=== PATIENT | male | born 1970 | race Caucasian/White ===

== ENCOUNTER 2022-03-21 22:33 | Inpatient (IN) | payer OTHER, SELFPAY ==
--- NOTE | ~2022-03-21 | NM_ITS ---
EXAMINATION: NUCLEAR MEDICINE HEPATOBILIARY SCAN CLINICAL INFORMATION: Acute right upper quadrant pain. Evaluate for cholecystitis. COMPARISON: Ultrasound abdomen limited 03/22/2022. TECHNIQUE: Following intravenous administration of 5 mCi of 99m Tc mebrofenin, images over the right upper quadrant were obtained up to 3 1/2 hours. No delayed images were obtained. FINDINGS: There is normal hepatic uptake without focal defect. There is no isotope activity seen in the CBD, gallbladder and small bowel up to 2 hours.. At 3 1/2 hours there is activity seen in the gallbladder consistent with cystic duct patency. Small bowel and CBD is not visualized. NM/NM hepatobiliary wo pharm IMPRESSION: Normal hepatic uptake. Delayed activity seen in the gallbladder at 3 and half hours consistent with patent cystic duct. CBD and small bowel is not visualized up to 3 1/2 priors. CBD obstruction cannot be excluded. CBD appears normal caliber on MRI and ultrasound.
--- NOTE | ~2022-03-21 | MR_ITS ---
EXAMINATION: MR ABDOMEN WITHOUT AND WITH CONTRAST CLINICAL INFORMATION: Dilated biliary ducts, transaminitis. COMPARISON: Abdominal ultrasound from earlier today. TECHNIQUE: MR abdomen was performed without and with use of 9 mL intravenous Gadavist gadolinium contrast. Postcontrast images are performed in multiphase dynamic sequences. Imaging was performed in 3 planes. MRCP was also performed with 3-D reformatted images obtained on a separate workstation. FINDINGS: LUNG BASES: The visualized lung bases are unremarkable. LIVER, GALLBLADDER, AND BILIARY TREE: Hepatic steatosis with small areas of focal fatty sparing most pronounced surrounding the gallbladder. Minimal pericholecystic fluid without significant mural thickening. No intraluminal abnormality. PANCREAS: No parenchymal or peripancreatic abnormality. SPLEEN: Unremarkable. ADRENAL GLANDS: Unremarkable. KIDNEYS AND URETERS: Tiny T2 hyperintense nonenhancing focus in the upper pole of the left kidney measuring 0.4 cm (image 52, series 101 GASTROINTESTINAL TRACT: The stomach, visualized small bowel and visualized large bowel are unremarkable. ABDOMINAL WALL: Unremarkable. LYMPH NODES: No lymphadenopathy. VASCULAR: Unremarkable. OSSEOUS STRUCTURES: Severe degenerative disc disease at L5-S1. No suspicious abnormality. MRCP: No significant intrahepatic biliary ductal dilatation. Common hepatic duct measures 0.8 cm and common bile duct measures up to 1.0 cm (image 27, series 13). With normal tapering at the pancreatic head. No intraluminal abnormality. The cystic duct is patent. No pancreatic ductal dilatation. MR/MR abdomen wo/w con IMPRESSION: 1. Minimal pericholecystic fluid without significant mural thickening or intraluminal abnormality. These findings somewhat correlate with ultrasound findings. Mild acute cholecystitis cannot be excluded. If symptoms persist or worsen, short-term repeat right upper quadrant ultrasound is recommended to assess for change. 2. Mild dilatation of the common bile duct without intraluminal abnormality. No evidence for choledocholithiasis. 3. Hepatic steatosis with small areas of focal fatty sparing. 4. Tiny focus in the upper pole the left kidney demonstrates benign features likely representing a cyst. 5. L5-S1 severe degenerative disc disease.
--- NOTE | ~2022-03-21 | US_ITS ---
EXAMINATION: US ABDOMEN LIMITED CLINICAL INFORMATION: Right upper quadrant pain. Jaundice.. COMPARISON: None TECHNIQUE: Real-time imaging of the right upper quadrant abdominal viscera. FINDINGS: PANCREAS: Normal. LIVER: The liver is normal in size. The liver contour is normal. There is diffuse increased liver parenchymal echogenicity, consistent with hepatic steatosis. No focal hepatic lesion. There are dilated intrahepatic ducts. GALLBLADDER: Echogenic bile throughout the gallbladder lumen. Pericholecystic fluid noted. Borderline gallbladder wall thickening. No stones are seen. COMMON BILE DUCT: Dilated in caliber measuring 0.9 cm in diameter. RIGHT KIDNEY: Normal. No hydronephrosis. No renal calculi or focal parenchymal lesions. The kidney measures 11.2 cm in maximum dimension. FREE FLUID: None. US/US abdomen limited IMPRESSION: Dilated intrahepatic and extrahepatic bile ducts. Prominent sludge throughout the gallbladder. Associated borderline gallbladder wall thickening and pericholecystic fluid raises concern for cholecystitis. Hepatic steatosis.
[2022-03-21 22:37] VITALS: BP 129/64; PULSE 62; RESP 18; TEMP 37.1; O2SAT 96; BMI 28.0
[2022-03-21 22:46] LABS: MANUAL DIFF FLAG NO
[2022-03-21 22:51] LABS: Basophils Percent Auto 0.5 % (0-2); Eosinophils Absolute Auto 0.1 X10*3/uL (0.0-0.4); Eosinophils Percent Auto 0.9 % (0-4); Hematocrit 40.5 % (42.0-52.0); Hemoglobin 13.3 g/dl (14.0-18.0); Imm Gran Abs Auto 0.02 X10*3/uL (0.00-0.03); Imm Gran Pct Auto 0.3 % (0.0-0.4); Lymphocytes Absolute Auto 1.5 X10*3/uL (1.2-4.9); Lymphocytes Percent Auto 23.3 % (20-40); Mean Corpuscular HGB Conc 32.8 g/dl (31.0-36.0); Mean Corpuscular Hemoglobin 29.6 pg (27.0-33.0); Mean Platelet Volume 12.6 fL (9.4-12.4); Monocytes Absolute Auto 0.6 X10*3/uL (0.1-1.2); Neutrophils Absolute Auto 4.2 x10*3/uL (2.0-8.3); Platelet Count 161 X10*3/uL (160-400); Red Cell Distribution Width 13.6 % (11.0-16.0); White Blood Count 6.4 X10*3/uL (4.8-10.8)
[2022-03-21 23:04] LABS: Alanine Aminotransferase 510 U/L (0-40); Albumin Level 3.7 g/dL (3.5-5.0); Alkaline Phosphatase 212 U/L (39-117); Anion Gap 11 (12-20); Aspartate Amino Transferase 207 U/L (5-37); Bilirubin Total 5.2 mg/dL (0.0-1.0); Blood Urea Nitrogen 11 mg/dL (9-16); Carbon Dioxide 27 mmol/L (22-29); Chloride 109 mmol/L (96-108); Creatinine Clr Calc Pharmacy 88.8; Estimated Glomerular Filt Rate > 60; Glucose Random 232 mg/dL (60-115); Lipase 76 U/L (8-78); Potassium 4.2 mmol/L (3.3-5.1); Sodium 143 mmol/L (135-145); Total Protein 6.3 g/dL (6.5-8.0)
--- NOTE | 2022-03-22 00:28 | ED.ABDPAIN ---
HPI - Abdominal Pain General Chief Complaint: Abdominal Pain Stated Complaint: eyes yellow, abd pain Time Seen by Provider: 03/22/22 00:15 Source: patient Mode of arrival: ambulatory Limitations: no limitations History of Present Illness HPI narrative: 51 y/o Pashto speaking male with history of DM2, neuropathy, HLD, depression who presents to the ER with 1 week of worsening right upper quadrant abdominal pain & abdominal fullness. His reports that after he eats he would have to go to the bathroom and have diarrhea, denies any blood. His urine has been orange this week and she noticed the whites of his eyes were starting to turn yellow today. She called the PCP who told him to come to the ER for further evaluation. He denies any nausea or vomiting. No alcohol use. No fever or chills. He states the RUQ pain is constant and dull. MD elicited complaint: abdominal pain Pertinent past history: none Onset (ago): week(s) (1) Location: RUQ Severity: moderate Quality: aching and dull Radiation: none Migration to: no migration Exacerbating factors: nothing Relieving factors: nothing Associated symptoms: diarrhea Related Data Home Medications Medication Instructions Recorded Confirmed atorvastatin 20 mg tablet 1 tab PO DAILY 03/22/22 03/22/22 fluoxetine 40 mg capsule 60 mg PO DAILY 03/22/22 03/22/22 gabapentin 800 mg tablet 2 tab PO BID 03/22/22 03/22/22 metformin 1,000 mg tablet 1 tab PO BID 03/22/22 03/22/22 omega-3 fatty acids-fish oil 340 1 cap PO TID 03/22/22 03/22/22 mg-1,000 mg capsule (Fish Oil) Allergies Allergy/AdvReac Type Severity Reaction Status Date / Time Penicillins [PCN] Allergy Intermediate Unknown Verified 03/21/22 22:36 Review of Systems Review of Systems Constitutional: No Fever, No Chills ENT/Mouth: No sore throat, No Rhinorrhea, No Swallowing Difficulty Eyes: No Eye Pain, No Swelling, No Redness Cardiovascular: No Chest Pain, No SOB, No Orthopnea, No Edema Respiratory: No Cough, No Sputum, No Wheezing, No dyspnea Gastrointestinal: No Nausea, No Vomiting, +Diarrhea, + abdominal Pain, No Hematochezia, No Melena Genitourinary: No Dysuria, No Urinary Frequency, No Hematuria Musculoskeletal: No joint pain, No Myalgias Skin: No Skin Lesions, No rash Neuro: No Weakness, No Numbness, No Dizziness, No Headache Psych: No Anxiety/Panic, No Depression Heme/Lymph: No Bruising, No Lymphadenopathy Endocrine: No Polyuria, No Polydipsia [facility] Past Medical History Medical History (Updated 03/22/22 @ 01:49 by HARRIS Gastelum) Depression DM2 (diabetes mellitus, type 2) Dyslipidemia Erectile dysfunction HTN (hypertension) Injury of right brachial plexus Subarachnoid hemorrhage Subdural hematoma Vitamin D deficiency Social History Social History Advance Directives: No Advance Directives Information Provided: Yes Physical Exam ED Vital Signs: Vital Signs - 24 hr 03/21/22 22:37 03/22/22 00:35 Temperature 98.7 F 98.0 F Pulse Rate 62 59 Respiratory Rate 18 18 Blood Pressure 129/64 135/75 Pulse Oximetry 96 99 BMI result Body Mass Index 28.0 Appearance: Alert. Oriented X3. No acute distress. Eyes: Pupils equal, round and reactive to light. Mild scleral icterus noted. ENT: Pharynx normal. Neck: Normal inspection. Neck supple. CVS: Normal heart rate and rhythm. Pulses normal. Respiratory: No respiratory distress. Breath sounds normal. Abdomen: Rotund, Softly distended with RUQ tenderness and guarding, hyperactive +BS x4 Skin: Skin warm and dry. Skin with slight yelllow hue.. Normal skin turgor. No rashes. Extremities: No lower extremity edema. Neuro: Oriented X 3. No motor deficit. No sensory deficit. Course Course Course Narrative: 51 y/o male with history of DM2, HLD, neuropathy, depression presents to the ER with RUQ pain and abdominal distention x1 week and new onset jaundice. No ETOH use. VS are stable. On exam his abd is distended with RUQ tenderness with guarding. His labs done in triage show elevated bilirubins and transaminitis, elevated alk phos. Normal lipase. Concern for biliary obstruction, possible CBD stone. Less likely ascending cholangitis with no fever or leukocytosis. Will add hepatitis panel, coags, lactic and cultures. Will get RUQ ultrasound for further evaluation. Will require admission. Reevaluation(s) Reevaluation #1: Normal coags. Normal lactic acid. ETOH <10. Going for ultrasound now then will plan for admission. Reevaluation #2: US showing dilated intrahepatic and extrahepatic bile ducts. Prominent slidge throughout the gallbladder with borderline wall thickening and pericholecystic fluid, possible cholecystitis. hepatic steatosis. Dr. Guan from GI has been TT - will likely need MRCP for further evaluation. Will plan for admission to medicine, likely GI and surgical consults. MDM - Abdominal Pain Medical Records Attestation: I reviewed the patient's medical records. Lab Data Attestation: I reviewed the patient's lab results. Result diagrams: 03/21/22 22:43 03/21/22 22:43 Labs: Lab Results 03/21/22 03/21/22 03/22/22 Range/Units 22:43 22:43 00:47 WBC 6.4 (4.8-10.8) X10*3/uL RBC 4.50 L (4.60-5.80) X10*6/uL Hgb 13.3 L (14.0-18.0) g/dl Hct 40.5 L (42.0-52.0) % MCV 90.0 (80.0-98.0) fL MCH 29.6 (27.0-33.0) pg MCHC 32.8 (31.0-36.0) g/dl RDW 13.6 (11.0-16.0) % Plt Count 161 (160-400) X10*3/uL MPV 12.6 H (9.4-12.4) fL Immature Gran % (Auto) 0.3 (0.0-0.4) % Neut % (Auto) 65.0 (45-73) % Lymph % (Auto) 23.3 (20-40) % [place] % (Auto) 10.0 (2-11) % Eos % (Auto) 0.9 (0-4) % Baso % (Auto) 0.5 (0-2) % Lymph # (Auto) 1.5 (1.2-4.9) X10*3/uL [place] # (Auto) 0.6 (0.1-1.2) X10*3/uL Eos # (Auto) 0.1 (0.0-0.4) X10*3/uL Baso # (Auto) 0.0 (0.0-0.2) X10*3/uL Abs Immat Gran (auto) 0.02 (0.00-0.03) X10*3/uL Absolute Neuts (auto) 4.2 (2.0-8.3) x10*3/uL Absolute Nucleated RBC 0.000 (0.0-0.012) X10*3/uL Nucleated RBC % (auto) 0.0 (0.0-0.2) /100WBC PT (9.9-13.0) SEC INR (0.9-1.1) APTT (24.1-38.0) SEC Sodium 143 (135-145) mmol/L Potassium 4.2 (3.3-5.1) mmol/L Chloride 109 H (96-108) mmol/L Carbon Dioxide 27 (22-29) mmol/L Anion Gap 11 L (12-20) BUN 11 (9-16) mg/dL Creatinine 1.07 (0.5-1.4) mg/dL Estim Creat Clear Calc 88.8 Estimated GFR > 60 Random Glucose 232 H (60-115) mg/dL Lactic Acid 2.0 (0.5-2.0) mmol/L Calcium 9.0 (8.4-10.2) mg/dL Total Bilirubin 5.2 H (0.0-1.0) mg/dL Direct Bilirubin 4.0 H (0.0-0.5) mg/dL AST 207 H (5-37) U/L ALT 510 H (0-40) U/L Alkaline Phosphatase 212 H (39-117) U/L Total Protein 6.3 L (6.5-8.0) g/dL Albumin 3.7 (3.5-5.0) g/dL Lipase 76 (8-78) U/L Urine Color Urine Appearance Urine pH (5.0-8.0) Ur Specific [place] (1.005-1.025) Urine Protein (NEG-TRACE) MG/DL Urine Glucose (UA) (NEG) MG/DL Urine Ketones (NEG) MG/DL Urine Blood (NEG) Urine Nitrite (NEG) Ur Leukocyte Esterase (NEG) Ethyl Alcohol mg/dL COVID-19 (TASHA) (Negative) COVID-19 Clin Com 03/22/22 03/22/22 03/22/22 Range/Units 00:48 00:48 00:48 WBC (4.8-10.8) X10*3/uL RBC (4.60-5.80) X10*6/uL Hgb (14.0-18.0) g/dl Hct (42.0-52.0) % MCV (80.0-98.0) fL MCH (27.0-33.0) pg MCHC (31.0-36.0) g/dl RDW (11.0-16.0) % Plt Count (160-400) X10*3/uL MPV (9.4-12.4) fL Immature Gran % (Auto) (0.0-0.4) % Neut % (Auto) (45-73) % Lymph % (Auto) (20-40) % [place] % (Auto) (2-11) % Eos % (Auto) (0-4) % Baso % (Auto) (0-2) % Lymph # (Auto) (1.2-4.9) X10*3/uL [place] # (Auto) (0.1-1.2) X10*3/uL Eos # (Auto) (0.0-0.4) X10*3/uL Baso # (Auto) (0.0-0.2) X10*3/uL Abs Immat Gran (auto) (0.00-0.03) X10*3/uL Absolute Neuts (auto) (2.0-8.3) x10*3/uL Absolute Nucleated RBC (0.0-0.012) X10*3/uL Nucleated RBC % (auto) (0.0-0.2) /100WBC PT 11.1 (9.9-13.0) SEC INR 1.0 (0.9-1.1) APTT 35.3 (24.1-38.0) SEC Sodium (135-145) mmol/L Potassium (3.3-5.1) mmol/L Chloride (96-108) mmol/L Carbon Dioxide (22-29) mmol/L Anion Gap (12-20) BUN (9-16) mg/dL Creatinine (0.5-1.4) mg/dL Estim Creat Clear Calc Estimated GFR Random Glucose (60-115) mg/dL Lactic Acid (0.5-2.0) mmol/L Calcium (8.4-10.2) mg/dL Total Bilirubin (0.0-1.0) mg/dL Direct Bilirubin (0.0-0.5) mg/dL AST (5-37) U/L ALT (0-40) U/L Alkaline Phosphatase (39-117) U/L Total Protein (6.5-8.0) g/dL Albumin (3.5-5.0) g/dL Lipase (8-78) U/L Urine Color Urine Appearance Urine pH (5.0-8.0) Ur Specific [place] (1.005-1.025) Urine Protein (NEG-TRACE) MG/DL Urine Glucose (UA) (NEG) MG/DL Urine Ketones (NEG) MG/DL Urine Blood (NEG) Urine Nitrite (NEG) Ur Leukocyte Esterase (NEG) Ethyl Alcohol < 10 mg/dL COVID-19 (TASHA) Negative (Negative) COVID-19 Clin Com See Note 03/22/22 Range/Units 01:32 WBC (4.8-10.8) X10*3/uL RBC (4.60-5.80) X10*6/uL Hgb (14.0-18.0) g/dl Hct (42.0-52.0) % MCV (80.0-98.0) fL MCH (27.0-33.0) pg MCHC (31.0-36.0) g/dl RDW (11.0-16.0) % Plt Count (160-400) X10*3/uL MPV (9.4-12.4) fL Immature Gran % (Auto) (0.0-0.4) % Neut % (Auto) (45-73) % Lymph % (Auto) (20-40) % [place] % (Auto) (2-11) % Eos % (Auto) (0-4) % Baso % (Auto) (0-2) % Lymph # (Auto) (1.2-4.9) X10*3/uL [place] # (Auto) (0.1-1.2) X10*3/uL Eos # (Auto) (0.0-0.4) X10*3/uL Baso # (Auto) (0.0-0.2) X10*3/uL Abs Immat Gran (auto) (0.00-0.03) X10*3/uL Absolute Neuts (auto) (2.0-8.3) x10*3/uL Absolute Nucleated RBC (0.0-0.012) X10*3/uL Nucleated RBC % (auto) (0.0-0.2) /100WBC PT (9.9-13.0) SEC INR (0.9-1.1) APTT (24.1-38.0) SEC Sodium (135-145) mmol/L Potassium (3.3-5.1) mmol/L Chloride (96-108) mmol/L Carbon Dioxide (22-29) mmol/L Anion Gap (12-20) BUN (9-16) mg/dL Creatinine (0.5-1.4) mg/dL Estim Creat Clear Calc Estimated GFR Random Glucose (60-115) mg/dL Lactic Acid (0.5-2.0) mmol/L Calcium (8.4-10.2) mg/dL Total Bilirubin (0.0-1.0) mg/dL Direct Bilirubin (0.0-0.5) mg/dL AST (5-37) U/L ALT (0-40) U/L Alkaline Phosphatase (39-117) U/L Total Protein (6.5-8.0) g/dL Albumin (3.5-5.0) g/dL Lipase (8-78) U/L Urine Color DK YELLOW Urine Appearance CLEAR Urine pH 5.5 (5.0-8.0) Ur Specific [place] >= 1.030 H (1.005-1.025) Urine Protein TRACE (NEG-TRACE) MG/DL Urine Glucose (UA) 500 H (NEG) MG/DL Urine Ketones 5 (NEG) MG/DL Urine Blood NEG (NEG) Urine Nitrite NEG (NEG) Ur Leukocyte Esterase NEG (NEG) Ethyl Alcohol mg/dL COVID-19 (TASHA) (Negative) COVID-19 Clin Com Discharge Plan Discharge Clinical Impression: Abdominal pain, acute, right upper quadrant, Acute cholecystitis Patient Disposition: Admitted As Inpatient
[2022-03-22 00:35] VITALS: BP 135/75; PULSE 59; RESP 18; TEMP 36.7; O2SAT 99
[2022-03-22 01:00] LABS: Prothrombin Time 11.1 SEC (9.9-13.0)
[2022-03-22 01:03] LABS: Partial Thromboplastin Time 35.3 SEC (24.1-38.0)
[2022-03-22 01:08] LABS: Ethanol < 10 mg/dL
[2022-03-22 01:11] LABS: COVID-19 Test Negative (Negative)
[2022-03-22 01:41] LABS: Appearance Urine CLEAR; Color Urine DK YELLOW; Glucose Urine UA 500 MG/DL (NEG); Leukocyte Esterase Urine NEG (NEG); Nitrite Urine NEG (NEG); PH 5.5 (5.0-8.0); Specific Gravity - Urine >= 1.030 (1.005-1.025); Urine Blood NEG (NEG); Urine Ketones 5 MG/DL (NEG); Urine Protein TRACE MG/DL (NEG-TRACE)
--- NOTE | 2022-03-22 02:03 | PM.IMHP ---
History of Present Illness Date of Service: 03/22/22 Chief Complaint: Abdominal pain 51-year-old male with a past medical history of hypertension, hyperlipidemia, diabetes presented to the hospital with a chief complaint of abdominal pain. Patient reports that he has been having abdominal pain located in the upper abdomen, associated nausea vomiting; also mentions having diarrhea. Denies any blood in the stool or blood in the vomitus. Reports symptoms have been going on for the past 3 weeks. Gradually worsening. Hence decided to come to the ER for further evaluation. Patient reported that today his noticed having Yris; also complained of yellowish urine. Reports his abdominal pain worsens with eating. But present constantly on the right upper quadrant and epigastric areas. Denies any fevers at home. Denies any concerns for poor poisoning. Denies any chest pain or palpitations. Denies any urinary symptoms. Review of all other systems is negative except mentioned above ER course: Per ER team patient noted to have right upper quadrant tenderness; ultrasound showed dilated intrahepatic extrahepatic delete ABX; biliary sludge; mildly thickened gallbladder wall; empirically start antibiotics. Patient is afebrile; vital stable; no leukocytosis; also noted to have elevated liver enzymes. Admitted for further management [facility] Medical History (Updated 03/22/22 @ 01:49 by HARRIS Gastelum) Depression DM2 (diabetes mellitus, type 2) Dyslipidemia Erectile dysfunction HTN (hypertension) Injury of right brachial plexus Subarachnoid hemorrhage Subdural hematoma Vitamin D deficiency Pertinent family history: Father has diabetes Social History Advance Directives: No Advance Directives Information Provided: Yes Meds Allergies Allergy/AdvReac Type Severity Reaction Status Date / Time Penicillins [PCN] Allergy Intermediate Unknown Verified 03/21/22 22:36 Active Medications: Current Medications Acetaminophen (Acetaminophen 325 Mg Tablet) 650 mg PO Q6H PRN PRN Reason: Pain, Mild (Pain Scale 1-3) Atorvastatin Calcium (Atorvastatin Calcium 20 Mg Tablet) 20 mg PO DAILY [facility] Dextrose (Dextrose 50 % 25 Gm/50 Ml Syringe) 25 gm IVPUSH Q15M PRN; Protocol PRN Reason: per Hypoglycemia Standing Ord. Fluoxetine HCl (Fluoxetine Hcl 20 Mg Capsule) 60 mg PO DAILY [facility] Gabapentin (Gabapentin 400 Mg Capsule) 1,600 mg PO BID [facility] Glucose (Glucose Gel 15 Gm Gel..Gram.) 15 gm PO Q15M PRN; Protocol PRN Reason: per Hypoglycemia Standing Ord. Heparin Sodium (Porcine) (Heparin Sodium,Porcine 5,000 Unit/Ml Vial) 5,000 unit SUBCUT Q8H [facility] Ceftriaxone Sodium 1 gm/ (Sodium Chloride) 50 mls @ 100 mls/hr IV ONCE ONE Stop: 03/22/22 02:06 Metronidazole (Flagyl) 500 mg in 100 mls @ 100 mls/hr IV ONCE ONE Stop: 03/22/22 02:37 Sodium Chloride (Ns) 1,000 mls @ 999 mls/hr IVCONT .Q1H1M [facility] Stop: 03/22/22 02:45 Ceftriaxone Sodium 1 gm/ (Sodium Chloride) 50 mls @ 100 mls/hr IV Q24H [facility] Insulin Human Lispro (Insulin Lispro 100 Unit/Ml 3 Ml Vial) 0 unit SUBCUT QIDACHS [facility]; Protocol Melatonin (Melatonin 3 Mg Tablet) 6 mg PO BEDTIME PRN PRN Reason: Insomnia Non-Formulary Medication ([place]-3 Fatty Acids-Fish Oil [Fish Oil]) 1 cap PO TID [facility] Pharmacy Consult (Consult Rx Perform Med Rec) 1 each MISCELLANE ONCE PRN PRN Reason: Consult order Senna (Sennosides 8.6 Mg Tablet) 17.2 mg PO BEDTIME PRN PRN Reason: Constipation Sodium Chloride (0.9 % Sodium Chloride Flush 3 Ml Syringe) 3 ml IVFLUSH QSHIFT [facility] Home Medications Medication Instructions Recorded Confirmed Last Taken Type atorvastatin 20 mg tablet 1 tab PO DAILY 03/22/22 03/22/22 Unknown History fluoxetine 40 mg capsule 60 mg PO DAILY 03/22/22 03/22/22 Unknown History gabapentin 800 mg tablet 2 tab PO BID 03/22/22 03/22/22 Unknown History metformin 1,000 mg tablet 1 tab PO BID 03/22/22 03/22/22 Unknown History omega-3 fatty acids-fish oil 340 1 cap PO TID 03/22/22 03/22/22 Unknown History mg-1,000 mg capsule (Fish Oil) Physical Exam Vital Signs and Narrative: Vital Signs: Last Vital Signs Temp 98.0 F 03/22/22 00:35 Pulse 59 03/22/22 00:35 Resp 18 03/22/22 00:35 BP 135/75 03/22/22 00:35 Pulse Ox 99 03/22/22 00:35 BMI result Body Mass Index 28.0 Gen: Appears be in no acute distress HEENT: NCAT, Moist mucosa. Pulmonary: Vesicular breath sounds, fair air entry CVS: Normal S1-S2 Abdomen: BS+, Soft, tender in the right upper quadrant; no guarding no rigidity Extremities: Warm well perfused Neuro: Alert and awake. Results Labs CBC and Chem 7: 03/21/22 22:43 03/21/22 22:43 Labs: Laboratory Results - last 24 hr 03/21/22 03/21/22 03/22/22 22:43 22:43 00:47 MCV 90.0 MCH 29.6 MCHC 32.8 RDW 13.6 Plt Count 161 MPV 12.6 H Immature Gran % (Auto) 0.3 Neut % (Auto) 65.0 Lymph % (Auto) 23.3 [place] % (Auto) 10.0 Eos % (Auto) 0.9 Baso % (Auto) 0.5 Lymph # (Auto) 1.5 [place] # (Auto) 0.6 Eos # (Auto) 0.1 Baso # (Auto) 0.0 Abs Immat Gran (auto) 0.02 Absolute Neuts (auto) 4.2 Absolute Nucleated RBC 0.000 Nucleated RBC % (auto) 0.0 PT INR APTT Anion Gap 11 L Estim Creat Clear Calc 88.8 Estimated GFR > 60 Random Glucose 232 H Lactic Acid 2.0 Calcium 9.0 Total Bilirubin 5.2 H Direct Bilirubin 4.0 H AST 207 H ALT 510 H Alkaline Phosphatase 212 H Total Protein 6.3 L Albumin 3.7 Lipase 76 Urine Color Urine Appearance Urine pH Ur Specific [place] Urine Protein Urine Glucose (UA) Urine Ketones Urine Blood Urine Nitrite Ur Leukocyte Esterase Ethyl Alcohol COVID-19 (TASHA) COVID-19 Clin Com 03/22/22 03/22/22 03/22/22 00:48 00:48 00:48 MCV MCH MCHC RDW Plt Count MPV Immature Gran % (Auto) Neut % (Auto) Lymph % (Auto) [place] % (Auto) Eos % (Auto) Baso % (Auto) Lymph # (Auto) [place] # (Auto) Eos # (Auto) Baso # (Auto) Abs Immat Gran (auto) Absolute Neuts (auto) Absolute Nucleated RBC Nucleated RBC % (auto) PT 11.1 INR 1.0 APTT 35.3 Anion Gap Estim Creat Clear Calc Estimated GFR Random Glucose Lactic Acid Calcium Total Bilirubin Direct Bilirubin AST ALT Alkaline Phosphatase Total Protein Albumin Lipase Urine Color Urine Appearance Urine pH Ur Specific [place] Urine Protein Urine Glucose (UA) Urine Ketones Urine Blood Urine Nitrite Ur Leukocyte Esterase Ethyl Alcohol < 10 COVID-19 (TASHA) Negative COVID-19 Clin Com See Note 03/22/22 01:32 MCV MCH MCHC RDW Plt Count MPV Immature Gran % (Auto) Neut % (Auto) Lymph % (Auto) [place] % (Auto) Eos % (Auto) Baso % (Auto) Lymph # (Auto) [place] # (Auto) Eos # (Auto) Baso # (Auto) Abs Immat Gran (auto) Absolute Neuts (auto) Absolute Nucleated RBC Nucleated RBC % (auto) PT INR APTT Anion Gap Estim Creat Clear Calc Estimated GFR Random Glucose Lactic Acid Calcium Total Bilirubin Direct Bilirubin AST ALT Alkaline Phosphatase Total Protein Albumin Lipase Urine Color DK YELLOW Urine Appearance CLEAR Urine pH 5.5 Ur Specific [place] >= 1.030 H Urine Protein TRACE Urine Glucose (UA) 500 H Urine Ketones 5 Urine Blood NEG Urine Nitrite NEG Ur Leukocyte Esterase NEG Ethyl Alcohol COVID-19 (TASHA) COVID-19 Clin Com Imaging Radiologist's Impressions: Impressions Abdomen Ultrasound 03/22/22 01:28 IMPRESSION: Dilated intrahepatic and extrahepatic bile ducts. Prominent sludge throughout the gallbladder. Associated borderline gallbladder wall thickening and pericholecystic fluid raises concern for cholecystitis. Hepatic steatosis. Assessment and Plan (1) Abdominal pain, acute, right upper quadrant: Status: Acute Plan 51-year-old male with a past medical history of hypertension, hyperlipidemia, diabetes presented to the hospital with a chief complaint of abdominal pain. Noted to have transaminitis/gallbladder wall thickening/biliary sludge/dilated intrahepatic and extrahepatic biliary ducts. Admitted to the hospital for further management. Transaminitis: Ultrasound showed dilated ducts, biliary sludge, gallbladder wall thickening; Patient is afebrile, no leukocytosis but empirically covered for cholecystitis with ceftriaxone. Will obtain HIDA scan to rule out acute cholecystitis. MRCP ordered Gastroenterology notified Trend liver enzymes Acute hepatitis panel History of diabetes: Insulin sliding scale History of hyperlipidemia: Hold home statin History of depression: Continue fluoxetine DVT prophylaxis: Subcu heparin Code status: Full code Quality Stroke Does the patient have a stroke diagnosis?: No VTE Prior VTE?: No VTE Risk Level:: Medical - moderate - high VTE Device Contraindication: Treatment Not Indicated VTE Drug Contraindication: N/A - Med Ordered
[2022-03-22] MEDS: cefTRIAXone sodium 1 GM in 0.9 % Sodium Chloride 50 ML IV (02:39)
[2022-03-22] MEDS: 0.9 % Sodium Chloride 1,000 ML 999 ML IVCONT (02:39)
[2022-03-22] MEDS: Heparin Sodium,Porcine 5,000 UNIT/ML VIAL 5000 UNIT SUBCUT ×2 (02:40→08:55)
[2022-03-22 02:50] VITALS: BP 135/75; PULSE 54; RESP 18; O2SAT 98
[2022-03-22] MEDS: metroNIDAZOLE/NS 500 MG/100 ML PIGGYBACK 100 MG IV (03:31)
--- NOTE | 2022-03-22 03:58 | PC.NURSE ---
MRI screen form completed with pt and and faxed to mri
[2022-03-22 05:57] LABS: HBS Num1 6.92 mIU/mL (0-7.99); HBc Num1 0.06 S/CO (0.00-0.79); HBsAGNum1 0.17 S/CO (0.00-0.99); Hepatitis B Core Antibody Nonreactive (Nonreactive); Hepatitis B Surface Antigen Negative (Negative); ~HepC Num1 0.08 S/CO (0.00-0.79); ~Hepatitis B Surface Antibody NONREACTIVE (Nonreactive); ~Hepatitis C Antibody Nonreactive (Nonreactive)
[2022-03-22 06:01] VITALS: BP 120/58; PULSE 54; RESP 14; O2SAT 97
--- NOTE | 2022-03-22 06:37 | PC.NURSE ---
pt ambulated to BR to void, steady gait. no c/o dizziness
[2022-03-22 06:48] LABS: MANUAL DIFF FLAG NO
[2022-03-22 06:52] LABS: Basophils Percent Auto 0.5 % (0-2); Eosinophils Absolute Auto 0.1 X10*3/uL (0.0-0.4); Eosinophils Percent Auto 1.5 % (0-4); Hematocrit 38.4 % (42.0-52.0); Hemoglobin 12.5 g/dl (14.0-18.0); Imm Gran Abs Auto 0.01 X10*3/uL (0.00-0.03); Imm Gran Pct Auto 0.2 % (0.0-0.4); Lymphocytes Absolute Auto 1.9 X10*3/uL (1.2-4.9); Mean Corpuscular HGB Conc 32.6 g/dl (31.0-36.0); Mean Corpuscular Hemoglobin 29.5 pg (27.0-33.0); Mean Corpuscular Volume 90.6 fL (80.0-98.0); Mean Platelet Volume 12.8 fL (9.4-12.4); Monocytes Absolute Auto 0.6 X10*3/uL (0.1-1.2); Monocytes Percent Auto 9.5 % (2-11); Neutrophils Absolute Auto 3.6 x10*3/uL (2.0-8.3); Neutrophils Percent Auto 57.3 % (45-73); Platelet Count 144 X10*3/uL (160-400); Red Blood Count 4.24 X10*6/uL (4.60-5.80); Red Cell Distribution Width 13.8 % (11.0-16.0); White Blood Count 6.2 X10*3/uL (4.8-10.8)
[2022-03-22 07:08] LABS: Anion Gap 11 (12-20); Blood Urea Nitrogen 14 mg/dL (9-16); Calcium 8.8 mg/dL (8.4-10.2); Carbon Dioxide 26 mmol/L (22-29); Chloride 111 mmol/L (96-108); Creatinine Clr Calc Pharmacy 117.3; Estimated Glomerular Filt Rate > 60; Glucose Random 166 mg/dL (60-115); Potassium 3.9 mmol/L (3.3-5.1); Sodium 144 mmol/L (135-145)
[2022-03-22 07:24] LABS: Glucose, Whole Blood 145 mg/dL (60-115)
--- NOTE | 2022-03-22 07:40 | PHA.MEDREC ---
Pharmacy Consult ? Medication Reconciliation Pharmacy has reviewed the medication reconciliation completed by Derrick. Patient has a prescription for trazodone, added medication to home list as PRN. Nica Ervin, [facility]
[2022-03-22] MEDS: Gabapentin 400 MG CAPSULE 1600 MG PO ×2 (08:55→20:03)
[2022-03-22] MEDS: FLUoxetine HCl 20 MG CAPSULE 60 MG PO (08:55)
[2022-03-22] MEDS: Atorvastatin Calcium 20 MG TABLET PO (08:55)
--- NOTE | 2022-03-22 08:56 | PM.EVENT ---
Event Note Date of Service: 03/22/22 Event Note: GI Consult-Full note dictated-Hx via patient with medical doctor md/medical director and from EMR Imp: 51 yo male with 3 weeks of intermittent abdominal pain and jaundice with labs and CT c/w biliary obstruction. Diff dx: CBD stones/sludge, Cholecystitis with Mirizzi's syndrome, neoplasm. Rec: MRCP today, F/U labs, IV antibiotics, NPO. He may need ERCP-full consent has been obtained for this, including risks of bleeding, perforation, cholangitis, and pancreatitis. He may need surgery consult re: possible CCY. D/W patient in detail. Thanks
[2022-03-22] MEDS: 0.9 % Sodium Chloride Flush 3 ML SYRINGE IVFLUSH ×2 (08:57→16:32)
--- NOTE | 2022-03-22 09:13 | PC.NURSE ---
Off unit to MRI Denies pain at this time
[2022-03-22 10:56] LABS: Alanine Aminotransferase 484 U/L (0-40); Albumin Level 3.6 g/dL (3.5-5.0); Alkaline Phosphatase 207 U/L (39-117); Aspartate Amino Transferase 194 U/L (5-37); Bilirubin Direct 3.8 mg/dL (0.0-0.5); Bilirubin Total 5.2 mg/dL (0.0-1.0); Total Protein 5.8 g/dL (6.5-8.0)
--- NOTE | 2022-03-22 11:30 | PM.EVENT ---
Event Note Date of Service: 03/22/22 Event Note: I personally saw and examined this patient who was admitted this morning, no new changes a/p per H and P from this morning. GI planning on ERCP today
--- NOTE | 2022-03-22 12:01 | PC.NURSE ---
report obtained from lakshmi, patient currently sleeping, woke to verbal stimulus, vials stable, poc obtained 138- no coverage needed, pt currently denying pain or discomfort, call celis within reach, will continue to monitor
[2022-03-22 12:04] LABS: Glucose, Whole Blood 138 mg/dL (60-115)
--- NOTE | 2022-03-22 13:49 | PC.NURSE ---
patient transported to go to [facility] for scan
--- NOTE | 2022-03-22 14:40 | MHC.CM.PN ---
Attempted to meet with pt to complete CM assessment: pt not in ED: presumably having his ERCP. CM to follow upon return
[2022-03-22 16:55] LABS: Glucose, Whole Blood 158 mg/dL (60-115)
[2022-03-22 18:04] VITALS: BP 128/74; PULSE 54; RESP 16; TEMP 36.5; O2SAT 98
[2022-03-22 20:28] LABS: Glucose, Whole Blood 184 mg/dL (60-115)
[2022-03-23 00:02] VITALS: BP 121/61; PULSE 52; RESP 16; TEMP 36.4; O2SAT 98
[2022-03-23] MEDS: 0.9 % Sodium Chloride Flush 3 ML SYRINGE IVFLUSH ×3 (00:32→20:25)
[2022-03-23 04:08] LABS: Hepatitis A Antibody IgM 0.85 Index (0-0.79)
[2022-03-23 04:14] LABS: ~Hepatitis A Antibody IgM GRAYZONE (Nonreactive)
--- NOTE | 2022-03-23 04:29 | CONS_ITS ---
DATE OF SERVICE: 03/22/2022 REASON FOR CONSULTATION: Abdominal pain, elevated LFTs, and abnormal CT scan of biliary tract. HISTORY OF PRESENT ILLNESS: This has been obtained from the patient with a anesthesiology medical doctor and from the medical record. The patient is a 51-year-old male, who describes approximately 3 weeks of a somewhat intermittent upper abdominal pain. This would tend to come and go. He has noticed some darkening of his urine. He denies any definitive fevers nor any chills. He denies any vomiting nor diarrhea. He denies any previous history of liver disease nor pancreatic disease. The patient does describe a history of some heavy drinking in the past, but describes having stopped that at least 5 or 10 years ago. He presently does not use any drugs. He denies any known family history of liver disease nor pancreatic disease. He does not know of any history of gallbladder disease in himself. He denies any history of chronic heartburn nor dysphagia. His appetite had been good. He denies any particular change in bowel habits and denies any history of melena nor hematochezia. He denies using any new medication. MEDICATIONS: At home included atorvastatin, fluoxetine, gabapentin, metformin, fish oil, and trazodone. His medications here in the hospital include atorvastatin, ceftriaxone, fluoxetine, gabapentin, insulin, melatonin, Senokot. PAST MEDICAL HISTORY: He describes some type of orthopedic surgery on his left forearm. He describes a history of some type of accident and with subsequent limited range of motion in the right upper extremity. He has a history of hyperlipidemia. Non-insulin dependent diabetes mellitus. Hypertension. Depression. Reported history of subdural hematoma. Reported history of subarachnoid hemorrhage. He denies history of PR, nor lung disease. SOCIAL HISTORY: He is . He denies any alcohol presently. FAMILY HISTORY: Noncontributory. REVIEW OF SYSTEMS: CONSTITUTIONAL: Prior to the past 3 weeks, he reports that he had been feeling well without any particular GI problems. CARDIAC: No chest pain. PULMONARY: No cough. No hemoptysis. GI: As above. URINARY: No dysuria. No hematuria. His urine has been dark since the onset of his abdominal complaints. PHYSICAL EXAMINATION: GENERAL: The patient is a pleasant, alert, comfortable male. He has been afebrile. SKIN: Warm and dry. HEENT: He has slightly icteric sclerae. NECK: Supple. CHEST: Clear. CARDIAC: Normal S1, S2. ABDOMEN: Soft. Normal bowel sounds. With some mild upper abdominal tenderness to palpations, but without mass, rebound, or guarding. LABORATORY DATA: White blood cell count 6.4, hemoglobin 13.3, platelets 161,000. PT 11.1 with INR 1.0. Electrolytes and renal function are normal. Total bilirubin yesterday was 5.2 with a direct bilirubin of 1.0. Total bilirubin today is also 5.2. AST was 207 yesterday and 194 today. ALT was 510 yesterday and 484 today. Alkaline phosphatase was 212 yesterday and 207 today. Albumin 3.7. Lipase 76. COVID test was negative. Hepatitis B antigen is negative. Hepatitis B antibody is negative. Hepatitis C antibody is negative. Hepatitis A IgM is pending. Ethanol level is less than 10. COVID test was negative. He did have an abdominal ultrasound, which describes a normal-appearing liver. However, there does appear to be some fatty liver. No focal liver lesions. There were dilated intrahepatic bile ducts, echogenic bile in the gallbladder and some pericholecystic fluid. There is borderline gallbladder wall thickening. No stones were seen. The common bile duct measured 9 mm. There was no ascites. The radiologist felt this represented some possible cholecystitis. IMPRESSION: Patient is a 51-year-old male presenting with abdominal pain, elevated LFTs with associated jaundice, and abnormal ultrasound imaging of the gallbladder and bile ducts. At the present time, he does not appear to be toxic and his abdominal exam is fairly benign. Given the clinical history, I suspect this represents at least some gallbladder related disease and the possibility of some associated biliary disease such as common bile duct stones or sludge. However, the fact that no definitive stones were seen in the gallbladder would make common duct stones less likely. He may have a component of some acalculous cholecystitis with either a component of Mirizzi syndrome causing the elevated LFTs and jaundice. Given some previous history of alcohol use, he may have some underlying liver disease that has worsened due to the associated intraabdominal infection from the gallbladder disease. Another possibility would be that of some type of neoplasm involving the distal bile duct, head of the pancreas, or major ampulla. At this point, I would recommend MRCP for later today along with MRI of the pancreas. I will continue to follow his laboratories. I would recommend IV antibiotics. I will continue to keep him n.p.o. I would recommend surgical consultation to help evaluate for possible cholecystitis and potential need for surgery. He will have followup laboratories tomorrow. He has already been ordered for a HIDA scan, which may be helpful as well. Depending upon all of these findings, he may require an ERCP. I did review this with the anesthesiology medical doctor and the patient today. Full consent was obtained for the ERCP including risks of bleeding, perforation, cholangitis, and pancreatitis. I would hold his statin medication given the elevated LFTs, and hold any anticoagulants or other blood thinners in the event he does need ERCP and/or surgery. This has been discussed with the patient in detail and he is comfortable with this plan. Thank you for the consultation. MD TABATHA Gilbert/ANGIE / [phone] [email or web address]
[2022-03-23] MEDS: cefTRIAXone sodium 1 GM in 0.9 % Sodium Chloride 50 ML IV (04:52)
[2022-03-23 06:15] LABS: Basophils Percent Auto 0.5 % (0-2); Hematocrit 39.7 % (42.0-52.0); PLT ABN DIST 1; Red Cell Distribution Width 13.8 % (11.0-16.0); SCAN SMEAR FLAG 1
[2022-03-23 06:17] LABS: Eosinophils Absolute Auto 0.1 X10*3/uL (0.0-0.4); Eosinophils Percent Auto 1.2 % (0-4); Hemoglobin 12.8 g/dl (14.0-18.0); Imm Gran Abs Auto 0.01 X10*3/uL (0.00-0.03); Imm Gran Pct Auto 0.2 % (0.0-0.4); Lymphocytes Percent Auto 32.7 % (20-40); Mean Corpuscular HGB Conc 32.2 g/dl (31.0-36.0); Monocytes Absolute Auto 0.6 X10*3/uL (0.1-1.2); Monocytes Percent Auto 10.2 % (2-11); Neutrophils Absolute Auto 3.3 x10*3/uL (2.0-8.3); Neutrophils Percent Auto 55.2 % (45-73); Platelet Count 145 X10*3/uL (160-400); Red Blood Count 4.41 X10*6/uL (4.60-5.80)
[2022-03-23 06:19] LABS: MANUAL DIFF FLAG NO
[2022-03-23 06:21] LABS: Prothrombin Time 11.9 SEC (9.9-13.0)
--- NOTE | 2022-03-23 06:32 | PC.NURSE ---
Patient resting comfortably, received IV antibiotic Ceftriaxone. Will continue to monitor.
[2022-03-23 06:43] LABS: Alanine Aminotransferase 506 U/L (0-40); Albumin Level 3.4 g/dL (3.5-5.0); Alkaline Phosphatase 201 U/L (39-117); Anion Gap 13 (12-20); Aspartate Amino Transferase 231 U/L (5-37); Bilirubin Direct 4.2 mg/dL (0.0-0.5); Bilirubin Total 5.7 mg/dL (0.0-1.0); Blood Urea Nitrogen 12 mg/dL (9-16); Calcium 9.1 mg/dL (8.4-10.2); Carbon Dioxide 26 mmol/L (22-29); Chloride 106 mmol/L (96-108); Creatinine Clr Calc Pharmacy 121.8; Estimated Glomerular Filt Rate > 60; Glucose Fasting 110 mg/dL (60-99); Potassium 3.7 mmol/L (3.3-5.1); Sodium 141 mmol/L (135-145); Total Protein 5.7 g/dL (6.5-8.0)
[2022-03-23 07:47] VITALS: BP 125/62; PULSE 51; RESP 16; O2SAT 95
[2022-03-23 07:48] LABS: Glucose, Whole Blood 116 mg/dL (60-115)
[2022-03-23 08:50] VITALS: BP 153/79; PULSE 50; RESP 16; TEMP 36.6; O2SAT 95
[2022-03-23] MEDS: Gabapentin 400 MG CAPSULE 1600 MG PO ×2 (09:39→20:24)
[2022-03-23] MEDS: FLUoxetine HCl 20 MG CAPSULE 60 MG PO (09:39)
--- NOTE | 2022-03-23 10:23 | P.CONGS_ITS ---
History of Present Illness Consult details Consult date: 03/23/22 <Ariana Ambrosio PA-C - Last Filed: 03/23/22 10:49> Requesting physician: Wagner Guan <Ariana Ambrosio PA-C - Last Filed: 03/23/22 10:49> Narrative: 51 year old male with PMH significant for HTN, hyperlipidemia, diabetes mellitus who presented to the ED for scleral icterus, jaundice and intermittent RUQ abd pain. He reports he has had frequent episodes of RUQ pain over the past three weeks now. He reports shortly after eating, he develops diarrhea and then RUQ abd pain. He reports he normally lies down and the pain subsides. This has happened multiple times over the past three weeks. He reports the pain feels like gas pains and is non radiating. He denies nausea, vomiting, fever or chills at home. During this current episodes of pain on Saturday, his noticed his eyes were yellow and he therefore sought care in the ED. He also reports a change in his urine color to cola colored. He denies sick contacts. He was found to be tender in the RUQ in the ED and work up included LFTs which were significantly elevated with a total/direct bili of 5.2/3.8, AST/ALT 194/484, alk phos 207. An ABD US was also performed which revealed dilated intra/extrahepatic ducts with echogenic bile in the GB. He was admitted to the medicine for further workup and GI was consulted. MRCP was performed which showed mild dilatation of the biliary ducts without intraluminal abnormalitity. HIDA was then performed which showed normal hepatic uptake, a patent cystic duct however the small bowel and CBD is not visualized. Hepatitis panel is negative with the exception of Hepatitis A which is pending. This morning, he feels better. He denies any abd pain. He is hungry and wants to eat. <Ariana Ambrosio PA-C - Last Filed: 03/23/22 10:49> Review of Systems Constitutional: Constitutional: Denies chills, Denies fever(s), Denies malaise and Denies weight loss <Ariana Ambrosio PA-C - Last Filed: 03/23/22 10:49> Eyes: Eyes: Denies blurry vision <Ariana Ambrosio PA-C - Last Filed: 03/23/22 10:49> ENT: Denies dizziness <Ariana Ambrosio PA-C - Last Filed: 03/23/22 10:49> Cardiovascular: Cardiovascular: Denies chest pain, Denies palpitations and Denies dyspnea <Ariana Ambrosio PA-C - Last Filed: 03/23/22 10:49> Respiratory: Respiratory: Denies cough and Denies dyspnea <Ariana Ambrosio PA-C - Last Filed: 03/23/22 10:49> Gastrointestinal: Gastrointestinal: Reports as per HPI <Ariana Ambrosio PA-C - Last Filed: 03/23/22 10:49> Genitourinary: Genitourinary: Denies hematuria and Denies dysuria <Ariana Ambrosio PA-C - Last Filed: 03/23/22 10:49> Integumentary/Breasts: Skin/Breast: Denies rash and Reports jaundice <Ariana Ambrosio PA-C - Last Filed: 03/23/22 10:49> Neurologic: Denies dizziness and Denies focal weakness <Ariana Ambrosio PA-C - Last Filed: 03/23/22 10:49> Endocrine: Endocrine: Denies palpitations <Ariana Ambrosio PA-C - Last Filed: 03/23/22 10:49> [facility] Past Medical History Medical History: Medical History (Updated 03/23/22 @ 10:42 by Ariana Ambrosio PA-C) Depression DM2 (diabetes mellitus, type 2) Dyslipidemia Erectile dysfunction HTN (hypertension) Injury of right brachial plexus Subarachnoid hemorrhage Subdural hematoma Vitamin D deficiency <Ariana Ambrosio PA-C - Last Filed: 03/23/22 10:49> Surgical History Surgical History: Surgical History (Updated 03/23/22 @ 10:39 by Ariana Ambrosio PA-C) History of surgery on arm <Ariana Ambrosio PA-C - Last Filed: 03/23/22 10:49> Social History Social History: Social History Household Members: Family Housing: House Do you presently have visiting nurse or other home services: Yes ([employer]) Patient Tobacco Use Status: Current everyday Tobacco user Tobacco use type: Cigarette Cigarettes Per Day: 10 e-Cigarette/Vaping Use: Never Used Second Hand Smoke Exposure: No <Ariana Ambrosio PA-C - Last Filed: 03/23/22 10:49> Meds Allergies/Adverse reactions: Allergies Allergy/AdvReac Type Severity Reaction Status Date / Time Penicillins [PCN] Allergy Intermediate Unknown Verified 03/21/22 22:36 <Ariana Ambrosio PA-C - Last Filed: 03/23/22 10:49> Active Medications: Current Medications Acetaminophen (Acetaminophen 325 Mg Tablet) 650 mg PO Q6H PRN PRN Reason: Pain, Mild (Pain Scale 1-3) Dextrose (Dextrose 50 % 25 Gm/50 Ml Syringe) 25 gm IVPUSH Q15M PRN; Protocol PRN Reason: per Hypoglycemia Standing Ord. Fluoxetine HCl (Fluoxetine Hcl 20 Mg Capsule) 60 mg PO DAILY ON LICENSE OF [facility] Last Admin: 03/23/22 09:39 Dose: 60 mg Documented by: Gabapentin (Gabapentin 400 Mg Capsule) 1,600 mg PO BID ON LICENSE OF [facility] Last Admin: 03/23/22 09:39 Dose: 1,600 mg Documented by: Glucose (Glucose Gel 15 Gm Gel..Gram.) 15 gm PO Q15M PRN; Protocol PRN Reason: per Hypoglycemia Standing Ord. Ceftriaxone Sodium 1 gm/ (Sodium Chloride) 50 mls @ 100 mls/hr IV Q24H ON LICENSE OF [facility] Last Infusion: 03/23/22 06:17 Dose: Infused Documented by: Insulin Human Lispro (Insulin Lispro 100 Unit/Ml 3 Ml Vial) 0 unit SUBCUT QIDACHS ON LICENSE OF [facility]; Protocol Last Admin: 03/23/22 07:59 Dose: Not Given Documented by: Melatonin (Melatonin 3 Mg Tablet) 6 mg PO BEDTIME PRN PRN Reason: Insomnia Pharmacy Consult (Consult Rx Perform Med Rec) 1 each MISCELLANE ONCE PRN PRN Reason: Consult order Senna (Sennosides 8.6 Mg Tablet) 17.2 mg PO BEDTIME PRN PRN Reason: Constipation Sodium Chloride (0.9 % Sodium Chloride Flush 3 Ml Syringe) 3 ml IVFLUSH QSHIFT ON LICENSE OF [facility] Last Admin: 03/23/22 09:39 Dose: 3 ml Documented by: <Ariana Ambrosio PA-C - Last Filed: 03/23/22 10:49> Home medications: Home Medications Medication Instructions Recorded Confirmed Last Taken Type atorvastatin 20 mg tablet 1 tab PO DAILY 03/22/22 03/22/22 Unknown History fluoxetine 40 mg capsule 60 mg PO DAILY 03/22/22 03/22/22 Unknown History gabapentin 800 mg tablet 2 tab PO BID 03/22/22 03/22/22 Unknown History metformin 1,000 mg tablet 1 tab PO BID 03/22/22 03/22/22 Unknown History omega-3 fatty acids-fish oil 340 1 cap PO TID 03/22/22 03/22/22 Unknown History mg-1,000 mg capsule (Fish Oil) trazodone 100 mg tablet 1 tab PO BEDTIME PRN 03/22/22 03/22/22 Unknown History <Ariana Ambrosio PA-C Last Filed: 03/23/22 10:49> Physical Exam Vital Signs: Vital Signs: Last Vital Signs Temp 97.6 F 03/23/22 00:02 Pulse 51 03/23/22 07:47 Resp 16 03/23/22 07:47 BP 125/62 03/23/22 07:47 Pulse Ox 95 03/23/22 07:47 BMI result Body Mass Index 28.0 <KHUSHI Germain Last Filed: 03/23/22 10:49> Const: General: comfortable, no acute distress and alert <Ariana Ambrosio PA-C Last Filed: 03/23/22 10:49> Orientation/consciousness: patient oriented x3 <KHUSHI Germain Last Filed: 03/23/22 10:49> Eyes: Sclerae: scleral abnormal (icteric) <KHUSHI Germain Last Filed: 03/23/22 10:49> Resp: Effort & Inspection: normal respiratory effort <KHUSHI Germain Last Filed: 03/23/22 10:49> Cardio: Rate: regular rate <KHUSHI Germain Last Filed: 03/23/22 10:49> GI: Inspection: Yes normal to inspection and No distended <KHUSHI Germain Last Filed: 03/23/22 10:49> Palpation (GI): Soft to palpation, nontender, no guarding, not rigid and Other GI palpation findings present (negative murphys sign) <KHUSHI Germain Last Filed: 03/23/22 10:49> Percussion: Yes normal to percussion <KHUSHI Germain Last Filed: 03/23/22 10:49> Skin: General skin exam: no rashes or lesions noted and jaundice <KHUSHI Germain Last Filed: 03/23/22 10:49> Neuro: General: patient oriented x3 <KHUSHI Germain Last Filed: 03/23/22 10:49> Extrem: General: Yes no clubbing, cyanosis or edema <KHUSHI Germain Last Filed: 03/23/22 10:49> Results Labs Result diagrams: : 03/23/22 05:36 03/23/22 05:36 <KHUSHI Germain Last Filed: 03/23/22 10:49> Labs: Abnormal lab results 03/22/22 03/22/22 03/22/22 Range/Units 08:34 11:58 16:51 RBC (4.60-5.80) X10*6/uL Hgb (14.0-18.0) g/dl Hct (42.0-52.0) % Plt Count (160-400) X10*3/uL MPV (9.4-12.4) fL POC Glucose 138 H 158 H (60-115) mg/dL Fasting Glucose (60-99) mg/dL Total Bilirubin 5.2 H (0.0-1.0) mg/dL Direct Bilirubin 3.8 H (0.0-0.5) mg/dL AST 194 H (5-37) U/L ALT 484 H (0-40) U/L Alkaline Phosphatase 207 H (39-117) U/L Total Protein 5.8 L (6.5-8.0) g/dL Albumin (3.5-5.0) g/dL 03/22/22 03/23/22 03/23/22 Range/Units 20:18 05:36 05:36 RBC 4.41 L (4.60-5.80) X10*6/uL Hgb 12.8 L (14.0-18.0) g/dl Hct 39.7 L (42.0-52.0) % Plt Count 145 L (160-400) X10*3/uL MPV 13.0 H (9.4-12.4) fL POC Glucose 184 H (60-115) mg/dL Fasting Glucose 110 H (60-99) mg/dL Total Bilirubin 5.7 H (0.0-1.0) mg/dL Direct Bilirubin 4.2 H (0.0-0.5) mg/dL AST 231 H (5-37) U/L ALT 506 H (0-40) U/L Alkaline Phosphatase 201 H (39-117) U/L Total Protein 5.7 L (6.5-8.0) g/dL Albumin 3.4 L (3.5-5.0) g/dL 03/23/22 Range/Units 07:32 RBC (4.60-5.80) X10*6/uL Hgb (14.0-18.0) g/dl Hct (42.0-52.0) % Plt Count (160-400) X10*3/uL MPV (9.4-12.4) fL POC Glucose 116 H (60-115) mg/dL Fasting Glucose (60-99) mg/dL Total Bilirubin (0.0-1.0) mg/dL Direct Bilirubin (0.0-0.5) mg/dL AST (5-37) U/L ALT (0-40) U/L Alkaline Phosphatase (39-117) U/L Total Protein (6.5-8.0) g/dL Albumin (3.5-5.0) g/dL Short CBC 03/23/22 Range/Units 05:36 WBC 6.0 (4.8-10.8) X10*3/uL Hgb 12.8 L (14.0-18.0) g/dl Hct 39.7 L (42.0-52.0) % Plt Count 145 L (160-400) X10*3/uL BMP 03/23/22 05:36 Sodium 141 Potassium 3.7 Chloride 106 Carbon Dioxide 26 BUN 12 Creatinine 0.78 Calcium 9.1 Liver Function 03/22/22 03/23/22 Range/Units 08:34 05:36 Total Bilirubin 5.2 H 5.7 H (0.0-1.0) mg/dL Direct Bilirubin 3.8 H 4.2 H (0.0-0.5) mg/dL AST 194 H 231 H (5-37) U/L ALT 484 H 506 H (0-40) U/L Alkaline Phosphatase 207 H 201 H (39-117) U/L Albumin 3.6 3.4 L (3.5-5.0) g/dL Urine 03/22/22 Range/Units 01:32 Urine Color DK YELLOW Urine Appearance CLEAR Urine pH 5.5 (5.0-8.0) Ur Specific [place] >= 1.030 H (1.005-1.025) Urine Protein TRACE (NEG-TRACE) MG/DL Urine Glucose (UA) 500 H (NEG) MG/DL All other labs normal. <KHUSHI Germain Last Filed: 03/23/22 10:49> Assessment and Plan (1) Elevated LFTs: Status: Acute <KHUSHI Germain Last Filed: 03/23/22 10:49> (2) Abdominal pain, acute, right upper quadrant: Status: Acute <KHUSHI Germain Last Filed: 03/23/22 10:49> Plan 51 year old male who presented to the ED with jaundice and RUQ found to have significantly elevated LFTs. Work up this far has been unrevealing with the exception of dilated biliary ducts. Clinical history sounds consistent with biliary colic with possible CBD obstruction vs hepatic disease as the CBD and small bowel were not visualized on HIDA and his LFTs are worsening. Given that his RUQ pain has resolved and he has a normal WBC count with a patent cystic duct on HIDA scan, this is not suggestive of acute cholecystitis. Would recommend further GI follow up for possible ERCP or evaluation of liver disease. Recommend trending LFTs. If there is CBD obstruction due to stone/sludge, discussed with him option of laparoscopic cholecystectomy, possible open during this admission to prevent further recurrence/treatment of the biliary colic. Thank you for the consult. Will continue to follow him during his stay. <Ariana Ambrosio PA-C - Last Filed: 03/23/22 10:49> 51 year old male who presented to the ED with jaundice and RUQ found to have significantly elevated LFTs. Work up this far has been unrevealing with the exception of dilated biliary ducts. Clinical history sounds consistent with biliary colic with possible CBD obstruction vs hepatic disease as the CBD and small bowel were not visualized on HIDA and his LFTs are worsening. Given that his RUQ pain has resolved and he has a normal WBC count with a patent cystic duct on HIDA scan, this is not suggestive of acute cholecystitis. Would recommend further GI follow up for possible ERCP or evaluation of liver disease. Recommend trending LFTs. If there is CBD obstruction due to stone/sludge, discussed with him option of laparoscopic cholecystectomy, possible open during this admission to prevent further recurrence/treatment of the biliary colic. Thank you for the consult. Will continue to follow him during his stay. Patient seen and examined and I agree with the above assessment and plan. He now reports feeling much improved with no further abdominal pain throughout the abdomen. Ultrasound, HIDA scan and MRI reviewed. Dilated common bile duct noted. HIDA scan negative for filling of small-bowel. No definite stones on ultrasound or MRI. Unsure of this a distal obstruction from a pancreatic or common duct stenosis /mass verses obstructing stone. Agree with trending LFTs. continue to monitor during his hospitalization. <Freddy Mcgowan MD - Last Filed: 03/23/22 11:24> Procedures Date of Service Date of Service: 03/23/22 <Ariana Ambrosio PA-C - Last Filed: 03/23/22 10:49>
--- NOTE | 2022-03-23 10:52 | MHC.IC ---
Pt placed on contact precautions due to Hep A IgM grayzone result. Discussed with Dr Naidu who is repeating the test
[2022-03-23 11:01] LABS: Hepatitis A Antibody IgG REACTIVE (Nonreactive); Hepatitis A Antibody IgM 0.86 Index (0-0.79); ~Hepatitis A Antibody IgG 8.27 S/CO (0.00-0.99)
[2022-03-23 11:11] LABS: ~Hepatitis A Antibody IgM GRAYZONE (Nonreactive)
[2022-03-23 11:43] LABS: Glucose, Whole Blood 116 mg/dL (60-115)
--- NOTE | 2022-03-23 11:53 | MHC.IC ---
Repeat Hep A IgM grayzone and IgG is reactive. Ok to discontinue contact precautions.
--- NOTE | 2022-03-23 11:55 | P.PNIM_ITS ---
Subjective Subjective Date of Service: 03/23/22 Interval History: F/u on abdominal pain, elevated LFTs, no pain today yet LFTs are higher, hep Igm gale zone, hepA Igg is reactive indicating prior exposure. MRCP no stone Review of Systems no n/v, no abdominal pain Physical Exam Vital Signs: Vital Signs: Last Vital Signs Temp 97.8 F 03/23/22 08:50 Pulse 50 03/23/22 08:50 Resp 16 03/23/22 08:50 BP 153/79 H 03/23/22 08:50 Pulse Ox 95 03/23/22 08:50 BMI result Body Mass Index 28.0 Const: Other: General: AO X 3, no acute distress HEENT:sclera icteris Resp: CTA bilateral CVS: S1,S2,RRR GI: +BS, NT, no distention Skin: No rash Neuro: motor grossly intact Psych: appropriate affect Objective Data Active Medications Acetaminophen (Acetaminophen 325 Mg Tablet) 650 mg PO Q6H PRN PRN Reason: Pain, Mild (Pain Scale 1-3) Dextrose (Dextrose 50 % 25 Gm/50 Ml Syringe) 25 gm IVPUSH Q15M PRN; Protocol PRN Reason: per Hypoglycemia Standing Ord. Fluoxetine HCl (Fluoxetine Hcl 20 Mg Capsule) 60 mg PO DAILY [facility] Last Admin: 03/23/22 09:39 Dose: 60 mg Documented by: FRANKY Gabapentin (Gabapentin 400 Mg Capsule) 1,600 mg PO BID [facility] Last Admin: 03/23/22 09:39 Dose: 1,600 mg Documented by: FRANKY Glucose (Glucose Gel 15 Gm Gel..Gram.) 15 gm PO Q15M PRN; Protocol PRN Reason: per Hypoglycemia Standing Ord. Ceftriaxone Sodium 1 gm/ (Sodium Chloride) 50 mls @ 100 mls/hr IV Q24H [facility] Last Infusion: 03/23/22 06:17 Dose: 100 mls/hr Documented by: CATRACHITO Insulin Human Lispro (Insulin Lispro 100 Unit/Ml 3 Ml Vial) 0 unit SUBCUT QIDACHS [facility]; Protocol Last Admin: 03/23/22 07:59 Dose: Not Given Documented by: NAVNEET Non-Admin Reason: No Insulin Coverage Melatonin (Melatonin 3 Mg Tablet) 6 mg PO BEDTIME PRN PRN Reason: Insomnia Pharmacy Consult (Consult Rx Perform Med Rec) 1 each MISCELLANE ONCE PRN PRN Reason: Consult order Senna (Sennosides 8.6 Mg Tablet) 17.2 mg PO BEDTIME PRN PRN Reason: Constipation Sodium Chloride (0.9 % Sodium Chloride Flush 3 Ml Syringe) 3 ml IVFLUSH QSHIFT LIGIA Last Admin: 03/23/22 09:39 Dose: 3 ml Documented by: FRANKY Labs CBC & Chem 7: 03/23/22 05:36 03/23/22 05:36 Labs: Laboratory Results - last 24 hr 03/22/22 03/22/22 03/22/22 00:48 11:58 16:51 MCV MCH MCHC RDW Plt Count MPV Immature Gran % (Auto) Neut % (Auto) Lymph % (Auto) [place] % (Auto) Eos % (Auto) Baso % (Auto) Lymph # (Auto) [place] # (Auto) Eos # (Auto) Baso # (Auto) Abs Immat Gran (auto) Absolute Neuts (auto) Absolute Nucleated RBC Nucleated RBC % (auto) PT INR Anion Gap Estim Creat Clear Calc Estimated GFR POC Glucose 138 H 158 H Fasting Glucose Calcium Total Bilirubin Direct Bilirubin AST ALT Alkaline Phosphatase Total Protein Albumin Hepatitis A IgG Ab Hepatitis A IgM Ab GRAYZONE 03/22/22 03/23/22 03/23/22 20:18 05:36 05:36 MCV MCH MCHC RDW Plt Count MPV Immature Gran % (Auto) Neut % (Auto) Lymph % (Auto) [place] % (Auto) Eos % (Auto) Baso % (Auto) Lymph # (Auto) [place] # (Auto) Eos # (Auto) Baso # (Auto) Abs Immat Gran (auto) Absolute Neuts (auto) Absolute Nucleated RBC Nucleated RBC % (auto) PT 11.9 INR 1.0 Anion Gap 13 Estim Creat Clear Calc 121.8 Estimated GFR > 60 POC Glucose 184 H Fasting Glucose 110 H Calcium 9.1 Total Bilirubin 5.7 H Direct Bilirubin 4.2 H AST 231 H ALT 506 H Alkaline Phosphatase 201 H Total Protein 5.7 L Albumin 3.4 L Hepatitis A IgG Ab Hepatitis A IgM Ab 03/23/22 03/23/22 03/23/22 05:36 07:32 09:58 MCV 90.0 MCH 29.0 MCHC 32.2 RDW 13.8 Plt Count 145 L MPV 13.0 H Immature Gran % (Auto) 0.2 Neut % (Auto) 55.2 Lymph % (Auto) 32.7 [place] % (Auto) 10.2 Eos % (Auto) 1.2 Baso % (Auto) 0.5 Lymph # (Auto) 2.0 [place] # (Auto) 0.6 Eos # (Auto) 0.1 Baso # (Auto) 0.0 Abs Immat Gran (auto) 0.01 Absolute Neuts (auto) 3.3 Absolute Nucleated RBC 0.000 Nucleated RBC % (auto) 0.0 PT INR Anion Gap Estim Creat Clear Calc Estimated GFR POC Glucose 116 H Fasting Glucose Calcium Total Bilirubin Direct Bilirubin AST ALT Alkaline Phosphatase Total Protein Albumin Hepatitis A IgG Ab REACTIVE Hepatitis A IgM Ab GRAYZONE 03/23/22 11:39 MCV MCH MCHC RDW Plt Count MPV Immature Gran % (Auto) Neut % (Auto) Lymph % (Auto) [place] % (Auto) Eos % (Auto) Baso % (Auto) Lymph # (Auto) [place] # (Auto) Eos # (Auto) Baso # (Auto) Abs Immat Gran (auto) Absolute Neuts (auto) Absolute Nucleated RBC Nucleated RBC % (auto) PT INR Anion Gap Estim Creat Clear Calc Estimated GFR POC Glucose 116 H Fasting Glucose Calcium Total Bilirubin Direct Bilirubin AST ALT Alkaline Phosphatase Total Protein Albumin Hepatitis A IgG Ab Hepatitis A IgM Ab Assessment and Plan (1) Elevated LFTs: Status: Acute (2) Abdominal pain, acute, right upper quadrant: Status: Acute Plan 51-year-old male with a past medical history of hypertension, hyperlipidemia, diabetes presented to the hospital with a chief complaint of abdominal pain.? Noted to have transaminitis/gallbladder wall thickening/biliary sludge/dilated intrahepatic and extrahepatic biliary ducts.? Admitted to the hospital for further management.? Transaminitis. HIDA and US don't suggest cholecystitis MRCP no definitive choledocholithiasis LFTs are higher today: Question sequela of from hepatitis A given IgG is positive, IgM is merchant zone -continue trending LFTs, discuss with GI further History of diabetes:? Insulin sliding scale History of hyperlipidemia: Hold home statin History of depression:? Continue fluoxetine DVT prophylaxis:? Subcu heparin Quality Stroke Does the patient have a stroke diagnosis?: No VTE Prior VTE?: No VTE Risk Level:: Medical - moderate - high VTE Device Contraindication: Treatment Not Indicated VTE Drug Contraindication: N/A - Med Ordered
--- NOTE | 2022-03-23 12:27 | P.PNGI_ITS ---
Subjective Subjective Date of Service: 03/23/22 Interval History: Hx via medical coding technician. Feeling much better today. Denies pain, N/V, and diarrhea. He is hungry. Critical Care Time (minutes): 0 Physical Exam 2 Vital Signs: Vital Signs: Last Vital Signs Temp 97.8 F 03/23/22 08:50 Pulse 50 03/23/22 08:50 Resp 16 03/23/22 08:50 BP 153/79 H 03/23/22 08:50 Pulse Ox 95 03/23/22 08:50 BMI result Body Mass Index 28.0 Const: General: cooperative, healthy appearing, comfortable, no acute distress, well developed, alert and awake GI: Other: Soft, + BS , NT, no mass Objective Data Labs CBC & Chem 7: 03/23/22 05:36 03/23/22 05:36 Labs: Laboratory Results - last 24 hr 03/22/22 03/22/22 03/22/22 00:48 16:51 20:18 WBC RBC Hgb Hct MCV MCH MCHC RDW Plt Count MPV Immature Gran % (Auto) Neut % (Auto) Lymph % (Auto) [place] % (Auto) Eos % (Auto) Baso % (Auto) Lymph # (Auto) [place] # (Auto) Eos # (Auto) Baso # (Auto) Abs Immat Gran (auto) Absolute Neuts (auto) Absolute Nucleated RBC Nucleated RBC % (auto) PT INR Sodium Potassium Chloride Carbon Dioxide Anion Gap BUN Creatinine Estim Creat Clear Calc Estimated GFR POC Glucose 158 H 184 H Fasting Glucose Calcium Total Bilirubin Direct Bilirubin AST ALT Alkaline Phosphatase Total Protein Albumin Hepatitis A IgG Ab Hepatitis A IgM Ab [place]OTTY[place]UE 03/23/22 03/23/22 03/23/22 05:36 05:36 05:36 WBC 6.0 RBC 4.41 L Hgb 12.8 L Hct 39.7 L MCV 90.0 MCH 29.0 MCHC 32.2 RDW 13.8 Plt Count 145 L MPV 13.0 H Immature Gran % (Auto) 0.2 Neut % (Auto) 55.2 Lymph % (Auto) 32.7 [place] % (Auto) 10.2 Eos % (Auto) 1.2 Baso % (Auto) 0.5 Lymph # (Auto) 2.0 [place] # (Auto) 0.6 Eos # (Auto) 0.1 Baso # (Auto) 0.0 Abs Immat Gran (auto) 0.01 Absolute Neuts (auto) 3.3 Absolute Nucleated RBC 0.000 Nucleated RBC % (auto) 0.0 PT 11.9 INR 1.0 Sodium 141 Potassium 3.7 Chloride 106 Carbon Dioxide 26 Anion Gap 13 BUN 12 Creatinine 0.78 Estim Creat Clear Calc 121.8 Estimated GFR > 60 POC Glucose Fasting Glucose 110 H Calcium 9.1 Total Bilirubin 5.7 H Direct Bilirubin 4.2 H AST 231 H ALT 506 H Alkaline Phosphatase 201 H Total Protein 5.7 L Albumin 3.4 L Hepatitis A IgG Ab Hepatitis A IgM Ab 03/23/22 03/23/22 03/23/22 07:32 09:58 11:39 WBC RBC Hgb Hct MCV MCH MCHC RDW Plt Count MPV Immature Gran % (Auto) Neut % (Auto) Lymph % (Auto) [place] % (Auto) Eos % (Auto) Baso % (Auto) Lymph # (Auto) [place] # (Auto) Eos # (Auto) Baso # (Auto) Abs Immat Gran (auto) Absolute Neuts (auto) Absolute Nucleated RBC Nucleated RBC % (auto) PT INR Sodium Potassium Chloride Carbon Dioxide Anion Gap BUN Creatinine Estim Creat Clear Calc Estimated GFR POC Glucose 116 H 116 H Fasting Glucose Calcium Total Bilirubin Direct Bilirubin AST ALT Alkaline Phosphatase Total Protein Albumin Hepatitis A IgG Ab REACTIVE Hepatitis A IgM Ab GRAYZONE Procedures Date of Service Date of Service: 03/23/22 Progress Note: A&P Assessment and plan (1) Elevated LFTs: Status: Acute Assessment and Plan: Imp: Overall the patient appears improved and is presently asymptomatic. His abdominal exam is benign. I felt the clinical picture was originally c/w gallbladder disease and possible CBD stone/CBD obstruction. However, with the Hep A IgM being + in the merchant zone , the HIDA scan looking more like a hepatocellular process with no isotope getting out of the liver, and no sign of any biliary tract abnormality such as a stone or stricture on the MRCP, I now tend to favor a resolving acute Hepatitis A infection. Rec: I will hold off on an ERCP for now. Observe as diet is advanced and F/U LFT's. If things worsen with eating regarding pain or LFT's we can then reevaluate for ERCP. I will have a low threshold to have him undergo an ERCP, as well as a possible liver biopsy if need be. D/W patient via the medical coding technician in detail. Will follow. Thanks (2) Abdominal pain, acute, right upper quadrant: Status: Acute (3) Jaundice: Status: Acute Time Spent With Patient Time: Total time spent is greater than 50% in coordination of care (as documented) at patient's floor/unit and/or counseling patient: Quality Stroke Does the patient have a stroke diagnosis?: No VTE Prior VTE?: No VTE Risk Level:: Medical - moderate - high VTE Device Contraindication: Treatment Not Indicated VTE Drug Contraindication: N/A - Med Ordered
--- NOTE | 2022-03-23 13:27 | MHC.CM.PN ---
This technical report writer met w/ patient utilizing director of special education. See CM assessment for full details. is PUBLIC SERVICE ADMINISTRATOR in the home. Paperchart has listing of all care provider through [facility]. IMM delivered and explained. to transport @ d/c.
[2022-03-23 16:00] VITALS: BP 117/71; PULSE 50; RESP 16; O2SAT 95
[2022-03-23 16:30] LABS: Glucose, Whole Blood 192 mg/dL (60-115)
[2022-03-23] MEDS: Insulin Lispro 100 UNIT/ML 3 ML VIAL SUBCUT ×2 (16:50→20:25)
[2022-03-23 17:35] VITALS: BP 150/64; PULSE 58; RESP 20; TEMP 36.4; O2SAT 96
[2022-03-23 20:17] LABS: Glucose, Whole Blood 207 mg/dL (60-115)
[2022-03-23 23:19] VITALS: BP 132/72; PULSE 60; RESP 20; TEMP 36.1; O2SAT 99
[2022-03-24] MEDS: cefTRIAXone sodium 1 GM in 0.9 % Sodium Chloride 50 ML IV (02:22)
[2022-03-24 06:56] LABS: MANUAL DIFF FLAG NO
[2022-03-24 07:05] LABS: Basophils Percent Auto 0.6 % (0-2); Eosinophils Absolute Auto 0.1 X10*3/uL (0.0-0.4); Eosinophils Percent Auto 1.8 % (0-4); Hematocrit 40.4 % (42.0-52.0); Hemoglobin 13.2 g/dl (14.0-18.0); Imm Gran Abs Auto 0.02 X10*3/uL (0.00-0.03); Imm Gran Pct Auto 0.4 % (0.0-0.4); Lymphocytes Absolute Auto 1.6 X10*3/uL (1.2-4.9); Lymphocytes Percent Auto 32.1 % (20-40); Mean Corpuscular HGB Conc 32.7 g/dl (31.0-36.0); Mean Corpuscular Hemoglobin 29.7 pg (27.0-33.0); Mean Corpuscular Volume 90.8 fL (80.0-98.0); Mean Platelet Volume 13.5 fL (9.4-12.4); Monocytes Absolute Auto 0.5 X10*3/uL (0.1-1.2); Monocytes Percent Auto 9.3 % (2-11); Neutrophils Absolute Auto 2.8 x10*3/uL (2.0-8.3); Neutrophils Percent Auto 55.8 % (45-73); Platelet Count 147 X10*3/uL (160-400); Red Blood Count 4.45 X10*6/uL (4.60-5.80); Red Cell Distribution Width 13.5 % (11.0-16.0)
[2022-03-24 07:09] VITALS: BP 112/64; PULSE 49; RESP 18; TEMP 36.3; O2SAT 98
[2022-03-24 07:31] LABS: Alanine Aminotransferase 488 U/L (0-40); Albumin Level 3.5 g/dL (3.5-5.0); Alkaline Phosphatase 207 U/L (39-117); Aspartate Amino Transferase 196 U/L (5-37); Bilirubin Direct 4.2 mg/dL (0.0-0.5); Bilirubin Total 5.7 mg/dL (0.0-1.0); Total Protein 5.8 g/dL (6.5-8.0)
[2022-03-24 07:58] LABS: Glucose, Whole Blood 157 mg/dL (60-115)
[2022-03-24] MEDS: Insulin Lispro 100 UNIT/ML 3 ML VIAL SUBCUT ×2 (08:34→12:03)
[2022-03-24] MEDS: FLUoxetine HCl 20 MG CAPSULE 60 MG PO (08:34)
[2022-03-24] MEDS: Gabapentin 400 MG CAPSULE 1600 MG PO (08:35)
[2022-03-24] MEDS: 0.9 % Sodium Chloride Flush 3 ML SYRINGE IVFLUSH (08:37)
--- NOTE | 2022-03-24 10:37 | P.DS_ITS ---
DS: Providers Provider Date of Service: 03/24/22 Date of admission: 03/22/22 01:59 Primary care physician: Suzi Brown MD Consults: 03/22/22 01:56 Consult to Gastroenterology Routine Consulting Provider: Wagner Guan Reason for consultation: Transminitis; Dilated ducts 03/22/22 01:57 Consult to Gastroenterology Stat Consulting Provider: Wagner Guan Reason for consultation: RUQ pain, biliary duct dilatation, needs MRCP Has provider been notified: Yes 03/22/22 16:43 Consult to General Surgery Routine Consulting Provider: Freddy Mcgowan Reason for consultation: Abdominal pain, Abnormal Ultrasound and HIDA scan, ? cholecystitis Has provider been notified: No DS: Diagnosis Discharge Diagnosis (1) Elevated LFTs: Status: Acute (2) Abdominal pain, acute, right upper quadrant: Status: Acute (3) Jaundice: Status: Acute DS: Summary Hospital Course Hospital Course: Chief Complaint: Abdominal pain 51-year-old male with a past medical history of hypertension, hyperlipidemia, diabetes presented to the hospital with a chief complaint of abdominal pain. Patient reports that he has been having abdominal pain located in the upper abdomen, associated nausea vomiting; also mentions having diarrhea.? Denies any blood in the stool or blood in the vomitus.? Reports symptoms have been going on for the past 3 weeks.? Gradually worsening.? Hence decided to come to the ER for further evaluation.? Patient reported that today his noticed having Yris; also complained of yellowish urine.? Reports his abdominal pain worsens with eating.? But present constantly on the right upper quadrant and epigastric areas.? Denies any fevers at home.? Denies any concerns for poor poisoning.? Denies any chest pain or palpitations.? Denies any urinary symptoms.? Review of all other systems is negative except mentioned above ER course: Per ER team patient noted to have right upper quadrant tenderness; ultrasound showed dilated intrahepatic extrahepatic delete ABX; biliary sludge; mildly thickened gallbladder wall; empirically start antibiotics.? Patient is afebrile; vital stable; no leukocytosis; also noted to have elevated liver enzymes.? Admitted for further management Hospital course: Patient was admitted with initial concern of acute cholecystitis with initial ALT of 510 and now 488, AST was 207 no 196, Bili remains elevated at 5.7, AKPHos essentially unchanged at 207. ultrasound showed Dilated intrahepatic and extrahepatic bile ducts. Prominent sludge throughout the gallbladder. Associated borderline gallbladder wall thickening and pericholecystic fluid raises concern for cholecystitis. MRCP showed no evidence of choledocholithiasis. Either scan did not suggest acute cholecystitis. He was evaluated by surgery and there was no indication for surgery. Of note hepatitis serology showed negative hepatitis-C and B however hepatitis a IgG was reactive and IgM was in merchant zone suggested that the patient has had exposure to hepatitis a sometime ago and is recovering at the moment. Given that the LFTs are trending down in the patient no longer have pain he will be discharged and to continue to have monitoring on outpatient basis with our serial LFTs. She he is advised to avoid Tylenol and to stop taking Lipitor Time Spent with Patient Time attestation: Total time spent providing and/or coordinating discharge services: Discharge coordination time: Greater than 30 minutes Quality: Safe Use of Opioids Does Pt have an Active Cancer Diagnosis on the Problem List?: No Quality: Stroke Does the patient have a stroke diagnosis?: No Physical Exam Vital Signs: Vital Signs: Last Vital Signs Temp 97.4 F 03/24/22 07:09 Pulse 49 L 03/24/22 07:09 Resp 18 03/24/22 07:09 BP 112/64 03/24/22 07:09 Pulse Ox 98 03/24/22 07:09 BMI result Body Mass Index 28.0 DS: Data Data Completed and Pending Labs on day of discharge: Laboratory Results - last 24 hr 03/23/22 03/23/22 03/23/22 09:58 11:39 16:27 WBC RBC Hgb Hct MCV MCH MCHC RDW Plt Count MPV Immature Gran % (Auto) Neut % (Auto) Lymph % (Auto) [place] % (Auto) Eos % (Auto) Baso % (Auto) Lymph # (Auto) [place] # (Auto) Eos # (Auto) Baso # (Auto) Abs Immat Gran (auto) Absolute Neuts (auto) Absolute Nucleated RBC Nucleated RBC % (auto) POC Glucose 116 H 192 H Total Bilirubin Direct Bilirubin AST ALT Alkaline Phosphatase Total Protein Albumin Hepatitis A IgG Ab REACTIVE Hepatitis A IgM Ab GRAYZONE 03/23/22 03/24/22 03/24/22 20:13 06:36 06:36 WBC 5.0 RBC 4.45 L Hgb 13.2 L Hct 40.4 L MCV 90.8 MCH 29.7 MCHC 32.7 RDW 13.5 Plt Count 147 L MPV 13.5 H Immature Gran % (Auto) 0.4 Neut % (Auto) 55.8 Lymph % (Auto) 32.1 [place] % (Auto) 9.3 Eos % (Auto) 1.8 Baso % (Auto) 0.6 Lymph # (Auto) 1.6 [place] # (Auto) 0.5 Eos # (Auto) 0.1 Baso # (Auto) 0.0 Abs Immat Gran (auto) 0.02 Absolute Neuts (auto) 2.8 Absolute Nucleated RBC 0.000 Nucleated RBC % (auto) 0.0 POC Glucose 207 H Total Bilirubin 5.7 H Direct Bilirubin 4.2 H AST 196 H ALT 488 H Alkaline Phosphatase 207 H Total Protein 5.8 L Albumin 3.5 Hepatitis A IgG Ab Hepatitis A IgM Ab 03/24/22 07:14 WBC RBC Hgb Hct MCV MCH MCHC RDW Plt Count MPV Immature Gran % (Auto) Neut % (Auto) Lymph % (Auto) [place] % (Auto) Eos % (Auto) Baso % (Auto) Lymph # (Auto) [place] # (Auto) Eos # (Auto) Baso # (Auto) Abs Immat Gran (auto) Absolute Neuts (auto) Absolute Nucleated RBC Nucleated RBC % (auto) POC Glucose 157 H Total Bilirubin Direct Bilirubin AST ALT Alkaline Phosphatase Total Protein Albumin Hepatitis A IgG Ab Hepatitis A IgM Ab Discharge Plan Discharge Anticipated Discharge Date/Time: 03/24/22 10:39 Patient Disposition: Home, Self-Care Discharge Diagnosis: Acute hepatitis A Referrals: Suzi Brown MD [Primary Care Provider] - 1 Week Discharge Medications: Continued fluoxetine 40 mg capsule 60 mg PO DAILY 0RF gabapentin 800 mg tablet 2 tab PO BID 0RF metformin 1,000 mg tablet 1 tab PO BID 0RF Fish Oil 340-1,000 mg capsule 1 cap PO TID 0RF trazodone 100 mg tablet 1 tab PO BEDTIME PRN (Reason: Insomnia) 0RF Discontinued atorvastatin 20 mg tablet 1 tab PO DAILY 0RF Discharge Orders: Discharge Order (Routine); Ordered 03/24/22 Ordered By: Alberto Naidu Diet: advance to usual diet Activity on Discharge: As tolerated Stand Alone Forms: Patient Portal Discharge page Care Plan Goals: Full recovery from hepatitis Health Concerns: Hepatitis A Plan of Treatment: Avoid tyenol and stop taking Lipitor until your liver test are back to normal, follow up with your Doctor inna week, get repeat lab work done within a week Assessment: as above
[2022-03-24 11:37] LABS: Glucose, Whole Blood 283 mg/dL (60-115)
--- NOTE | 2022-03-24 13:19 | MHC.CM.PN ---
pt dcd home with resumption of gold assayer,cca and foster care,cca notified of dc
== END 2022-03-24 13:43 | disposition home or self-care (01) | DRG 948 ==
LOC: HO.ED 03-22 01:54 → HO.EDOVER 03-22 02:42 → HO.ICU 03-23 07:59 → HO.IMC 03-23 16:29
PROVIDERS: Internal Medicine; Physician Assistant; Admitting Provider Hospitalist; Emergency Provider Student in an Organized Health Care Education/Training Program; PCP Internal Medicine; Visit Provider Internal Medicine
DX: R74.01 Elevation of levels of liver transaminase levels (principal); R17 Unspecified jaundice; B94.2 Sequelae of viral hepatitis; F17.210 Nicotine dependence, cigarettes, uncomplicated; Z71.6 Tobacco abuse counseling; E78.5 Hyperlipidemia, unspecified; E11.40 Type 2 diabetes mellitus with diabetic neuropathy, unspecified; F32.A Depression, unspecified; Z20.822 Contact with and (suspected) exposure to COVID-19; Z79.84 Long term (current) use of oral hypoglycemic drugs; Z79.899 Other long term (current) drug therapy
CPT/HCPCS: 36415; 74183; 76705; 78226; 80048; 80076; 81003; 82077; 82947; 83605; 83690; 85025; 85610; 85730; 86704; 86706; 86708; 86709; 86803; 87340; 87635; 96365; 96367; 99285; A9537; A9585; J0696

== ENCOUNTER 2022-03-30 15:37 | Outpatient (REF) | payer OTHER, SELFPAY ==
[2022-03-30 17:39] LABS: Alanine Aminotransferase 704 U/L (0-40); Alkaline Phosphatase 269 U/L (39-117); Aspartate Amino Transferase 250 U/L (5-37); Bilirubin Direct 7.3 mg/dL (0.0-0.5); Bilirubin Total 10.2 mg/dL (0.0-1.0); Total Protein 6.8 g/dL (6.5-8.0)
== END 2022-03-30 15:38 | disposition home or self-care (01) ==
LOC: HO.LAB 15:37
PROVIDERS: PCP Internal Medicine; Visit Provider Internal Medicine
DX: B15.9 Hepatitis A without hepatic coma (principal); R17 Unspecified jaundice; R79.89 Other specified abnormal findings of blood chemistry
CPT/HCPCS: 36415; 80076

== ENCOUNTER 2022-05-08 22:12 | Inpatient (IN) | payer OTHER, SELFPAY ==
--- NOTE | ~2022-05-08 | CT_ITS ---
EXAMINATION: CT ABDOMEN AND PELVIS WITHOUT CONTRAST CLINICAL INFORMATION: Pancreatitis after ERCP COMPARISON: 03/22/2022 TECHNIQUE: Multidetector volumetric imaging was performed from the superior aspect of the liver through the pubic symphysis. Sagittal and coronal reformatted images were obtained on the technologist's workstation. This CT examination was performed using dose optimization techniques as appropriate, variously including the following: *Automated exposure control *Adjustment of mA and/or kV according to patient size (this includes techniques or standardized protocols for targeted exams where dose is matched to indication/reason for exam; i.e. extremities or head) *Use of iterative reconstruction technique DLP: 689 mGy-cm FINDINGS: LUNG BASES: Minimal bibasilar atelectasis. LIVER, GALLBLADDER, AND BILIARY TREE: The liver is normal in size, shape, and attenuation. No focal hepatic lesion is seen. There is significant intrahepatic and extrahepatic biliary ductal dilatation. This is a change from the prior MRI. The common bile duct measures 1.9 cm.. Distended gallbladder with intermediate density fluid internally. PANCREAS: Unremarkable. SPLEEN: Unremarkable. ADRENAL GLANDS: Unremarkable. KIDNEYS AND URETERS: The kidneys are normal in size, shape, and attenuation. No hydronephrosis, hydroureter, or calculi seen. No perinephric stranding. BLADDER: Unremarkable. GASTROINTESTINAL TRACT: The stomach is unremarkable. Normal caliber small bowel. No obstruction. Normal appendix. No colonic wall thickening or inflammatory change. ABDOMINAL WALL: No significant hernia is appreciated. LYMPH NODES: Normal. VASCULAR: Normal caliber aorta with mild atherosclerotic calcification. PELVIC VISCERA: The prostate and seminal vesicles are unremarkable. OSSEOUS STRUCTURES: No acute or suspicious osseous abnormality. Mild degenerative change at the lower lumbar spine. CT/CT abdomen pelvis wo con IMPRESSION: Significant intrahepatic and extrahepatic biliary ductal dilatation, which is a change from prior imaging. No filling defects seen within the common bile duct. Intermediate density within the gallbladder lumen could represent sludge. Fleischner guidelines were followed.
--- NOTE | ~2022-05-08 | MR_ITS ---
EXAMINATION: MR ABDOMEN WITHOUT CONTRAST CLINICAL INFORMATION: Cholangitis. Failed ERCP on 05/07/2022 COMPARISON: MRI/MRCP dated 03/22/2022. Hepatobiliary scintigraphy dated 03/22/2022. CT abdomen/pelvis dated 05/09/2022. TECHNIQUE: MR abdomen is performed without gadolinium contrast. FINDINGS: LUNG BASES: The visualized lung bases are unremarkable. LIVER, GALLBLADDER, AND BILIARY TREE: The liver is normal in size, smooth in contour, and normal in signal. No focal hepatic lesion. There is severe intrahepatic biliary ductal dilatation. No peribiliary edema is evident with images suggest cholangitis, however assessment is limited in the absence of intravenous contrast. The common bile duct measures nearly 2.0 cm. Tiny stones layer dependently within the distal common bile duct (see an images). Gallbladder is mildly distended with minimal pericholecystic fluid which is nonspecific in the setting. PANCREAS: There is mild peripancreatic edema, with nondescript fluid extending into the bilateral anterior pararenal spaces. No acute necrotic collection or peripancreatic fluid collection. Pancreatic duct is nondilated. SPLEEN: Unremarkable. ADRENAL GLANDS: Unremarkable. KIDNEYS AND URETERS: The kidneys are normal in size and shape. No hydronephrosis. No perinephric stranding. GASTROINTESTINAL TRACT: No bowel obstruction. No ascites or fluid collection. ABDOMINAL WALL: No significant hernia is appreciated. LYMPH NODES: No lymphadenopathy. VASCULAR: Unremarkable. OSSEOUS STRUCTURES: Marrow signal normal. MR/MR MRCP IMPRESSION: * Choledocholithiasis within the distal common bile duct associated with marked dilatation of the common bile duct to 2.0 cm as seen on the recent CT from 05/09/2022, markedly increased from 03/22/2022, associated with acute interstitial edematous pancreatitis. * No discrete peripancreatic fluid collection or acute necrotic collection. * No MR imaging evidence of cholangitis. This critical result was discussed with Dr. Zavala at 05/10/2022 5:44 PM and it was ascertained that the content and urgency of the report was understood at the time of direct communication.
[2022-05-08 22:31] VITALS: BP 144/64; PULSE 68; RESP 16; TEMP 37.6; O2SAT 100; BMI 26.1
--- NOTE | 2022-05-08 22:55 | ED_ITS ---
HPI - Abdominal Pain General Chief Complaint: Abdominal Pain Stated Complaint: Abd Pain Time Seen by Provider: 05/08/22 22:55 Source: patient and family Mode of arrival: EMS Limitations: no limitations History of Present Illness HPI narrative: Patient had ERCP at [facility] but the procedure was unsuccessful. Now with increased abdominal pain. Patient has elevated LFTs, thought to have stones but MRCP was negative, hepatitis A was positive. MD elicited complaint: abdominal pain Onset (ago): month(s) Location: epigastric Radiation: none Associated symptoms: other (jaundice) Related Data Home Medications Medication Instructions Recorded Confirmed omega-3 fatty acids-fish oil 340 1 cap PO TID 03/22/22 03/22/22 mg-1,000 mg capsule (Fish Oil) trazodone 100 mg tablet 1 tab PO BEDTIME PRN Insomnia 03/22/22 03/22/22 fluoxetine 20 mg capsule 1 cap PO DAILY 05/09/22 05/09/22 fluoxetine 40 mg capsule 1 cap PO DAILY 05/09/22 05/09/22 gabapentin 800 mg tablet 1 tab PO QID 05/09/22 05/09/22 insulin aspart U-100 100 unit/mL ea subcut 05/09/22 (3 mL) subcutaneous pen (Novolog Flexpen U-100 Insulin aspart) metformin 1,000 mg tablet 1 tab PO BID 05/09/22 05/09/22 omega-3 fatty acids-fish oil 340 1 cap PO TID 05/09/22 05/09/22 mg-1,000 mg capsule (Fish Oil) trazodone 100 mg tablet 1 tab PO BEDTIME PRN Insomnia 05/09/22 05/09/22 Allergies Allergy/AdvReac Type Severity Reaction Status Date / Time Penicillins [PCN] Allergy Intermediate Unknown Verified 03/21/22 22:36 Review of Systems Constitutional: Reports no additional constitutional complaints Eyes: Reports no additional eye complaints Denies dizziness Cardiovascular: Reports no additional cardiovascular complaints Respiratory: Reports as per HPI Gastrointestinal: Reports no additional gastrointestinal complaints Musculoskeletal: Reports no additional musculoskeletal complaints Skin/Breast: Denies rash Reports system reviewed and no additional complaints, except as documented, Denies dizziness and Denies Sensory deficit (Neuro) Psychiatric: Denies anxiety PMFSH Past Medical History Medical History Depression DM2 (diabetes mellitus, type 2) Dyslipidemia Erectile dysfunction HTN (hypertension) Injury of right brachial plexus Subarachnoid hemorrhage Subdural hematoma Vitamin D deficiency Surgical History History of surgery on arm Family History Family History Other No family history of coronary artery disease Social History Social History Household Members: Family Housing: House Do you presently have visiting nurse or other home services: Yes ([employer]) Patient Tobacco Use Status: Current everyday Tobacco user Tobacco use type: Cigarette Cigarettes Per Day: 10 e-Cigarette/Vaping Use: Never Used Second Hand Smoke Exposure: No Advance Directives: No Advance Directives Information Provided: Yes service: No Current occupational status: unemployed Physical Exam ED Vital Signs: Vital Signs - 24 hr 05/08/22 22:31 Temperature 99.7 F Pulse Rate 68 Respiratory Rate 16 Blood Pressure 144/64 H Pulse Oximetry 100 Oxygen Delivery Method Room Air BMI result Body Mass Index 26.1 Const Other: jaundiced, ill appearing Nutritional Appearance: average body habitus Orientation/consciousness: oriented to person and patient oriented x3 Limitations: no limitations HENMT Head: Yes normal to inspection Ears: external ears normal General nose exam: Normal external nose present Mouth: Normal oral and palatal mucosa present and oropharynx normal Throat: Yes posterior oropharynx normal Eyes Other: icteric eyes Neck Neck: Yes normal visual inspection Chest Chest palpation & inspection: normal inspection of the chest Resp Auscultation: clear to auscultation bilaterally Cardio Jugular venous distension: no JVD Rate: regular rate Rhythm: regular rhythm Heart sounds: S1 normal heart sound present and S2 normal heart sound present GI Inspection: Yes normal to inspection Palpation (GI): Soft to palpation, nontender and No hepatosplenomegaly present Auscultation: normal bowel sounds General: Yes no CVA tenderness Back/Spine/Pelvis Back: no CVA tenderness Skin General skin exam: no rashes or lesions noted Neuro General: oriented to person and patient oriented x3 Cranial nerves: Yes CN's II-XII intact bilaterally Motor exam (neuro): 5/5 motor strength present throughout Sensory Exam: No Sensory deficit (Neuro) Extrem General: Yes normal to inspection Psych Appearance: grossly normal Course Reevaluation(s) Reevaluation #1: CT showed increased GB distention and CBD dilation. Patient with pancreatitis as well, will admit Time: 07:45 MDM - Abdominal Pain Lab Data Result diagrams: 05/08/22 22:48 05/08/22 22:48 Labs: Lab Results 05/08/22 05/08/22 05/08/22 Range/Units 22:48 22:48 22:48 WBC 11.9 H (4.8-10.8) X10*3/uL RBC 4.29 L (4.60-5.80) X10*6/uL Hgb 12.8 L (14.0-18.0) g/dl Hct 38.3 L (42.0-52.0) % MCV 89.3 (80.0-98.0) fL MCH 29.8 (27.0-33.0) pg MCHC 33.4 (31.0-36.0) g/dl RDW 18.6 H (11.0-16.0) % Plt Count 187 D (160-400) X10*3/uL MPV Not Reportable Immature Gran % (Auto) Cancelled Neut % (Auto) Cancelled Lymph % (Auto) Cancelled [place] % (Auto) Cancelled Eos % (Auto) Cancelled Baso % (Auto) Cancelled Lymph # (Auto) Cancelled [place] # (Auto) Cancelled Eos # (Auto) Cancelled Baso # (Auto) Cancelled Abs Immat Gran (auto) Cancelled Absolute Neuts (auto) Cancelled Absolute Nucleated RBC 0.000 (0.0-0.012) X10*3/uL Nucleated RBC % (auto) 0.0 (0.0-0.2) /100WBC Neutrophils % (Manual) 85 H (45-73) % Band Neutrophils % 0 L (3-5) % Lymphocytes % (Manual) 8 L (20-40) % Monocytes % (Manual) 7 (2-11) % Abs Neuts (Manual) 10.1 H (2.0-8.3) X10*3/uL Lymphocytes # (Manual) 1.0 L (1.2-4.9) X10*3/uL Monocytes # (Manual) 0.8 (0.1-1.2) X10*3/uL Toxic Vacuolation PRESENT Platelet Estimate NORMAL (NORMAL) Large Platelets PRESENT Plt Morphology Comment NOTED RBC Morphology NOTED Microcytosis 1+ (5-14) /OIF Target Cells 1+ (5-14) /OIF Stomatocytes 1+ (5-14) /OIF Sodium 132 L (135-145) mmol/L Potassium 4.9 D (3.3-5.1) mmol/L Chloride 101 (96-108) mmol/L Carbon Dioxide 19 L (22-29) mmol/L Anion Gap 17 (12-20) BUN 17 H (9-16) mg/dL Creatinine 0.76 (0.5-1.4) mg/dL Estim Creat Clear Calc 118.7 Estimated GFR > 60 Random Glucose 309 H D (60-115) mg/dL Calcium 8.9 (8.4-10.2) mg/dL Total Bilirubin 24.6 H (0.0-1.0) mg/dL Direct Bilirubin 17.1 H (0.0-0.5) mg/dL AST 78 H (5-37) U/L ALT 156 H (0-40) U/L Alkaline Phosphatase 325 H D (39-117) U/L Ammonia 46 (13-55) umol/L Total Protein 6.2 L (6.5-8.0) g/dL Albumin 3.2 L (3.5-5.0) g/dL Lipase 722 H (8-78) U/L COVID-19 (TASHA) (Negative) COVID-19 Clin Com 05/09/22 Range/Units 00:45 WBC (4.8-10.8) X10*3/uL RBC (4.60-5.80) X10*6/uL Hgb (14.0-18.0) g/dl Hct (42.0-52.0) % MCV (80.0-98.0) fL MCH (27.0-33.0) pg MCHC (31.0-36.0) g/dl RDW (11.0-16.0) % Plt Count (160-400) X10*3/uL MPV Immature Gran % (Auto) Neut % (Auto) Lymph % (Auto) [place] % (Auto) Eos % (Auto) Baso % (Auto) Lymph # (Auto) [place] # (Auto) Eos # (Auto) Baso # (Auto) Abs Immat Gran (auto) Absolute Neuts (auto) Absolute Nucleated RBC (0.0-0.012) X10*3/uL Nucleated RBC % (auto) (0.0-0.2) /100WBC Neutrophils % (Manual) (45-73) % Band Neutrophils % (3-5) % Lymphocytes % (Manual) (20-40) % Monocytes % (Manual) (2-11) % Abs Neuts (Manual) (2.0-8.3) X10*3/uL Lymphocytes # (Manual) (1.2-4.9) X10*3/uL Monocytes # (Manual) (0.1-1.2) X10*3/uL Toxic Vacuolation Platelet Estimate (NORMAL) Large Platelets Plt Morphology Comment RBC Morphology Microcytosis /OIF Target Cells /OIF Stomatocytes /OIF Sodium (135-145) mmol/L Potassium (3.3-5.1) mmol/L Chloride (96-108) mmol/L Carbon Dioxide (22-29) mmol/L Anion Gap (12-20) BUN (9-16) mg/dL Creatinine (0.5-1.4) mg/dL Estim Creat Clear Calc Estimated GFR Random Glucose (60-115) mg/dL Calcium (8.4-10.2) mg/dL Total Bilirubin (0.0-1.0) mg/dL Direct Bilirubin (0.0-0.5) mg/dL AST (5-37) U/L ALT (0-40) U/L Alkaline Phosphatase (39-117) U/L Ammonia (13-55) umol/L Total Protein (6.5-8.0) g/dL Albumin (3.5-5.0) g/dL Lipase (8-78) U/L COVID-19 (TASHA) Negative (Negative) COVID-19 Clin Com See Note Discharge Plan Discharge Clinical Impression: Pancreatitis, Elevated LFTs, Jaundice Patient Disposition: Admitted As Inpatient
[2022-05-08 22:59] LABS: Hemoglobin 12.8 g/dl (14.0-18.0)
[2022-05-08 23:01] LABS: Hematocrit 38.3 % (42.0-52.0); Mean Corpuscular HGB Conc 33.4 g/dl (31.0-36.0); Mean Corpuscular Hemoglobin 29.8 pg (27.0-33.0); Mean Corpuscular Volume 89.3 fL (80.0-98.0); Platelet Count 187 X10*3/uL (160-400); Red Blood Count 4.29 X10*6/uL (4.60-5.80); Red Cell Distribution Width 18.6 % (11.0-16.0)
[2022-05-08 23:15] LABS: PLT ABN DIST 1; WBC ABN SCTR FOR CBC 1; White Blood Count 11.9 X10*3/uL (4.8-10.8)
[2022-05-08 23:17] LABS: Alanine Aminotransferase 156 U/L (0-40); Albumin Level 3.2 g/dL (3.5-5.0); Alkaline Phosphatase 325 U/L (39-117); Anion Gap 17 (12-20); Aspartate Amino Transferase 78 U/L (5-37); Blood Urea Nitrogen 17 mg/dL (9-16); Calcium 8.9 mg/dL (8.4-10.2); Carbon Dioxide 19 mmol/L (22-29); Chloride 101 mmol/L (96-108); Creatinine Clr Calc Pharmacy 118.7; Estimated Glomerular Filt Rate > 60; Glucose Random 309 mg/dL (60-115); Lipase 722 U/L (8-78); Potassium 4.9 mmol/L (3.3-5.1); Sodium 132 mmol/L (135-145); Total Protein 6.2 g/dL (6.5-8.0)
[2022-05-08 23:18] LABS: Ammonia 46 umol/L (13-55)
[2022-05-08 23:20] LABS: Band Neutrophils Percent 0 % (3-5); Lymphocytes Percent Manual 8 % (20-40); Monocytes Absolute Manual 0.8 X10*3/uL (0.1-1.2); Monocytes Percent Manual 7 % (2-11); Neutrophils Absolute Manual 10.1 X10*3/uL (2.0-8.3); Neutrophils Percent Manual 85 % (45-73)
[2022-05-08 23:21] LABS: RBC Morphology NOTED; Target Cells 1+ (5-14) /OIF
[2022-05-08 23:23] LABS: Microcytosis 1+ (5-14) /OIF; Stomatocytes 1+ (5-14) /OIF
[2022-05-08 23:24] LABS: Toxic Vacuolation PRESENT
[2022-05-08 23:25] LABS: Large Platelet PRESENT; Platelet Estimate NORMAL (NORMAL); Platelet Morphology Comment NOTED
[2022-05-08 23:45] LABS: Bilirubin Direct 17.1 mg/dL (0.0-0.5); Bilirubin Total 24.6 mg/dL (0.0-1.0)
[2022-05-09] MEDS: 0.9 % Sodium Chloride 1,000 ML 999 ML IVCONT ×2 (00:02→00:58)
[2022-05-09] MEDS: Morphine Sulfate 4 MG/ML CARTRIDGE IVPUSH ×2 (00:03→08:38)
[2022-05-09] MEDS: Pantoprazole Sodium 40 MG/10 ML VIAL IVPUSH (00:03)
[2022-05-09 04:47] LABS: COVID-19 Test Negative (Negative); IDNOW Serial# 16C4AD1C
--- NOTE | 2022-05-09 06:13 | PM.IMHP ---
History of Present Illness Date of Service: 05/09/22 Chief Complaint: Abdominal pain French-speaking only, history is obtained with the help of an valve and regulator repairer 51-year-old male with past medical history of hypertension, hyperlipidemia, diabetes who presents to the hospital today with complaints of severe abdominal pain. Of note patient was seen in the hospital from 03/22 to 03/24 for abdominal pain, was found to have elevated LFTs, patient underwent workup by GI including MRCP which showed no evidence of choledocholithiasis, he was also evaluated by surgery and there was no indication for surgery. Patient felt to possible hepatitis a and was discharged home after removing LFTs. Patient's at bedside reports that after being discharged from the hospital, they followed up with PCP, and PCP referred him to a sales trainee who works at [facility] due to not improving labs. Patient underwent ERCP a [facility] to rule out stone, this was yesterday on 05/07. According to the the ERCP could not be completed because the doctor could not past the probe into the CBD and the procedure was aborted. The told the that there was nothing they could do and that they will refer them to [facility] for the ERCP. Few hours following the ERCP patient developed epigastric pain radiating to the back, he reports that he developed low appetite, nausea with no vomiting, chills, no fever, low appetite, developed constipation and therefore decided to come back to the hospital today as the pain progressively worse. Pain is epigastric radiating to the back, worse with movement, better if he lays on his side, 7/10, constant. On arrival to the ED patient hemodynamically stable with no significant abnormal vitals Labs are significant for WBC count of 11.9, hemoglobin of 12.8, hematocrit 38.3, sodium of 132, total bili of 24.6 which increased from 10.2 on 03/30,, direct bili of 17.1, increased from 7.3, AST of 78, ALT of 156, alk-phos of 325, both are improved from 03/30, lipase of 722. Abdomen pelvic CT shows significant Dr. Headache and extrahepatic biliary ductal dilatation, this is a change from prior imaging. No filling defects seen in the common bile duct. 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) Patient Tobacco Use Status: Current everyday Tobacco user Tobacco use type: Cigarette Cigarettes Per Day: 10 e-Cigarette/Vaping Use: Never Used Second Hand Smoke Exposure: No Advance Directives: No Advance Directives Information Provided: Yes service: No Current occupational status: unemployed Meds Allergies Allergy/AdvReac Type Severity Reaction Status Date / Time Penicillins [PCN] Allergy Intermediate Unknown Verified 03/21/22 22:36 Active Medications: Current Medications Acetaminophen (Acetaminophen 325 Mg Tablet) 650 mg PO Q6H PRN PRN Reason: Pain, Mild (Pain Scale 1-3) Lactated Ringer's (Lr) 1,000 mls @ 200 mls/hr IVCONT .Q5H LIGIA Ceftriaxone Sodium 1 gm/ (Sodium Chloride) 50 mls @ 100 mls/hr IV Q24H LIGIA Metronidazole (Flagyl) 500 mg in 100 mls @ 100 mls/hr IV Q8H LIGIA Morphine Sulfate (Morphine Sulfate 4 Mg/Ml Cartridge) 4 mg IVPUSH Q4H PRN; Protocol PRN Reason: Pain, Severe (Pain Scale 7-10) Ondansetron HCl (Ondansetron Hcl 4 Mg/2 Ml Vial) 4 mg IVPUSH Q8H PRN PRN Reason: Nausea and Vomiting Pharmacy Consult (Consult Rx Perform Med Rec) 1 each MISCELLANE ONCE PRN PRN Reason: Consult order Sodium Chloride (0.9 % Sodium Chloride Flush 3 Ml Syringe) 3 ml IVFLUSH QSHIFT LIGIA Home Medications Medication Instructions Recorded Confirmed Last Taken Type omega-3 fatty acids-fish oil 340 1 cap PO TID 03/22/22 03/22/22 05/08/22 07:00 History mg-1,000 mg capsule (Fish Oil) trazodone 100 mg tablet 1 tab PO BEDTIME PRN Insomnia 03/22/22 03/22/22 Unknown History fluoxetine 20 mg capsule 1 cap PO DAILY 05/09/22 05/09/22 05/08/22 07:00 History fluoxetine 40 mg capsule 1 cap PO DAILY 05/09/22 05/09/22 05/08/22 07:00 History gabapentin 800 mg tablet 1 tab PO QID 05/09/22 05/09/22 05/08/22 19:00 History insulin aspart U-100 100 unit/mL ea subcut 05/09/22 Unknown History (3 mL) subcutaneous pen (Novolog Flexpen U-100 Insulin aspart) metformin 1,000 mg tablet 1 tab PO BID 05/09/22 05/09/22 05/08/22 19:00 History omega-3 fatty acids-fish oil 340 1 cap PO TID 05/09/22 05/09/22 05/08/22 07:00 History mg-1,000 mg capsule (Fish Oil) trazodone 100 mg tablet 1 tab PO BEDTIME PRN Insomnia 05/09/22 05/09/22 Unknown History Physical Exam Vital Signs and Narrative: Vital Signs: Last Vital Signs Temp 99.7 F 05/08/22 22:31 Pulse 68 05/08/22 22:31 Resp 16 05/08/22 22:31 BP 144/64 H 05/08/22 22:31 Pulse Ox 100 05/08/22 22:31 O2 Del Method 05/08/22 22:31 BMI result Body Mass Index 26.1 Const: General: cooperative and no acute distress Orientation/consciousness: patient oriented x3 Eyes: General: appearance normal, both eyes and all related structures Resp: Effort & Inspection: normal respiratory effort Auscultation: clear to auscultation bilaterally Cardio: Rate: regular rate Rhythm: regular rhythm GI: Other: Abdomen is tender in the epigastric region, there is rebounding as well as guarding Palpation (GI): Soft to palpation Auscultation: normal bowel sounds Skin: Other: Significant jaundice Neuro: General: patient oriented x3 Cognition (Neuro): normal cognition Extrem: General: Yes normal to inspection and Yes no pedal edema Results Labs CBC and Chem 7: 05/08/22 22:48 05/08/22 22:48 Labs: Laboratory Results - last 24 hr 05/08/22 05/08/22 05/08/22 22:48 22:48 22:48 MCV 89.3 MCH 29.8 MCHC 33.4 RDW 18.6 H Plt Count 187 D MPV Not Reportable Immature Gran % (Auto) Cancelled Neut % (Auto) Cancelled Lymph % (Auto) Cancelled [place] % (Auto) Cancelled Eos % (Auto) Cancelled Baso % (Auto) Cancelled Lymph # (Auto) Cancelled [place] # (Auto) Cancelled Eos # (Auto) Cancelled Baso # (Auto) Cancelled Abs Immat Gran (auto) Cancelled Absolute Neuts (auto) Cancelled Absolute Nucleated RBC 0.000 Nucleated RBC % (auto) 0.0 Neutrophils % (Manual) 85 H Band Neutrophils % 0 L Lymphocytes % (Manual) 8 L Monocytes % (Manual) 7 Abs Neuts (Manual) 10.1 H Lymphocytes # (Manual) 1.0 L Monocytes # (Manual) 0.8 Toxic Vacuolation PRESENT Platelet Estimate NORMAL Large Platelets PRESENT Plt Morphology Comment NOTED RBC Morphology NOTED Microcytosis 1+ (5-14) Target Cells 1+ (5-14) Stomatocytes 1+ (5-14) Anion Gap 17 Estim Creat Clear Calc 118.7 Estimated GFR > 60 Random Glucose 309 H D Calcium 8.9 Total Bilirubin 24.6 H Direct Bilirubin 17.1 H AST 78 H ALT 156 H Alkaline Phosphatase 325 H D Ammonia 46 Total Protein 6.2 L Albumin 3.2 L Lipase 722 H COVID-19 (TASHA) COVID-19 Clin Com 05/09/22 00:45 MCV MCH MCHC RDW Plt Count MPV Immature Gran % (Auto) Neut % (Auto) Lymph % (Auto) [place] % (Auto) Eos % (Auto) Baso % (Auto) Lymph # (Auto) [place] # (Auto) Eos # (Auto) Baso # (Auto) Abs Immat Gran (auto) Absolute Neuts (auto) Absolute Nucleated RBC Nucleated RBC % (auto) Neutrophils % (Manual) Band Neutrophils % Lymphocytes % (Manual) Monocytes % (Manual) Abs Neuts (Manual) Lymphocytes # (Manual) Monocytes # (Manual) Toxic Vacuolation Platelet Estimate Large Platelets Plt Morphology Comment RBC Morphology Microcytosis Target Cells Stomatocytes Anion Gap Estim Creat Clear Calc Estimated GFR Random Glucose Calcium Total Bilirubin Direct Bilirubin AST ALT Alkaline Phosphatase Ammonia Total Protein Albumin Lipase COVID-19 (TASHA) Negative COVID-19 Clin Com See Note Imaging Radiologist's Impressions: Impressions Abdomen/Pelvis CT 05/09/22 00:45 IMPRESSION: Significant intrahepatic and extrahepatic biliary ductal dilatation, which is a change from prior imaging. No filling defects seen within the common bile duct. Intermediate density within the gallbladder lumen could represent sludge. Fleischner guidelines were followed. Assessment and Plan (1) Pancreatitis: Status: Acute (2) Transaminitis: Status: Acute (3) Dilated cbd, acquired: Status: Acute (4) Jaundice: Status: Acute (5) Hyperbilirubinemia: Status: Acute Plan This is a 51-year-old male with recent diagnosis of possible hepatitis a transaminitis presents the hospital with worsening abdominal pain after undergoing ERCP the day prior # acute pancreatitis - likely post ERCP - has 2/3 criteria with abdominal pain, is a well as elevated lipase - will treat with IV fluids, pain control - GI consulted # dilated CBD - no evidence of filling defect - likely secondary to ERCP - patient underwent MRCP in March which showed no significant findings - GI consulted # jaundice/hyperbilirubinemia - unclear etiology at this time, possibly worsened in the setting of ERCP - IV fluids - GI consult # transaminitis - improving except for hyperbilirubinemia - felt to be possibly secondary to recovering from hepatitis-A infection - GI on consult - follow LFTs # diabetes - hold metformin - will add low-dose sliding scale insulin - diabetic diet DVT prophylaxis: Lovenox Patient whole required minimum 2 night hospital stay to evaluate and further manage acute pancreatitis with IV fluids, as well as further workup for the dilated CBD and h hyperbilirubinemia Quality Stroke Does the patient have a stroke diagnosis?: No VTE Prior VTE?: No VTE Risk Level:: Medical - moderate - high VTE Device Contraindication: N/A - Device Ordered VTE Drug Contraindication: Treatment Not Indicated
[2022-05-09 07:24] VITALS: BP 117/58; PULSE 61; RESP 13; TEMP 36.7; O2SAT 99
[2022-05-09 07:29] LABS: Glucose, Whole Blood 171 mg/dL (60-115)
--- NOTE | 2022-05-09 08:38 | PHA.MEDREC ---
Pharmacy Consult ? Medication Reconciliation Pharmacy has completed the medication reconciliation. takes care of patients medications.
[2022-05-09] MEDS: Enoxaparin Sodium 40 MG/0.4 ML SYRINGE SUBCUT (08:39)
[2022-05-09] MEDS: Insulin Lispro 100 UNIT/ML 3 ML VIAL SUBCUT ×2 (08:39→20:08)
[2022-05-09 10:04] LABS: Alanine Aminotransferase 124 U/L (0-40); Albumin Level 2.7 g/dL (3.5-5.0); Alkaline Phosphatase 276 U/L (39-117); Anion Gap 11 (12-20); Aspartate Amino Transferase 60 U/L (5-37); Blood Urea Nitrogen 13 mg/dL (9-16); Calcium 8.2 mg/dL (8.4-10.2); Carbon Dioxide 23 mmol/L (22-29); Chloride 104 mmol/L (96-108); Creatinine Clr Calc Pharmacy 115.6; Estimated Glomerular Filt Rate > 60; Glucose Random 190 mg/dL (60-115); Potassium 3.8 mmol/L (3.3-5.1); Sodium 134 mmol/L (135-145); Total Protein 4.8 g/dL (6.5-8.0)
[2022-05-09 10:13] LABS: Bilirubin Total 21.6 mg/dL (0.0-1.0)
[2022-05-09] MEDS: FLUoxetine HCl 20 MG CAPSULE 40 MG PO (10:17)
[2022-05-09] MEDS: Gabapentin 400 MG CAPSULE 800 MG PO ×3 (10:18→20:07)
[2022-05-09] MEDS: 0.9 % Sodium Chloride Flush 3 ML SYRINGE IVFLUSH (10:19)
[2022-05-09] MEDS: FLUoxetine HCl 20 MG CAPSULE PO (10:19)
[2022-05-09 10:28] LABS: Bilirubin Direct 15.6 mg/dL (0.0-0.5)
[2022-05-09] MEDS: Lactated Ringers 1,000 ML 200 ML IVCONT ×2 (11:15→20:07)
--- NOTE | 2022-05-09 12:17 | PM.EVENT ---
Event Note Date of Service: 05/09/22 Event Note: This is a 51-year-old male with recent diagnosis of possible hepatitis a transaminitis presents the hospital with worsening abdominal pain after undergoing ERCP the day prior Acute pancreatitis likely post ERCP has 2/3 criteria with abdominal pain, is a well as elevated lipase will treat with IV fluids, pain control GI consulted Dilated CBD no evidence of filling defect likely secondary to ERCP patient underwent MRCP in March which showed no significant findings sludge in the gallbladder Gen surg consult Jaundice/hyperbilirubinemia unclear etiology at this time, possibly worsened in the setting of ERCP IV fluids GI consult Transaminitis improving except for hyperbilirubinemia felt to be possibly secondary to recovering from hepatitis-A infection GI on consult follow LFTs Diabetes hold metformin will add low-dose sliding scale insulin diabetic diet DVT prophylaxis:? Lovenox Attending Dr. Antoine Full code Patient will require minimum 2 night hospital stay to evaluate and further manage acute pancreatitis with IV fluids, as well as further workup for the dilated CBD and h hyperbilirubinemia
[2022-05-09 12:33] VITALS: BP 103/48; PULSE 56; RESP 16; O2SAT 99
[2022-05-09 12:34] LABS: Glucose, Whole Blood 132 mg/dL (60-115)
--- NOTE | 2022-05-09 14:01 | PM.CNGS ---
History of Present Illness Consult details Consult date: 05/09/22 Narrative: 51-year-old male referred for jaundice with dilated common bile duct. He actually had been admitted to this hospital last 03/23/2022 for jaundice as well. At that time, he had an MRI showing at dilated ducts without any obvious filling defects. His bilirubin had been elevated as well. He has ultrasound did not reveal gallstones . He apparently had been admitted to [facility] recently. His says that an ERCP had been at [facility] but this was unsuccessful. He was just discharged from the hospital 2 days ago. Even at the time of his discharge, he had been jaundiced. They were told that they were going to be referred to [facility]. However, he continued to have periodic upper abdominal pain so he decided to come back to the ER here yesterday. He currently says that he does not have pain or tenderness but he says that this is episodic. Review of Systems Constitutional: Constitutional: Denies chills and Denies fever(s) Cardiovascular: Cardiovascular: Denies chest pain, Denies dyspnea and Denies dyspnea on exertion Respiratory: Respiratory: Denies cough, Denies dyspnea and Denies dyspnea on exertion Gastrointestinal: Gastrointestinal: Denies hematochezia and Denies change in bowel habits Genitourinary: Genitourinary: Denies hematuria and Denies difficulty urinating Musculoskeletal: Musculoskeletal: Denies back pain and Denies limited range of motion Neurologic: Denies focal weakness and Denies convulsions Psychiatric: Psychiatric: Denies depression and Denies mood swings PMFSH Past Medical History Medical History Depression DM2 (diabetes mellitus, type 2) Dyslipidemia Erectile dysfunction HTN (hypertension) Injury of right brachial plexus Subarachnoid hemorrhage Subdural hematoma Vitamin D deficiency Family History Family History Other No family history of coronary artery disease Surgical History Surgical History History of surgery on arm Social History Social History Household Members: Spouse Housing: Apartment Do you presently have visiting nurse or other home services: Yes ( is [employer]) Patient Tobacco Use Status: Current everyday Tobacco user Tobacco use type: Cigarette Cigarette Packs Per Day: 0.5 Cigarettes Per Day: 10.0 Years Smoked: 11 e-Cigarette/Vaping Use: Never Used Second Hand Smoke Exposure: No Substance Use Type: Crack/Cocaine service: No Current occupational status: unemployed Meds Allergies Allergy/AdvReac Type Severity Reaction Status Date / Time Penicillins [PCN] Allergy Intermediate Unknown Verified 03/21/22 22:36 Active Medications: Current Medications Acetaminophen (Acetaminophen 325 Mg Tablet) 650 mg PO Q6H PRN PRN Reason: Pain, Mild (Pain Scale 1-3) Dextrose (Dextrose 50 % 25 Gm/50 Ml Syringe) 25 gm IVPUSH Q15M PRN; Protocol PRN Reason: per Hypoglycemia Standing Ord. Docusate Sodium (Docusate Sodium 100 Mg Capsule) 100 mg PO DAILY PRN PRN Reason: CONSTIPATION Enoxaparin Sodium (Enoxaparin Sodium 40 Mg/0.4 Ml Syringe) 40 mg SUBCUT Q24H [facility] Last Admin: 05/09/22 08:39 Dose: 40 mg Fluoxetine HCl (Fluoxetine Hcl 20 Mg Capsule) 20 mg PO DAILY [facility] Last Admin: 05/09/22 10:19 Dose: 20 mg Fluoxetine HCl (Fluoxetine Hcl 20 Mg Capsule) 40 mg PO DAILY [facility] Last Admin: 05/09/22 10:17 Dose: 40 mg Gabapentin (Gabapentin 400 Mg Capsule) 800 mg PO QID [facility] Last Admin: 05/09/22 10:18 Dose: 800 mg Glucose (Glucose Gel 15 Gm Gel..Gram.) 15 gm PO Q15M PRN; Protocol PRN Reason: per Hypoglycemia Standing Ord. Lactated Ringer's (Lr) 1,000 mls @ 200 mls/hr IVCONT .Q5H [facility] Last Admin: 05/09/22 11:15 Dose: 200 mls/hr Ceftriaxone Sodium 1 gm/ (Sodium Chloride) 50 mls @ 100 mls/hr IV Q24H [facility] Last Admin: 05/09/22 06:14 Dose: Not Given Metronidazole (Flagyl) 500 mg in 100 mls @ 100 mls/hr IV Q8H [facility] Last Admin: 05/09/22 06:15 Dose: Not Given Insulin Human Lispro (Insulin Lispro 100 Unit/Ml 3 Ml Vial) 0 unit SUBCUT QIDACHS [facility]; Protocol Last Admin: 05/09/22 12:38 Dose: Not Given Morphine Sulfate (Morphine Sulfate 4 Mg/Ml Cartridge) 4 mg IVPUSH Q4H PRN; Protocol PRN Reason: Pain, Severe (Pain Scale 7-10) Last Admin: 05/09/22 08:38 Dose: 4 mg Ondansetron HCl (Ondansetron Hcl 4 Mg/2 Ml Vial) 4 mg IVPUSH Q8H PRN PRN Reason: Nausea and Vomiting Pharmacy Consult (Consult Rx Perform Med Rec) 1 each MISCELLANE ONCE PRN PRN Reason: Consult order Sodium Chloride (0.9 % Sodium Chloride Flush 3 Ml Syringe) 3 ml IVFLUSH QSHIFT [facility] Last Admin: 05/09/22 10:19 Dose: 3 ml Trazodone HCl (Trazodone Hcl 100 Mg Tablet) 100 mg PO BEDTIME PRN PRN Reason: Insomnia Home Medications Medication Instructions Recorded Confirmed Last Taken Type fluoxetine 20 mg capsule 1 cap PO DAILY 05/09/22 05/09/22 Unknown History fluoxetine 40 mg capsule 1 cap PO DAILY 05/09/22 05/09/22 Unknown History gabapentin 800 mg tablet 1 tab PO QID 05/09/22 05/09/22 Unknown History insulin aspart U-100 100 unit/mL 20 unit subcut TIDWMEAL 05/09/22 05/09/22 05/08/22 History (3 mL) subcutaneous pen (Novolog Flexpen U-100 Insulin aspart) metformin 1,000 mg tablet 1 tab PO BID 05/09/22 05/09/22 Unknown History omega-3 fatty acids-fish oil 340 1 cap PO TID 05/09/22 05/09/22 Unknown History mg-1,000 mg capsule (Fish Oil) trazodone 100 mg tablet 1 tab PO BEDTIME PRN Insomnia 05/09/22 05/09/22 Unknown History Physical Exam Vital Signs: Vital Signs: Last Vital Signs Temp 98.0 F 05/09/22 07:24 Pulse 56 05/09/22 12:33 Resp 16 05/09/22 12:33 BP 103/48 L 05/09/22 12:33 Pulse Ox 99 05/09/22 12:33 O2 Del Method 05/09/22 12:33 BMI result Body Mass Index 26.1 Const: Other: Jaundiced General: comfortable and no acute distress Orientation/consciousness: patient oriented x3 Neck: Neck: Yes no lymphadenopathy Resp: Auscultation: clear to auscultation bilaterally Cardio: Rhythm: regular rhythm GI: Other: No Ruiz's sign Palpation (GI): Soft to palpation, nontender and no guarding Neuro: General: patient oriented x3 Results Labs Result diagrams: 05/10/22 06:19 05/11/22 05:16 Labs: Abnormal lab results 05/08/22 05/08/22 05/09/22 Range/Units 22:48 22:48 07:24 WBC 11.9 H (4.8-10.8) X10*3/uL RBC 4.29 L (4.60-5.80) X10*6/uL Hgb 12.8 L (14.0-18.0) g/dl Hct 38.3 L (42.0-52.0) % RDW 18.6 H (11.0-16.0) % Neutrophils % (Manual) 85 H (45-73) % Band Neutrophils % 0 L (3-5) % Lymphocytes % (Manual) 8 L (20-40) % Abs Neuts (Manual) 10.1 H (2.0-8.3) X10*3/uL Lymphocytes # (Manual) 1.0 L (1.2-4.9) X10*3/uL Sodium 132 L (135-145) mmol/L Carbon Dioxide 19 L (22-29) mmol/L Anion Gap (12-20) BUN 17 H (9-16) mg/dL POC Glucose 171 H (60-115) mg/dL Random Glucose 309 H D (60-115) mg/dL Calcium (8.4-10.2) mg/dL Total Bilirubin 24.6 H (0.0-1.0) mg/dL Direct Bilirubin 17.1 H (0.0-0.5) mg/dL AST 78 H (5-37) U/L ALT 156 H (0-40) U/L Alkaline Phosphatase 325 H D (39-117) U/L Total Protein 6.2 L (6.5-8.0) g/dL Albumin 3.2 L (3.5-5.0) g/dL Lipase 722 H (8-78) U/L 05/09/22 05/09/22 Range/Units 09:30 12:26 WBC (4.8-10.8) X10*3/uL RBC (4.60-5.80) X10*6/uL Hgb (14.0-18.0) g/dl Hct (42.0-52.0) % RDW (11.0-16.0) % Neutrophils % (Manual) (45-73) % Band Neutrophils % (3-5) % Lymphocytes % (Manual) (20-40) % Abs Neuts (Manual) (2.0-8.3) X10*3/uL Lymphocytes # (Manual) (1.2-4.9) X10*3/uL Sodium 134 L (135-145) mmol/L Carbon Dioxide (22-29) mmol/L Anion Gap 11 L (12-20) BUN (9-16) mg/dL POC Glucose 132 H (60-115) mg/dL Random Glucose 190 H D (60-115) mg/dL Calcium 8.2 L D (8.4-10.2) mg/dL Total Bilirubin 21.6 H (0.0-1.0) mg/dL Direct Bilirubin 15.6 H (0.0-0.5) mg/dL AST 60 H (5-37) U/L ALT 124 H (0-40) U/L Alkaline Phosphatase 276 H (39-117) U/L Total Protein 4.8 L D (6.5-8.0) g/dL Albumin 2.7 L (3.5-5.0) g/dL Lipase (8-78) U/L Short CBC 05/08/22 Range/Units 22:48 WBC 11.9 H (4.8-10.8) X10*3/uL Hgb 12.8 L (14.0-18.0) g/dl Hct 38.3 L (42.0-52.0) % Plt Count 187 D (160-400) X10*3/uL BMP 05/08/22 05/09/22 22:48 09:30 Sodium 132 L 134 L Potassium 4.9 D 3.8 D Chloride 101 104 Carbon Dioxide 19 L 23 BUN 17 H 13 Creatinine 0.76 0.78 Calcium 8.9 8.2 L D Liver Function 05/08/22 05/09/22 Range/Units 22:48 09:30 Total Bilirubin 24.6 H 21.6 H (0.0-1.0) mg/dL Direct Bilirubin 17.1 H 15.6 H (0.0-0.5) mg/dL AST 78 H 60 H (5-37) U/L ALT 156 H 124 H (0-40) U/L Alkaline Phosphatase 325 H D 276 H (39-117) U/L Albumin 3.2 L 2.7 L (3.5-5.0) g/dL All other labs normal. Imaging Additional studies: Laboratory Results WBC 11.9 X10*3/uL (4.8-10.8) H 05/08/22 22:48 RBC 4.29 X10*6/uL (4.60-5.80) L 05/08/22 22:48 Hgb 12.8 g/dl (14.0-18.0) L 05/08/22 22:48 Hct 38.3 % (42.0-52.0) L 05/08/22 22:48 MCV 89.3 fL (80.0-98.0) 05/08/22 22:48 MCH 29.8 pg (27.0-33.0) 05/08/22 22:48 MCHC 33.4 g/dl (31.0-36.0) 05/08/22 22:48 RDW 18.6 % (11.0-16.0) H 05/08/22 22:48 Plt Count 187 X10*3/uL (160-400) D 05/08/22 22:48 MPV Not Reportable 05/08/22 22:48 Immature Gran % (Auto) Cancelled 05/08/22 22:48 Neut % (Auto) Cancelled 05/08/22 22:48 Lymph % (Auto) Cancelled 05/08/22 22:48 [place] % (Auto) Cancelled 05/08/22 22:48 Eos % (Auto) Cancelled 05/08/22 22:48 Baso % (Auto) Cancelled 05/08/22 22:48 Lymph # (Auto) Cancelled 05/08/22 22:48 [place] # (Auto) Cancelled 05/08/22 22:48 Eos # (Auto) Cancelled 05/08/22 22:48 Baso # (Auto) Cancelled 05/08/22 22:48 Abs Immat Gran (auto) Cancelled 05/08/22 22:48 Absolute Neuts (auto) Cancelled 05/08/22 22:48 Absolute Nucleated RBC 0.000 X10*3/uL (0.0-0.012) 05/08/22 22:48 Nucleated RBC % (auto) 0.0 /100WBC (0.0-0.2) 05/08/22 22:48 Neutrophils % (Manual) 85 % (45-73) H 05/08/22 22:48 Band Neutrophils % 0 % (3-5) L 05/08/22 22:48 Lymphocytes % (Manual) 8 % (20-40) L 05/08/22 22:48 Monocytes % (Manual) 7 % (2-11) 05/08/22 22:48 Abs Neuts (Manual) 10.1 X10*3/uL (2.0-8.3) H 05/08/22 22:48 Lymphocytes # (Manual) 1.0 X10*3/uL (1.2-4.9) L 05/08/22 22:48 Monocytes # (Manual) 0.8 X10*3/uL (0.1-1.2) 05/08/22 22:48 Toxic Vacuolation PRESENT 05/08/22 22:48 Platelet Estimate NORMAL (NORMAL) 05/08/22 22:48 Large Platelets PRESENT 05/08/22 22:48 Plt Morphology Comment NOTED 05/08/22 22:48 RBC Morphology NOTED 05/08/22 22:48 Microcytosis 1+ (5-14) /OIF 05/08/22 22:48 Target Cells 1+ (5-14) /OIF 05/08/22 22:48 Stomatocytes 1+ (5-14) /OIF 05/08/22 22:48 Sodium 134 mmol/L (135-145) L 05/09/22 09:30 Potassium 3.8 mmol/L (3.3-5.1) D 05/09/22 09:30 Chloride 104 mmol/L (96-108) 05/09/22 09:30 Carbon Dioxide 23 mmol/L (22-29) 05/09/22 09:30 Anion Gap 11 (12-20) L 05/09/22 09:30 BUN 13 mg/dL (9-16) 05/09/22 09:30 Creatinine 0.78 mg/dL (0.5-1.4) 05/09/22 09:30 Estim Creat Clear Calc 115.6 05/09/22 09:30 Estimated GFR > 60 05/09/22 09:30 POC Glucose 132 mg/dL (60-115) H 05/09/22 12:26 Random Glucose 190 mg/dL (60-115) H D 05/09/22 09:30 Calcium 8.2 mg/dL (8.4-10.2) L D 05/09/22 09:30 Total Bilirubin 21.6 mg/dL (0.0-1.0) H 05/09/22 09:30 Direct Bilirubin 15.6 mg/dL (0.0-0.5) H 05/09/22 09:30 AST 60 U/L (5-37) H 05/09/22 09:30 ALT 124 U/L (0-40) H 05/09/22 09:30 Alkaline Phosphatase 276 U/L (39-117) H 05/09/22 09:30 Ammonia 46 umol/L (13-55) 05/08/22 22:48 Total Protein 4.8 g/dL (6.5-8.0) L D 05/09/22 09:30 Albumin 2.7 g/dL (3.5-5.0) L 05/09/22 09:30 Lipase 722 U/L (8-78) H 05/08/22 22:48 COVID-19 (TASHA) Negative (Negative) 05/09/22 00:45 COVID-19 Clin Com See Note 05/09/22 00:45 Impressions Abdomen/Pelvis CT 05/09/22 00:45 IMPRESSION: Significant intrahepatic and extrahepatic biliary ductal dilatation, which is a change from prior imaging. No filling defects seen within the common bile duct. Intermediate density within the gallbladder lumen could represent sludge. Fleischner guidelines were followed. Assessment and Plan (1) Hyperbilirubinemia: Status: Acute He has significant jaundice with periodic upper abdominal pain. His CAT scan shows dilated intra and extrahepatic ducts. This is suggestive of biliary obstruction. However, there is no obvious feeling defect in the common bile duct. I recommend repeating his MRCP. We need to rule out an ampullary lesion that may be causing obstruction. He already had an ERCP done in [facility] which apparently was unsuccessful. We should consult GI again here. If no cause of biliary obstruction is identified, we may need to consider doing a liver biopsy to rule out a parenchymal liver disease as well causing his markedly elevated bilirubin levels. He does not have any significant pain or tenderness at this time. Procedures Date of Service Date of Service: 05/09/22
[2022-05-09 14:44] VITALS: BP 118/66; PULSE 53; RESP 14; O2SAT 100
--- NOTE | 2022-05-09 15:39 | MHC.CM.PN ---
Met with patient and his girlfriend using park interpreter. Delivered IMM. Patient lives with his GF in 2 story home, able to climb sitars without difficulty. GF asssits with bathing and dressing. He has 3 daughter in the areas that assist with driving. PCP Is at [facility], he was seen there less than a month ago. called and confirmed PCP is Dr. Akhil Sauceda. Assisted patient in completing HCP. He chose his daughter, Page as HCP and girlfriend, Paige as secondary HCP. Provided patient with original and copies and placed a copy in the chart Anticipate dc home no services, daughter to drive.
[2022-05-09 16:32] VITALS: BP 121/62; PULSE 56; RESP 16; TEMP 36.8; O2SAT 98
--- NOTE | 2022-05-09 16:38 | PC.NURSE ---
patient was given some fluids and jello to eat and drink .
--- NOTE | 2022-05-09 16:39 | PM.EVENT ---
Event Note Date of Service: 05/09/22 Event Note: GI consult dictated presentation is c/w mild post ercp pancreatitis following unsuccessful ERCP at [facility]. He has been referred to [facility] for probable repeat ERCP to evaluate CBD dilation by their advanced endoscopy providers. Clear liquids started.
[2022-05-09 16:43] LABS: Glucose, Whole Blood 161 mg/dL (60-115)
[2022-05-09] MEDS: metroNIDAZOLE/NS 500 MG/100 ML PIGGYBACK 100 MG IV (16:57)
[2022-05-09 19:52] LABS: Glucose, Whole Blood 237 mg/dL (60-115)
[2022-05-09 20:03] VITALS: BP 116/71; PULSE 60; RESP 20; TEMP 37.3; O2SAT 98
[2022-05-09] MEDS: traZODone HCL 100 MG TABLET PO (20:07)
--- NOTE | 2022-05-09 21:11 | PC.NURSE ---
pt 1700 gabapentin was administed on time, admin approx 20:00, pt has no c/o pain. 2100 dose help. MD manrique
[2022-05-10] VITALS (10 sets, daily range): BP systolic 104–116; BP diastolic 55–70; PULSE 47–66; RESP 14–18; TEMP 36.4–37.1; O2SAT 96–100
[2022-05-10] MEDS: Lactated Ringers 1,000 ML 200 ML IVCONT ×4 (01:03→20:38)
[2022-05-10] MEDS: metroNIDAZOLE/NS 500 MG/100 ML PIGGYBACK 100 MG IV ×3 (01:39→16:19)
--- NOTE | 2022-05-10 03:59 | PC.NURSE ---
pt sleeping in bed comfortably, no complaints at this time
--- NOTE | 2022-05-10 04:06 | CONS_ITS ---
DATE OF SERVICE: 05/09/2022 REFERRING PHYSICIAN: Aide Bowles REASON FOR CONSULTATION: Pancreatitis and dilated common bile duct. HISTORY OF PRESENT ILLNESS: The patient is a 51-year-old man, who was admitted to the hospital after presenting to the emergency room with upper abdominal pain. He was at [facility] on Saturday and underwent ERCP, which was reportedly unsuccessful. Findings are not available, otherwise. He developed pain Saturday night and came to the emergency room yesterday. He had associated nausea, but no vomiting and denies fevers and chills. He describes the pain as epigastric with radiation to the back. He states today the pain has gone. The patient has a history of elevated liver function tests and had a hepatitis A IgM, which was a merchant zone results and was imaged previously with MRI and ultrasound. The MRI did not show stones, but the CT scan from this admission did show significant intrahepatic and extrahepatic ductal dilation, which was felt to be a change from the prior MRI. His bilirubin on admission was 24.6, which dropped to 21.6 today. PAST MEDICAL HISTORY: 1. Hypertension. 2. Hyperlipidemia. 3. Diabetes. 4. Elevated liver function tests as above. 5. Right brachial plexus injury. 6. Subarachnoid hemorrhage. 7. Subdural hematoma. 8. Vitamin D deficiency. 9. Depression. CURRENT MEDICATIONS: His current medication list is reviewed in the chart. ALLERGIES: PENICILLIN. FAMILY HISTORY: His brother had unspecified liver disease. SOCIAL HISTORY: He does smoke 1/2 pack per day. He states he rarely uses alcohol. REVIEW OF SYSTEMS: SKIN: No pruritus. HEENT: Negative. CARDIOPULMONARY: No shortness of breath or chest pain. GASTROINTESTINAL: As above. GENITOURINARY: Negative. NEUROPSYCHIATRIC: Negative. PHYSICAL EXAMINATION: GENERAL: Shows a pleasant male, lying comfortably in bed. The history is obtained with the use of an patient care representative. VITAL SIGNS: Reviewed in the electronic medical record and are stable. SKIN: Mildly icteric. HEENT: Shows scleral icterus. NECK: Without lymphadenopathy or thyromegaly. LUNGS: Clear. HEART: Shows regular rate and rhythm. S1, S2. No murmur. ABDOMEN: Soft without focal masses or tenderness. Bowel sounds are present. No organomegaly is noted. EXTREMITIES: Without edema. LABORATORY DATA: Shows a white blood cell count of 11.9, hematocrit 38.3. CT scanning is reviewed, which does show intra and extrahepatic ductal dilation with the common bile duct, measured at 1.9 cm. IMPRESSION: Abdominal pain post endoscopic retrograde cholangiopancreatography. The patient had elevation of his lipase, which is consistent with post endoscopic retrograde cholangiopancreatography pancreatitis. His pancreas did not look inflamed on CT scanning, so it is likely a mild episode. At this time, he is feeling better and I think he can have clear liquids. He should eventually undergo endoscopic retrograde cholangiopancreatography for further diagnosis of his biliary ductal dilation. I would recommend that this be done in [place] at [facility] to take advantage of the advanced endoscopy team there as he has already had a failed ERCP at [facility]. Records will be reviewed. Thanks for asking me to see him. I will follow him in the hospital with you. MD JAYNE Snyder/ANGIE / [phone]
[2022-05-10 06:30] LABS: MANUAL DIFF FLAG NO
[2022-05-10] MEDS: cefTRIAXone sodium 1 GM in 0.9 % Sodium Chloride 50 ML IV (06:50)
[2022-05-10 06:53] LABS: Basophils Percent Auto 0.2 % (0-2); Eosinophils Percent Auto 0.4 % (0-4); Hematocrit 33.4 % (42.0-52.0); Imm Gran Abs Auto 0.04 X10*3/uL (0.00-0.03); Imm Gran Pct Auto 0.5 % (0.0-0.4); Lymphocytes Absolute Auto 1.2 X10*3/uL (1.2-4.9); Lymphocytes Percent Auto 14.1 % (20-40); Mean Corpuscular HGB Conc 32.9 g/dl (31.0-36.0); Mean Corpuscular Hemoglobin 29.4 pg (27.0-33.0); Mean Corpuscular Volume 89.3 fL (80.0-98.0); Monocytes Absolute Auto 0.8 X10*3/uL (0.1-1.2); Monocytes Percent Auto 10.1 % (2-11); Neutrophils Absolute Auto 6.2 x10*3/uL (2.0-8.3); Neutrophils Percent Auto 74.7 % (45-73); Platelet Count 184 X10*3/uL (160-400); Red Blood Count 3.74 X10*6/uL (4.60-5.80); Red Cell Distribution Width 18.1 % (11.0-16.0); White Blood Count 8.2 X10*3/uL (4.8-10.8)
[2022-05-10 07:29] LABS: Glucose, Whole Blood 145 mg/dL (60-115)
[2022-05-10 08:00] LABS: Alanine Aminotransferase 106 U/L (0-40); Albumin Level 2.5 g/dL (3.5-5.0); Alkaline Phosphatase 280 U/L (39-117); Anion Gap 10 (12-20); Aspartate Amino Transferase 55 U/L (5-37); Bilirubin Direct 14.9 mg/dL (0.0-0.5); Blood Urea Nitrogen 10 mg/dL (9-16); Calcium 8.4 mg/dL (8.4-10.2); Carbon Dioxide 25 mmol/L (22-29); Chloride 102 mmol/L (96-108); Creatinine Clr Calc Pharmacy 118.7; Estimated Glomerular Filt Rate > 60; Glucose Random 154 mg/dL (60-115); Lipase 85 U/L (8-78); Potassium 3.6 mmol/L (3.3-5.1); Sodium 133 mmol/L (135-145); Total Protein 4.5 g/dL (6.5-8.0)
[2022-05-10 08:07] LABS: Bilirubin Total 21.1 mg/dL (0.0-1.0)
[2022-05-10] MEDS: FLUoxetine HCl 20 MG CAPSULE 40 MG PO (08:29)
[2022-05-10] MEDS: Enoxaparin Sodium 40 MG/0.4 ML SYRINGE SUBCUT (08:29)
[2022-05-10] MEDS: FLUoxetine HCl 20 MG CAPSULE PO (08:29)
[2022-05-10] MEDS: Gabapentin 400 MG CAPSULE 800 MG PO ×3 (08:30→20:39)
--- NOTE | 2022-05-10 08:37 | PC.NURSE ---
report given to icu
[2022-05-10] MEDS: Morphine Sulfate 4 MG/ML CARTRIDGE IVPUSH (08:40)
[2022-05-10 09:17] LABS: HBc Num1 0.07 S/CO (0.00-0.79); HBsAGNum1 0.16 S/CO (0.00-0.99); Hepatitis B Core Antibody Nonreactive (Nonreactive); Hepatitis B Surface Antigen Negative (Negative); ~HepC Num1 0.05 S/CO (0.00-0.79); ~Hepatitis C Antibody Nonreactive (Nonreactive)
--- NOTE | 2022-05-10 09:59 | P.PNIM_ITS ---
Subjective Subjective Date of Service: 05/10/22 Interval History: Follow up cholangitis feeling weak today diffuse abdominal pain Physical Exam Vital Signs: Vital Signs: Last Vital Signs Temp 98.2 F 05/10/22 08:00 Pulse 59 05/10/22 08:00 Resp 18 05/10/22 08:40 BP 109/65 05/10/22 08:00 Pulse Ox 99 05/10/22 08:00 O2 Del Method 05/10/22 08:00 BMI result Body Mass Index 26.1 Jaundice lung sounds are clear to auscultation heart regular rate rhythm, clear S1, S2 positive bowel sounds, abdomen is soft, diffuse tenderness neuro patient is alert x3, no focal deficits Objective Data Active Medications Acetaminophen (Acetaminophen 325 Mg Tablet) 650 mg PO Q6H PRN PRN Reason: Pain, Mild (Pain Scale 1-3) Dextrose (Dextrose 50 % 25 Gm/50 Ml Syringe) 25 gm IVPUSH Q15M PRN; Protocol PRN Reason: per Hypoglycemia Standing Ord. Docusate Sodium (Docusate Sodium 100 Mg Capsule) 100 mg PO DAILY PRN PRN Reason: CONSTIPATION Enoxaparin Sodium (Enoxaparin Sodium 40 Mg/0.4 Ml Syringe) 40 mg SUBCUT Q24H [facility] Last Admin: 05/10/22 08:29 Dose: 40 mg Documented By: DELL Fluoxetine HCl (Fluoxetine Hcl 20 Mg Capsule) 20 mg PO DAILY [facility] Last Admin: 05/10/22 08:29 Dose: 20 mg Documented By: DELL Fluoxetine HCl (Fluoxetine Hcl 20 Mg Capsule) 40 mg PO DAILY [facility] Last Admin: 05/10/22 08:29 Dose: 40 mg Documented By: DELL Gabapentin (Gabapentin 400 Mg Capsule) 800 mg PO QID [facility] Last Admin: 05/10/22 08:30 Dose: 800 mg Documented By: DELL Glucose (Glucose Gel 15 Gm Gel..Gram.) 15 gm PO Q15M PRN; Protocol PRN Reason: per Hypoglycemia Standing Ord. Lactated Ringer's (Lr) 1,000 mls @ 200 mls/hr IVCONT .Q5H [facility] Last Admin: 05/10/22 08:29 Dose: Not Given Documented By: DELL Non-Admin Reason: IV Running Ceftriaxone Sodium 1 gm/ (Sodium Chloride) 50 mls @ 100 mls/hr IV Q24H [facility] Last Admin: 05/10/22 06:50 Dose: 100 mls/hr Documented By: LEROY Metronidazole (Flagyl) 500 mg in 100 mls @ 100 mls/hr IV Q8H [facility] Last Admin: 05/10/22 08:30 Dose: 100 mls/hr Documented By: DELL Insulin Human Lispro (Insulin Lispro 100 Unit/Ml 3 Ml Vial) 0 unit SUBCUT QIDACHS [facility]; Protocol Last Admin: 05/10/22 08:29 Dose: Not Given Documented By: DELL Non-Admin Reason: No Insulin Coverage Morphine Sulfate (Morphine Sulfate 4 Mg/Ml Cartridge) 4 mg IVPUSH Q4H PRN; Protocol PRN Reason: Pain, Severe (Pain Scale 7-10) Last Admin: 05/10/22 08:40 Dose: 4 mg Documented By: JUSTYN Ondansetron HCl (Ondansetron Hcl 4 Mg/2 Ml Vial) 4 mg IVPUSH Q8H PRN PRN Reason: Nausea and Vomiting Pharmacy Consult (Consult Rx Perform Med Rec) 1 each MISCELLANE ONCE PRN PRN Reason: Consult order Sodium Chloride (0.9 % Sodium Chloride Flush 3 Ml Syringe) 3 ml IVFLUSH QSHIFT [facility] Last Admin: 05/10/22 08:29 Dose: Not Given Documented By: DELL Non-Admin Reason: IV Running Trazodone HCl (Trazodone Hcl 100 Mg Tablet) 100 mg PO BEDTIME PRN PRN Reason: Insomnia Last Admin: 05/09/22 20:07 Dose: 100 mg Documented By: LEROY Labs CBC & Chem 7: 05/10/22 06:19 05/10/22 06:19 Labs: Laboratory Results - last 24 hr 05/09/22 05/09/22 05/09/22 09:30 12:26 16:37 MCV MCH MCHC RDW Plt Count MPV Immature Gran % (Auto) Neut % (Auto) Lymph % (Auto) [place] % (Auto) Eos % (Auto) Baso % (Auto) Lymph # (Auto) [place] # (Auto) Eos # (Auto) Baso # (Auto) Abs Immat Gran (auto) Absolute Neuts (auto) Absolute Nucleated RBC Nucleated RBC % (auto) Anion Gap 11 L Estim Creat Clear Calc 115.6 Estimated GFR > 60 POC Glucose 132 H 161 H Random Glucose 190 H D Calcium 8.2 L D Total Bilirubin 21.6 H Direct Bilirubin 15.6 H AST 60 H ALT 124 H Alkaline Phosphatase 276 H Total Protein 4.8 L D Albumin 2.7 L Lipase 05/09/22 05/10/22 05/10/22 19:48 06:19 06:19 MCV 89.3 MCH 29.4 MCHC 32.9 RDW 18.1 H Plt Count 184 MPV Not Reportable Immature Gran % (Auto) 0.5 H Neut % (Auto) 74.7 H Lymph % (Auto) 14.1 L [place] % (Auto) 10.1 Eos % (Auto) 0.4 Baso % (Auto) 0.2 Lymph # (Auto) 1.2 [place] # (Auto) 0.8 Eos # (Auto) 0.0 Baso # (Auto) 0.0 Abs Immat Gran (auto) 0.04 H Absolute Neuts (auto) 6.2 Absolute Nucleated RBC 0.000 Nucleated RBC % (auto) 0.0 Anion Gap 10 L Estim Creat Clear Calc 118.7 Estimated GFR > 60 POC Glucose 237 H Random Glucose 154 H Calcium 8.4 Total Bilirubin 21.1 H Direct Bilirubin 14.9 H AST 55 H ALT 106 H Alkaline Phosphatase 280 H Total Protein 4.5 L Albumin 2.5 L Lipase 85 H 05/10/22 07:25 MCV MCH MCHC RDW Plt Count MPV Immature Gran % (Auto) Neut % (Auto) Lymph % (Auto) [place] % (Auto) Eos % (Auto) Baso % (Auto) Lymph # (Auto) [place] # (Auto) Eos # (Auto) Baso # (Auto) Abs Immat Gran (auto) Absolute Neuts (auto) Absolute Nucleated RBC Nucleated RBC % (auto) Anion Gap Estim Creat Clear Calc Estimated GFR POC Glucose 145 H Random Glucose Calcium Total Bilirubin Direct Bilirubin AST ALT Alkaline Phosphatase Total Protein Albumin Lipase Assessment and Plan (1) Dilated cbd, acquired: Status: Acute Plan This is a 51-year-old male with recent diagnosis of possible hepatitis a transaminitis presents the hospital with worsening abdominal pain after undergoing ERCP the day prior Dilated CBD no evidence of filling defect likely secondary to ERCP at [facility] sludge in the gallbladder Gen surg rec repeat MRCP for ? of malignancy GI rec ERCP at some point and should be done at [facility] as ERCP at [facility] failed Acute mild pancreatitis likely post ERCP with elevated lipase IV fluids, pain control GI following Jaundice/hyperbilirubinemia unclear etiology at this time, possibly worsened in the setting of ERCP IV fluids GI consult Transaminitis improving except for hyperbilirubinemia felt to be possibly secondary to recovering from hepatitis-A infection GI on consult follow LFTs Diabetes hold metformin will add low-dose sliding scale insulin diabetic diet DVT prophylaxis:? Lovenox Attending Dr. Antoine Full code Continued hospitalization for continued work up for cholangitis Quality Stroke Does the patient have a stroke diagnosis?: No VTE Prior VTE?: No VTE Risk Level:: Medical - moderate - high VTE Device Contraindication: N/A - Device Ordered VTE Drug Contraindication: Treatment Not Indicated
[2022-05-10 11:13] LABS: Glucose, Whole Blood 204 mg/dL (60-115)
[2022-05-10 12:47] LABS: HBS Num2 7.89 mIU/mL (0-7.99); HBS Num3 8.07 mIU/mL (0-7.99); ~Hepatitis B Surface Antibody GRAYZONE (Nonreactive)
[2022-05-10] MEDS: Insulin Lispro 100 UNIT/ML 3 ML VIAL SUBCUT ×2 (13:36→20:38)
[2022-05-10] MEDS: 0.9 % Sodium Chloride Flush 3 ML SYRINGE IVFLUSH (16:20)
[2022-05-10 16:24] LABS: Glucose, Whole Blood 74 mg/dL (60-115)
--- NOTE | 2022-05-10 17:44 | PM.EVENT ---
Event Note Date of Service: 05/10/22 Event Note: of radiology called for MRI report. The patient has CBD stones with evidence of gallstone pancreatitis
[2022-05-10 20:23] LABS: Glucose, Whole Blood 164 mg/dL (60-115)
[2022-05-11] MEDS: metroNIDAZOLE/NS 500 MG/100 ML PIGGYBACK 100 MG IV ×3 (00:25→17:05)
[2022-05-11] MEDS: Lactated Ringers 1,000 ML 200 ML IVCONT ×2 (01:42→06:14)
[2022-05-11 04:00] VITALS: BP 119/58; PULSE 48; RESP 18; TEMP 36.9; O2SAT 99
[2022-05-11] MEDS: cefTRIAXone sodium 1 GM in 0.9 % Sodium Chloride 50 ML IV (06:09)
[2022-05-11 06:27] LABS: INTERNATIONAL NORM RATIO 1.3 (0.9-1.1); Prothrombin Time 15.2 SEC (10.0-13.1)
[2022-05-11 06:42] LABS: Anion Gap 10 (12-20); Blood Urea Nitrogen 9 mg/dL (9-16); Calcium 8.6 mg/dL (8.4-10.2); Carbon Dioxide 28 mmol/L (22-29); Chloride 104 mmol/L (96-108); Estimated Glomerular Filt Rate > 60; Glucose Random 108 mg/dL (60-115); Potassium 3.9 mmol/L (3.3-5.1); Sodium 138 mmol/L (135-145)
[2022-05-11 06:58] LABS: Alanine Aminotransferase 93 U/L (0-40); Albumin Level 2.4 g/dL (3.5-5.0); Alkaline Phosphatase 285 U/L (39-117); Aspartate Amino Transferase 51 U/L (5-37); Total Protein 4.4 g/dL (6.5-8.0)
[2022-05-11 07:16] LABS: Lipase 64 U/L (8-78)
[2022-05-11 07:23] LABS: Bilirubin Total 20.3 mg/dL (0.0-1.0)
--- NOTE | 2022-05-11 07:25 | MHC.CM.PN ---
EMR REVIEWED, CASE DISCUSSED W/RN AFTER MTG W/GI, RN REPORTS GI WILL ATTEMPT TO HAVE PT TRANSFERRED TO [facility] FOR ERCP DORON WAS UNABLE TO COMPLETE. CM WILL CONT TO FOLLOW D/C NEEDS.
[2022-05-11 07:37] VITALS: BP 148/71; PULSE 50; RESP 18; TEMP 36.7; O2SAT 99
[2022-05-11 07:39] LABS: Bilirubin Direct 14.3 mg/dL (0.0-0.5)
[2022-05-11 07:47] LABS: Hepatitis A Antibody IgM 0.56 Index (0-0.79); ~Hepatitis A Antibody IgM Nonreactive (Nonreactive)
[2022-05-11 08:05] LABS: Glucose, Whole Blood 129 mg/dL (60-115)
[2022-05-11] MEDS: Gabapentin 400 MG CAPSULE 800 MG PO ×4 (08:31→20:13)
[2022-05-11] MEDS: FLUoxetine HCl 20 MG CAPSULE 40 MG PO (08:31)
[2022-05-11] MEDS: FLUoxetine HCl 20 MG CAPSULE PO (08:31)
[2022-05-11] MEDS: Morphine Sulfate 4 MG/ML CARTRIDGE IVPUSH (08:32)
--- NOTE | 2022-05-11 08:45 | P.PNIM_ITS ---
Subjective Subjective Date of Service: 05/11/22 Interval History: f/u on Jaundice, elevated LFTs and choledocholithiasis Interval history: MRCP + for distal CBD stone, LFTs stable, bili20, LFTs stable, no pain andn no nausea or vomitting and no fever Review of Systems Jaundice, no abdomina pain and no fever Physical Exam Vital Signs: Vital Signs: Last Vital Signs Temp 98.1 F 05/11/22 07:37 Pulse 50 05/11/22 07:37 Resp 18 05/11/22 07:37 BP 148/71 H 05/11/22 07:37 Pulse Ox 99 05/11/22 07:37 O2 Del Method 05/11/22 07:37 BMI result Body Mass Index 26.1 Const: Other: General: AO X 3, no acute distress HEENT: sclera icteris Resp: CTA bilateral CVS: S1,S2,RRR GI: epigastric tenderness, no distention Skin: No rash Neuro: motor grossly intact Psych: appropriate affect Objective Data Active Medications Acetaminophen (Acetaminophen 325 Mg Tablet) 650 mg PO Q6H PRN PRN Reason: Pain, Mild (Pain Scale 1-3) Dextrose (Dextrose 50 % 25 Gm/50 Ml Syringe) 25 gm IVPUSH Q15M PRN; Protocol PRN Reason: per Hypoglycemia Standing Ord. Docusate Sodium (Docusate Sodium 100 Mg Capsule) 100 mg PO DAILY PRN PRN Reason: CONSTIPATION Enoxaparin Sodium (Enoxaparin Sodium 40 Mg/0.4 Ml Syringe) 40 mg SUBCUT Q24H [facility] Last Admin: 05/10/22 08:29 Dose: 40 mg Documented By: DELL Fluoxetine HCl (Fluoxetine Hcl 20 Mg Capsule) 20 mg PO DAILY [facility] Last Admin: 05/11/22 08:31 Dose: 20 mg Documented By: KEVIN Fluoxetine HCl (Fluoxetine Hcl 20 Mg Capsule) 40 mg PO DAILY [facility] Last Admin: 05/11/22 08:31 Dose: 40 mg Documented By: KEVIN Gabapentin (Gabapentin 400 Mg Capsule) 800 mg PO QID [facility] Last Admin: 05/11/22 08:31 Dose: 800 mg Documented By: KEVIN Glucose (Glucose Gel 15 Gm Gel..Gram.) 15 gm PO Q15M PRN; Protocol PRN Reason: per Hypoglycemia Standing Ord. Ceftriaxone Sodium 1 gm/ (Sodium Chloride) 50 mls @ 100 mls/hr IV Q24H [facility] Last Infusion: 05/11/22 07:10 Dose: 100 mls/hr Documented By: TIM Metronidazole (Flagyl) 500 mg in 100 mls @ 100 mls/hr IV Q8H [facility] Last Admin: 05/11/22 08:41 Dose: 100 mls/hr Documented By: KEVIN Insulin Human Lispro (Insulin Lispro 100 Unit/Ml 3 Ml Vial) 0 unit SUBCUT QIDACHS [facility]; Protocol Last Admin: 05/11/22 08:15 Dose: Not Given Documented By: KEVIN Non-Admin Reason: No Insulin Coverage Morphine Sulfate (Morphine Sulfate 4 Mg/Ml Cartridge) 4 mg IVPUSH Q4H PRN; Protocol PRN Reason: Pain, Severe (Pain Scale 7-10) Last Admin: 05/11/22 08:32 Dose: 4 mg Documented By: KEVIN Ondansetron HCl (Ondansetron Hcl 4 Mg/2 Ml Vial) 4 mg IVPUSH Q8H PRN PRN Reason: Nausea and Vomiting Pharmacy Consult (Consult Rx Perform Med Rec) 1 each MISCELLANE ONCE PRN PRN Reason: Consult order Sodium Chloride (0.9 % Sodium Chloride Flush 3 Ml Syringe) 3 ml IVFLUSH [facility] Last Admin: 05/11/22 07:32 Dose: Not Given Documented By: KEVIN Non-Admin Reason: IV Running Trazodone HCl (Trazodone Hcl 100 Mg Tablet) 100 mg PO BEDTIME PRN PRN Reason: Insomnia Last Admin: 05/09/22 20:07 Dose: 100 mg Documented By: LEROY Labs CBC & Chem 7: 05/10/22 06:19 05/11/22 05:16 Labs: Laboratory Results - last 24 hr 05/10/22 05/10/22 05/10/22 06:19 11:10 16:21 PT INR Anion Gap Estim Creat Clear Calc Estimated GFR POC Glucose 204 H 74 Random Glucose Calcium Total Bilirubin Direct Bilirubin AST ALT Alkaline Phosphatase Total Protein Albumin Lipase Hepatitis A IgM Ab Nonreactive Hep Bs Antigen Negative Hep Bs Antibody GRAYZONE Hep B Core Total Ab Nonreactive Hepatitis C Ab (EIA) Nonreactive 05/10/22 05/11/22 05/11/22 20:19 05:16 05:16 PT 15.2 H INR 1.3 H Anion Gap Estim Creat Clear Calc Estimated GFR POC Glucose 164 H Random Glucose Calcium Total Bilirubin 20.3 H Direct Bilirubin 14.3 H AST 51 H ALT 93 H Alkaline Phosphatase 285 H Total Protein 4.4 L Albumin 2.4 L Lipase Hepatitis A IgM Ab Hep Bs Antigen Hep Bs Antibody Hep B Core Total Ab Hepatitis C Ab (EIA) 05/11/22 05/11/22 05/11/22 05:16 05:16 07:35 PT INR Anion Gap 10 L Estim Creat Clear Calc 110.0 Estimated GFR > 60 POC Glucose 129 H Random Glucose 108 Calcium 8.6 Total Bilirubin Direct Bilirubin AST ALT Alkaline Phosphatase Total Protein Albumin Lipase 64 Hepatitis A IgM Ab Hep Bs Antigen Hep Bs Antibody Hep B Core Total Ab Hepatitis C Ab (EIA) Assessment and Plan (1) Dilated cbd, acquired: Status: Acute Plan 51-year-old male with recent diagnosis of possible hepatitis A, with transamin itis presents to the hospital with abdominal pain--epigastric and found to have post ERCP pancreatis, ERCP done at [facility] on 05/07, further work up now show choledocholithias and might need ERCP again Choledocholithiasis--as evident on MRCP, post ERCP pancreatitis. He will need another ERCP but Dr. Carter adivises that It be done at tertiary center. [facility] has no bed, will be discussing with [facility] next. He has no fever, and clinically no cholangitis. Acute mild pancreatitis likely post ERCP with elevated lipase IV fluids, pain control GI following Jaundice/hyperbilirubinemia/Transaminitis--cholestatc jaundice , likely multifactorial (underlying liver disease, possible post Hep A, and obstructive process) LFTs stable, bili slightly better but still very high at 20. Continue monitoring Diabetes---Sliding scale, hold metformin. DVT prophylaxis:? Lovenox Attending Dr. Antoine Full code need for hospitalization: Choledocholithiasis, jaundice and will need ERCP Quality Stroke Does the patient have a stroke diagnosis?: No VTE Prior VTE?: No VTE Risk Level:: Medical - moderate - high VTE Device Contraindication: N/A - Device Ordered VTE Drug Contraindication: Treatment Not Indicated
[2022-05-11 11:17] VITALS: BP 127/71; PULSE 50; RESP 18; TEMP 36.3; O2SAT 99
[2022-05-11 11:35] LABS: Glucose, Whole Blood 138 mg/dL (60-115)
[2022-05-11] MEDS: Phytonadione (Vit K1) 10 MG in 0.9 % Sodium Chloride 50 ML 51 MG IV (11:48)
[2022-05-11] MEDS: Lactated Ringers 1,000 ML 125 ML IVCONT (13:14)
--- NOTE | 2022-05-11 13:51 | P.PNGI_ITS ---
Subjective Subjective Date of Service: 05/11/22 Interval History: no nausea or vomiting abd discomfort improved Critical Care Time (minutes): 0 Physical Exam Vital Signs: Vital Signs: Last Vital Signs Temp 97.3 F 05/11/22 11:17 Pulse 50 05/11/22 11:17 Resp 18 05/11/22 11:17 BP 127/71 05/11/22 11:17 Pulse Ox 99 05/11/22 11:17 O2 Del Method 05/11/22 11:17 BMI result Body Mass Index 26.1 GI: Other: abdomen is soft and nontender Objective Data Labs CBC & Chem 7: 05/10/22 06:19 05/11/22 05:16 Procedures Date of Service Date of Service: 05/11/22 Progress Note: A&P Assessment and plan (1) Dilated cbd, acquired: Status: Acute Assessment and Plan: MRI reviewed ERCP to be tone today at [facility], Dr James Gray and Mr Rosado will return [facility] area field person is Duyen BONNER, Time Spent With Patient Time: Total time spent is greater than 50% in coordination of care (as documented) at patient's floor/unit and/or counseling patient: Quality Stroke Does the patient have a stroke diagnosis?: No VTE Prior VTE?: No VTE Risk Level:: Medical - moderate - high VTE Device Contraindication: N/A - Device Ordered VTE Drug Contraindication: Treatment Not Indicated
[2022-05-11 16:00] VITALS: BP 130/70; PULSE 51; RESP 20; TEMP 37.1; O2SAT 98
[2022-05-11 16:06] LABS: Glucose, Whole Blood 136 mg/dL (60-115)
--- NOTE | 2022-05-11 16:18 | PC.NURSE ---
ice chips for pt okayed by Dr. Naidu. will continue to monitor.
--- NOTE | 2022-05-11 16:35 | P.EN_ITS ---
Event Note Date of Service: 05/11/22 Event Note: GI ERCP cancelled due to staffing and transfer issues. I advised [facility] (Duyen BONNER) who suggested checking with [facility] over the weekend regarding bed availability for a transfer, and she would let Dr. Cali Catalan (GI weekend coverage) know about Mr Rosado. I spoke with Dr Sutton at [facility] regarding a possible transfer and he will let me know if anything becomes available.
--- NOTE | 2022-05-11 16:35 | PM.EVENT ---
Event Note Date of Service: 05/11/22 Event Note: GI ERCP cancelled due to staffing and transfer issues. I advised [facility] (Duyen BONNER) who suggested checking with [facility] over the weekend regarding bed availability for a transfer, and she would let Dr. Cali Catalan (GI weekend coverage) know about Mr Rosado. I spoke with Dr Sutton at [facility] regarding a possible transfer and he will let me know if anything becomes available.
[2022-05-11 20:00] VITALS: BP 115/68; PULSE 46; RESP 20; TEMP 36.6
[2022-05-11 20:29] LABS: Glucose, Whole Blood 142 mg/dL (60-115)
[2022-05-11 23:41] VITALS: BP 115/69; PULSE 52; RESP 18; TEMP 36.4; O2SAT 99
[2022-05-12] MEDS: metroNIDAZOLE/NS 500 MG/100 ML PIGGYBACK 100 MG IV ×4 (00:35→23:59)
[2022-05-12] MEDS: Lactated Ringers 1,000 ML 125 ML IVCONT ×3 (03:15→19:45)
[2022-05-12 03:18] VITALS: BP 111/61; PULSE 46; RESP 18; TEMP 36.6; O2SAT 99
[2022-05-12] MEDS: cefTRIAXone sodium 1 GM in 0.9 % Sodium Chloride 50 ML IV (05:32)
[2022-05-12 07:14] VITALS: BP 118/65; PULSE 52; RESP 18; TEMP 36.3; O2SAT 99
[2022-05-12 07:33] LABS: Glucose, Whole Blood 123 mg/dL (60-115)
[2022-05-12 07:57] LABS: Alanine Aminotransferase 86 U/L (0-40); Albumin Level 2.4 g/dL (3.5-5.0); Alkaline Phosphatase 270 U/L (39-117); Aspartate Amino Transferase 48 U/L (5-37); Bilirubin Total 22.4 mg/dL (0.0-1.0); Total Protein 4.4 g/dL (6.5-8.0)
[2022-05-12] MEDS: FLUoxetine HCl 20 MG CAPSULE PO (08:14)
[2022-05-12] MEDS: FLUoxetine HCl 20 MG CAPSULE 40 MG PO (08:14)
[2022-05-12] MEDS: Gabapentin 400 MG CAPSULE 800 MG PO ×4 (08:14→19:43)
[2022-05-12 08:20] LABS: Bilirubin Direct 14.6 mg/dL (0.0-0.5)
--- NOTE | 2022-05-12 08:33 | P.PNIM_ITS ---
Subjective Subjective Date of Service: 05/12/22 Interval History: F/u on Jaundice, cholechodolithiasis Interval history: has no pain, no fever, no nausea or vomitting, Bili is slightly up, LFTs trending down Review of Systems No abdominal pain Physical Exam Vital Signs: Vital Signs: Last Vital Signs Temp 97.3 F 05/12/22 07:14 Pulse 52 05/12/22 07:14 Resp 18 05/12/22 07:14 BP 118/65 05/12/22 07:14 Pulse Ox 99 05/12/22 07:14 O2 Del Method 05/12/22 07:14 BMI result Body Mass Index 26.1 Const: Other: General: AO X 3, no acute distress HEENT: sclera icteris Resp: CTA bilateral CVS: S1,S2,RRR GI: epigastric tenderness, no distention Skin: No rash Neuro: motor grossly intact Psych: appropriate affect Objective Data Active Medications Acetaminophen (Acetaminophen 325 Mg Tablet) 650 mg PO Q6H PRN PRN Reason: Pain, Mild (Pain Scale 1-3) Dextrose (Dextrose 50 % 25 Gm/50 Ml Syringe) 25 gm IVPUSH Q15M PRN; Protocol PRN Reason: per Hypoglycemia Standing Ord. Docusate Sodium (Docusate Sodium 100 Mg Capsule) 100 mg PO DAILY PRN PRN Reason: CONSTIPATION Enoxaparin Sodium (Enoxaparin Sodium 40 Mg/0.4 Ml Syringe) 40 mg SUBCUT Q24H [facility] Last Admin: 05/10/22 08:29 Dose: 40 mg Documented By: DELL Fluoxetine HCl (Fluoxetine Hcl 20 Mg Capsule) 20 mg PO DAILY [facility] Last Admin: 05/12/22 08:14 Dose: 20 mg Documented By: LINO Fluoxetine HCl (Fluoxetine Hcl 20 Mg Capsule) 40 mg PO DAILY [facility] Last Admin: 05/12/22 08:14 Dose: 40 mg Documented By: LINO Gabapentin (Gabapentin 400 Mg Capsule) 800 mg PO QID [facility] Last Admin: 05/12/22 08:14 Dose: 800 mg Documented By: LINO Glucose (Glucose Gel 15 Gm Gel..Gram.) 15 gm PO Q15M PRN; Protocol PRN Reason: per Hypoglycemia Standing Ord. Ceftriaxone Sodium 1 gm/ (Sodium Chloride) 50 mls @ 100 mls/hr IV Q24H [facility] Last Infusion: 05/12/22 06:22 Dose: 0 mls/hr Documented By: FAIZAN Metronidazole (Flagyl) 500 mg in 100 mls @ 100 mls/hr IV Q8H [facility] Last Admin: 05/12/22 08:13 Dose: 100 mls/hr Documented By: LINO Lactated Ringer's (Lr) 1,000 mls @ 125 mls/hr IVCONT .Q8H [facility] Last Admin: 05/12/22 03:15 Dose: 125 mls/hr Documented By: FAIZAN Insulin Human Lispro (Insulin Lispro 100 Unit/Ml 3 Ml Vial) 0 unit SUBCUT QIDACHS [facility]; Protocol Last Admin: 05/12/22 07:38 Dose: Not Given Documented By: LINO Non-Admin Reason: No Insulin Coverage Morphine Sulfate (Morphine Sulfate 4 Mg/Ml Cartridge) 4 mg IVPUSH Q4H PRN; Protocol PRN Reason: Pain, Severe (Pain Scale 7-10) Last Admin: 05/11/22 08:32 Dose: 4 mg Documented By: KEVIN Ondansetron HCl (Ondansetron Hcl 4 Mg/2 Ml Vial) 4 mg IVPUSH Q8H PRN PRN Reason: Nausea and Vomiting Pharmacy Consult (Consult Rx Perform Med Rec) 1 each MISCELLANE ONCE PRN PRN Reason: Consult order Sodium Chloride (0.9 % Sodium Chloride Flush 3 Ml Syringe) [address] [facility] Last Admin: 05/12/22 08:14 Dose: Not Given Documented By: LINO Non-Admin Reason: IV Running Trazodone HCl (Trazodone Hcl 100 Mg Tablet) 100 mg PO BEDTIME PRN PRN Reason: Insomnia Last Admin: 05/09/22 20:07 Dose: 100 mg Documented By: LEROY Labs CBC & Chem 7: 05/10/22 06:19 05/11/22 05:16 Labs: Laboratory Results - last 24 hr 05/11/22 05/11/22 05/11/22 11:16 15:24 19:30 POC Glucose 138 H 136 H 142 H Total Bilirubin Direct Bilirubin AST ALT Alkaline Phosphatase Total Protein Albumin 05/12/22 05/12/22 05:51 07:17 POC Glucose 123 H Total Bilirubin 22.4 H Direct Bilirubin 14.6 H AST 48 H ALT 86 H Alkaline Phosphatase 270 H Total Protein 4.4 L Albumin 2.4 L Assessment and Plan (1) Dilated cbd, acquired: Status: Acute Plan 51-year-old male with recent diagnosis of possible hepatitis A, with transaminitis presents to the hospital with abdominal pain--epigastric and found to have post ERCP pancreatis, ERCP done at [facility] on 05/07, further work up now show choledocholithias and might need ERCP again Choledocholithiasis--as evident on MRCP, post ERCP pancreatitis. He will need another ERCP but Dr. Carter adivises that It be done at tertiary center given prior unsuccesful attempt at [facility], [facility] and [facility] have no bed for transfer, clinically no evidence of cholangitis but continue empiric Abx Acute post ERCP pancreaitis--seems to have resolved, and is tolerating clear diet Jaundice/hyperbilirubinemia/Transaminitis--cholestatc jaundice , likely multifactorial (underlying liver disease, possible post Hep A in recent past, an d obstructive process) LFTs are trending down but bili slightly up at 22 from 20 Diabetes---Sliding scale, hold metformin. DVT prophylaxis:? Lovenox Attending Dr. Antoine Full code need for hospitalization: Choledocholithiasis, jaundice and will need ERCP Quality Stroke Does the patient have a stroke diagnosis?: No VTE Prior VTE?: No VTE Risk Level:: Medical - moderate - high VTE Device Contraindication: N/A - Device Ordered VTE Drug Contraindication: Treatment Not Indicated
--- NOTE | 2022-05-12 10:17 | P.EN_ITS ---
Event Note Date of Service: 05/12/22 Event Note: [facility] has accepted the patient pending bed availability..ERCP attempt at [facility]: Multiple attemps, billiary tree could not be entered..Recommendation to for [facility] to reattempt or alternatively Transhepatic Cholangiogram
--- NOTE | 2022-05-12 10:17 | PM.EVENT ---
Event Note Date of Service: 05/12/22 Event Note: [facility] has accepted the patient pending bed availability..ERCP attempt at [facility]: Multiple attemps, billiary tree could not be entered..Recommendation to for [facility] to reattempt or alternatively Transhepatic Cholangiogram
[2022-05-12 11:17] VITALS: BP 116/64; PULSE 50; RESP 16; TEMP 36.7; O2SAT 100
[2022-05-12 11:44] LABS: Glucose, Whole Blood 129 mg/dL (60-115)
[2022-05-12 15:09] VITALS: BP 127/65; PULSE 62; RESP 16; TEMP 36.4; O2SAT 98
[2022-05-12 16:44] LABS: Glucose, Whole Blood 121 mg/dL (60-115)
[2022-05-12 19:55] VITALS: BP 138/77; PULSE 64; RESP 16; TEMP 36.5; O2SAT 99
[2022-05-12] MEDS: Insulin Lispro 100 UNIT/ML 3 ML VIAL SUBCUT (20:15)
[2022-05-12 20:33] LABS: Glucose, Whole Blood 155 mg/dL (60-115)
--- NOTE | 2022-05-12 23:50 | PC.NURSE ---
pt stated that he was planning on leaving [facility] tomorrow (05/13) if no beds were available for him at [facility], or [facility] for ERCP.
[2022-05-13] VITALS: BP 125/67; PULSE 51; RESP 16; TEMP 36.6; O2SAT 100
[2022-05-13] MEDS: Lactated Ringers 1,000 ML 125 ML IVCONT (02:45)
[2022-05-13 04:00] VITALS: BP 146/76; PULSE 54; RESP 16; TEMP 36.9; O2SAT 100
[2022-05-13] MEDS: cefTRIAXone sodium 1 GM in 0.9 % Sodium Chloride 50 ML IV (05:52)
[2022-05-13 07:29] LABS: Glucose, Whole Blood 101 mg/dL (60-115)
[2022-05-13 07:48] VITALS: BP 135/65; PULSE 43; RESP 16; TEMP 36.4; O2SAT 100
[2022-05-13] MEDS: Gabapentin 400 MG CAPSULE 800 MG PO ×2 (09:06→12:52)
[2022-05-13] MEDS: 0.9 % Sodium Chloride Flush 3 ML SYRINGE IVFLUSH (09:06)
[2022-05-13] MEDS: Enoxaparin Sodium 40 MG/0.4 ML SYRINGE SUBCUT (09:06)
[2022-05-13] MEDS: FLUoxetine HCl 20 MG CAPSULE PO (09:06)
[2022-05-13] MEDS: FLUoxetine HCl 20 MG CAPSULE 40 MG PO (09:06)
[2022-05-13] MEDS: metroNIDAZOLE/NS 500 MG/100 ML PIGGYBACK 100 MG IV (09:07)
--- NOTE | 2022-05-13 09:44 | P.DS_ITS ---
DS: Providers Provider Date of Service: 05/13/22 Date of admission: 05/09/22 01:25 Primary care physician: Akhil Sauceda MD Consults: 05/09/22 06:09 Consult to Gastroenterology Routine Consulting Provider: Wagner Guan Reason for consultation: Pacnreatitis, dilated CBD Has provider been notified: No 05/09/22 12:20 Consult to General Surgery Routine Consulting Provider: Russell Nunez Reason for consultation: Dilated CBD, sludge in gallbladder Has provider been notified: No DS: Diagnosis Discharge Diagnosis (1) Dilated cbd, acquired: Status: Acute DS: Summary Hospital Course Hospital Course: form initial hpi: Chief Complaint: Abdominal pain Yi-speaking only, history is obtained with the help of an grape grower ?51-year-old male with past medical history of hypertension, hyperlipidemia, diabetes who presents to the hospital today with complaints of severe abdominal pain.? Of note patient was seen in the hospital from 03/22 to 03/24 for abdominal pain, was found to have elevated LFTs, patient underwent workup by GI including MRCP which showed no evidence of choledocholithiasis, he was also evaluated by surgery and there was no indication for surgery.? Patient felt to possible hepatitis a and was discharged home after removing LFTs.? Patient's at bedside reports that after being discharged from the hospital, they followed up with PCP, and PCP referred him to a farm boss who works at [facility] due to not improving labs. Patient underwent ERCP a [facility] to rule out stone, this was yesterday on 05/07.? According to the the ERCP could not be completed because the doctor could not past the probe into the CBD and the procedure was aborted.? The told the that there was nothing they could do and that they will refer them? to [facility] for the ERCP. Few hours following the ERCP patient developed epigastric pain radiating to the back, he reports that he developed low appetite, nausea with no vomiting, chills, no fever, low appetite, developed constipation and therefore decided to come back to the hospital today as the pain progressively worse.? Pain is epigastric radiating to the back, worse with movement, better if he lays on his side, 7/10, constant. On arrival to the ED patient hemodynamically stable with no significant abnormal vitals Labs are significant for WBC count of 11.9, hemoglobin of 12.8, hematocrit 38.3, sodium of 132, total bili of 24.6 which increased from 10.2 on 03/30,, direct bili of 17.1, increased from 7.3, AST of 78, ALT of 156, alk-phos of 325, both are improved from 03/30, lipase of 722. Abdomen pelvic CT shows significant Dr. Headache and extrahepatic biliary ductal dilatation, this is a change from prior imaging.? No filling defects seen in the common bile duct. Patient will be admitted for further management hospital course: Patient was admitted for acute pancreatitis and jaundice due to obstructing choledocholithiasis. His symptoms improved and he is tolerating clear diet. MRCP showed CBD stone, bilirubin remained stable around 20. He was seen by GI who recommended ERCP at tertiary center due to previous failure. Patient was accepted at [facility] and will be transferred for further management. Time Spent with Patient Time attestation: Total time spent providing and/or coordinating discharge services: Discharge coordination time: Greater than 30 minutes Quality: Safe Use of Opioids Does Pt have an Active Cancer Diagnosis on the Problem List?: No Quality: Stroke Does the patient have a stroke diagnosis?: No Physical Exam Vital Signs: Vital Signs: Last Vital Signs Temp 97.6 F 05/13/22 07:48 Pulse 43 L 05/13/22 07:48 Resp 16 05/13/22 07:48 BP 135/65 05/13/22 07:48 Pulse Ox 100 05/13/22 07:48 O2 Del Method 05/13/22 07:48 BMI result Body Mass Index 26.1 Const: Other: General: AO X 3, no acute distress, jaundiced HEENT: sclera icteris Resp: CTA bilateral CVS: S1,S2,RRR GI: epigastric tenderness, no distention Skin: No rash Neuro: motor grossly intact Psych: appropriate affect DS: Data Data Completed and Pending Labs on day of discharge: Laboratory Results - last 24 hr 05/12/22 05/12/22 05/12/22 11:19 15:13 19:59 POC Glucose 129 H 121 H 155 H 05/13/22 07:07 POC Glucose 101 Discharge Plan Discharge Patient Disposition: [facility] Discharge Diagnosis: choldecolithiasis Referrals: Akhil Sauceda MD [Primary Care Provider] - 1 Week Discharge Medications: Continued fluoxetine 40 mg capsule 1 cap PO DAILY gabapentin 800 mg tablet 1 tab PO QID trazodone 100 mg tablet 1 tab PO BEDTIME PRN (Reason: Insomnia) metformin 1,000 mg tablet 1 tab PO BID fluoxetine 20 mg capsule 1 cap PO DAILY insulin aspart U-100 [Novolog Flexpen U-100 Insulin] 100 unit/mL (3 mL) insulin pen 20 unit subcut TIDWMEAL Fish Oil 340-1,000 mg capsule 1 cap PO TID Discharge Orders: Discharge Order (Routine); Ordered 05/13/22 Ordered By: Devon Carvajal Diet: Advance to usual diet Activity on Discharge: As tolerated Stand Alone Forms: Patient Portal Discharge page Care Plan Goals: recovery Health Concerns: cbd obstructing stone Plan of Treatment: mahendra erickson Assessment: see above
--- NOTE | 2022-05-13 09:53 | MHC.CM.PN ---
PT TRANSFERRING TO [facility] UNIT [facility]IA [facility] FOR BLS TRANSPORT.
[2022-05-13 11:18] LABS: Influenza A PCR NEGATIVE (Negative); Influenza B PCR NEGATIVE (Negative); Resp Syncy Virus RNA Qual PCR NEGATIVE (Negative); SARS COV2 PCR INHOUSE NEGATIVE (Negative)
[2022-05-13 11:29] LABS: Glucose, Whole Blood 129 mg/dL (60-115)
[2022-05-13 11:46] VITALS: BP 123/64; PULSE 65; RESP 18; TEMP 36.4; O2SAT 95
== END 2022-05-13 14:15 | disposition short-term general hospital (02) | DRG 439 ==
LOC: HO.ED 05-09 00:44 → HO.EDOVER 05-09 05:09 → HO.ICU 05-10 06:59 → HO.S3 05-10 20:44
PROVIDERS: Internal Medicine; Internal Medicine Gastroenterology; Nurse Practitioner Acute Care; Admitting Provider Internal Medicine; Emergency Provider Emergency Medicine; PCP Internal Medicine; Visit Provider Internal Medicine
DX: K85.90 Acute pancreatitis without necrosis or infection, unspecified (principal); K80.21 Calculus of gallbladder without cholecystitis with obstruction; I10 Essential (primary) hypertension; E11.9 Type 2 diabetes mellitus without complications; E78.5 Hyperlipidemia, unspecified; F17.210 Nicotine dependence, cigarettes, uncomplicated; Z20.822 Contact with and (suspected) exposure to COVID-19; Z71.6 Tobacco abuse counseling; Z88.0 Allergy status to penicillin; Z79.4 Long term (current) use of insulin; Z79.899 Other long term (current) drug therapy
CPT/HCPCS: 0241U; 36415; 74176; 74181; 80048; 80053; 80076; 82140; 82248; 82947; 83690; 85007; 85025; 85027; 85610; 86704; 86706; 86709; 86803; 87340; 87635; 96361; 96374; 96375; 99285; J0696; J1650; J2270; J3430

== ENCOUNTER 2022-05-27 21:39 | Inpatient (IN) | payer OTHER, SELFPAY ==
--- NOTE | ~2022-05-27 | CT_ITS ---
EXAMINATION: CT ABDOMEN AND PELVIS WITH CONTRAST CLINICAL INFORMATION: Abdominal pain, recent biliary stent, fever COMPARISON: 05/09/2022 TECHNIQUE: Multidetector volumetric images were obtained from the superior aspect of the liver through the pubic symphysis following administration 85 mL of Omnipaque 350 intravenous contrast. Sagittal and coronal reformatted images were obtained on the technologist's workstation. Oral contrast: No This CT examination was performed using dose optimization techniques as appropriate, variously including the following: *Automated exposure control *Adjustment of mA and/or kV according to patient size (this includes techniques or standardized protocols for targeted exams where dose is matched to indication/reason for exam; i.e. extremities or head) *Use of iterative reconstruction technique DLP: 571 mGy-cm FINDINGS: LUNG BASES: The visualized lung bases are unremarkable. LIVER, GALLBLADDER, AND BILIARY TREE: The liver is normal in size, shape, and attenuation. A common bile duct stent is present. No significant biliary ductal dilatation. Trace pneumobilia noted. A thick-walled appearance of common hepatic duct is noted. Periportal edema is present. The gallbladder is physiologically distended with a thick-walled appearance. PANCREAS: Unremarkable. SPLEEN: Mildly enlarged, measuring 13.6 cm in the axial plane. ADRENAL GLANDS: Unremarkable. KIDNEYS AND URETERS: There is a 4 mm calculus at the right ureterovesicular junction without hydronephrosis. No left hydronephrosis or calculus. Bilateral nephrograms are symmetric. BLADDER: Unremarkable. GASTROINTESTINAL TRACT: No evidence of bowel obstruction. No significant bowel wall thickening is seen. The appendix is unremarkable. No free fluid or free air is seen. ABDOMINAL WALL: Bilateral fat-containing inguinal hernias. LYMPH NODES: Normal. VASCULAR: Mild scattered atherosclerotic calcifications. PELVIC VISCERA: The prostate gland is enlarged, measuring 5.4 cm in transverse dimension. OSSEOUS STRUCTURES: There is degenerative change at the lumbosacral junction. CT/CT abdomen pelvis w con IMPRESSION: 1. Common bile duct stent. Though there is no significant biliary ductal dilatation, there is a thick-walled appearance of the common hepatic ducts, raising concern for cholangitis in the proper clinical setting. Periportal edema is also noted. 2. Thick-walled appearance of the gallbladder, which could indicate cholecystitis. 3. Right ureterovesicular junction calculus measuring 4 mm without hydronephrosis. 4. Mild splenomegaly.
--- NOTE | ~2022-05-27 | XR_ITS ---
EXAMINATION: XR CHEST CLINICAL INFORMATION: Fever COMPARISON: None TECHNIQUE: Frontal view of the chest was obtained. FINDINGS: The lungs are clear with no focal consolidation. No evidence of pneumothorax, pulmonary edema, or pleural effusions. The cardiomediastinal silhouette is unremarkable. No acute osseous findings. XR/XR chest 1V IMPRESSION: No acute cardiopulmonary findings.
[2022-05-27 21:45] VITALS: BP 136/62; PULSE 87; O2SAT 99
[2022-05-27 22:15] VITALS: BP 116/55; PULSE 88; RESP 18; TEMP 37; O2SAT 99; BMI 16.6
[2022-05-27 23:39] VITALS: BP 111/53; PULSE 86; RESP 18; TEMP 39.3; O2SAT 98
[2022-05-28] VITALS (15 sets, daily range): BP systolic 90–110; BP diastolic 41–59; PULSE 66–90; RESP 15–30; TEMP 36.7–39.6; O2SAT 94–100
--- NOTE | 2022-05-28 00:03 | ED.ABDPAIN ---
HPI - Abdominal Pain General Chief Complaint: Abdominal Pain Stated Complaint: Abdominal pain Time Seen by Provider: 05/27/22 23:31 Source: patient, family and old records reviewed Mode of arrival: ambulatory Limitations: no limitations History of Present Illness HPI narrative: 51 yo male with hx of hepatitis, pancreatitis, DM, CBD stricture s/p ERCP at [facility] on 05/15 - spouse tells me she was called and told the biopsy came back positive for malignancy they are following up this Saturday. During ERCP he had stent placed to keep duct open. Developed R sided abdominal pain and chills while working on cars at home around 4pm. MD elicited complaint: abdominal pain Pertinent past history: other (recent admissions for elevated bili, LFTs, found to have CBD dilation tx to [facility] with ERCP 05/15) Onset (ago): day(s) (was working on cars at that house around 4pm started to notice pain and chills) Pain Consistency: constant Location: periumbilical and RUQ Severity: moderate Quality: stabbing Radiation: back Migration to: no migration Exacerbating factors: movement Relieving factors: nothing Context: recent surgery/procedure Associated symptoms: nausea and chills Related Data Home Medications Medication Instructions Recorded Confirmed fluoxetine 20 mg capsule 1 cap PO DAILY 05/09/22 05/09/22 fluoxetine 40 mg capsule 1 cap PO DAILY 05/09/22 05/09/22 gabapentin 800 mg tablet 1 tab PO QID 05/09/22 05/09/22 insulin aspart U-100 100 unit/mL 20 unit subcut TIDWMEAL 05/09/22 05/09/22 (3 mL) subcutaneous pen (Novolog Flexpen U-100 Insulin aspart) metformin 1,000 mg tablet 1 tab PO BID 05/09/22 05/09/22 omega-3 fatty acids-fish oil 340 1 cap PO TID 05/09/22 05/09/22 mg-1,000 mg capsule (Fish Oil) trazodone 100 mg tablet 1 tab PO BEDTIME PRN Insomnia 05/09/22 05/09/22 Allergies Allergy/AdvReac Type Severity Reaction Status Date / Time Penicillins [PCN] Allergy Intermediate Unknown Verified 03/21/22 22:36 Review of Systems Review of Systems Constitutional : No Weight loss, No Fever, pos Chills ENT/Mouth : No sore throat, No Rhinorrhea Eyes: No Swelling, No Redness Cardiovascular : No Chest Pain, No SOB, NoEdema Respiratory : No Cough, No Sputum, No Wheezing Gastrointestinal : Positive Nausea, no Vomiting, no Diarrhea, positive abdominal Pain, No Hematochezia, No Melena Genitourinary : No Dysuria, No Urinary Frequency, No Hematuria, No Urgency Musculoskeletal : No joint pain, No Myalgias, No Joint Swelling Skin : No Skin Lesions, No rash Neuro : No Weakness, No Numbness, No Dizziness, No Headache Psych : No Anxiety/Panic, No Depression Heme/Lymph: No Bruising, No Lymphadenopathy Endocrine : No Polyuria, No Polydipsia All other systems reviewed and are negative. [facility] Past Medical History Attestation statement: The following information was validated with the patient. Medical History Depression DM2 (diabetes mellitus, type 2) Dyslipidemia Erectile dysfunction HTN (hypertension) Injury of right brachial plexus Subarachnoid hemorrhage Subdural hematoma Vitamin D deficiency Surgical History History of surgery on arm Family History Family History Other No family history of coronary artery disease Social History Social History Household Members: Spouse Housing: Apartment Do you presently have visiting nurse or other home services: Yes ( is [employer]) Alcohol intake: never Patient Tobacco Use Status: Former Tobacco user Tobacco use type: Cigarette Cigarette Packs Per Day: 0.5 Cigarettes Per Day: 10.0 Years Smoked: 11 Smoked in Last 30 Days: No e-Cigarette/Vaping Use: Never Used Second Hand Smoke Exposure: No Use of substances other than those prescribed or required for medical reasons: No Substance Use Type: Crack/Cocaine Advance Directives: No Advance Directives Information Provided: Yes service: No Current occupational status: unemployed Physical Exam ED Vital Signs: Vital Signs - 24 hr 05/27/22 22:15 05/27/22 23:39 05/28/22 00:00 Temperature 98.6 F 102.7 F H Pulse Rate 88 86 88 Respiratory Rate 18 18 24 H Blood Pressure 116/55 L 111/53 L 103/55 L Pulse Oximetry 99 98 96 Oxygen Delivery Method Room Air Room Air Room Air 05/28/22 00:38 05/28/22 00:44 05/28/22 01:28 Temperature 99.9 F Pulse Rate 90 85 Respiratory Rate 22 H 25 H 22 H Blood Pressure 97/55 L 108/58 L Pulse Oximetry 98 96 Oxygen Delivery Method Room Air Room Air BMI result Body Mass Index 16.6 Appearance: Alert. Oriented X3. No acute distress. Eyes: Pupils equal, round and reactive to light. Scleral icterus ENT: Pharynx normal. Neck: Normal inspection. Neck supple. CVS: Normal heart rate and rhythm. Pulses normal. Respiratory: No respiratory distress. Breath sounds normal. Abdomen: Soft and mild ttp in RUQ / periumbilical ttp no rebound Skin: Skin warm and dry. jaundiced skin color. Normal skin turgor. Extremities: No lower extremity edema. No calf ttp Neuro: Oriented X 3. No motor deficit. No sensory deficit. Course Course Course Narrative: given CT scan appearance will consult [facility] given recent procedure at facility he has appointment planned with them on Saturday for post biopsy findings, he was complicated and required tertiary care in past as he was failed ERCP at local [facility] including here. Patient and spouse aware agree with plan to call [facility] 130am CT/CT abdomen pelvis w con IMPRESSION: 1.? Common bile duct stent. Though there is no significant biliary ductal dilatation, there is a thick-walled appearance of the common hepatic ducts, raising concern for cholangitis in the proper clinical setting. Periportal edema is also noted. 2.? Thick-walled appearance of the gallbladder, which could indicate cholecystitis. 3.? Right ureterovesicular junction calculus measuring 4 mm without hydronephrosis. 4.? Mild splenomegaly. I spoke to the transfer line at [facility] - they state they are at critical disaster status and they cannot accept transfers right now. I asked if he could be put on a waiting list but was told that they have no waiting list at this time. They would recommend admitting patient and getting him transferred inpatient to inpatient as this facilitates transfer faster. Family informed. Hospitalist informed. MDM - Abdominal Pain MDM Narrative Medical decision making narrative: 51 yo male with hx of hepatitis, pancreatitis, DM, CBD stricture s/p ERCP at [facility] on 05/15 s/p biliary stent comes with abdominal pain and fever of 102. Labs, IVF, IV dilaudid for pain, cultures, CT scan for evidence of infection post procedure - given fevers, abdominal pain, recent ERCP with stent and fever of 102 will start on empiric regimen of cefepime, flagyl and vancomycin given possible bacteremia or cholangitis post procedure. Dispo per results and findings - may require transfer back to [facility]. Lab Data Result diagrams: 05/28/22 00:02 05/28/22 00:02 Labs: Lab Results 05/28/22 05/28/22 05/28/22 Range/Units 00:02 00:02 00:02 WBC 4.8 (4.8-10.8) X10*3/uL RBC 3.32 L (4.60-5.80) X10*6/uL Hgb 10.3 L (14.0-18.0) g/dl Hct 30.8 L (42.0-52.0) % MCV 92.8 (80.0-98.0) fL MCH 31.0 (27.0-33.0) pg MCHC 33.4 (31.0-36.0) g/dl RDW 13.7 (11.0-16.0) % Plt Count 126 L D (160-400) X10*3/uL MPV 12.4 (9.4-12.4) fL Immature Gran % (Auto) 0.4 (0.0-0.4) % Neut % (Auto) 91.1 H (45-73) % Lymph % (Auto) 2.7 L (20-40) % [place] % (Auto) 5.4 (2-11) % Eos % (Auto) 0.2 (0-4) % Baso % (Auto) 0.2 (0-2) % Lymph # (Auto) 0.1 L (1.2-4.9) X10*3/uL [place] # (Auto) 0.3 (0.1-1.2) X10*3/uL Eos # (Auto) 0.0 (0.0-0.4) X10*3/uL Baso # (Auto) 0.0 (0.0-0.2) X10*3/uL Abs Immat Gran (auto) 0.02 (0.00-0.03) X10*3/uL Absolute Neuts (auto) 4.4 (2.0-8.3) x10*3/uL Absolute Nucleated RBC 0.000 (0.0-0.012) X10*3/uL Nucleated RBC % (auto) 0.0 (0.0-0.2) /100WBC Smear Tech's Comments VERIFIED PT 12.9 (10.0-13.1) SEC INR 1.1 (0.9-1.1) APTT 31.4 (24.1-38.0) SEC Sodium 137 (135-145) mmol/L Potassium 3.5 (3.3-5.1) mmol/L Chloride 103 (96-108) mmol/L Carbon Dioxide 22 (22-29) mmol/L Anion Gap 16 (12-20) BUN 26 H D (9-16) mg/dL Creatinine 1.26 (0.5-1.4) mg/dL Estim Creat Clear Calc 51.6 Estimated GFR > 60 Random Glucose 134 H (60-115) mg/dL Lactic Acid (0.5-2.0) mmol/L Calcium 8.7 (8.4-10.2) mg/dL Total Bilirubin 11.4 H (0.0-1.0) mg/dL Direct Bilirubin 8.3 H (0.0-0.5) mg/dL AST 153 H (5-37) U/L ALT 156 H (0-40) U/L Alkaline Phosphatase 457 H D (39-117) U/L Ammonia (13-55) umol/L Total Protein 6.1 L D (6.5-8.0) g/dL Albumin 3.3 L D (3.5-5.0) g/dL Lipase (8-78) U/L Urine Color Urine Appearance Urine pH (5.0-8.0) Ur Specific [place] (1.005-1.025) Urine Protein (NEG-TRACE) MG/DL Urine Glucose (UA) (NEG) MG/DL Urine Ketones (NEG) MG/DL Urine Blood (NEG) Urine Nitrite (NEG) Ur Leukocyte Esterase (NEG) COVID-19 (TASHA) (Negative) COVID-19 Clin Com 05/28/22 05/28/22 05/28/22 Range/Units 00:02 00:02 00:02 WBC (4.8-10.8) X10*3/uL RBC (4.60-5.80) X10*6/uL Hgb (14.0-18.0) g/dl Hct (42.0-52.0) % MCV (80.0-98.0) fL MCH (27.0-33.0) pg MCHC (31.0-36.0) g/dl RDW (11.0-16.0) % Plt Count (160-400) X10*3/uL MPV (9.4-12.4) fL Immature Gran % (Auto) (0.0-0.4) % Neut % (Auto) (45-73) % Lymph % (Auto) (20-40) % [place] % (Auto) (2-11) % Eos % (Auto) (0-4) % Baso % (Auto) (0-2) % Lymph # (Auto) (1.2-4.9) X10*3/uL [place] # (Auto) (0.1-1.2) X10*3/uL Eos # (Auto) (0.0-0.4) X10*3/uL Baso # (Auto) (0.0-0.2) X10*3/uL Abs Immat Gran (auto) (0.00-0.03) X10*3/uL Absolute Neuts (auto) (2.0-8.3) x10*3/uL Absolute Nucleated RBC (0.0-0.012) X10*3/uL Nucleated RBC % (auto) (0.0-0.2) /100WBC Smear Tech's Comments PT (10.0-13.1) SEC INR (0.9-1.1) APTT (24.1-38.0) SEC Sodium (135-145) mmol/L Potassium (3.3-5.1) mmol/L Chloride (96-108) mmol/L Carbon Dioxide (22-29) mmol/L Anion Gap (12-20) BUN (9-16) mg/dL Creatinine (0.5-1.4) mg/dL Estim Creat Clear Calc Estimated GFR Random Glucose (60-115) mg/dL Lactic Acid 1.4 (0.5-2.0) mmol/L Calcium (8.4-10.2) mg/dL Total Bilirubin (0.0-1.0) mg/dL Direct Bilirubin (0.0-0.5) mg/dL AST (5-37) U/L ALT (0-40) U/L Alkaline Phosphatase (39-117) U/L Ammonia 36 (13-55) umol/L Total Protein (6.5-8.0) g/dL Albumin (3.5-5.0) g/dL Lipase 54 (8-78) U/L Urine Color Urine Appearance Urine pH (5.0-8.0) Ur Specific [place] (1.005-1.025) Urine Protein (NEG-TRACE) MG/DL Urine Glucose (UA) (NEG) MG/DL Urine Ketones (NEG) MG/DL Urine Blood (NEG) Urine Nitrite (NEG) Ur Leukocyte Esterase (NEG) COVID-19 (TASHA) (Negative) COVID-19 Clin Com 05/28/22 05/28/22 Range/Units 00:02 01:07 WBC (4.8-10.8) X10*3/uL RBC (4.60-5.80) X10*6/uL Hgb (14.0-18.0) g/dl Hct (42.0-52.0) % MCV (80.0-98.0) fL MCH (27.0-33.0) pg MCHC (31.0-36.0) g/dl RDW (11.0-16.0) % Plt Count (160-400) X10*3/uL MPV (9.4-12.4) fL Immature Gran % (Auto) (0.0-0.4) % Neut % (Auto) (45-73) % Lymph % (Auto) (20-40) % [place] % (Auto) (2-11) % Eos % (Auto) (0-4) % Baso % (Auto) (0-2) % Lymph # (Auto) (1.2-4.9) X10*3/uL [place] # (Auto) (0.1-1.2) X10*3/uL Eos # (Auto) (0.0-0.4) X10*3/uL Baso # (Auto) (0.0-0.2) X10*3/uL Abs Immat Gran (auto) (0.00-0.03) X10*3/uL Absolute Neuts (auto) (2.0-8.3) x10*3/uL Absolute Nucleated RBC (0.0-0.012) X10*3/uL Nucleated RBC % (auto) (0.0-0.2) /100WBC Smear Tech's Comments PT (10.0-13.1) SEC INR (0.9-1.1) APTT (24.1-38.0) SEC Sodium (135-145) mmol/L Potassium (3.3-5.1) mmol/L Chloride (96-108) mmol/L Carbon Dioxide (22-29) mmol/L Anion Gap (12-20) BUN (9-16) mg/dL Creatinine (0.5-1.4) mg/dL Estim Creat Clear Calc Estimated GFR Random Glucose (60-115) mg/dL Lactic Acid (0.5-2.0) mmol/L Calcium (8.4-10.2) mg/dL Total Bilirubin (0.0-1.0) mg/dL Direct Bilirubin (0.0-0.5) mg/dL AST (5-37) U/L ALT (0-40) U/L Alkaline Phosphatase (39-117) U/L Ammonia (13-55) umol/L Total Protein (6.5-8.0) g/dL Albumin (3.5-5.0) g/dL Lipase (8-78) U/L Urine Color DK YELLOW Urine Appearance HAZY Urine pH 7.0 (5.0-8.0) Ur Specific [place] 1.020 (1.005-1.025) Urine Protein TRACE (NEG-TRACE) MG/DL Urine Glucose (UA) NEG (NEG) MG/DL Urine Ketones 5 (NEG) MG/DL Urine Blood NEG (NEG) Urine Nitrite NEG (NEG) Ur Leukocyte Esterase NEG (NEG) COVID-19 (TASHA) Negative (Negative) COVID-19 Clin Com See Note Discharge Plan Discharge Clinical Impression: Acute cholangitis Fever Qualifiers: Fever type: unspecified Qualified Code(s): R50.9 - Fever, unspecified Patient Disposition: Admitted As Inpatient
[2022-05-28] MEDS: cefEPime HCl 2 GM in 0.9 % Sodium Chloride 50 ML IV (00:05)
[2022-05-28] MEDS: 0.9 % Sodium Chloride 1,000 ML 999 ML IV ×5 (00:07→14:47)
--- NOTE | 2022-05-28 00:09 | PC.NURSE ---
pt a&ox3, febrile, other vss, 20GIV placed left hand, labs drawn, ivf started, medicated per provider order. pt declined tylenol - reports that he cannot take due to his liver disease. provider notified.
[2022-05-28 00:14] LABS: Basophils Percent Auto 0.2 % (0-2); Eosinophils Percent Auto 0.2 % (0-4); Hematocrit 30.8 % (42.0-52.0); Hemoglobin 10.3 g/dl (14.0-18.0); Imm Gran Abs Auto 0.02 X10*3/uL (0.00-0.03); Imm Gran Pct Auto 0.4 % (0.0-0.4); Lymphocytes Absolute Auto 0.1 X10*3/uL (1.2-4.9); Lymphocytes Percent Auto 2.7 % (20-40); MANUAL DIFF FLAG SCAN; Mean Corpuscular HGB Conc 33.4 g/dl (31.0-36.0); Mean Corpuscular Volume 92.8 fL (80.0-98.0); Mean Platelet Volume 12.4 fL (9.4-12.4); Monocytes Absolute Auto 0.3 X10*3/uL (0.1-1.2); Monocytes Percent Auto 5.4 % (2-11); Neutrophils Absolute Auto 4.4 x10*3/uL (2.0-8.3); Neutrophils Percent Auto 91.1 % (45-73); Platelet Count 126 X10*3/uL (160-400); Red Blood Count 3.32 X10*6/uL (4.60-5.80); Red Cell Distribution Width 13.7 % (11.0-16.0); SCAN SMEAR FLAG 1; White Blood Count 4.8 X10*3/uL (4.8-10.8)
--- NOTE | 2022-05-28 00:16 | PC.NURSE ---
pt to CT scan.
[2022-05-28 00:22] LABS: INTERNATIONAL NORM RATIO 1.1 (0.9-1.1); Prothrombin Time 12.9 SEC (10.0-13.1)
[2022-05-28 00:23] LABS: Appearance Urine HAZY; Color Urine DK YELLOW; Glucose Urine UA NEG (NEG); Leukocyte Esterase Urine NEG (NEG); Nitrite Urine NEG (NEG); Urine Blood NEG (NEG); Urine Ketones 5 MG/DL (NEG); Urine Protein TRACE MG/DL (NEG-TRACE)
[2022-05-28 00:25] LABS: Partial Thromboplastin Time 31.4 SEC (24.1-38.0)
[2022-05-28 00:36] LABS: Alanine Aminotransferase 156 U/L (0-40); Albumin Level 3.3 g/dL (3.5-5.0); Alkaline Phosphatase 457 U/L (39-117); Anion Gap 16 (12-20); Aspartate Amino Transferase 153 U/L (5-37); Bilirubin Direct 8.3 mg/dL (0.0-0.5); Bilirubin Total 11.4 mg/dL (0.0-1.0); Blood Urea Nitrogen 26 mg/dL (9-16); Calcium 8.7 mg/dL (8.4-10.2); Carbon Dioxide 22 mmol/L (22-29); Chloride 103 mmol/L (96-108); Creatinine Clr Calc Pharmacy 51.6; Estimated Glomerular Filt Rate > 60; Glucose Random 134 mg/dL (60-115); Lactic Acid 1.4 mmol/L (0.5-2.0); Lipase 54 U/L (8-78); Potassium 3.5 mmol/L (3.3-5.1); Sodium 137 mmol/L (135-145); Total Protein 6.1 g/dL (6.5-8.0)
[2022-05-28] MEDS: metroNIDAZOLE/NS 500 MG/100 ML PIGGYBACK 100 MG IV ×2 (00:38→08:00)
[2022-05-28] MEDS: HYDROmorphone HCl 0.5 MG/0.5 ML SYRINGE IVPUSH (00:38)
[2022-05-28 00:39] LABS: SLIDE REVIEW VERIFIED
[2022-05-28 00:53] LABS: Ammonia 36 umol/L (13-55)
[2022-05-28] MEDS: iohexoL 350 MG/ML 100 ML INFUS..BTL IV (01:02)
[2022-05-28 01:34] LABS: COVID-19 Test Negative (Negative)
--- NOTE | 2022-05-28 01:51 | PC.NURSE ---
This [employer] called [facility]'s transfer line at [id number] per France Sanchez. [facility] and stated that they are at a critical Disaster status,and can't accept patient.Was asked to go on a waiting list and she stated there is no waiting list and to try back in the morning due to pending discharges.Rn and Charge nurse aware
[2022-05-28] MEDS: vancomycin HCL 1,250 MG in 0.9 % Sodium Chloride 250 ML 166.67 MG IV (01:58)
--- NOTE | 2022-05-28 02:03 | PC.NURSE ---
pt a&ox3, pt remains febrile and hypotensive, other vss, pt medicated per provider order, 2nd litre of NS running. provider in room with carpentry foreman.
[2022-05-28] MEDS: Albumin Human 25 % 100 ML IV (04:34)
[2022-05-28] MEDS: Heparin Sodium,Porcine 5,000 UNIT/ML VIAL 5000 UNIT SUBCUT (04:42)
--- NOTE | 2022-05-28 04:45 | PC.NURSE ---
medicated per provider order, pt no longer febrile, vss.
[2022-05-28 04:46] LABS: MANUAL DIFF FLAG NO
[2022-05-28 04:47] LABS: Basophils Percent Auto 0.3 % (0-2); Hematocrit 29.1 % (42.0-52.0); Hemoglobin 9.6 g/dl (14.0-18.0); Imm Gran Abs Auto 0.02 X10*3/uL (0.00-0.03); Imm Gran Pct Auto 0.3 % (0.0-0.4); Lymphocytes Absolute Auto 0.3 X10*3/uL (1.2-4.9); Lymphocytes Percent Auto 3.9 % (20-40); Mean Corpuscular Hemoglobin 31.3 pg (27.0-33.0); Mean Corpuscular Volume 94.8 fL (80.0-98.0); Mean Platelet Volume 12.3 fL (9.4-12.4); Monocytes Absolute Auto 0.5 X10*3/uL (0.1-1.2); Monocytes Percent Auto 6.6 % (2-11); Neutrophils Absolute Auto 6.8 x10*3/uL (2.0-8.3); Neutrophils Percent Auto 88.9 % (45-73); Platelet Count 134 X10*3/uL (160-400); Red Blood Count 3.07 X10*6/uL (4.60-5.80); White Blood Count 7.6 X10*3/uL (4.8-10.8)
[2022-05-28 05:13] LABS: Anion Gap 13 (12-20); Blood Urea Nitrogen 22 mg/dL (9-16); Calcium 7.9 mg/dL (8.4-10.2); Carbon Dioxide 21 mmol/L (22-29); Chloride 107 mmol/L (96-108); Creatinine Clr Calc Pharmacy 63.1; Estimated Glomerular Filt Rate > 60; Glucose Random 161 mg/dL (60-115); Potassium 3.8 mmol/L (3.3-5.1); Sodium 137 mmol/L (135-145)
--- NOTE | 2022-05-28 06:43 | PM.IMHP ---
History of Present Illness Date of Service: 05/28/22 Chief Complaint: Abdominal pain, chills This is a 51-year-old male with past medical history of hepatitis, pancreatitis, diabetes, CBD stricture status post [place]CP [place] [facility] [place], according to the , biopsy was done and came back positive for malignancy, they were supposed to follow up on Saturday for the results but patient returns to the hospital today with complaints of abdominal pain radiating to the back, as well as significant chills and shivering. Patient is [place]-speaking and history is obtained with the help of interpreter for the deaf. Patient does not remember when he went to [facility] but per record he was around 7 5, he underwent ERCP which found a CBD stricture, biopsy was done, that is now concerning for malignancy. Patient reports the pain is periumbilical, he also has midback pain, he reports significant chills and shaking, he has no nausea or vomiting, no diarrhea constipation, no urinary symptoms and no lower extremity edema. No headache or change in vision, no chest pain no shortness of breath. On arrival to the ED patient hemodynamically stable with a fever of 102.7, blood pressure of 111/53 Labs are significant for WBC count of 4.8, hemoglobin of 10.3, hematocrit 30.8, BUN of 26, creatinine of 1.26 with a baseline around 0.8, total bili of 11.4 which was 22.4 on 05/12, direct bili of 8.3, AST of 153, ALT of 156, alk-phos of 457, UA negative CT abdomen pelvis shows evidence of acute cholangitis with thick walled appearance of the common bile duct and periportal edema. Thick-walled appearance of the gallbladder which can indicate cholecystitis, An attempt was made to transfer patient to [facility] but they are currently in a disaster status and were unable to accept the patient in from ED to ED. They recommended transferring inpatient inpatient in 24 hours. Patient started on IV antibiotics and will be admitted for further management Review of Systems Review of Systems: Yes all other systems are reviewed and are negative [facility] Medical History Depression DM2 (diabetes mellitus, type 2) Dyslipidemia Erectile dysfunction HTN (hypertension) Injury of right brachial plexus Subarachnoid hemorrhage Subdural hematoma Vitamin D deficiency Family History Other No family history of coronary artery disease Surgical History History of surgery on arm Social History Household Members: Spouse Housing: Apartment Do you presently have visiting nurse or other home services: 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) Alcohol intake: never Patient Tobacco Use Status: Former Tobacco user Tobacco use type: Cigarette Cigarette Packs Per Day: 0.5 Cigarettes Per Day: 10.0 Years Smoked: 11 Smoked in Last 30 Days: No e-Cigarette/Vaping Use: Never Used Second Hand Smoke Exposure: No Use of substances other than those prescribed or required for medical reasons: No Substance Use Type: Crack/Cocaine Advance Directives: No Advance Directives Information Provided: Yes service: No Current occupational status: unemployed Meds Allergies Allergy/AdvReac Type Severity Reaction Status Date / Time Penicillins [PCN] Allergy Intermediate Unknown Verified 03/21/22 22:36 Active Medications: Current Medications Acetaminophen (Acetaminophen 325 Mg Tablet) 650 mg PO Q6H PRN PRN Reason: Pain, Mild (Pain Scale 1-3) Docusate Sodium (Docusate Sodium 100 Mg Capsule) 100 mg PO DAILY PRN PRN Reason: Constipation Heparin Sodium (Porcine) (Heparin Sodium,Porcine 5,000 Unit/Ml Vial) 5,000 unit SUBCUT Q12H [facility] Last Admin: 05/28/22 04:42 Dose: 5,000 unit Cefepime HCl 1 gm/ Sodium (Chloride) 50 mls @ 100 mls/hr IV Q8H [facility] Metronidazole (Flagyl) 500 mg in 100 mls @ 100 mls/hr IV Q8H [facility] Morphine Sulfate (Morphine Sulfate 4 Mg/Ml Cartridge) 4 mg IVPUSH Q4H PRN; Protocol PRN Reason: Pain, Severe (Pain Scale 7-10) Ondansetron HCl (Ondansetron Hcl 4 Mg/2 Ml Vial) 4 mg IVPUSH Q8H PRN PRN Reason: Nausea and Vomiting Pharmacy Consult (Consult Rx Vancomycin Dosing) 1 each MISCELLANE DAILY PRN PRN Reason: Consult order Sodium Chloride (0.9 % Sodium Chloride Flush 3 Ml Syringe) [facility] Medications Medication Instructions Recorded Confirmed Last Taken Type fluoxetine 20 mg capsule 1 cap PO DAILY 05/09/22 05/09/22 Unknown History fluoxetine 40 mg capsule 1 cap PO DAILY 05/09/22 05/09/22 Unknown History gabapentin 800 mg tablet 1 tab PO QID 05/09/22 05/09/22 Unknown History insulin aspart U-100 100 unit/mL 20 unit subcut TIDWMEAL 05/09/22 05/09/22 05/08/22 History (3 mL) subcutaneous pen (Novolog Flexpen U-100 Insulin aspart) metformin 1,000 mg tablet 1 tab PO BID 05/09/22 05/09/22 Unknown History omega-3 fatty acids-fish oil 340 1 cap PO TID 05/09/22 05/09/22 Unknown History mg-1,000 mg capsule (Fish Oil) trazodone 100 mg tablet 1 tab PO BEDTIME PRN Insomnia 05/09/22 05/09/22 Unknown History Physical Exam Vital Signs and Narrative: Vital Signs: Last Vital Signs Temp 99.6 F 05/28/22 04:43 Pulse 90 05/28/22 04:43 Resp 21 H 05/28/22 04:43 BP 110/59 L 05/28/22 04:43 Pulse Ox 98 05/28/22 04:43 O2 Del Method 05/28/22 04:43 BMI result Body Mass Index 16.6 Const: General: cooperative and no acute distress Orientation/consciousness: patient oriented x3 Eyes: General: appearance normal, both eyes and all related structures Pupils: Equal, round and reactive pupils present Resp: Effort & Inspection: normal respiratory effort Auscultation: clear to auscultation bilaterally Cardio: Rate: regular rate Rhythm: regular rhythm GI: Other: Abdomen is soft, nontender, no rebound or guarding Palpation (GI): Soft to palpation Auscultation: normal bowel sounds Skin: General skin exam: no rashes or lesions noted Neuro: General: patient oriented x3 Cranial nerves: Yes Equal, round and reactive pupils present Cognition (Neuro): normal cognition Extrem: General: Yes normal to inspection and Yes no pedal edema Results Labs CBC and Chem 7: 05/28/22 04:40 05/28/22 04:40 Labs: Laboratory Results - last 24 hr 05/28/22 05/28/22 05/28/22 00:02 00:02 00:02 MCV 92.8 MCH 31.0 MCHC 33.4 RDW 13.7 Plt Count 126 L D MPV 12.4 Immature Gran % (Auto) 0.4 Neut % (Auto) 91.1 H Lymph % (Auto) 2.7 L [place] % (Auto) 5.4 Eos % (Auto) 0.2 Baso % (Auto) 0.2 Lymph # (Auto) 0.1 L [place] # (Auto) 0.3 Eos # (Auto) 0.0 Baso # (Auto) 0.0 Abs Immat Gran (auto) 0.02 Absolute Neuts (auto) 4.4 Absolute Nucleated RBC 0.000 Nucleated RBC % (auto) 0.0 Smear Tech's Comments VERIFIED PT 12.9 INR 1.1 APTT 31.4 Anion Gap 16 Estim Creat Clear Calc 51.6 Estimated GFR > 60 Random Glucose 134 H Lactic Acid Calcium 8.7 Total Bilirubin 11.4 H Direct Bilirubin 8.3 H AST 153 H ALT 156 H Alkaline Phosphatase 457 H D Ammonia Total Protein 6.1 L D Albumin 3.3 L D Lipase Urine Color Urine Appearance Urine pH Ur Specific [place] Urine Protein Urine Glucose (UA) Urine Ketones Urine Blood Urine Nitrite Ur Leukocyte Esterase COVID-19 (TASHA) COVID-Automatic Agency 05/28/22 05/28/22 05/28/22 00:02 00:02 00:02 MCV MCH MCHC RDW Plt Count MPV Immature Gran % (Auto) Neut % (Auto) Lymph % (Auto) [place] % (Auto) Eos % (Auto) Baso % (Auto) Lymph # (Auto) [place] # (Auto) Eos # (Auto) Baso # (Auto) Abs Immat Gran (auto) Absolute Neuts (auto) Absolute Nucleated RBC Nucleated RBC % (auto) Smear Tech's Comments PT INR APTT Anion Gap Estim Creat Clear Calc Estimated GFR Random Glucose Lactic Acid 1.4 Calcium Total Bilirubin Direct Bilirubin AST ALT Alkaline Phosphatase Ammonia 36 Total Protein Albumin Lipase 54 Urine Color Urine Appearance Urine pH Ur Specific [place] Urine Protein Urine Glucose (UA) Urine Ketones Urine Blood Urine Nitrite Ur Leukocyte Esterase COVID-19 (TASHA) COVID-19 [employer] 05/28/22 05/28/22 05/28/22 00:02 01:07 04:40 MCV 94.8 MCH 31.3 MCHC 33.0 RDW 14.0 Plt Count 134 L MPV 12.3 Immature Gran % (Auto) 0.3 Neut % (Auto) 88.9 H Lymph % (Auto) 3.9 L [place] % (Auto) 6.6 Eos % (Auto) 0.0 Baso % (Auto) 0.3 Lymph # (Auto) 0.3 L [place] # (Auto) 0.5 Eos # (Auto) 0.0 Baso # (Auto) 0.0 Abs Immat Gran (auto) 0.02 Absolute Neuts (auto) 6.8 Absolute Nucleated RBC 0.000 Nucleated RBC % (auto) 0.0 Smear Tech's Comments PT INR APTT Anion Gap Estim Creat Clear Calc Estimated GFR Random Glucose Lactic Acid Calcium Total Bilirubin Direct Bilirubin AST ALT Alkaline Phosphatase Ammonia Total Protein Albumin Lipase Urine Color DK YELLOW Urine Appearance HAZY Urine pH 7.0 Ur Specific [place] 1.020 Urine Protein TRACE Urine Glucose (UA) NEG Urine Ketones 5 Urine Blood NEG Urine Nitrite NEG Ur Leukocyte Esterase NEG COVID-19 (TASHA) Negative COVID-19 Clin Com See Note 05/28/22 04:40 MCV MCH MCHC RDW Plt Count MPV Immature Gran % (Auto) Neut % (Auto) Lymph % (Auto) [place] % (Auto) Eos % (Auto) Baso % (Auto) Lymph # (Auto) [place] # (Auto) Eos # (Auto) Baso # (Auto) Abs Immat Gran (auto) Absolute Neuts (auto) Absolute Nucleated RBC Nucleated RBC % (auto) Smear Tech's Comments PT INR APTT Anion Gap 13 Estim Creat Clear Calc 63.1 Estimated GFR > 60 Random Glucose 161 H Lactic Acid Calcium 7.9 L D Total Bilirubin Direct Bilirubin AST ALT Alkaline Phosphatase Ammonia Total Protein Albumin Lipase Urine Color Urine Appearance Urine pH Ur Specific [place] Urine Protein Urine Glucose (UA) Urine Ketones Urine Blood Urine Nitrite Ur Leukocyte Esterase COVID-19 (TASHA) COVID-19 Clin Com Imaging Radiologist's Impressions: Impressions Chest X-Ray 05/28/22 00:18 IMPRESSION: No acute cardiopulmonary findings. Abdomen/Pelvis CT 05/28/22 01:05 IMPRESSION: 1. Common bile duct stent. Though there is no significant biliary ductal dilatation, there is a thick-walled appearance of the common hepatic ducts, raising concern for cholangitis in the proper clinical setting. Periportal edema is also noted. 2. Thick-walled appearance of the gallbladder, which could indicate cholecystitis. 3. Right ureterovesicular junction calculus measuring 4 mm without hydronephrosis. 4. Mild splenomegaly. Assessment and Plan (1) Acute cholangitis: Status: Acute (2) Fever: Qualifiers: Fever type: unspecified Qualified Code(s): R50.9 - Fever, unspecified Status: Acute (3) Hyperbilirubinemia: Status: Acute Plan 51-year-old male recent treatment at [facility] for acute pancreatitis, found to have dilated CBD, patient was transferred [place] [facility] [place] with no success, therefore patient was transferred to [facility] and underwent ERCP with stent placement after being found to have strictures. Biopsy was taking, it appears that patient possibly could have malignancy according to his . He returns today with abdominal pain, and chills found to have acute cholangitis # acute cholangitis - status post ERCP on 05/15 - abdominal CT as above - will treat with broad-spectrum antibiotic - GI consult - follow culture # possible cholecystitis - per imaging - no right upper quadrant abdominal tenderness on my exam - IV antibiotics - follow cultures - general surgery consult # febrile - secondary to above - Tylenol p.r.n. - follow cultures # diabetes - hold metformin - start low-dose sliding scale insert - diabetic diet DVT prophylaxis: Heparin subQ An attempt was made to transfer patient out to [facility], but they are currently not accepting patients as they are and disaster mode Quality Stroke Does the patient have a stroke diagnosis?: No VTE Prior VTE?: No VTE Risk Level:: Medical - moderate - high VTE Device Contraindication: Treatment Not Indicated VTE Drug Contraindication: N/A - Med Ordered
[2022-05-28 08:01] LABS: Glucose, Whole Blood 168 mg/dL (60-115)
[2022-05-28] MEDS: 0.9 % Sodium Chloride Flush 3 ML SYRINGE IVFLUSH (08:05)
--- NOTE | 2022-05-28 08:06 | PC.NURSE ---
patient assess with use of bilingual interpreter services patient a/o x4 . sclera yellow , pearrla . heart rate equal and regular at 90 beats .lungs clear . skin warm dry , yellow /robin hue . abdomen soft non distended . positive abdominal sounds in all four quadrants . patient febril 103.3 . cooling packs applied to axilla and groin and awaiting order for toradal . will reassess . patient reports no pain . aware of plan of care .
--- NOTE | 2022-05-28 08:25 | PC.NURSE ---
LUANA (RN, [facility]) CALLED [facility] AND WAS UPDATED ON PT STATUS.
--- NOTE | 2022-05-28 08:58 | PM.GICN ---
History of Present Illness Data of Consult Service Date: 05/28/22 Requesting physician: Aide Bowles Primary Care Provider: Akhil Sauceda MD [facility] Reason for consult: concern for cholangitis 51-year-old male with past medical history of hepatitis, pancreatitis, diabetes, CBD stricture status post [place] at [facility] [place], according to the , biopsy was done and came back positive for malignancy,who I am seeing for concern for cholangitis. Patient is Georgian-speaking and history is obtained with the help of hand grinder. Patient had an [place] at [facility] which found a CBD stricture, biopsy was done, that is now concerning for malignancy.? Patient reports the pain is periumbilical, he also has midback pain, he reports significant chills and shaking, he has no nausea or vomiting, no diarrhea constipation, no urinary symptoms and no lower extremity edema.? No headache or change in vision, no chest pain no shortness of breath.? On arrival to the ED patient hemodynamically stable with a fever of 102.7, blood pressure of 111/53 Labs are significant for WBC count of 4.8, hemoglobin of 10.3, hematocrit 30.8, BUN of 26, creatinine of 1.26 with a baseline around 0.8, total bili of 11.4 which was 22.4 on 05/12, direct bili of 8.3, AST of 153, ALT of 156, alk-phos of 457, UA negative CT abdomen pelvis shows evidence of acute cholangitis with thick walled appearance of the common bile duct and periportal edema.? Thick-walled appearance of the gallbladder which can indicate cholecystitis, An attempt was made to transfer patient to [facility] but they are currently in a disaster status and were unable to accept the patient in from ED to ED. They recommended transferring inpatient inpatient in 24 hours. Patient started on IV antibiotics and will be admitted for further management Review of Systems Review of Systems: Constitutional : No Weight loss, No Fever, pos Chills ENT/Mouth : No sore throat, No Rhinorrhea Eyes: No Swelling, No Redness Cardiovascular : No Chest Pain, No SOB, NoEdema Respiratory : No Cough, No Sputum, No Wheezing Gastrointestinal : Positive Nausea, no Vomiting, no Diarrhea, positive abdominal Pain, No Hematochezia, No Melena Genitourinary : No Dysuria, No Urinary Frequency, No Hematuria, No Urgency Musculoskeletal : No joint pain, No Myalgias, No Joint Swelling Skin : No Skin Lesions, No rash Neuro : No Weakness, No Numbness, No Dizziness, No Headache Psych : No Anxiety/Panic, No Depression Heme/Lymph: No Bruising, No Lymphadenopathy Endocrine : No Polyuria, No Polydipsia All other systems reviewed and are negative. 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) Alcohol intake: never Patient Tobacco Use Status: Former Tobacco user Tobacco use type: Cigarette Cigarette Packs Per Day: 0.5 Cigarettes Per Day: 10.0 Years Smoked: 11 Smoked in Last 30 Days: No e-Cigarette/Vaping Use: Never Used Second Hand Smoke Exposure: No Use of substances other than those prescribed or required for medical reasons: No Substance Use Type: Crack/Cocaine Advance Directives: No Advance Directives Information Provided: Yes service: No Current occupational status: unemployed Meds Allergies Allergy/AdvReac Type Severity Reaction Status Date / Time Penicillins [PCN] Allergy Intermediate Unknown Verified 03/21/22 22:36 Active Medications: Current Medications Acetaminophen (Acetaminophen 325 Mg Tablet) 650 mg PO Q6H PRN PRN Reason: Pain, Mild (Pain Scale 1-3) Dextrose (Dextrose 50 % 25 Gm/50 Ml Syringe) 25 gm IVPUSH Q15M PRN; Protocol PRN Reason: per Hypoglycemia Standing Ord. Docusate Sodium (Docusate Sodium 100 Mg Capsule) 100 mg PO DAILY PRN PRN Reason: Constipation Glucose (Glucose Gel 15 Gm Gel..Gram.) 15 gm PO Q15M PRN; Protocol PRN Reason: per Hypoglycemia Standing Ord. Heparin Sodium (Porcine) (Heparin Sodium,Porcine 5,000 Unit/Ml Vial) 5,000 unit SUBCUT Q12H [facility] Last Admin: 05/28/22 04:42 Dose: 5,000 unit Cefepime HCl 1 gm/ Sodium (Chloride) 50 mls @ 100 mls/hr IV Q8H [facility] Metronidazole (Flagyl) 500 mg in 100 mls @ 100 mls/hr IV Q8H [facility] Last Admin: 05/28/22 08:00 Dose: 100 mls/hr Insulin Human Lispro (Insulin Lispro 100 Unit/Ml 3 Ml Vial) 0 unit SUBCUT QIDACHS [facility]; Protocol Last Admin: 05/28/22 08:30 Dose: Not Given Ketorolac Tromethamine (Ketorolac Tromethamine 30 Mg/Ml Vial) 30 mg IVPUSH Q6H PRN PRN Reason: Fever >100.4 Morphine Sulfate (Morphine Sulfate 4 Mg/Ml Cartridge) 4 mg IVPUSH Q4H PRN; Protocol PRN Reason: Pain, Severe (Pain Scale 7-10) Ondansetron HCl (Ondansetron Hcl 4 Mg/2 Ml Vial) 4 mg IVPUSH Q8H PRN PRN Reason: Nausea and Vomiting Sodium Chloride (0.9 % Sodium Chloride Flush 3 Ml Syringe) 3 ml IVFLUSH QSHIFT [facility] Last Admin: 05/28/22 08:05 Dose: 3 ml Home Medications Medication Instructions Recorded Confirmed Last Taken Type fluoxetine 20 mg capsule 1 cap PO DAILY 05/09/22 05/09/22 Unknown History fluoxetine 40 mg capsule 1 cap PO DAILY 05/09/22 05/09/22 Unknown History gabapentin 800 mg tablet 2 tab PO BID 05/09/22 05/28/22 Unknown History insulin aspart U-100 100 unit/mL 20 unit subcut TIDWMEAL 05/09/22 05/09/22 05/08/22 History (3 mL) subcutaneous pen (Novolog Flexpen U-100 Insulin aspart) metformin 1,000 mg tablet 1 tab PO BID 05/09/22 05/28/22 Unknown History omega-3 fatty acids-fish oil 340 1 cap PO TID 05/09/22 05/28/22 Unknown History mg-1,000 mg capsule (Fish Oil) trazodone 100 mg tablet 1 tab PO BEDTIME PRN Insomnia 05/09/22 05/28/22 Unknown History atorvastatin 20 mg tablet 1 tab PO DAILY 05/28/22 Unknown History insulin glargine 100 unit/mL (3 ea subcut 05/28/22 Unknown History mL) subcutaneous pen (Lantus Solostar U-100 Insulin) nicotine (polacrilex) 4 mg buccal 1 ea PO Q2H PRN Nicotine Cravings 05/28/22 05/28/22 Unknown History mini lozenge nicotine 21 mg/24 hr daily 1 patch topical DAILY 05/28/22 05/28/22 Unknown History transdermal patch Physical Exam Vital Signs: Vital Signs: Last Vital Signs Temp 103.3 F H 05/28/22 08:17 Pulse 89 05/28/22 08:17 Resp 18 05/28/22 08:17 BP 102/58 L 05/28/22 08:17 Pulse Ox 97 05/28/22 08:17 O2 Del Method 05/28/22 08:17 BMI result Body Mass Index 16.6 Const: General: cooperative and no acute distress Orientation/consciousness: patient oriented x3 Eyes: General: appearance normal, both eyes and all related structures Pupils: Equal, round and reactive pupils present Resp: Effort & Inspection: normal respiratory effort Auscultation: clear to auscultation bilaterally Cardio: Rate: regular rate Rhythm: regular rhythm GI: Other: Abdomen is soft, nontender, no rebound or guarding Palpation (GI): Soft to palpation Auscultation: normal bowel sounds Skin: General skin exam: no rashes or lesions noted Neuro: General: patient oriented x3 Cranial nerves: Yes Equal, round and reactive pupils present Cognition (Neuro): normal cognition Extrem: General: Yes normal to inspection and Yes no pedal edema Results Labs CBC & Chem 7: 05/28/22 04:40 05/28/22 04:40 Labs: Short CBC 05/28/22 05/28/22 Range/Units 00:02 04:40 WBC 4.8 7.6 (4.8-10.8) X10*3/uL Hgb 10.3 L 9.6 L (14.0-18.0) g/dl Hct 30.8 L 29.1 L (42.0-52.0) % Plt Count 126 L D 134 L (160-400) X10*3/uL BMP 07/18/22 07/18/22 00:02 04:40 Sodium 137 137 Potassium 3.5 3.8 Chloride 103 107 Carbon Dioxide 22 21 L BUN 26 H D 22 H Creatinine 1.26 1.03 Calcium 8.7 7.9 L D Liver Function 05/28/22 Range/Units 00:02 Total Bilirubin 11.4 H (0.0-1.0) mg/dL Direct Bilirubin 8.3 H (0.0-0.5) mg/dL AST 153 H (5-37) U/L ALT 156 H (0-40) U/L Alkaline Phosphatase 457 H D (39-117) U/L Albumin 3.3 L D (3.5-5.0) g/dL Urine 05/28/22 Range/Units 00:02 Urine Color DK YELLOW Urine Appearance HAZY Urine pH 7.0 (5.0-8.0) Ur Specific [place] 1.020 (1.005-1.025) Urine Protein TRACE (NEG-TRACE) MG/DL Urine Glucose (UA) NEG (NEG) MG/DL Assessment and Plan (1) Acute cholangitis: Status: Acute
--- NOTE | 2022-05-28 09:00 | PC.NURSE ---
Dr Rani Berger from GI at bedside with use of sales account director services . plan of care for patient to have ERCP this afternoon provider beleives that stent could be possible cause of patients recent illness . patient aware of plan of care .
--- NOTE | 2022-05-28 09:10 | PHA.MEDREC ---
Pharmacy Consult ? Medication Reconciliation Pharmacy has completed the medication reconciliation. Spoke with patient's Nelson. Patient no longer taking atorvastatin. Patient is to hold metformin for 2 days. Nica Ervin, PharmD
--- NOTE | 2022-05-28 09:15 | PC.NURSE ---
report given to favian gutiérrez (sss), pt to have surgery this am.
[2022-05-28] MEDS: Ketorolac Tromethamine 30 MG/ML VIAL IVPUSH (09:19)
--- NOTE | 2022-05-28 09:25 | PC.NURSE ---
patient medicated with tordal for fever as ordered . hypotensive at 90/51. provider aware . 1 liter normal saline hung . patient aware of plan of care .
--- NOTE | 2022-05-28 10:48 | PC.NURSE ---
PT WENT TO [facility] VIA [facility]. AT BEDSIDE.
--- NOTE | 2022-05-28 11:05 | P.EN_ITS ---
Event Note Date of Service: 05/28/22 Event Note: The patient was seen and evaluated this morning. Feels tired, having fevers Blood pressure running soft Denies any pain Discussed with Dr. Guan from Gastroenterology who will take him to do an ERCP. Discussed with [place]ology [place] [facility] [place] Peña [phone] who reported he will be able to take the patient as around drip for ERCP if any issues or concerns about his ERCP here. Continue IV antibiotics pending final cultures
--- NOTE | 2022-05-28 12:13 | PC.NURSE ---
@ 12:13PM CALL RECEIVED FROM JORDAN OF THE [facility] [place] [facility] SAYING THEY DO HAVE THIS PT ON THEIR LIST FOR INPT TO INPT TRANSFER LIST, NO ROOM ASSIGNMENT @ THIS TIME.
--- NOTE | 2022-05-28 12:48 | PC.NURSE ---
Addendum entered by Bela Bella RN 05/28/22 13:16: correction, Dr. Nicolás Adan surgeon at [facility]. Original Note: pt and at bedside speaking with Dr. Guan. Dr. Guan spoke with Dr. Casey AGUERO at [facility] regarding doing ERCP today. per Dr. Peña ok to do procedure here if able. pt speaking to Dr. Sewell surgeon at [facility] and was advised to be transferred to [facility] and have them assess the situation as to not delay any additional treatment plan. Dr. Guan back at bedside to speak with pt and . per pt and they are wishing to be transferred to [facility] at this time. tiger text placed to RAYMOND Paniagua RN that patient did not have planned procedure and will be transported back at this time to await bed placement at [facility].
--- NOTE | 2022-05-28 13:01 | PM.EVENT ---
Event Note Date of Service: 05/28/22 Event Note: GI-History via patient, his , the EMR, and discussion with Dr. Edge(rn surgical pcu) and Dr. Caputo(GI MD) at [facility]. Imp/Recs: Jaundice with cholangitis in relation to an occluded biliary stent placed on 05/15/2022 at [facility] for a distal biliary stricture by Dr. Peña. Brushings revealed adenocarcinoma and he has an appointment to meet with Dr. Nicolás Palacios at [facility] on 05/29 at 2PM to discuss possible Whipple surgery. He presently appears stable and denies any further significant abdominal pain. The patient and his have spoken with Dr. Nicolás Palacios within the past hour and he wants the patient transferred to [facility] today. He will be arranging the bed and the transfer.The patient and his are very happy with that plan. However, I did advise them that if a bed is not available today we should then proceed with an ERCP for stent change here today given his presentation with cholangitis and the obstructed stent so as to prevent any further worsening of his condition with sepsis. The patient and his are agreeable with that as well. Full consent has been obtained for an ERCP here, including risks of bleeding, perforation, cholangitis, and pancreatitis. Continue NPO and IV antibiotics in the meantime. Thanks
--- NOTE | 2022-05-28 13:15 | P.DS_ITS ---
DS: Providers Provider Date of Service: 05/28/22 Date of admission: 05/28/22 01:46 Primary care physician: Akhil Sauceda MD Consults: 05/28/22 01:46 Consult to Gastroenterology Routine Consulting Provider: Wagner Guan Reason for consultation: cholangitis Has provider been notified: No 05/28/22 06:51 Consult to General Surgery Routine Consulting Provider: Russell Nunez Reason for consultation: Cholecystitis? Has provider been notified: No DS: Diagnosis Discharge Diagnosis (1) Acute cholangitis: Status: Acute DS: Summary Hospital Course Hospital Course: Admission note HPI This is a 51-year-old male with past medical history of hepatitis, pancreatitis, diabetes, CBD stricture status post ERCP at [facility] on 05/15, according to the , biopsy was done and came back positive for malignancy, they were supposed to follow up on Saturday for the results but patient returns to the hospital today with complaints of abdominal pain radiating to the back, as well as significant chills and shivering. Patient is Ivorian-speaking and history is obtained with the help of psychological operations. Patient does not remember when he went to [facility] but per record he was around 7 5, he underwent ERCP which found a CBD stricture, biopsy was done, that is now concerning for malignancy.? Patient reports the pain is periumbilical, he also has midback pain, he reports significant chills and shaking, he has no nausea or vomiting, no diarrhea constipation, no urinary symptoms and no lower extremity edema.? No headache or change in vision, no chest pain no shortness of breath.? On arrival to the ED patient hemodynamically stable with a fever of 102.7, blood pressure of 111/53 Labs are significant for WBC count of 4.8, hemoglobin of 10.3, hematocrit 30.8, BUN of 26, creatinine of 1.26 with a baseline around 0.8, total bili of 11.4 which was 22.4 on 05/12, direct bili of 8.3, AST of 153, ALT of 156, alk-phos of 457, UA negative CT abdomen pelvis shows evidence of acute cholangitis with thick walled analilia earance of the common bile duct and periportal edema.? Thick-walled appearance of the gallbladder which can indicate cholecystitis, An attempt was made to transfer patient to [facility] but they are currently in a disaster status and were unable to accept the patient in from ED to ED. They recommended transferring inpatient inpatient in 24 hours. Patient started on IV antibiotics and will be admitted for further management Hospital course You were admitted to the hospital for treatment of acute cholangitis based on blood work and imaging. Evaluated by stretching press operator Dr. Guan who took the patient to ERCP. Upon discussion with his primary stretching press operator , and his surgeon Dr. Neri recommendations were to transfer him to [facility] for intervention as he has a plan to do whipple surgery eventually. The patient on ceftriaxone 2 g daily and Flagyl 500 mg q.8 hours for reported history of penicillin allergy. Patient on IV fluid for solved blood pressure readings of 90s over 50s. The patient is bacteremic as blood cultures growing gram-negative rods. Time Spent with Patient Time attestation: Total time spent providing and/or coordinating discharge services: Discharge coordination time: Greater than 30 minutes Quality: Safe Use of Opioids Does Pt have an Active Cancer Diagnosis on the Problem List?: No Quality: Stroke Does the patient have a stroke diagnosis?: No Physical Exam Vital Signs: Vital Signs: Last Vital Signs Temp 98.7 F 05/28/22 10:58 Pulse 66 05/28/22 10:58 Resp 16 05/28/22 10:58 BP 92/41 L 05/28/22 10:58 Pulse Ox 98 05/28/22 10:58 O2 Del Method 05/28/22 10:58 BMI result Body Mass Index 16.6 Const: Other: Constitutional : Alert, jaundiced, not in distress Neck : Normal inspection, Supple Cardiovascular : RRR, no JVP, no lower extremity edema Respiratory : fair bilateral air entry, no crackles, wheezes or rhonchi Gastrointestinal: soft, lax, Normal bowel sounds, right upper quadrant tenderness Skin : Warm, Dry Neurological : Alert & oriented x3, No focal deficit , CN 2-12 within normal DS: Data Data Completed and Pending Labs on day of discharge: Laboratory Results - last 24 hr 05/28/22 05/28/22 05/28/22 00:02 00:02 00:02 WBC 4.8 RBC 3.32 L Hgb 10.3 L Hct 30.8 L MCV 92.8 MCH 31.0 MCHC 33.4 RDW 13.7 Plt Count 126 L D MPV 12.4 Immature Gran % (Auto) 0.4 Neut % (Auto) 91.1 H Lymph % (Auto) 2.7 L [place] % (Auto) 5.4 Eos % (Auto) 0.2 Baso % (Auto) 0.2 Lymph # (Auto) 0.1 L [place] # (Auto) 0.3 Eos # (Auto) 0.0 Baso # (Auto) 0.0 Abs Immat Gran (auto) 0.02 Absolute Neuts (auto) 4.4 Absolute Nucleated RBC 0.000 Nucleated RBC % (auto) 0.0 Smear Tech's Comments VERIFIED PT 12.9 INR 1.1 APTT 31.4 Sodium 137 Potassium 3.5 Chloride 103 Carbon Dioxide 22 Anion Gap 16 BUN 26 H D Creatinine 1.26 Estim Creat Clear Calc 51.6 Estimated GFR > 60 POC Glucose Random Glucose 134 H Lactic Acid Calcium 8.7 Total Bilirubin 11.4 H Direct Bilirubin 8.3 H AST 153 H ALT 156 H Alkaline Phosphatase 457 H D Ammonia Total Protein 6.1 L D Albumin 3.3 L D Lipase Urine Color Urine Appearance Urine pH Ur Specific [place] Urine Protein Urine Glucose (UA) Urine Ketones Urine Blood Urine Nitrite Ur Leukocyte Esterase COVID-19 ([facility]ASHA) COVID-19 Clin [employer] 05/28/22 05/28/22 05/28/22 00:02 00:02 00:02 WBC RBC Hgb Hct MCV MCH MCHC RDW Plt Count MPV Immature Gran % (Auto) Neut % (Auto) Lymph % (Auto) [place] % (Auto) Eos % (Auto) Baso % (Auto) Lymph # (Auto) [place] # (Auto) Eos # (Auto) Baso # (Auto) Abs Immat Gran (auto) Absolute Neuts (auto) Absolute Nucleated RBC Nucleated RBC % (auto) Smear Tech's Comments PT INR APTT Sodium Potassium Chloride Carbon Dioxide Anion Gap BUN Creatinine Estim Creat Clear Calc Estimated GFR POC Glucose Random Glucose Lactic Acid 1.4 Calcium Total Bilirubin Direct Bilirubin AST ALT Alkaline Phosphatase Ammonia 36 Total Protein Albumin Lipase 54 Urine Color Urine Appearance Urine pH Ur Specific [place] Urine Protein Urine Glucose (UA) Urine Ketones Urine Blood Urine Nitrite Ur Leukocyte Esterase COVID-19 (TASHA) COVID-19 Clin Com 05/28/22 05/28/22 05/28/22 00:02 01:07 04:40 WBC 7.6 RBC 3.07 L Hgb 9.6 L Hct 29.1 L MCV 94.8 MCH 31.3 MCHC 33.0 RDW 14.0 Plt Count 134 L MPV 12.3 Immature Gran % (Auto) 0.3 Neut % (Auto) 88.9 H Lymph % (Auto) 3.9 L [place] % (Auto) 6.6 Eos % (Auto) 0.0 Baso % (Auto) 0.3 Lymph # (Auto) 0.3 L [place] # (Auto) 0.5 Eos # (Auto) 0.0 Baso # (Auto) 0.0 Abs Immat Gran (auto) 0.02 Absolute Neuts (auto) 6.8 Absolute Nucleated RBC 0.000 Nucleated RBC % (auto) 0.0 Smear Tech's Comments PT INR APTT Sodium Potassium Chloride Carbon Dioxide Anion Gap BUN Creatinine Estim Creat Clear Calc Estimated GFR POC Glucose Random Glucose Lactic Acid Calcium Total Bilirubin Direct Bilirubin AST ALT Alkaline Phosphatase Ammonia Total Protein Albumin Lipase Urine Color DK YELLOW Urine Appearance HAZY Urine pH 7.0 Ur Specific [place] 1.020 Urine Protein TRACE Urine Glucose (UA) NEG Urine Ketones 5 Urine Blood NEG Urine Nitrite NEG Ur Leukocyte Esterase NEG COVID-19 ([facility]ASHA) Negative COVID-19 Clin Com See Note 05/28/22 05/28/22 04:40 07:58 WBC RBC Hgb Hct MCV MCH MCHC RDW Plt Count MPV Immature Gran % (Auto) Neut % (Auto) Lymph % (Auto) [place] % (Auto) Eos % (Auto) Baso % (Auto) Lymph # (Auto) [place] # (Auto) Eos # (Auto) Baso # (Auto) Abs Immat Gran (auto) Absolute Neuts (auto) Absolute Nucleated RBC Nucleated RBC % (auto) Smear Tech's Comments PT INR APTT Sodium 137 Potassium 3.8 Chloride 107 Carbon Dioxide 21 L Anion Gap 13 BUN 22 H Creatinine 1.03 Estim Creat Clear Calc 63.1 Estimated GFR > 60 POC Glucose 168 H Random Glucose 161 H Lactic Acid Calcium 7.9 L D Total Bilirubin Direct Bilirubin AST ALT Alkaline Phosphatase Ammonia Total Protein Albumin Lipase Urine Color Urine Appearance Urine pH Ur Specific [place] Urine Protein Urine Glucose (UA) Urine Ketones Urine Blood Urine Nitrite Ur Leukocyte Esterase COVID-19 (TASHA) COVID-19 Clin Com Discharge Plan Discharge Patient Disposition: Xfer Acute Care Hospital Discharge Diagnosis: Acute cholangitis Referrals: Akhil Sauceda MD [Primary Care Provider] - 1 Week Discharge Medications: Continued fluoxetine 40 mg capsule 1 cap PO DAILY gabapentin 800 mg tablet 2 tab PO BID trazodone 100 mg tablet 1 tab PO BEDTIME PRN (Reason: Insomnia) metformin 1,000 mg tablet 1 tab PO BID fluoxetine 20 mg capsule 1 cap PO DAILY insulin aspart U-100 [Novolog Flexpen U-100 Insulin] 100 unit/mL (3 mL) insulin pen See Protocol subcut TIDAC Protocol: Insulin Correction Scale Less than or equal to 110 ---- Give (units): 0 111 to 150 Give (units): 0 151 to 200 Give (units): 2 201 to 250 Give (units): 4 251 to 300 Give (units): 6 301 to 350 Give (units): 8 Greater than 350 Give (units): 10 Call MD if Blood Glucose > : 350 Fish Oil 340-1,000 mg capsule 1 cap PO TID nicotine 21 mg/24 hr patch 24 hour 1 patch topical DAILY insulin glargine [Lantus Solostar U-100 Insulin] 100 unit/mL (3 mL) insulin pen 14 unit subcut BEDTIME nicotine (polacrilex) 4 mg mini lozenge 1 ea PO Q2H PRN (Reason: Nicotine Cravings) Discharge Orders: Discharge Order (Routine); Ordered 05/28/22 Ordered By: Jesus Phillips Diet: NPO Activity on Discharge: As tolerated Stand Alone Forms: Patient Portal Discharge page Care Plan Goals: Read below Health Concerns: Read below Plan of Treatment: Read below Assessment: Admitted to the hospital for evaluation of fever. Found to have evidence of acute cholangitis. Treated with IV antibiotics. [employer] was planning to do an ERCP but your primary surgeon and stretching press operator decided to transfer you to [facility] for further intervention to be done.
--- NOTE | 2022-05-28 13:51 | MHC.CM.PN ---
Imm verbally addressed with patient as patient reported pain in hands, original to patient and copy to chart. Patient is Khmer speaking. Patient lives with his significant other, [facility] Uses a cane, has bath bench at home. [facility] provides provides a nurse and social work case manager who have been in constant contact. HCP on file and verified. PCP: Akhil Sauceda. Brandi andre'sary x2. Pt will be transferred to an Acute Care Facility.
[2022-05-28] MEDS: cefTRIAXone sodium 2 GM in 0.9 % Sodium Chloride 50 ML IV (13:57)
[2022-05-28 14:04] LABS: Glucose, Whole Blood 168 mg/dL (60-115)
--- NOTE | 2022-05-28 14:53 | PC.NURSE ---
RN to RN given to Elizabeth at [facility] .
--- NOTE | 2022-05-28 19:16 | PC.NURSE ---
assumed care of pt at 191
--- NOTE | 2022-05-28 20:34 | CONS_ITS ---
DATE OF SERVICE: REQUESTING PHYSICIAN: Dr. Phillips. REASON FOR CONSULTATION: Obstructive jaundice and cholangitis. HISTORY OF PRESENT ILLNESS: This has been obtained from the patient, his , the medical record, Dr. Edge, who is a residential roofer helper at [facility] and Dr. Peña, who is a oil well driller at [facility]. The patient is a 51-year-old male who has undergone a recent workup for obstructive jaundice including an ERCP about [address] Peña at [facility]. This revealed the finding of distal obstructing biliary stricture, brushings of which have shown adenocarcinoma. Two weeks ago, he had a biliary stent placed during that ERCP, after a sphincterotomy and dilatation of the stricture. He is scheduled to see Dr. Roxana Cabral tomorrow at [facility] in the pancreas biliary center to discuss potential Whipple procedure. The patient was well up until last evening when he developed the onset of abdominal pain, fevers, and chills. He came to the ER where he was noted to be jaundice and febrile to 103.3. He was started on antibiotics and had blood cultures drawn. His total bilirubin came back at 11.4, although this was much improved as compared to a total bilirubin of 22 in early May. Since admission to the ER, he did receive the antibiotics and has been feeling better. He has been hemodynamically stable, although has had a relatively low blood pressure between 90 and 100 systolic. Since being in the ER, phone calls were made to his care team at [facility]. The initial plan had been to potentially transfer him there for evaluation of the obstructive jaundice and fever that were presumably due to an occluded biliary stent. However, there became an issue with bed availability. As such, I was asked to see him regarding potential ERCP and biliary stent change today. PAST MEDICAL HISTORY: Notable for the recently diagnosed adenocarcinoma with associated distal biliary stricture. Irb-dngqpku-[id number] diabetes mellitus. Hypertension. Depression. Subdural hematoma. Reported history of subarachnoid hemorrhage. He has had some type of accident with limited range of motion in the right upper extremity. There is no reported history of MO, nor lung disease. He has had arm surgery as well. SOCIAL HISTORY: He is . 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 FAMILY HISTORY: Noncontributory. REVIEW OF SYSTEMS: CONSTITUTIONAL: His appetite has been only fair. CARDIAC: No chest pain. PULMONARY: No cough. No hemoptysis. GI: As above. PHYSICAL EXAMINATION: GENERAL: The patient is a pleasant, alert, comfortable appearing male. HEENT: Icteric sclerae. Moist mucous membranes. NECK: Supple. CARDIAC: Normal S1, S2. ABDOMEN: Soft with some mild upper abdominal tenderness without mass or rebound. LABORATORY DATA: As above. He did have a CT scan describing the common bile duct stent without any sign of biliary dilatation. There was a small amount of pneumobilia noted. The common hepatic duct did appear to be somewhat thickened consistent with inflammation. The gallbladder appeared to be thick walled as well. There was a kidney stone at the right ureterovesical junction. There was some mild splenomegaly. There is no reported ascites. White blood cell count 7.6, hemoglobin 9.6, platelets 134,000. PT 12.9 with INR 1.1. Normal electrolytes. BUN 22, creatinine 1.0. Total bilirubin is 11.4, AST 153, ALT 156, alkaline phosphatase 457, albumin 3.3. IMPRESSION: Given the patient's presentation with abdominal pain, fever, and persistent jaundice 2 weeks after placement of a biliary stent, I would be concerned about recurrent cholangitis in relation to a possibly occluded biliary stent. As such, I would recommend a repeat ERCP with biliary stent change today. However, after discussion with the patient, his , and his physicians at [facility], the decision has been made to transfer him. Initially, we were going to do the ERCP here after I discussed things with his oil well driller at [facility], Dr. Peña, but then Dr. Martir Palacios called the and requested that he be transferred to [facility]. I did call Dr. Peña back to advise if of this such that he could be available to do a potential ERCP and biliary stent change either later today or by tomorrow. Given the patient's presentation with cholangitis, I do feel this is related to a presumed occlusion of the recently placed biliary stent. I also reviewed in detail with the patient and his that I would still be available to do an ERCP here if the need arises in the event a bed does not become available at [facility] for transfer. Full consent has been obtained for an ERCP here, if it is needed, including risks of bleeding, perforation, cholangitis, and pancreatitis. In the meantime, I would continue his antibiotics and keep him n.p.o. He has already had blood cultures drawn and the results will be checked to help guide how long he will need to remain on IV antibiotics before being switched over to oral antibiotics. The patient and his were very comfortable with this plan and are hopeful that he be transferred to [facility] today. MD TABATHA Gilbert/ANGIE / [id number] MTDD
== END 2022-05-28 19:30 | disposition short-term general hospital (02) | DRG 446 ==
LOC: HO.ED 05-28 01:47 → HO.EDOVER 05-28 02:46
PROVIDERS: Admitting Provider Internal Medicine; Emergency Provider Emergency Medicine; PCP Internal Medicine; Visit Provider Student in an Organized Health Care Education/Training Program
DX: K83.09 Other cholangitis (principal); E78.5 Hyperlipidemia, unspecified; I10 Essential (primary) hypertension; E11.9 Type 2 diabetes mellitus without complications; Z20.822 Contact with and (suspected) exposure to COVID-19; Z88.0 Allergy status to penicillin; Z79.4 Long term (current) use of insulin; Z79.84 Long term (current) use of oral hypoglycemic drugs; Z79.899 Other long term (current) drug therapy
CPT/HCPCS: 36415; 71045; 74177; 80048; 80053; 81003; 82140; 82248; 82947; 83605; 83690; 85025; 85610; 85730; 87040; 87077; 87186; 87205; 87635; 96361; 96365; 96367; 96375; 99285; J0692; J0696; J1170; J1610; J1885; J3370; P9047; Q9967

== ENCOUNTER 2023-09-01 02:25 | Emergency (ER) | payer OTHER, SELFPAY ==
[2023-09-01 02:26] VITALS: BP 152/57; PULSE 50; RESP 18; TEMP 36.6; O2SAT 98; BMI 26.0
[2023-09-01 02:50] LABS: MANUAL DIFF FLAG NO
[2023-09-01 03:00] LABS: Basophils Percent Auto 0.3 % (0-2); Eosinophils Absolute Auto 0.1 X10*3/uL (0.0-0.4); Eosinophils Percent Auto 1.2 % (0-4); Hematocrit 38.8 % (42.0-52.0); Hemoglobin 12.7 g/dl (14.0-18.0); Imm Gran Abs Auto 0.01 X10*3/uL (0.00-0.03); Imm Gran Pct Auto 0.2 % (0.0-0.4); Mean Corpuscular HGB Conc 32.7 g/dl (31.0-36.0); Mean Corpuscular Hemoglobin 29.7 pg (27.0-33.0); Mean Corpuscular Volume 90.9 fL (80.0-98.0); Mean Platelet Volume 12.1 fL (9.4-12.4); Monocytes Absolute Auto 0.4 X10*3/uL (0.1-1.2); Monocytes Percent Auto 6.6 % (2-11); Neutrophils Absolute Auto 3.4 x10*3/uL (2.0-8.3); Neutrophils Percent Auto 57.7 % (45-73); Platelet Count 154 X10*3/uL (160-400); Red Blood Count 4.27 X10*6/uL (4.60-5.80); White Blood Count 5.9 X10*3/uL (4.8-10.8)
[2023-09-01 03:06] LABS: Alanine Aminotransferase 71 U/L (0-40); Albumin Level 3.7 g/dL (3.5-5.0); Alkaline Phosphatase 70 U/L (39-117); Anion Gap 14 (12-20); Aspartate Amino Transferase 32 U/L (5-37); Bilirubin Total 0.2 mg/dL (0.0-1.0); Blood Urea Nitrogen 13 mg/dL (9-16); Calcium 8.7 mg/dL (8.4-10.2); Carbon Dioxide 23 mmol/L (22-29); Chloride 112 mmol/L (96-108); Creatinine Clr Calc Pharmacy 84.9; Estimated Glomerular Filt Rate > 60; Glucose Random 291 mg/dL (60-115); Potassium 4.3 mmol/L (3.3-5.1); Sodium 145 mmol/L (135-145); Total Protein 6.4 g/dL (6.5-8.0)
== END 2023-09-01 08:18 | disposition left against medical advice (07) ==
PROVIDERS: Emergency Provider Emergency Medicine
DX: R11.2 Nausea with vomiting, unspecified (principal); M54.50 Low back pain, unspecified; Z79.899 Other long term (current) drug therapy
CPT/HCPCS: 36415; 80053; 85025; 99281; 99283

== ENCOUNTER 2023-10-06 09:18 | Inpatient (IN) | payer OTHER, SELFPAY ==
--- NOTE | ~2023-10-06 | MR_ITS ---
EXAMINATION: MR ABDOMEN WITHOUT AND WITH CONTRAST CLINICAL INFORMATION: Follow-up choledocholithiasis, acute interstitial edematous pancreatitis, concern for recurrent pancreatic carcinoma. COMPARISON: MRI abdomen on 05/10/2022, CT angiogram of abdomen and pelvis on 10/06/2023. TECHNIQUE: Examination was performed in a high field strength MRI scanner. Multiplanar multisequence MR imaging of the abdomen was performed without IV contrast enhancement. Multiphasic Axial T1-weighted fat-suppressed images of the upper abdomen were obtained after IV injection of 8.5 mL Gadavist. Coronal T1-weighted fat-suppressed images of the abdomen were obtained following the dynamic axial series. MR cholangiopancreatography was performed with heavily T2 weighted sequences. 3-dimensional reconstruction of image data was performed. This was performed under concurrent direct supervision and monitoring by radiologist. Maximum intensity projection images were constructed. FINDINGS: MR CHOLANGIOPANCREATOGRAPHY: Gallbladder is not visualized. Bilateral intra hepatic bile ducts, common hepatic duct and common bile duct are normal in size without filling defects. Pancreatic duct is at upper limit of normal, measuring 3.4 mm in diameter. LIVER: The liver shows no focal lesion. The calculated hepatic fat percentage is 0.5%, compatible with normal. PANCREAS: No focal pancreatic lesion with abnormal signal can be seen. SPLEEN: Spleen is normal in size without focal lesion. ADRENAL: Bilateral adrenal glands are normal in shape and size. KIDNEYS: Bilateral kidneys are normal in size without focal lesion. Advanced L5-S1 degenerative lumbar disc disease is seen. MR/MR abdomen wo/w con IMPRESSION: 1. Interval resolution of the common bile duct stone, removal of common bile duct stent visualized on CT scan of abdomen on 05/28/2022. 2. Interval performance of cholecystectomy. No evidence of hepatobiliary duct dilatation or ductal stones. 3. No focal liver mass lesion could be found. 4. Interval resolution of pancreatic edema. Interval increase prominence of pancreatic duct which is at upper limit of normal. No focal pancreatic lesion is found.
--- NOTE | ~2023-10-06 | CT_ITS ---
EXAMINATION: CT ANGIOGRAM ABDOMEN AND PELVIS CLINICAL INFORMATION: Abdominal pain. History of malignancy. COMPARISON: None available. TECHNIQUE: Multiple axial images were obtained through the abdomen and pelvis following the administration of 100 mL of Omnipaque 350 intravenous contrast. Images were reviewed on a dedicated 3-D workstation. This CT examination was performed using dose optimization techniques as appropriate, variously including the following: *Automated exposure control *Adjustment of mA and/or kV according to patient size (this includes techniques or standardized protocols for targeted exams where dose is matched to indication/reason for exam; i.e. extremities or head) *Use of iterative reconstruction technique DLP: 1160 mGy-cm FINDINGS: Vascular: Abdominal aorta is of normal caliber with normal origin of celiac, superior mesenteric and inferior mesenteric artery. There is a 2 left renal arteries and a solitary renal arteries are patent. Mild arthroscopic changes are seen along bilateral proximal common iliac arteries. Lung bases: The lung bases are clear. The heart size is normal. Liver, ducts and gallbladder: The liver is homogeneous in density, normal contour and size. There is pneumobilia from previous intervention. The gallbladder is not visualized. The CBD is normal caliber. Previously noted CBD stent has been removed Spleen: Unremarkable. Pancreas: There is a large pancreatic uncinate processes were obtained on the SMA and SMV with mild fat stranding. Findings are suggestive of pancreatic mass. There is new since the last exam 05/28/2022. Adrenal glands: Unremarkable. Kidneys: Both kidney nephrograms are symmetrical in size, shape and position. There is normal cortical thickening. No radiopaque renal calculi or hydronephrosis. Lymphovascular structures: Abdominal aorta is of normal caliber. No abnormal size lymph nodes seen. GI tract: Mild mural thickening involving distal descending and sigmoid colon. There is scattered gas and stool in the colon without distention. The small bowel loops are nondilated. No free air or free fluid seen. Abdominal wall: No evidence of hernia. Pelvis: There is mild mural thickening of sigmoid and distal descending colon No pericolic fat stranding is seen. No diverticula noted. Osseous structures: No aggressive lytic or sclerotic process seen. Is mild degenerative disc changes L5/S1 disc level with ventral spondylosis. CT/CT angio abdomen pelvis IMPRESSION: 1. Mild mural thickening involving distal descending and sigmoid colon without any pericolic fat stranding. Question low-grade inflammatory or infectious etiology. 2. There is pancreatic uncinate process mass with soft tissue thickening along the SMV and SMA. This is new since 05/28/2022. Correlate with MRI abdomen with and without contrast 3. There is pneumobilia from previous intervention. The gallbladder is not visualized. 4. Unremarkable CTA abdominal aorta Fleischner guidelines were followed.
[2023-10-06 09:21] VITALS: BP 123/100; PULSE 77; RESP 22; TEMP 36.6; O2SAT 100; BMI 19.4
[2023-10-06 09:39] LABS: MANUAL DIFF FLAG NO
--- NOTE | 2023-10-06 09:40 | ED.ABDPAIN ---
HPI - Abdominal Pain General Chief Complaint: Abdominal Pain Stated Complaint: Abd pain Time Seen by Provider: 10/06/23 09:27 Source: patient and family Mode of arrival: ambulatory Limitations: no limitations History of Present Illness HPI narrative: This is a 52-year-old male history of antral carcinoma s/p whipple at [facility] last year, hepatitis A, HTN, DM , pancreatitis, hyperbilirubinemia, presenting to the emergency department for evaluation of epigastric/right upper quadrant pain that is been ongoing for the past few weeks acutely worsening over the past few days, patient reports 2 seen at [facility] yesterday not sure exactly what they thought was wrong with him. He reports 10/10 pain severe, patient is crying upon my history taking. Appears uncomfortable. Associated nausea however no vomiting. Denies chest pain, shortness of breath, radiation of pain , fevers, chills, headache, vision changes, dizziness and weakness. Patient followed by [facility] oncology. Related Data Home Medications Medication Instructions Recorded Confirmed fluoxetine 20 mg capsule 1 cap PO DAILY 05/09/22 05/28/22 fluoxetine 40 mg capsule 1 cap PO DAILY 05/09/22 05/28/22 gabapentin 800 mg tablet 2 tab PO BID 05/09/22 05/28/22 insulin aspart U-100 100 unit/mL See Protocol subcut TIDAC 05/09/22 05/28/22 (3 mL) subcutaneous pen (Novolog FlexPen U-100 Insulin aspart) metformin 1,000 mg tablet 1 tab PO BID 05/09/22 05/28/22 omega-3 fatty acids-fish oil 340 1 cap PO TID 05/09/22 05/28/22 mg-1,000 mg capsule (Fish Oil) trazodone 100 mg tablet 1 tab PO BEDTIME PRN Insomnia 05/09/22 05/28/22 insulin glargine 100 unit/mL (3 14 unit subcut BEDTIME 05/28/22 05/28/22 mL) subcutaneous pen (Lantus Solostar U-100 Insulin) nicotine (polacrilex) 4 mg buccal 1 ea PO Q2H PRN Nicotine Cravings 05/28/22 05/28/22 mini lozenge nicotine 21 mg/24 hr daily 1 patch topical DAILY 05/28/22 05/28/22 transdermal patch Allergies Allergy/AdvReac Type Severity Reaction Status Date / Time Penicillins [PCN] Allergy Intermediate Unknown Verified 09/01/23 02:39 Review of Systems Review of Systems Constitutional : No Weight loss, No Fever, No Chills, No Fatigue, No Malaise ENT/Mouth : No sore throat, No Rhinorrhea Eyes: No Eye Pain, No Swelling, No Redness Cardiovascular : No Chest Pain, No SOB, No Dyspnea on Exertion, No Orthopnea, No Edema, No Palpitations Respiratory : No Cough, No Sputum, No Wheezing Gastrointestinal : + Nausea, No Vomiting, No Diarrhea, No Constipation, + abdominal Pain, No Hematochezia, No Melena Genitourinary : No Dysuria, No Urinary Frequency, No Hematuria, Musculoskeletal : No joint pain, No Myalgias, No Joint Swelling Skin : No Skin Lesions, No rash Neuro : No Weakness, No Numbness, No Dizziness, No Headache Psych : No Anxiety/Panic, No Depression All other systems reviewed and are negative Yes all other systems are reviewed and are negative [facility] Past Medical History Attestation statement: The following information was validated with the patient. 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) Alcohol intake: never Patient Tobacco Use Status: Former Tobacco user Tobacco use type: Cigarette Cigarette Packs Per Day: 0.5 Cigarettes Per Day: 10.0 Years Smoked: 11 e-Cigarette/Vaping Use: Never Used Second Hand Smoke Exposure: No Substance Use Type: Crack/Cocaine Advance Directives: Yes Advance Directives on File: Yes Advance Directives Date on File: 05/11/22 service: No Current occupational status: unemployed Physical Exam ED Vital Signs: Vital Signs - 24 hr 10/06/23 09:21 10/06/23 13:51 Temperature 97.9 F 97.4 F Pulse Rate 77 62 Respiratory Rate 22 H 16 Blood Pressure 123/100 H 123/79 Pulse Oximetry 100 100 Oxygen Delivery Method Room Air Room Air BMI result Body Mass Index 19.4 vss Appearance: Alert.? Oriented X3.? No acute distress.? Head: Normocephalic, atraumatic, no step-offs or deformities Eyes: Pupils equal, round and reactive to light.? ENT: Pharynx normal.? Neck: Normal inspection.? Neck supple.? CVS: Normal heart rate and rhythm.? Pulses normal.? Respiratory: No respiratory distress.? Breath sounds normal.? Abdomen: Soft and diffuse abdominal discomfort worse in the epigastric region and right upper quadrant w/ rebound .? Skin: Skin warm and dry.? Normal skin color.? Normal skin turgor.? Extremities: No lower extremity edema.? No calf ttp. 5/5 strength to bilateral upper and lower extremities Back: No midline tenderness, no C-spine tenderness, full range of motion, no CVA tenderness bilaterally Neuro: Oriented X 3.? No motor deficit.? No sensory deficit. CN 2-12 intact Course Reevaluation(s) Reevaluation #1: Obtain records from [facility] CT of the pelvis showing tissue mass in the upper midline retroperitoneum which in circles of superior mesenteric cardia abrupt a superior mesenteric vein an adjacent and attenuate the left renal vein posteriorly and junction of the portal and splenic veins anteriorly concerning for malignancy which could be pancreatic in origin. Patient reports pain change since yesterday and is acutely worse therefore CT scan was repeated. Will likely speak to [facility] GI sewing machines salesperson. Time: 10:10 Reevaluation #2: [facility] hospital General surgery patient should be seen by GI oncology if there are encasing blood vessels nothing to do from a surgical standpoint. Should follow with GI oncology. Dr. Monzon patient surgeon at [facility] will reach out to him this week per Dr. Ramos Time: 11:10 Reevaluation #3: Patient still uncomfortable despite morphine, dilauded X2. CT scan showing mild mural thickening involving the distal descending and sigmoid colon without pericolonic fat stranding. There is a pancreatic uncinate process mas w/ soft tissue thickening along with the SMV and SMA. Also noted to habe pnumobilia Time: 15:12 Medical Decision Making Medical Decision Making [facility] Narrative: 0940 52-year-old male presents with epigastric discomfort and right upper quadrant for the past few weeks worsening acutely. Physical examination with diffuse abdominal discomfort worse in the epigastric region and right upper quadrant w/ rebound History and physical exam are concerning for pancreatitis versus recurrence of cancer versus viral illness versus hepatitis. Unlikely obstruction, dissection, ACS, acute abdomen. Plan at this time labs, imaging. Differential Diagnosis Differential Diagnoses: The differential diagnosis associated with the presentation includes History and physical exam are concerning for pancreatitis versus recurrence of cancer versus viral illness versus hepatitis. Unlikely obstruction, dissection, ACS, acute abdomen. Admission/Observation Consideration of admission/observation: Escalation of care including admission/observation considered [facility] Consult Healthcare Provider Management of the patient was discussed with: Channel Cementer Outsole Machine ([facility] patient should be seen by GI oncology ) Lab Data [facility] Lab Attestation statement: I reviewed the patient's lab results. 10/06/23 09:34 10/06/23 09:34 Labs: Lab Results 10/06/23 Range/Units 09:34 WBC 7.4 (4.8-10.8) X10*3/uL RBC 5.06 (4.60-5.80) X10*6/uL Hgb 14.7 (14.0-18.0) g/dl Hct 45.0 (42.0-52.0) % MCV 88.9 (80.0-98.0) fL MCH 29.1 (27.0-33.0) pg MCHC 32.7 (31.0-36.0) g/dl RDW 12.7 (11.0-16.0) % Plt Count 179 (160-400) X10*3/uL MPV 12.6 H (9.4-12.4) fL Immature Gran % (Auto) 0.4 (0.0-0.4) % Neut % (Auto) 74.1 H (45-73) % Lymph % (Auto) 18.9 L (20-40) % Tyrrell % (Auto) 6.0 (2-11) % Eos % (Auto) 0.5 (0-4) % Baso % (Auto) 0.1 (0-2) % Lymph # (Auto) 1.4 (1.2-4.9) X10*3/uL Tyrrell # (Auto) 0.4 (0.1-1.2) X10*3/uL Eos # (Auto) 0.0 (0.0-0.4) X10*3/uL Baso # (Auto) 0.0 (0.0-0.2) X10*3/uL Abs Immat Gran (auto) 0.03 (0.00-0.03) X10*3/uL Absolute Neuts (auto) 5.5 (2.0-8.3) x10*3/uL Absolute Nucleated RBC 0.000 (0.0-0.012) X10*3/uL Nucleated RBC % (auto) 0.0 (0.0-0.2) /100WBC Sodium 141 (135-145) mmol/L Potassium 3.6 (3.3-5.1) mmol/L Chloride 105 (96-108) mmol/L Carbon Dioxide 28 (22-29) mmol/L Anion Gap 12 (12-20) BUN 10 (9-16) mg/dL Creatinine 1.06 (0.5-1.4) mg/dL Estim Creat Clear Calc 70.6 Estimated GFR > 60 Random Glucose 284 H (60-115) mg/dL Calcium 9.5 D (8.4-10.2) mg/dL Magnesium 1.6 (1.6-2.6) mg/dL Total Bilirubin 0.7 (0.0-1.0) mg/dL AST 61 H (5-37) U/L ALT 84 H (0-40) U/L Alkaline Phosphatase 90 (39-117) U/L Troponin I High Sens 4.5 (<3.5-35.0) ng/L Total Protein 7.2 (6.5-8.0) g/dL Albumin 4.1 (3.5-5.0) g/dL Lipase 23 (8-78) U/L Independent Interpretation I performed an independent interpretation of an: CT Scan Radiology Impression Discussion of test interpretation with radiology: I have reviewed the radiologist's reading. External Record Review External record reviewed: Inpatient record, Office record, Outpatient record, Prior outpatient labs, Prior outpatient radiology, Primary care record and Outside ED record Chronic Conditions Patient?s care impacted by: Diabetes, Hypertension and Other (gallbladder CA ) Medications Administered Discontinued Medications Generic Name Dose Route Start Last Admin Trade Name Kyle PRN Reason Stop Dose Admin Hydromorphone HCl 1 mg 10/06/23 13:35 10/06/23 13:48 Hydromorphone Hcl 1 Mg/Ml Syringe IVPUSH 10/06/23 13:36 1 mg ONCE ONE Administration Protocol Iohexol 100 ml 10/06/23 12:52 10/06/23 12:52 Iohexol 350 Mg/Ml 100 Ml Infus..Btl IV 10/06/23 12:53 80 ml ONCE ONE Administration Morphine Sulfate 4 mg 10/06/23 09:27 10/06/23 09:41 Morphine Sulfate 4 Mg/Ml Cartridge IVPUSH 10/06/23 09:28 4 mg ONCE ONE Administration Protocol Critical Care Time Critical Care Time Critical Care Time: Yes Total Critical Care Time: 60 Attestation: I attest to this time spent taking care of the patient, obtaining history, physical, reviewing labs, imaging, speaking to my attending, speaking to specialist. Discharge Plan Discharge Clinical Impression: Pancreatic mass, Pneumobilia Patient Disposition: Still a Patient Prescriptions: No Action fluoxetine 40 mg capsule 1 cap PO DAILY gabapentin 800 mg tablet 2 tab PO BID trazodone 100 mg tablet 1 tab PO BEDTIME PRN (Reason: Insomnia) metformin 1,000 mg tablet 1 tab PO BID fluoxetine 20 mg capsule 1 cap PO DAILY insulin aspart U-100 [Novolog FlexPen U-100 Insulin] 100 unit/mL (3 mL) insulin pen See Protocol subcut TIDAC Protocol: Insulin Correction Scale Less than or equal to 110 ---- Give (units): 0 111 to 150 Give (units): 0 151 to 200 Give (units): 2 201 to 250 Give (units): 4 251 to 300 Give (units): 6 301 to 350 Give (units): 8 Greater than 350 Give (units): 10 Call MD if Blood Glucose > : 350 Fish Oil 340-1,000 mg capsule 1 cap PO TID nicotine 21 mg/24 hr patch 24 hour 1 patch topical DAILY insulin glargine [Lantus Solostar U-100 Insulin] 100 unit/mL (3 mL) insulin pen 14 unit subcut BEDTIME nicotine (polacrilex) 4 mg mini lozenge 1 ea PO Q2H PRN (Reason: Nicotine Cravings)
[2023-10-06] MEDS: Morphine Sulfate 4 MG/ML CARTRIDGE IVPUSH (09:41)
--- OUTSIDE RECORDS SUMMARY | 2023-10-06 09:49 | XMS_ITS | Continuity of Care Document ---
Author Name Unknown Organization [facility] Address [address] [place] [address]- Care Team Providers Care Middle School Sports Coach Name Role Phone Rosario Zamudio DO Primary Care Arianna yahir Encounter [facility] Date(s): 01/02/21 - 02/01/21 [facility] [address] [place] [id number] Attending Physician: Marcia Reynolds Admitting Physician: Marcia Reynolds Referring Physician: AdmtrMarcia Allergies, Adverse Reactions, Alerts Substance Reaction Severity Status penicillins Active Immunizations Given and Recorded Vaccine Date Status Refusal Reason pneumococcal 23-valent vaccine 06/06/14 Given Medications atorvastatin 10 mg oral tablet 1 tablet = 10 mg, By Mouth, Daily, 0 Refills, Maintenance Start Date: 01/28/17 Status: Ordered Fluoxetine By Mouth, 0 Refills, Maintenance, 06/15/19 13:58:00 EDT Start Date: 06/15/19 Status: Ordered gabapentin 800 mg oral tablet 1 tablet = 800 mg, By Mouth, 4 times a day, # 120 tablet, 0 Refills, Maintenance, 01/02/21 17:18:00EST, [id number], 178, cm, 06/15/19 13:53:00 EDT, Height Start Date: 01/02/21 Stop Date: 02/01/21 Status: Ordered lisinopril 10 mg oral tablet 1 tablet = 10 mg, By Mouth, Daily, # 30 tablet, 0 Refills, Maintenance, 11/16/14 9:38:48, Tablet, 1tablet By Mouth Daily,x30 days Start Date: 11/16/14 Stop Date: 12/16/14 Status: Ordered metFORMIN 1000 mg oral tablet 1 tablet = 1,000 mg, By Mouth, 2 times a day, 0 Refills, Maintenance, 03/26/16 13:51:44 Start Date: 03/26/16 Status: Ordered Senna 8.6 mg oral tablet 2 tablet = 17.2 mg, By Mouth, Daily at bedtime, # 60 tablet, 0 Refills, Maintenance, 07/22/14 14:04:51, Tablet, 2 tablet By Mouth Daily at bedtime,x30 days Start Date: 07/22/14 Stop Date: 08/21/14 Status: Ordered sertraline 50 mg oral tablet 3 tablet = 150 mg, By Mouth, Daily, 0 Refills, Maintenance, 03/26/16 13:52:29 Start Date: 03/26/16 Status: Ordered sertraline 50 mg oral tablet 1 tablet = 50 mg, By Mouth, Daily, # 30 tablet, 0 Refills, Maintenance, 11/16/14 9:38:55, Tablet, 1tablet By Mouth Daily Start Date: 11/16/14 Status: Ordered Topamax 50 mg oral tablet 1.5 tablet = 75 mg, By Mouth, 2 times a day, # 90 tablet, 11 Refills, Maintenance, 02/24/20 17:36:00 EDT, Tablet, [facility][id number], 178, cm, 06/15/19 13:53:00 EDT, Height Start Date: 02/24/20 Stop Date: 02/18/21 Status: Ordered Problem List Condition Effective Dates Status Health Status Inform ant Diabetes(Confirmed) Active Social History Social History Type Response Smoking Status Current some day smo ker entered on: 10/17/15 Sex
--- OUTSIDE RECORDS SUMMARY | 2023-10-06 09:49 | XMS_ITS | Continuity of Care Document ---
Author Name Unknown Organization [facility] Address [address] [place] [id number]- Care Team Providers Care Access Assoc Name Role Phone Rosario Zamudio DO Primary Care Arianna sinclair [id number] Date(s): [facility] - 12[facility]10/[facility] [address] [place] [id number] Attending Physician: Sridhar BE, Dony Lamas Referring Physician: Rosario Zamudio DO Allergies, Adverse Reactions, Alerts Substance Reaction Severity [...] 4 times a day, # 120 tablet, 3 Refills, Maintenance, 09/04/20 17:18:00EDT, Tablet, [facility] #[id number], 178, cm, 06/15/19 13:53:00 EDT, Height Start Date: 09/04/20 Stop Date: 01/02/21 Status: Ordered lisinopril 10 mg oral tablet [...] 11 Refills, Maintenance, 02/24/20 17:36:00 EDT, Tablet, [facility] #[id number], 178, cm, 06/15/19 13:53:00 EDT, Height Start Date: 02/24/20 Stop Date: 02/18/21 Status: Ordered Problem List Condition Effective Dates Status Health Status Inform ant Diabetes(Confirmed) Active Social History Social History Type Response Smoking Status Current some day smo ker entered on: 10/17/15 Sex
--- OUTSIDE RECORDS SUMMARY | 2023-10-06 09:49 | XMS_ITS | Continuity of Care Document ---
Author Name Unknown Organization [facility] Address [address] [place] [address]- Care Team Providers Care Occupational Health Nursing Director Name Role Phone Rosario Zamudio DO Primary Care Arianna sinclair Encounter [facility] Date(s): 12/29/20 - 01/28/21 [facility] [address] [place] [id number] Allergies, Adverse Reactions, Alerts Substance Reaction Severity [...] tablet, 0 Refills, Maintenance, 01/02/21 17:18:00EST, Tablet, [id number], 178, cm, 06/15/19 13:53:00 EDT, Height Start [...] 11 Refills, Maintenance, 02/24/20 17:36:00 EDT, Tablet, [facility] #[id number], 178, cm, 06/15/19 13:53:00 EDT, Height Start Date: 02/24/20 Stop Date: 02/18/21 Status: Ordered Problem List Condition Effective Dates Status Health Status Inform ant Diabetes(Confirmed) Active Social History Social History Type Response Smoking Status Current some day smo ker entered on: 10/17/15 Sex
--- OUTSIDE RECORDS SUMMARY | 2023-10-06 09:49 | XMS_ITS | Continuity of Care Document ---
Author Name Unknown Organization [facility] ter Address [address] [place] [id number]- Care Team Providers Care Jazz Singer Name Role Phone Colby Rosario Cordon DO Primary Care Arianna sinclair [id number] Date(s): [facility] - 05/08/[address] [address]- Discharge Disposition: A-D/C Walkout Attending Physician: Not on Staff, Attending MD Admitting Physician: Not on Staff, Admitting MD Referring Physician: Not on Staff, Referring MD Allergies, Adverse Reactions, Alerts Substance Reaction Severity [...] tablet, 0 Refills, Maintenance, 01/02/21 17:18:00EST, Tablet, [id number], 178, cm, 06/15/19 13:53:00 EDT, Height Start [...] 11 Refills, Maintenance, 02/24/20 17:36:00 EDT, Tablet, [facility] #[id number], 178, cm, 06/15/19 13:53:00 EDT, Height Start Date: 02/24/20 Stop Date: 02/18/21 Status: Ordered Problem List Condition Effective Dates Status Health Status Inform ant Diabetes(Confirmed) Active Vital Signs Most recent to oldest [Reference Range]: 1 2 Oxygen Saturation [94-100 %] 100 % (05/08/22 9:02 PM) 97 % (05/08/22 8:51 PM) Pulse Rate [55-90 bpm] 69 bpm (05/08/22 9:02 PM) 82 bpm (05/08/22 8:51 PM) Blood Pressure [90-138/55-84 mm Hg] 125/ 65mm Hg (05/08/22 9:02 PM) Respiratory Rate [16-30 br/min] 18 br/mi n (05/08/22 9:02 PM) 18 br/min (05/08/22 8:51 PM) Temperature [96.8-100.4 DegF] 98.4 DegF (05/08/22 9:02 PM) Mode of Delivery (Oxygen) Room air (05/08/22 9:02 PM) Room air (05/08/22 8:51 PM) Blood pressure sites Arm, left (05/08/22 9:02 PM) Temperature Route Oral (05/08/22 9:02 PM) Social History Social History Type Response Smoking Status Current some day smo ker entered on: 10/17/15 Sex
--- OUTSIDE RECORDS SUMMARY | 2023-10-06 09:49 | XMS_ITS | Continuity of Care Document ---
Author Name Unknown Organization [facility] Address [address] [place] [id number]- Care Team Providers Care Meat Cutter Name Role Phone Rosario Zamudio DO Primary Care Arianna yahir Encounter [facility] Date(s): 11/10/20 - 12/10/20 [facility] [address] [place] [id number] Attending Physician: Marcia Reynolds Admitting Physician: Marcia [...] tablet, 3 Refills, Maintenance, 09/04/20 17:18:00EDT, Tablet, [facility] #[id number], 178, cm, 06/15/19 13:53:00 EDT, Height Start [...] 11 Refills, Maintenance, 02/24/20 17:36:00 EDT, Tablet, [facility] #[id number], 178, cm, 06/15/19 13:53:00 EDT, Height Start Date: 02/24/20 Stop Date: 02/18/21 Status: Ordered Problem List Condition Effective Dates Status Health Status Inform ant Diabetes(Confirmed) Active Social History Social History Type Response Smoking Status Current some day smo ker entered on: 10/17/15 Sex
--- OUTSIDE RECORDS SUMMARY | 2023-10-06 09:49 | XMS_ITS | Continuity of Care Document ---
Author Name Unknown Organization [facility] ter Address [address] [place] [id number]- Care Team Providers Care Wardrobe Stylist Name Role Phone Akhil Sauceda MD Primary Care Physician [phone] [id number] Date[facility]): 09/29[facility]23 - 09/29/[address] [address]- Encounter Diagnosis Abdominal Pain(Final) - 09/29/23 Discharge Disposition: A-D/C Home Attending Physician: Marco Antonio Cruz MD Admitting Physician: Marco Antonio Cruz MD Referring Physician: Not on Staff, Referring [...] 0 Refills, Maintenance, 01/02/21 17:18:00EST, Tablet, [id number], 178, cm, 06/15/19 13:53:00 EDT, Height Start [...] 03/26/16 13:51:44 Start Date: 03/26/16 Status: Ordered oxyCODONE 5 mg oral tablet 5 mg, 1, tablet, By Mouth, Every 6 hours, PRN, for 5 days, # 7 tablet, Refills 0, Tot. Refills 0, Acute 10/04/23 15:08:00 EST, as needed for pain, 09/29/23 15:08:00 EST, [id number], Partial fill... Start Date: 09/29/23 Stop Date: 10/04/23 Status: Ordered oxyCODONE 5 mg oral tablet 5 mg, 1, tablet, By Mouth, Every 6 hours, PRN, # 7 tablet, Refills 0, Tot. Refills 0, Maintenance, as needed for pain, 09/29/23 15:43:00 EST, Route to Pharmacy Electronically, [facility]/pharmacy #[id number], Partial fill upon patient request if the prescription i... Start Date: 09/29/23 Status: Ordered Senna 8.6 mg oral tablet [...] 11 Refills, Maintenance, 02/24/20 17:36:00 EDT, Tablet, [facility] #[id number], 178, cm, 06/15/19 13:53:00 EDT, Height Start Date: 02/24/20 Stop Date: 02/18/21 Status: Ordered Problem List Condition Confirmation Course Effective Dates Status Ileana Pascual Informant Diabetes Confirmed Active Results Radiology Reports * Exam Date Time Procedure Performing Provider Status 09/29/23 11:[address] Abd/Pelvis W/ IV Contrast Only Amrita Smith (Verified) Notes: (CT Abd/Pelvis W/ IV Contrast Only) Reason For Exam: RUQ abdominal pain;Other: RESULT: CT Abd/Pelvis W/ IV Contrast Only CT Abd/Pelvis W/ IV Contrast Only Hx of Present Illness: Pt states he has had RUQ for several months. reports waiting for endoscopy appointment that he is having trouble booking. 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 100 cc of Omnipaque 300 was administered intravenously. This study was performed without oral contrast. Weight-based protocol using automatic tube modulation was used to optimize exposure parameters. CTDIvol Body: 12.11 mGy, DLP Body: 626 mGy*cm. COMPARISON: 05/21/2014. FINDINGS: Bulk Mail Technician View Findings, Lines and Tubes: None. Visualized Chest: Unremarkable. Diaphragm: Normal. Liver: Intrahepatic pneumobilia. Gallbladder: Surgically absent. Bile ducts: Intra and extrahepatic pneumobilia. Spleen: Unremarkable. Pancreas: Extensive postsurgical changes in the upper abdomen with the pancreatic head not well visualized which may be secondary to Whipple surgery. Adrenal glands: Unremarkable. Kidneys and ureters: Subcentimeter hypodense lesion in the upper pole of the right kidney which is too small to further characterize. Bladder: Unremarkable. Reproductive organs: Prominent prostate measuring 5.2 cm. Stomach, small bowel, and large bowel: Findings suggestive of Whipple surgery. The common bile ductextends to a small bowel loop in the right upper abdomen. There is a gastrojejunostomy. Appendix: Normal. Peritoneum and retroperitoneum: There is an irregular soft tissue retroperitoneal lesion in the right upper abdomen at midline which is predominantly posterior to the portal vein and anterior to the left renal vein. There is narrowing of the adjacent renal vein. The lesion encircles the origin/proximal superior mesenteric vein and also appears to cause some narrowing of the adjacent junction of the portal and splenic vein and abuts the superior mesenteric vein measuring approximately 4.9 x 4.3 x 3.1 cm. There is no evidence of free air or free fluid in the abdomen or pelvis. Lymph nodes: No enlarged lymph nodes. Abdominal and pelvic wall: Unremarkable. There are bilateral moderate sized fat filled inguinal hernias. Bones: No acute abnormality. Discogenic degenerative changes at L5-S1 with disc space narrowing andspurring. IMPRESSION: 1. Soft tissue mass in the upper midline retroperitoneum which encircles the superior mesenteric artery, abuts the superior mesenteric vein is adjacent and attenuates the left renal vein posteriorly and junction of the portal and splenic veins anteriorly concerning for a malignancy which may be of pancreatic origin or related to the patient's gallbladder cancer. 2. Findings consistent with cholecystectomy with Whipple surgery. An actionable message ([place]) has been communicated via the [employer] system on 09/29/2023 12:35 PM, Message ID [id number]. WSN: [id number] Ordering Physician: Marco Antonio Cruz Dictated By: Nia Arreguin MD Dictated Date/Time: 09/29/23 12:35 p Reviewed By: Nia Arreguin MD Signed By: Nia Arreguin MD Signed Date/Time: 09/29/23 12:35 pm Transcribed By: FERNY Transcribed Date/Time: 09/29/23 11:44 am Vital Signs Most recent to oldest [Reference Range]: 1 2 3 Height 178 cm (09/29/23 8:48 AM) Weight 80 kg (09/29/23 8:48 AM) Oxygen Saturation [94-100 %] 100 % (09/29/23 2:53 PM) 100 % (09/29/23 1:11 PM) 100 % (09/29/23 11:08 AM) Pulse Rate [55-90 bpm] 61 bpm (09/29/23 2:53 PM) 52 bpm *L* (09/29/23 1:11 PM) 49 bpm *L* (09/29/23 11:08 AM) Body Mass Index [18.5-24.99 kg/m2] 25.25 kg/m2 *H* (09/29/23 8:48 AM) Blood Pressure [90-138/55-84 mm Hg] 136/82mm Hg (09/29/23 2:53 PM) 145/77mm Hg *H* (09/29/23 1:11 PM) 155/66mm Hg *H* (09/29/23 11:08 AM) Respiratory Rate [16-30 br/min] 16 br/min (09/29/23 2:53 PM) 16 br/min (09/29/23 1:11 PM) 18 br/min (09/29/23 11:08 AM) Temperature [96.8-100.4 DegF] 98.1 DegF (09/29/23 2:53 PM) 97.5 DegF (09/29/23 1:11 PM) 97.7 DegF (09/29/23 11:08 AM) Mode of Delivery (Oxygen) Room air (09/29/23 2:53 PM) Room air (09/29/23 1:11 PM) Room air (09/29/23 11:08 AM) Blood pressure sites Arm, left (09/29/23 2:53 PM) Arm, right (09/29/23 1:11 PM) Arm, right (09/29/23 11:08 AM) Temperature Route Oral (09/29/23 2:53 PM) Oral (09/29/23 1:11 PM) Oral (09/29/23 11:08 AM) Dry Weight 80 kg (09/29/23 8:48 AM) Weight Obtained Via Patient/family state d (09/29/23 8:48 AM) Dry Weight Obtained Via Patient/family s tated (09/29/23 8:48 AM) Social History Social History Type Response Smoking Status Current some day smo ker entered on: 10/17/15 Sex Patient Care team information Care Team Personnel Name: Akhil Sauceda MD Position: Reference Physician Member Role: PCP Address: Address: [address] [place] [address] [facility] [place], [place] [address] Name: Marco Antonio Cruz MD Position: [facility] ED Medicine MD Member Role: Admitting Physician Address: Address: [address] [place] [address]- Name: Harriet Gusman Position: [facility] ED TA [facility] Member Role: Patient Care Provider Name: Linsey Mckeon RN Position: [facility] ED RN W/OE and Tasks Member Role: Patient Care Provider Name: Jean Diaz Position: [facility] Associate Professional Member Role: ED Physician Funeral Director And Embalmer Address: Address: [address] [place] [address]- Care Team Related Persons Name: SHANAE KASPER Address: home [address] [place] [address]
--- OUTSIDE RECORDS SUMMARY | 2023-10-06 09:49 | XMS_ITS | Continuity of Care Document ---
Author Name Unknown Organization [facility] Address [address] [place] [address]- Care Team Providers Care Underbaster Name Role Phone Rosario Zamudio DO Primary Care Arianna kingpoornima [id number]s): [facility] - 01/09/21 [facility] [address] [place] [id number] Attending Physician: Not on Staff, Attending MD Allergies, Adverse Reactions, Alerts Substance Reaction [...] Refills, Maintenance, 01/02/21 17:18:00EST, Tablet, [facility] #[id number], 178, cm, 06/15/19 13:53:00 EDT, Height Start [...] 11 Refills, Maintenance, 02/24/20 17:36:00 EDT, Tablet, [facility] #[id number], 178, cm, 06/15/19 13:53:00 EDT, Height Start Date: 02/24/20 Stop Date: 02/18/21 Status: Ordered Problem List Condition Effective Dates Status Health Status Inform ant Diabetes(Confirmed) Active Social History Social History Type Response Smoking Status Current some day smo ker entered on: 10/17/15 Sex
[2023-10-06 10:08] LABS: Basophils Percent Auto 0.1 % (0-2); Eosinophils Percent Auto 0.5 % (0-4); Hemoglobin 14.7 g/dl (14.0-18.0); Imm Gran Abs Auto 0.03 X10*3/uL (0.00-0.03); Imm Gran Pct Auto 0.4 % (0.0-0.4); Lymphocytes Absolute Auto 1.4 X10*3/uL (1.2-4.9); Lymphocytes Percent Auto 18.9 % (20-40); Mean Corpuscular HGB Conc 32.7 g/dl (31.0-36.0); Mean Corpuscular Hemoglobin 29.1 pg (27.0-33.0); Mean Corpuscular Volume 88.9 fL (80.0-98.0); Mean Platelet Volume 12.6 fL (9.4-12.4); Monocytes Absolute Auto 0.4 X10*3/uL (0.1-1.2); Neutrophils Absolute Auto 5.5 x10*3/uL (2.0-8.3); Neutrophils Percent Auto 74.1 % (45-73); Platelet Count 179 X10*3/uL (160-400); Red Blood Count 5.06 X10*6/uL (4.60-5.80); Red Cell Distribution Width 12.7 % (11.0-16.0); White Blood Count 7.4 X10*3/uL (4.8-10.8)
[2023-10-06 10:18] LABS: Alanine Aminotransferase 84 U/L (0-40); Albumin Level 4.1 g/dL (3.5-5.0); Alkaline Phosphatase 90 U/L (39-117); Anion Gap 12 (12-20); Aspartate Amino Transferase 61 U/L (5-37); Bilirubin Total 0.7 mg/dL (0.0-1.0); Blood Urea Nitrogen 10 mg/dL (9-16); Calcium 9.5 mg/dL (8.4-10.2); Carbon Dioxide 28 mmol/L (22-29); Chloride 105 mmol/L (96-108); Creatinine Clr Calc Pharmacy 70.6; Estimated Glomerular Filt Rate > 60; Glucose Random 284 mg/dL (60-115); Lipase 23 U/L (8-78); Magnesium 1.6 mg/dL (1.6-2.6); Potassium 3.6 mmol/L (3.3-5.1); Sodium 141 mmol/L (135-145); Total Protein 7.2 g/dL (6.5-8.0)
[2023-10-06 10:58] LABS: Troponin-I High Sensitivity 4.5 ng/L (<3.5-35.0)
[2023-10-06] MEDS: iohexoL 350 MG/ML 100 ML INFUS..BTL IV (12:52)
[2023-10-06] MEDS: HYDROmorphone HCl 1 MG/ML SYRINGE IVPUSH ×2 (13:48→17:41)
[2023-10-06 13:51] VITALS: BP 123/79; PULSE 62; RESP 16; TEMP 36.3; O2SAT 100
[2023-10-06] MEDS: HYDROmorphone HCl 0.5 MG/0.5 ML SYRINGE IVPUSH (15:47)
--- NOTE | 2023-10-06 16:08 | PC.NURSE ---
patient aware of plan for admission. at bedside, patient okayed by provider for food and coffee.
--- NOTE | 2023-10-06 16:29 | PM.IMHP ---
History of Present Illness Date of Service: 10/06/23 Chief Complaint: Intractable abdominal pain 52-year-old male history of antral carcinoma s/p whipple at [facility] last year, hepatitis A, HTN, DM , pancreatitis, hyperbilirubinemia, presenting to the emergency department for evaluation of epigastric/right upper quadrant pain that is been ongoing for the past few weeks acutely worsening over the past few days, patient reports 2 seen at [facility] [place] yesterday not sure exactly what they thought was wrong with him. He reports 10/10 pain severe, patient is crying upon my history taking. Appears uncomfortable. Associated nausea however no vomiting. Denies chest pain, shortness of breath, radiation of pain , fevers, chills, headache, vision changes, dizziness and weakness. Patient followed by [facility]. ER course Received multiple doses of dilaudid in the ER with only fair control of his pain. Imaging failed to demonstrate any vascular abnormalities. At this point in time he will be admitted for pain control and GI evaluation Review of Systems Review of Systems: Denies chest pain Denies shortness of breath Admits to abdominal pain no nausea or diarrhea Denies fever chills [facility] Medical History (Updated 10/06/23 @ 16:37 by Lon Umanzor DO) Erectile dysfunction Vitamin D deficiency Dyslipidemia HTN (hypertension) Depression DM2 (diabetes mellitus, type 2) Injury of right brachial plexus Subdural hematoma Subarachnoid hemorrhage Family History Other No family history of coronary artery disease Surgical History History of surgery on arm Household Members: Spouse Housing: Apartment Do you presently have visiting nurse or other home services: Yes ( is [employer]) Alcohol intake: never Patient Tobacco Use Status: Former Tobacco user Tobacco use type: Cigarette Cigarette Packs Per Day: 0.5 Cigarettes Per Day: 10.0 Years Smoked: 11 e-Cigarette/Vaping Use: Never Used Second Hand Smoke Exposure: No Substance Use Type: Crack/Cocaine Advance Directives: Yes Advance Directives on File: Yes Advance Directives Date on File: 05/11/22 service: No Current occupational status: unemployed Meds Allergies Allergy/AdvReac Type Severity Reaction Status Date / Time Penicillins [PCN] Allergy Intermediate Unknown Verified 09/01/23 02:39 Active Medications: Current Medications Acetaminophen (Acetaminophen 325 Mg Tablet) 650 mg PO Q6H PRN PRN Reason: Pain, Mild (Pain Scale 1-3) Enoxaparin Sodium (Enoxaparin Sodium 40 Mg/0.4 Ml Syringe) 40 mg SUBCUT Q24H LIGIA Gabapentin (Gabapentin 600 Mg Tablet) 800 mg PO BID LIGIA Hydromorphone HCl (Hydromorphone Hcl 1 Mg/Ml Syringe) 1 mg IVPUSH Q3H LIGIA; Protocol Sodium Chloride (Ns) 1,000 mls @ 100 mls/hr IVCONT .Q10H LIGIA Ondansetron HCl (Ondansetron Hcl 4 Mg/2 Ml Vial) 4 mg IVPUSH Q8H PRN PRN Reason: Nausea and Vomiting Oxycodone HCl (Oxycodone Hcl Immed Release 15 Mg Tablet) 15 mg PO Q3H PRN PRN Reason: Pain, Severe (Pain Scale 7-10) Sodium Chloride (0.9 % Sodium Chloride Flush 3 Ml Syringe) 3 ml IVFLUSH QSHIFT LIGIA Home Medications Medication Instructions Recorded Confirmed Last Taken Type fluoxetine 20 mg capsule 1 cap PO DAILY 05/09/22 05/28/22 05/27/22 History fluoxetine 40 mg capsule 1 cap PO DAILY 05/09/22 05/28/22 05/27/22 History gabapentin 800 mg tablet 2 tab PO BID 05/09/22 05/28/22 05/27/22 History insulin aspart U-100 100 unit/mL See Protocol subcut TIDAC 05/09/22 05/28/22 05/27/22 History (3 mL) subcutaneous pen (Novolog FlexPen U-100 Insulin aspart) metformin 1,000 mg tablet 1 tab PO BID 05/09/22 05/28/22 05/27/22 History omega-3 fatty acids-fish oil 340 1 cap PO TID 05/09/22 05/28/22 05/27/22 History mg-1,000 mg capsule (Fish Oil) trazodone 100 mg tablet 1 tab PO BEDTIME PRN Insomnia 05/09/22 05/28/22 Unknown History insulin glargine 100 unit/mL (3 14 unit subcut BEDTIME 05/28/22 05/28/22 05/27/22 History mL) subcutaneous pen (Lantus Solostar U-100 Insulin) nicotine (polacrilex) 4 mg buccal 1 ea PO Q2H PRN Nicotine Cravings 05/28/22 05/28/22 05/27/22 History mini lozenge nicotine 21 mg/24 hr daily 1 patch topical DAILY 05/28/22 05/28/22 05/27/22 History transdermal patch Physical Exam Vital Signs and Narrative: Vital Signs: Last Vital Signs Temp 97.4 F 10/06/23 13:51 Pulse 62 10/06/23 13:51 Resp 16 10/06/23 13:51 BP 123/79 10/06/23 13:51 Pulse Ox 100 10/06/23 13:51 O2 Del Method Room Air 10/06/23 13:51 BMI result Body Mass Index 19.4 Const: Other: Awake uncomfortable Resp: Other: Clear to auscultation bilaterally no rales rhonchi or wheezes Cardio: Other: No S4; positive S1 through; no S3 murmurs rubs or gallops GI: Other: Soft nontender nondistended normoactive bowel sounds Extrem: Other: No edema bilaterally Results Labs 10/06/23 09:34 10/06/23 09:34 Labs: Laboratory Results - last 24 hr 10/06/23 09:34 MCV 88.9 MCH 29.1 MCHC 32.7 RDW 12.7 Plt Count 179 MPV 12.6 H Immature Gran % (Auto) 0.4 Neut % (Auto) 74.1 H Lymph % (Auto) 18.9 L [place] % (Auto) 6.0 Eos % (Auto) 0.5 Baso % (Auto) 0.1 Lymph # (Auto) 1.4 [place] # (Auto) 0.4 Eos # (Auto) 0.0 Baso # (Auto) 0.0 Abs Immat Gran (auto) 0.03 Absolute Neuts (auto) 5.5 Absolute Nucleated RBC 0.000 Nucleated RBC % (auto) 0.0 Anion Gap 12 Estim Creat Clear Calc 70.6 Estimated GFR > 60 Random Glucose 284 H Calcium 9.5 D Magnesium 1.6 Total Bilirubin 0.7 AST 61 H ALT 84 H Alkaline Phosphatase 90 Total Protein 7.2 Albumin 4.1 Lipase 23 Imaging Radiologist's Impressions: Impressions Abdomen/Pelvis CTA 10/06/23 12:50 IMPRESSION: 1. Mild mural thickening involving distal descending and sigmoid colon without any pericolic fat stranding. Question low-grade inflammatory or infectious etiology. 2. There is pancreatic uncinate process mass with soft tissue thickening along the SMV and SMA. This is new since 05/28/2022. Correlate with MRI abdomen with and without contrast 3. There is pneumobilia from previous intervention. The gallbladder is not visualized. 4. Unremarkable CTA abdominal aorta Fleischner guidelines were followed. Assessment and Plan (1) Intractable abdominal pain: Status: Acute (2) Pancreatic adenocarcinoma: Status: Acute (3) DM2 (diabetes mellitus, type 2): Qualifiers: Diabetes mellitus prison insulin use: with salvage determiner use Diabetes mellitus complication status: without complication Qualified Code(s): E11.9 - Type 2 diabetes mellitus without complications; Z79.4 - jail (current) use of insulin Status: Acute (4) HTN (hypertension): Qualifiers: Hypertension type: primary hypertension Qualified Code(s): I10 - Essential (primary) hypertension Status: Acute Plan 52-year-old male with a history of adenocarcinoma of the pancreas status post Whipple presents today with intractable abdominal pain. Hypertension Emergency room discuss with [facility] General surgery who felt there was no indication for surgery but a GI workup was warranted. At this time his pain is responsive only today with any be admitted for same and GI consult 1. Intractable abdominal pain secondary to pancreatic cancer -admits general medical floor Dilaudid alternating with oral oxycodone -GI consult in a.m. -diet as tolerated 2. Diabetes type 2 -acceptable control on current therapies -will hold metformin times 24 hours given IV contrast -restart when appropriate -lispro corrctional scale 3. Hypertension -acceptable control on current therapies -adjust as indicated Full code Lovenox Patient will require at least 2 midnights going forward for IV pain control secondary to failed outpatient therapies with oral and specialist consultation. This cannot be achieved a lesser acute setting Quality Stroke Does the patient have a stroke diagnosis?: No VTE Prior VTE?: No VTE Risk Level:: Medical - moderate - high VTE Device Contraindication: Treatment Not Indicated VTE Drug Contraindication: N/A - Med Ordered
--- NOTE | 2023-10-06 16:44 | PHA.MEDREC ---
Pharmacy Consult ? Medication Reconciliation Pharmacy has completed the medication reconciliation. spoke with family member at bedside who confirmed patient medications. She reported that he took AM medications today (including tramadol) but not the insulins. She explained that the metformin was stopped 2 months ago to see if that was causing his pain. He finished the oxycodone prescription. He stopped cholestyramine 4gm powder packets about a week ago because he thinks that they are not helping. She confirmed his insulin doses. She reported that his vitamin B12 is not taken on specific days.
[2023-10-06 17:29] LABS: Glucose, Whole Blood 243 mg/dL (60-115)
[2023-10-06] MEDS: Insulin Lispro 100 UNIT/ML 3 ML VIAL SUBCUT (17:41)
[2023-10-06] MEDS: 0.9 % Sodium Chloride 1,000 ML 100 ML IVCONT (17:42)
[2023-10-06] MEDS: Gabapentin 600 MG TABLET 800 MG PO (17:42)
[2023-10-06] MEDS: Enoxaparin Sodium 40 MG/0.4 ML SYRINGE SUBCUT (17:42)
[2023-10-06 17:46] VITALS: BP 109/68; PULSE 55; RESP 14; O2SAT 96
--- NOTE | 2023-10-06 18:23 | PC.NURSE ---
paged for PRN Narcan:Large Opiate doses, and change diet to Diabetic.
[2023-10-06 19:26] VITALS: BP 128/80; PULSE 55; RESP 18; TEMP 36.4; O2SAT 98
[2023-10-06 20:00] VITALS: BP 128/71; PULSE 50; RESP 16; TEMP 36; O2SAT 100
[2023-10-06] MEDS: Gabapentin 400 MG CAPSULE 1600 MG PO (20:12)
[2023-10-06] MEDS: Atorvastatin Calcium 20 MG TABLET PO (20:12)
[2023-10-06 20:40] LABS: Glucose, Whole Blood 125 mg/dL (60-115)
[2023-10-07] MEDS: oxyCODONE HCl Immed Release 15 MG TABLET PO ×3 (02:07→12:04)
[2023-10-07] MEDS: 0.9 % Sodium Chloride 1,000 ML 100 ML IVCONT ×2 (02:09→12:04)
[2023-10-07 03:41] VITALS: BP 114/59; PULSE 52; RESP 14; TEMP 36.2; O2SAT 97
[2023-10-07] MEDS: Omeprazole 40 MG CAPSULE.DR PO (06:05)
[2023-10-07 06:18] LABS: MANUAL DIFF FLAG NO
[2023-10-07 06:33] LABS: Basophils Percent Auto 0.5 % (0-2); Eosinophils Absolute Auto 0.1 X10*3/uL (0.0-0.4); Eosinophils Percent Auto 1.9 % (0-4); Hematocrit 41.2 % (42.0-52.0); Hemoglobin 13.4 g/dl (14.0-18.0); Lymphocytes Absolute Auto 1.6 X10*3/uL (1.2-4.9); Lymphocytes Percent Auto 43.2 % (20-40); Mean Corpuscular HGB Conc 32.5 g/dl (31.0-36.0); Mean Corpuscular Hemoglobin 29.6 pg (27.0-33.0); Mean Corpuscular Volume 90.9 fL (80.0-98.0); Mean Platelet Volume 12.4 fL (9.4-12.4); Monocytes Absolute Auto 0.4 X10*3/uL (0.1-1.2); Monocytes Percent Auto 9.8 % (2-11); Neutrophils Absolute Auto 1.6 x10*3/uL (2.0-8.3); Neutrophils Percent Auto 44.6 % (45-73); Platelet Count 125 X10*3/uL (160-400); Red Blood Count 4.53 X10*6/uL (4.60-5.80); White Blood Count 3.7 X10*3/uL (4.8-10.8)
[2023-10-07 06:55] LABS: Alanine Aminotransferase 120 U/L (0-40); Albumin Level 3.3 g/dL (3.5-5.0); Alkaline Phosphatase 76 U/L (39-117); Anion Gap 10 (12-20); Aspartate Amino Transferase 119 U/L (5-37); Bilirubin Total 0.6 mg/dL (0.0-1.0); Blood Urea Nitrogen 12 mg/dL (9-16); Calcium 8.6 mg/dL (8.4-10.2); Carbon Dioxide 29 mmol/L (22-29); Chloride 109 mmol/L (96-108); Creatinine Clr Calc Pharmacy 81.3; Estimated Glomerular Filt Rate > 60; Glucose Fasting 129 mg/dL (60-99); Potassium 3.7 mmol/L (3.3-5.1); Sodium 144 mmol/L (135-145); Total Protein 5.9 g/dL (6.5-8.0)
[2023-10-07 07:01] VITALS: BP 121/71; PULSE 52; RESP 17; TEMP 36.6; O2SAT 96
[2023-10-07 07:13] LABS: Glucose, Whole Blood 131 mg/dL (60-115)
[2023-10-07] MEDS: Lipase/Prot/Amylase 24/76/120K 1 CAP CAPSULE.DR 2 CAP PO ×3 (08:33→16:45)
[2023-10-07] MEDS: FLUoxetine HCl 20 MG CAPSULE PO (08:33)
[2023-10-07] MEDS: FLUoxetine HCl 20 MG CAPSULE 40 MG PO (08:34)
[2023-10-07] MEDS: Gabapentin 400 MG CAPSULE 1600 MG PO ×2 (08:34→19:37)
[2023-10-07] MEDS: Atorvastatin Calcium 20 MG TABLET PO (08:35)
[2023-10-07 11:11] LABS: Glucose, Whole Blood 212 mg/dL (60-115)
[2023-10-07] MEDS: Insulin Lispro 100 UNIT/ML 3 ML VIAL SUBCUT ×2 (12:08→21:27)
[2023-10-07 12:45] VITALS: BMI 26.0
--- NOTE | 2023-10-07 12:48 | MHC.CM.PN ---
IMM DELIVERED. PATIENT IS FROM HOME WITH AND GRANDSON. ACTIVE WITH [facility]. SHANAE IS PHYSICAL ANTHROPOLOGIST. ACTIVE WITH [facility], CONFIRMED BY LIAISAURO ALEX [phone], AGENCY IS NOT SHOWING IN CAREPORT. +HCP: DAUGHTER IVAN [phone] PCP: DR. LAYTON DCP: HOME, RESUME PHYSICAL ANTHROPOLOGIST/[facility], TO TRANSPORT. CM WILL CONTINUE TO FOLLOW.
--- NOTE | 2023-10-07 12:54 | MHC.CLN ---
NUTRITION DIET=DIABETIC 1800 KCALS. LIMITED INTAKE DUE TO ABDOMINAL PAIN. USED WEIGHT=82.1 KG TO ESTIMATE NEEDS. WEIGHT PER PHONE CONVERSATION WITH FAMILY. DOES NOT APPEAR UNDERWEIGHT. FOLLOW FOR DIET TOLERANCE AND INTAKE. SEE CLINICAL NUTRITION ASSESSMENT 10/07/23.
--- NOTE | 2023-10-07 14:09 | HO.PM.IMPN ---
Subjective Subjective Date of Service: 10/07/23 Interval History: Somewhat improved. Oral pain meds not effective. Pain worse after eating Review of Systems Denies chest pain Denies shortness of breath Denies nausea vomiting diarrhea Admits to abdominal pain Physical Exam Vital Signs: Vital Signs: Last Vital Signs Temp 97.9 F 10/07/23 07:01 Pulse 52 10/07/23 07:01 Resp 17 10/07/23 07:01 BP 121/71 10/07/23 07:01 Pulse Ox 96 10/07/23 07:01 O2 Del Method Room Air 10/07/23 07:01 BMI result Body Mass Index 26.0 Const: Other: Awake uncomfortable Resp: Other: Clear to auscultation bilaterally no rales rhonchi or wheezes Cardio: Other: No S4; positive S1 through; no S3 murmurs rubs or gallops GI: Other: Soft nontender nondistended normoactive bowel sounds Extrem: Other: No edema bilaterally Objective Data Active Medications Acetaminophen (Acetaminophen 325 Mg Tablet) 650 mg PO Q6H PRN PRN Reason: Pain, Mild (Pain Scale 1-3) Lipase/Protease/Amylase (Lipase/Prot/Amylase 24/76/120k 1 Cap Capsule.) 1 cap PO BID PRN PRN Reason: with snacks Lipase/Protease/Amylase (Lipase/Prot/Amylase 24/76/120k 1 Cap Capsule.) 2 cap PO TIDWM [facility] Last Admin: 10/07/23 12:04 Dose: 2 cap Documented By: MARY Atorvastatin Calcium (Atorvastatin Calcium 20 Mg Tablet) 20 mg PO DAILY [facility] Last Admin: 10/07/23 08:35 Dose: 20 mg Documented By: MARY Cyanocobalamin (Cyanocobalamin (Vitamin B-12) 1,000 Mcg Tablet) 1,000 mcg PO SuTuTh@0900 [facility] Dextrose (Dextrose 50 % 25 Gm/50 Ml Syringe) 25 gm IVPUSH Q15M PRN; Protocol PRN Reason: per Hypoglycemia Standing Ord. Dicyclomine HCl (Dicyclomine Hcl 10 Mg Capsule) 10 mg PO TID PRN PRN Reason: abdominal pain Enoxaparin Sodium (Enoxaparin Sodium 40 Mg/0.4 Ml Syringe) 40 mg SUBCUT Q24H [facility] Last Admin: 10/06/23 17:42 Dose: 40 mg Documented By: CATY Fluoxetine HCl (Fluoxetine Hcl 20 Mg Capsule) 20 mg PO DAILY [facility] Last Admin: 10/07/23 08:33 Dose: 20 mg Documented By: MARY Fluoxetine HCl (Fluoxetine Hcl 20 Mg Capsule) 40 mg PO DAILY [facility] Last Admin: 10/07/23 08:34 Dose: 40 mg Documented By: MARY Gabapentin (Gabapentin 400 Mg Capsule) 1,600 mg PO BID [facility] Last Admin: 10/07/23 08:34 Dose: 1,600 mg Documented By: MARY Glucose (Glucose Gel 15 Gm Gel..Gram.) 15 gm PO Q15M PRN; Protocol PRN Reason: per Hypoglycemia Standing Ord. Hydromorphone HCl (Hydromorphone Hcl 1 Mg/Ml Syringe) 1 mg IVPUSH Q3H PRN; Protocol PRN Reason: Pain, Severe (Pain Scale 7-10) Sodium Chloride (Ns) 1,000 mls @ 100 mls/hr IVCONT .Q10H [facility] Last Admin: 10/07/23 12:04 Dose: 100 mls/hr Documented By: MRAY Insulin Human Lispro (Insulin Lispro 100 Unit/Ml 3 Ml Vial) 0 unit SUBCUT QIDACHS [facility]; Protocol Last Admin: 10/07/23 12:08 Dose: 4 unit Documented By: MARY Naloxone HCl (Naloxone Hcl 0.4 Mg/Ml Vial) 0.04 mg IVPUSH Q5M PRN PRN Reason: Respiratory Rate < 10 Omeprazole (Omeprazole 40 Mg Capsule.Dr) 40 mg PO DAILY@0630 [facility] Last Admin: 10/07/23 06:05 Dose: 40 mg Documented By: JERROD Ondansetron HCl (Ondansetron Hcl 4 Mg/2 Ml Vial) 4 mg IVPUSH Q8H PRN PRN Reason: Nausea and Vomiting Oxycodone HCl (Oxycodone Hcl Immed Release 15 Mg Tablet) 30 mg PO Q4H PRN PRN Reason: Pain, Moderate(Pain Scale 4-6) Sodium Chloride (0.9 % Sodium Chloride Flush 3 Ml Syringe) 3 ml IVFLUSH QSHIFT [facility] Last Admin: 10/07/23 08:17 Dose: Not Given Documented By: MARY Non-Admin Reason: IV Running Tramadol HCl (Tramadol Hcl 50 Mg Tablet) 50 mg PO Q8H PRN PRN Reason: Pain, Mild (Pain Scale 1-3) Trazodone HCl (Trazodone Hcl 100 Mg Tablet) 100 mg PO BEDTIME PRN PRN Reason: Insomnia Labs 10/07/23 06:10 10/07/23 06:10 Labs: Laboratory Results - last 24 hr 10/06/23 10/06/23 10/07/23 17:26 20:33 06:10 MCV 90.9 MCH 29.6 MCHC 32.5 RDW 13.0 Plt Count 125 L D MPV 12.4 Immature Gran % (Auto) 0.0 Neut % (Auto) 44.6 L Lymph % (Auto) 43.2 H [place] % (Auto) 9.8 Eos % (Auto) 1.9 Baso % (Auto) 0.5 Lymph # (Auto) 1.6 [place] # (Auto) 0.4 Eos # (Auto) 0.1 Baso # (Auto) 0.0 Abs Immat Gran (auto) 0.00 Absolute Neuts (auto) 1.6 L Absolute Nucleated RBC 0.000 Nucleated RBC % (auto) 0.0 Anion Gap 10 L Estim Creat Clear Calc 81.3 Estimated GFR > 60 POC Glucose 243 H 125 H Fasting Glucose 129 H Calcium 8.6 D Total Bilirubin 0.6 AST 119 H ALT 120 H Alkaline Phosphatase 76 Total Protein 5.9 L Albumin 3.3 L 10/07/23 10/07/23 07:09 11:00 MCV MCH MCHC RDW Plt Count MPV Immature Gran % (Auto) Neut % (Auto) Lymph % (Auto) [place] % (Auto) Eos % (Auto) Baso % (Auto) Lymph # (Auto) [place] # (Auto) Eos # (Auto) Baso # (Auto) Abs Immat Gran (auto) Absolute Neuts (auto) Absolute Nucleated RBC Nucleated RBC % (auto) Anion Gap Estim Creat Clear Calc Estimated GFR POC Glucose 131 H 212 H Fasting Glucose Calcium Total Bilirubin AST ALT Alkaline Phosphatase Total Protein Albumin Assessment and Plan (1) Pancreatic adenocarcinoma: Status: Acute (2) DM2 (diabetes mellitus, type 2): Status: Acute Plan 52-year-old male with a history of adenocarcinoma of the pancreas status post Whipple presents today with intractable abdominal pain. Hypertension Emergency room discuss with [facility] General surgery who felt there was no indication for surgery but a GI workup was warranted. At this time his pain is responsive only to IV medicines. States pills are ineffective 1. Intractable abdominal pain secondary to pancreatic cancer -Dilaudid alternating with oral oxycodone -Heme/Onc consult --clears 2. Diabetes type 2 -acceptable control on current therapies -will hold metformin times 24 hours given IV contrast -restart when appropriate -lispro corrctional scale 3. Hypertension -acceptable control on current therapies -adjust as indicated Full code Lovenox Patient will require ongoing hospitalization for adequate pain control required IV analgesia Quality Stroke Does the patient have a stroke diagnosis?: No VTE Prior VTE?: No VTE Risk Level:: Medical - moderate - high VTE Device Contraindication: Treatment Not Indicated VTE Drug Contraindication: N/A - Med Ordered
[2023-10-07] MEDS: oxyCODONE HCl Immed Release 15 MG TABLET 30 MG PO ×2 (15:12→19:37)
[2023-10-07 16:00] VITALS: BP 137/74; PULSE 52; RESP 18; TEMP 36.2; O2SAT 99
--- NOTE | 2023-10-07 16:28 | PM.HEMONCCN ---
Subjective - Subjective Chief complaint: Consult for: Pancreatic carcinoma. Patient: new to practice Consult date: 10/07/23 Requesting Physician: Erna. Primary Care Provider: Akhil Sauceda MD Medical Summary: DIAGNOSIS: PANCREATIC CARCINOMA. HPI - Consult Narrative Reason for consult: Consult for: Pancreatic carcinoma. Narrative: Seferino Rosado is a 52 year old gentleman, with a history of pancreatic carcinoma, who was admitted with abdominal pain. He presented to the hospital for evaluation of epigastric/right upper quadrant pain. This has been ongoing for the past few weeks acutely worsening over the past few days, He reported 10/10 pain severe, Appeared uncomfortable. Now pain is better with the analgesics. Associated nausea however no vomiting. Denies chest pain, shortness of breath, radiation of pain , fevers, chills, headache, vision changes, dizziness and weakness. Database: LFTs: 0.6/119/120/76. He was seen at [facility] not sure exactly what they thought was wrong with him. Patient followed by [facility]. HISTORY OF PRESENT ILLNESSS: This is an unfortunate 52-year-old gentleman who initially presented with right upper quadrant abdominal pain, anorexia and 40 lb weight loss in February 2022. In March of 2022 he was noted to be jaundiced. LFTs showed an obstructive picture. MRI of the abdomen on 03/22/2022 revealed: Mild dilatation of the common bile duct and minimal pericholecystic fluid . Hepatic steatosis LFTs on 04/17/2022: 17.1 with direct bili of 14/AST 99/ALT 309 and AP of 316. He underwent an attempted ERCP on 05/07/[address]ran [address] Dr. Cochran was not able to cannulate the common bile duct. He was referred to [facility]. MRCP on 05/14/2022 showed moderate intra and extrahepatic biliary dilatation, upstream from an abrupt cut off at the level of the pancreatic head. He underwent an ERCP with sphincterotomy and plastic stent placement on 05/15/[address] Sampson. Brushings from the CBD revealed adenocarcinoma. Molecular studies were noncontributory. KRS variant was detected at a very low allelic frequency to be considered significant. 05/28/2022 he developed cholangitis due to an obstructed biliary stent. Blood cultures grew E coli. He was treated with IV antibiotics. He underwent a Whipple procedure on 06/04/[address] Nicolás Adan. Pathology revealed 1 cm T2 grade 1 adenocarcinoma invading the bile duct wall wi the depth of 5-12 mm. perineural invasion was present. Margins were negative. One of 19 regional nodes were involved with tumor. He recovered reasonably well from surgery. CA 19-9 on 07/27/2022 was less than 2. He then received 6 months of adjuvant treatment with Xeloda. CT with IV and p.o. contrast from 03/22/2023 was unremarkable. Bone scan was unremarkable. CA 19-9 on 04/01/2023 was less than 2. PAST MEDICAL HISTORY: hepatitis A, HTN, DM , pancreatitis, hyperbilirubinemia, FAMILY HISTORY: No known history of cancer in the parents. A sister was diagnosed with breast cancer in her late 50s. 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 He is disabled. He lives with his long-term girlfriend. He has 1 son and 4 daughters. He has 6 grandkids. He started smoking tobacco at the age of 11 and is currently smoking. He denies alcohol now. He formerly abused cocaine. ROS: HE HAS BEEN FEELING RATHER FATIGUED. NO FEVER CHILLS OR NIGHT SWEATS. APPETITE IS NOT THAT GREAT. HE HAS LOST WEIGHT. NO HEADACHE NO DIZZINESS. NO CHEST PAIN OR TROUBLE BREATHING. HE HAS HAD ABDOMINAL PAIN FOR WHICH SHE HAS BEEN SEEN IN THE ER AT [facility] AND [facility]. HE DENIES NAUSEA VOMITING HEARTBURN INDIGESTION. HIS BOWELS HAVE BEEN CONSTIPATED. IT HAS SINCE HE WAS STARTED ON THE OXYCODONE. DENIES GROSS BLOOD IN THE STOOLS. No dysuria or hematuria. Denies any joint pain or muscle pain. No focal weakness. He has depression. No skin rashes no pruritus. Review of Systems - Constitutional Reports system reviewed and no additional complaints, except as documented, Reports fatigue, Reports lack of energy, Reports malaise, Reports poor appetite, Reports weight loss - Eyes Reports system reviewed and no additional complaints, except as documented - ENT Reports system reviewed and no additional complaints, except as documented - Cardiovascular Reports system reviewed and no additional complaints, except as documented - Respiratory Reports no additional respiratory complaints - Gastrointestinal Reports system reviewed and no additional complaints, except as documented - Genitourinary Genitourinary: Reports no additional male genitourinary complaints - Musculoskeletal Reports system reviewed and no additional complaints, except as documented - Integumentary/Breasts Skin/Breast: Reports no additional skin complaints - Neurologic Reports system reviewed and no additional complaints, except as documented - Psychiatric Reports system reviewed and no additional complaints, except as documented - Endocrine Reports no additional endocrine complaints - Hematologic/Lymphatic Reports system reviewed and no additional complaints, except as documented - Allergic/Immunologic Reports system reviewed and no additional complaints, except as documented Oncology Screenings - ECOG Performance Status ECOG Performance Status: 2 [facility] Medical History: Medical History (Last Updated 10/06/23 @ 16:34 by Lon Umanzor DO) Depression DM2 (diabetes mellitus, type 2) Dyslipidemia Erectile dysfunction HTN (hypertension) Injury of right brachial plexus Subarachnoid hemorrhage Subdural hematoma Vitamin D deficiency Family History: Family History (Last Reviewed 10/06/23 @ 16:31 by Lon Umanzor DO) Other No family history of coronary artery disease Surgical History: Surgical History (Last Reviewed 10/06/23 @ 16:31 by Lon Umanzor DO) History of surgery on arm Social History: Social History (Last Reviewed 10/06/23 @ 16:31 by Lon Umanzor DO) Living Situation History: Household Members: Spouse Household Members: Children Housing: Homeless Do you presently have visiting nurse or other home services: No Tobacco History: Patient Tobacco Use Status: Current everyday Tobacco Tobacco use type: Cigarette Cigarette Packs Per Day: 0.5 Years Smoked: 11 e-Cigarette/Vaping Use: Never Used Second Hand Smoke Exposure: No Substance Use History: Substance Use Type: Crack/Cocaine Advance Directives: Advance Directives Date on File: 05/11/22 Occupation Assessmet: service: No Current occupational status: unemployed Home Medications and Allergies Current Medications: Current Medications Acetaminophen (Acetaminophen 325 Mg Tablet) 650 mg PO Q6H PRN PRN Reason: Pain, Mild (Pain Scale 1-3) Lipase/Protease/Amylase (Lipase/Prot/Amylase 24/76/120k 1 Cap Capsule.) 1 cap PO BID PRN PRN Reason: with snacks Lipase/Protease/Amylase (Lipase/Prot/Amylase 24/76/120k 1 Cap Capsule.) 2 cap PO TIDWM [facility] Last Admin: 10/07/23 12:04 Dose: 2 cap Atorvastatin Calcium (Atorvastatin Calcium 20 Mg Tablet) 20 mg PO DAILY [facility] Last Admin: 10/07/23 08:35 Dose: 20 mg Cyanocobalamin (Cyanocobalamin (Vitamin B-12) 1,000 Mcg Tablet) 1,000 mcg PO SuTuTh@0900 [facility] Dextrose (Dextrose 50 % 25 Gm/50 Ml Syringe) 25 gm IVPUSH Q15M PRN; Protocol PRN Reason: per Hypoglycemia Standing Ord. Dicyclomine HCl (Dicyclomine Hcl 10 Mg Capsule) 10 mg PO TID PRN PRN Reason: abdominal pain Enoxaparin Sodium (Enoxaparin Sodium 40 Mg/0.4 Ml Syringe) 40 mg SUBCUT Q24H [facility] Last Admin: 10/06/23 17:42 Dose: 40 mg Fluoxetine HCl (Fluoxetine Hcl 20 Mg Capsule) 20 mg PO DAILY [facility] Last Admin: 10/07/23 08:33 Dose: 20 mg Fluoxetine HCl (Fluoxetine Hcl 20 Mg Capsule) 40 mg PO DAILY [facility] Last Admin: 10/07/23 08:34 Dose: 40 mg Gabapentin (Gabapentin 400 Mg Capsule) 1,600 mg PO BID [facility] Last Admin: 10/07/23 08:34 Dose: 1,600 mg Glucose (Glucose Gel 15 Gm Gel..Gram.) 15 gm PO Q15M PRN; Protocol PRN Reason: per Hypoglycemia Standing Ord. Hydromorphone HCl (Hydromorphone Hcl 1 Mg/Ml Syringe) 1 mg IVPUSH Q3H PRN; Protocol PRN Reason: Pain, Severe (Pain Scale 7-10) Sodium Chloride (Ns) 1,000 mls @ 100 mls/hr IVCONT .Q10H [facility] Last Admin: 10/07/23 12:04 Dose: 100 mls/hr Insulin Human Lispro (Insulin Lispro 100 Unit/Ml 3 Ml Vial) 0 unit SUBCUT QIDACHS [facility]; Protocol Last Admin: 10/07/23 12:08 Dose: 4 unit Naloxone HCl (Naloxone Hcl 0.4 Mg/Ml Vial) 0.04 mg IVPUSH Q5M PRN PRN Reason: Respiratory Rate < 10 Omeprazole (Omeprazole 40 Mg Capsule.Dr) 40 mg PO DAILY@0630 [facility] Last Admin: 10/07/23 06:05 Dose: 40 mg Ondansetron HCl (Ondansetron Hcl 4 Mg/2 Ml Vial) 4 mg IVPUSH Q8H PRN PRN Reason: Nausea and Vomiting Oxycodone HCl (Oxycodone Hcl Immed Release 15 Mg Tablet) 30 mg PO Q4H PRN PRN Reason: Pain, Moderate(Pain Scale 4-6) Last Admin: 10/07/23 15:12 Dose: 30 mg Sodium Chloride (0.9 % Sodium Chloride Flush 3 Ml Syringe) 3 ml IVFLUSH QSHIFT [facility] Last Admin: 10/07/23 15:10 Dose: Not Given Tramadol HCl (Tramadol Hcl 50 Mg Tablet) 50 mg PO Q8H PRN PRN Reason: Pain, Mild (Pain Scale 1-3) Trazodone HCl (Trazodone Hcl 100 Mg Tablet) 100 mg PO BEDTIME PRN PRN Reason: Insomnia Home Medications Medication Instructions Recorded Confirmed Type fluoxetine 20 mg capsule 1 cap PO DAILY 05/09/22 10/06/23 History fluoxetine 40 mg capsule 1 cap PO DAILY 05/09/22 10/06/23 History gabapentin 800 mg tablet 2 tab PO BID 05/09/22 10/06/23 History insulin aspart U-100 100 unit/mL See Protocol subcut TIDAC 05/09/22 10/06/23 History (3 mL) subcutaneous pen (Novolog FlexPen U-100 Insulin aspart) omega-3 fatty acids-fish oil 340 1 cap PO TID 05/09/22 10/06/23 History mg-1,000 mg capsule (Fish Oil) trazodone 100 mg tablet 1 tab PO BEDTIME PRN Insomnia 05/09/22 10/06/23 History insulin glargine 100 unit/mL (3 25 unit subcut BID 05/28/22 10/06/23 History mL) subcutaneous pen (Lantus Solostar U-100 Insulin) atorvastatin 20 mg tablet 20 mg PO DAILY 10/06/23 10/06/23 History cyanocobalamin (vitamin B-12) 1,000 mcg PO 3XW 10/06/23 10/06/23 History 1,000 mcg tablet dicyclomine 10 mg capsule 10 mg PO TID PRN abdominal pain 10/06/23 10/06/23 History [id number] 1 cap PO BID PRN with snacks 10/06/23 10/06/23 History 24,000-76,000-120,000 unit capsule,delayed rel (Creon) [id number] 2 cap PO TIDWM 10/06/23 10/06/23 History 24,000-76,000-120,000 unit capsule,delayed rel (Creon) omeprazole 40 mg capsule,delayed 40 mg PO DAILY@0630 10/06/23 10/06/23 History release Allergies Allergy/AdvReac Type Severity Reaction Status Date / Time Penicillins [PCN] Allergy Intermediate Unknown Verified 09/01/23 02:39 Physical Exam Vital signs: Vital Signs Temp 97.2 F 10/07/23 16:00 Pulse 52 10/07/23 16:00 Resp 18 10/07/23 16:00 BP 137/74 10/07/23 16:00 Pulse Ox 99 10/07/23 16:00 O2 Del Method Room Air 10/07/23 16:00 Intake & Output 10/06/23 10/07/23 10/07/23 18:59 06:59 18:59 Intake Total 1085 / 1085 1311.667 / 1311.667 Output Total 400 / 400 Balance 1085 / 1085 911.667 / 911.667 Urine Output (Average ml/kg/hr) 0.41 Intake: Intake, Oral Amount 240 / 240 320 / 320 Intake, IV Amount 845 / 845 991.667 / 991.667 0.9 % Sodium Chloride 1,000 ml 845 / 845 991.667 / 991.667 @ 100 mls/hr IVCONT .Q10H [facility] Rx#:[id number] Output: Output, Urine Amount 400 / 400 Other: Breakfast % Eaten 100% Lunch % Eaten 100% Number of Unmeasured Voids 1 Last Bowel Movement 10/06/23 Weight 61.235 kg 82.1 kg Weight 82.1 kg - Constitutional Present: moderate distress, chronically ill appearing - Routine HEENT Exam Head: Present: normal inspection, normocephalic Eye: Present: normal appearance ENT: Present: mucous membranes moist - Routine Neck Exam Present: supple - Routine Respiratory Exam Present: CTAB - Routine Cardiovascular Exam Cardiovascular: Present: RRR, S1, S2 Hem/Onc Consult Result - Labs CBC & Chem 7: 10/09/23 06:32 10/09/23 06:32 Labs: Short CBC 10/07/23 Range/Units 06:10 WBC 3.7 L (4.8-10.8) X10*3/uL Hgb 13.4 L (14.0-18.0) g/dl Hct 41.2 L (42.0-52.0) % Plt Count 125 L D (160-400) X10*3/uL BMP 10/07/23 06:10 Sodium 144 Potassium 3.7 Chloride 109 H Carbon Dioxide 29 BUN 12 Creatinine 0.92 Calcium 8.6 D Liver Function 10/07/23 Range/Units 06:10 Total Bilirubin 0.6 (0.0-1.0) mg/dL AST 119 H (5-37) U/L ALT 120 H (0-40) U/L Alkaline Phosphatase 76 (39-117) U/L Albumin 3.3 L (3.5-5.0) g/dL Assessment and Plan Patient Active problem list reviewed?: Yes (1) Pancreatic adenocarcinoma Status: Acute Assessment and plan: This is an unfortunate 52-year-old gentleman who initially presented with right upper quadrant abdominal pain, anorexia and 40 lb weight loss in February 2022. In March of 2022 he was noted to be jaundiced. LFTs showed an obstructive picture. MRI of the abdomen on 03/22/2022 revealed: Mild dilatation of the common bile duct and minimal pericholecystic fluid . Hepatic steatosis LFTs on 04/17/2022: 17.1 with direct bili of 14/AST 99/ALT 309 and AP of 316. He underwent an attempted ERCP on 05/07/[address]ran [address] Dr. Cochran was not able to cannulate the common bile duct. He was referred to [facility]. MRCP on 05/14/2022 showed moderate intra and extrahepatic biliary dilatation, upstream from an abrupt cut off at the level of the pancreatic head. He underwent an ERCP with sphincterotomy and plastic stent placement on 05/15/[address] Sampson. Brushings from the CBD revealed adenocarcinoma. Molecular studies were noncontributory. KRS variant was detected at a very low allelic frequency to be considered significant. 05/28/2022 he developed cholangitis due to an obstructed biliary stent. Blood cultures grew E coli. He was treated with IV antibiotics. He underwent a Whipple procedure on 06/04/[address] Nicolás Adan. Pathology revealed 1 cm T2 grade 1 adenocarcinoma invading the bile duct wall wi the depth of 5-12 mm. perineural invasion was present. Margins were negative. One of 19 regional nodes were involved with tumor. He recovered reasonably well from surgery. CA 19-9 on 07/27/2022 was less than 2. He then received 6 months of adjuvant treatment with Xeloda. CT with IV and p.o. contrast from 03/22/2023 was unremarkable. Bone scan was unremarkable. CA 19-9 on 04/01/2023 was less than 2. He now presents with intractable abdominal pain with nausea. LFTs: 0.6/119/120/76. CTA of the abdomen from 10/06 revealed: IMPRESSION: 1. Mild mural thickening involving distal descending and sigmoid colon without any pericolic fat stranding. Question low-grade inflammatory or infectious etiology. 2. There is pancreatic uncinate process mass with soft tissue thickening along the SMV and SMA. This is new since 05/28/2022. Correlate with MRI abdomen with and without contrast 3. There is pneumobilia from previous intervention. The gallbladder is not visualized. 4. Unremarkable CTA abdominal aorta. PLAN: Concern is for recurrence of pancreatic carcinoma. Will proceed with MRI for further evaluation. Follow tumor marker CA 19-9: <3. Continue in street shooting pain control as you are doing. Thank you, Cc: Dr. Camarena. Addendum: MRI of abd from 112: Review of the images shows an abrupt cut off of the enhancing normal pancreatic body in the region of head and uncinate process forming a poorly demarcated hypoenhancing lesion measuring 3.0 cm in AP diameter 2.8 cm in width, series 107 image #57. The hypoenhancing posterior upper peritoneal lesion is seen encasing the superior mesenteric artery, abutting the superior mesenteric vein, measuring 3.0 cm in AP diameter, 3.4 cm in width, 3.2 cm in vertical height, series 107 image #69, series 7 image #24. Both the pancreatic lesion and the superior mesenteric artery encasing lesion are not present on previous MRI of the abdomen on 05/10/2022. Visualization is limited by respiratory motion blurring. 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 1. Interval resolution of the common bile duct stone, removal of common bile duct stent visualized on CT scan of abdomen on 05/28/2022. 2. Interval performance of cholecystectomy. No evidence of hepatobiliary duct dilatation or ductal stones. 3. No focal liver mass lesion could be found. 4. Interval resolution of pancreatic edema. Interval increase prominence of pancreatic duct which is at upper limit of normal. No focal pancreatic lesion is found. Repeat review of the MRI is concerning for disease recurrence. Pt. is being followed at [facility] by Dr. Nicolás Adan. He was actually seen by him a couple of weeks ago. He will be discharged after optimizing pain management and will follow-up with them. - Time Spent With Patient Time Spent with Patient (in minutes): 30
[2023-10-07] MEDS: Enoxaparin Sodium 40 MG/0.4 ML SYRINGE SUBCUT (16:46)
[2023-10-07] MEDS: HYDROmorphone HCl 1 MG/ML SYRINGE IVPUSH ×2 (16:46→21:26)
[2023-10-07 16:47] LABS: Glucose, Whole Blood 92 mg/dL (60-115)
[2023-10-07 20:00] VITALS: BP 129/74; PULSE 57; RESP 16; TEMP 36.2; O2SAT 98
[2023-10-07 21:15] LABS: Glucose, Whole Blood 222 mg/dL (60-115)
[2023-10-08] MEDS: oxyCODONE HCl Immed Release 15 MG TABLET 30 MG PO ×3 (01:53→13:14)
[2023-10-08 03:43] VITALS: BP 157/71; PULSE 65; RESP 16; TEMP 36.2; O2SAT 97
[2023-10-08] MEDS: Omeprazole 40 MG CAPSULE.DR PO (06:01)
[2023-10-08 06:21] LABS: MANUAL DIFF FLAG NO
[2023-10-08 06:37] LABS: Basophils Percent Auto 0.3 % (0-2); Eosinophils Absolute Auto 0.1 X10*3/uL (0.0-0.4); Eosinophils Percent Auto 1.3 % (0-4); Hematocrit 38.3 % (42.0-52.0); Hemoglobin 12.5 g/dl (14.0-18.0); Imm Gran Abs Auto 0.01 X10*3/uL (0.00-0.03); Imm Gran Pct Auto 0.3 % (0.0-0.4); Lymphocytes Absolute Auto 1.6 X10*3/uL (1.2-4.9); Lymphocytes Percent Auto 41.3 % (20-40); Mean Corpuscular HGB Conc 32.6 g/dl (31.0-36.0); Mean Corpuscular Hemoglobin 29.3 pg (27.0-33.0); Mean Corpuscular Volume 89.9 fL (80.0-98.0); Mean Platelet Volume 12.7 fL (9.4-12.4); Monocytes Absolute Auto 0.4 X10*3/uL (0.1-1.2); Monocytes Percent Auto 10.6 % (2-11); Neutrophils Absolute Auto 1.8 x10*3/uL (2.0-8.3); Neutrophils Percent Auto 46.2 % (45-73); Platelet Count 119 X10*3/uL (160-400); Red Blood Count 4.26 X10*6/uL (4.60-5.80); Red Cell Distribution Width 12.5 % (11.0-16.0)
[2023-10-08 06:46] LABS: Alanine Aminotransferase 126 U/L (0-40); Albumin Level 3.2 g/dL (3.5-5.0); Alkaline Phosphatase 78 U/L (39-117); Anion Gap 7 (12-20); Aspartate Amino Transferase 95 U/L (5-37); Bilirubin Total 0.3 mg/dL (0.0-1.0); Blood Urea Nitrogen 14 mg/dL (9-16); Calcium 8.3 mg/dL (8.4-10.2); Carbon Dioxide 31 mmol/L (22-29); Chloride 106 mmol/L (96-108); Creatinine Clr Calc Pharmacy 94.9; Estimated Glomerular Filt Rate > 60; Glucose Fasting 125 mg/dL (60-99); Potassium 4.1 mmol/L (3.3-5.1); Sodium 140 mmol/L (135-145); Total Protein 5.6 g/dL (6.5-8.0)
[2023-10-08 07:36] LABS: Glucose, Whole Blood 134 mg/dL (60-115)
[2023-10-08 07:46] VITALS: BP 167/81; PULSE 53; RESP 16; TEMP 36.3; O2SAT 98
[2023-10-08] MEDS: 0.9 % Sodium Chloride 1,000 ML 100 ML IVCONT (07:55)
[2023-10-08] MEDS: FLUoxetine HCl 20 MG CAPSULE 40 MG PO (07:56)
[2023-10-08] MEDS: FLUoxetine HCl 20 MG CAPSULE PO (07:56)
[2023-10-08] MEDS: Lipase/Prot/Amylase 24/76/120K 1 CAP CAPSULE.DR 2 CAP PO ×3 (07:56→17:41)
[2023-10-08] MEDS: Gabapentin 400 MG CAPSULE 1600 MG PO ×2 (07:56→20:59)
[2023-10-08] MEDS: Atorvastatin Calcium 20 MG TABLET PO (07:57)
[2023-10-08] MEDS: Cyanocobalamin (Vitamin B-12) 1,000 MCG TABLET 1000 MCG PO (08:02)
--- NOTE | 2023-10-08 08:51 | P.CDIM_ITS ---
PROVIDER RESPONSE TEXT: To clarify, the appropriate diagnosis supported by the clinical indicators: Pancytopenia due to other etiology QUERY TEXT: PHYSICIAN'S DOCUMENTATION REQUEST Date of Query: 10/07/2023 08:41 AM EST Patient Name: Seferino Rosado Admit Date: 10/06/2023 Dear Lon Umanzor, A review of the medical record indicates additional documentation may be needed. Please review below and update the documentation accordingly. Clinical Indicators: WBC 3.7 RBC 4.53 PLT 125 L Abs. neuts 1.6 L Pancreatic adenocarcinoma History exam is concerning for pancreatitis vs recurrence of cancer vs. hepatitis. Based on the above, is there a diagnosis that correlates with these lab findings: Pancytopenia Pancytopenia due to other etiology Not treating pancytopenia Other (explain) Clinically unable to determine (explain) Thank you, Pina Marie, CCS, CDIS Use of terms such as suspected, likely, concern for, or probable (associated with a specific diagnosi s that is being evaluated, monitored, or treated as if it exists) are acceptable and can be coded in the inpatient se tting, when documented at the time of discharge. Please use your independent medical judgment in providing your response. THIS QUERY IS PART OF THE PERMANENT MEDICAL RECORD
[2023-10-08 11:14] LABS: Glucose, Whole Blood 156 mg/dL (60-115)
[2023-10-08] MEDS: gadobutroL 10 ML VIAL IVPUSH (12:55)
[2023-10-08] MEDS: Insulin Lispro 100 UNIT/ML 3 ML VIAL SUBCUT ×2 (13:15→20:59)
[2023-10-08 15:16] VITALS: BP 137/60; PULSE 54; RESP 17; TEMP 36.5; O2SAT 97
[2023-10-08 16:11] LABS: Glucose, Whole Blood 113 mg/dL (60-115)
--- NOTE | 2023-10-08 16:14 | P.PNIM_ITS ---
Subjective Subjective Date of Service: 10/08/23 Interval History: pain somewhat improving able to tolerate some clears Review of Systems has abd pain Denies shortness of breath Denies nausea vomiting diarrhea Physical Exam 2 Vital Signs: Vital Signs: Last Vital Signs Temp 97.7 F 10/08/23 15:16 Pulse 54 10/08/23 15:16 Resp 17 10/08/23 15:16 BP 137/60 10/08/23 15:16 Pulse Ox 97 10/08/23 15:16 O2 Del Method Room Air 10/08/23 15:16 BMI result Body Mass Index 26.0 Appearance: Alert.? Oriented X3.? cvs: rrr, [id number] , no murmur res: clear to auscultation ,no rhonchii or wheezing abd: no rebound or guarding ,has abd pain, bs present. ext pulses present , no cyanosis neuro: axo3 , nonfocal. Objective Data Active Medications Acetaminophen (Acetaminophen 325 Mg Tablet) 650 mg PO Q6H PRN PRN Reason: Pain, Mild (Pain Scale 1-3) Lipase/Protease/Amylase (Lipase/Prot/Amylase 24/76/120k 1 Cap Capsule.) 1 cap PO BID PRN PRN Reason: with snacks Lipase/Protease/Amylase (Lipase/Prot/Amylase 24/76/120k 1 Cap Capsule.) 2 cap PO TIDWM [facility] Last Admin: 10/08/23 13:15 Dose: 2 cap Documented By: MARY Atorvastatin Calcium (Atorvastatin Calcium 20 Mg Tablet) 20 mg PO DAILY [facility] Last Admin: 10/08/23 07:57 Dose: 20 mg Documented By: MARY Cyanocobalamin (Cyanocobalamin (Vitamin B-12) 1,000 Mcg Tablet) 1,000 mcg PO SuTuTh@0900 [facility] Last Admin: 10/08/23 08:02 Dose: 1,000 mcg Documented By: MARY Dextrose (Dextrose 50 % 25 Gm/50 Ml Syringe) 25 gm IVPUSH Q15M PRN; Protocol PRN Reason: per Hypoglycemia Standing Ord. Dicyclomine HCl (Dicyclomine Hcl 10 Mg Capsule) 10 mg PO TID PRN PRN Reason: abdominal pain Enoxaparin Sodium (Enoxaparin Sodium 40 Mg/0.4 Ml Syringe) 40 mg SUBCUT Q24H [facility] Last Admin: 10/07/23 16:46 Dose: 40 mg Documented By: ANGIE Fluoxetine HCl (Fluoxetine Hcl 20 Mg Capsule) 20 mg PO DAILY [facility] Last Admin: 10/08/23 07:56 Dose: 20 mg Documented By: MARY Fluoxetine HCl (Fluoxetine Hcl 20 Mg Capsule) 40 mg PO DAILY [facility] Last Admin: 10/08/23 07:56 Dose: 40 mg Documented By: MARY Gabapentin (Gabapentin 400 Mg Capsule) 1,600 mg PO BID [facility] Last Admin: 10/08/23 07:56 Dose: 1,600 mg Documented By: MARY Glucose (Glucose Gel 15 Gm Gel..Gram.) 15 gm PO Q15M PRN; Protocol PRN Reason: per Hypoglycemia Standing Ord. Hydromorphone HCl (Hydromorphone Hcl 1 Mg/Ml Syringe) 1 mg IVPUSH Q3H PRN; Protocol PRN Reason: Pain, Severe (Pain Scale 7-10) Last Admin: 10/07/23 21:26 Dose: 1 mg Documented By: ANGIE Sodium Chloride (Ns) 1,000 mls @ 100 mls/hr IVCONT .Q10H [facility] Last Admin: 10/08/23 07:55 Dose: 100 mls/hr Documented By: MARY Insulin Human Lispro (Insulin Lispro 100 Unit/Ml 3 Ml Vial) 0 unit SUBCUT QIDACHS [facility]; Protocol Last Admin: 10/08/23 13:15 Dose: 2 unit Documented By: MARY Naloxone HCl (Naloxone Hcl 0.4 Mg/Ml Vial) 0.04 mg IVPUSH Q5M PRN PRN Reason: Respiratory Rate < 10 Omeprazole (Omeprazole 40 Mg Capsule.Dr) 40 mg PO DAILY@0630 [facility] Last Admin: 10/08/23 06:01 Dose: 40 mg Documented By: JERROD Ondansetron HCl (Ondansetron Hcl 4 Mg/2 Ml Vial) 4 mg IVPUSH Q8H PRN PRN Reason: Nausea and Vomiting Oxycodone HCl (Oxycodone Hcl Immed Release 15 Mg Tablet) 30 mg PO Q4H PRN PRN Reason: Pain, Moderate(Pain Scale 4-6) Last Admin: 10/08/23 13:14 Dose: 30 mg Documented By: MARY Sodium Chloride (0.9 % Sodium Chloride Flush 3 Ml Syringe) 3 ml IVFLUSH QSHIFT [facility] Last Admin: 10/08/23 07:51 Dose: Not Given Documented By: MARY Non-Admin Reason: IV Running Tramadol HCl (Tramadol Hcl 50 Mg Tablet) 50 mg PO Q8H PRN PRN Reason: Pain, Mild (Pain Scale 1-3) Trazodone HCl (Trazodone Hcl 100 Mg Tablet) 100 mg PO BEDTIME PRN PRN Reason: Insomnia Labs 10/08/23 06:13 10/08/23 06:13 Labs: Laboratory Results - last 24 hr 10/07/23 10/07/23 10/08/23 16:44 20:58 06:13 MCV 89.9 MCH 29.3 MCHC 32.6 RDW 12.5 Plt Count 119 L MPV 12.7 H Immature Gran % (Auto) 0.3 Neut % (Auto) 46.2 Lymph % (Auto) 41.3 H Amelia % (Auto) 10.6 Eos % (Auto) 1.3 Baso % (Auto) 0.3 Lymph # (Auto) 1.6 Amelia # (Auto) 0.4 Eos # (Auto) 0.1 Baso # (Auto) 0.0 Abs Immat Gran (auto) 0.01 Absolute Neuts (auto) 1.8 L Absolute Nucleated RBC 0.000 Nucleated RBC % (auto) 0.0 Anion Gap 7 L Estim Creat Clear Calc 94.9 Estimated GFR > 60 POC Glucose 92 222 H Fasting Glucose 125 H Calcium 8.3 L Total Bilirubin 0.3 AST 95 H ALT 126 H Alkaline Phosphatase 78 Total Protein 5.6 L Albumin 3.2 L 10/08/23 10/08/23 10/08/23 07:34 11:07 16:07 MCV MCH MCHC RDW Plt Count MPV Immature Gran % (Auto) Neut % (Auto) Lymph % (Auto) Amelia % (Auto) Eos % (Auto) Baso % (Auto) Lymph # (Auto) Amelia # (Auto) Eos # (Auto) Baso # (Auto) Abs Immat Gran (auto) Absolute Neuts (auto) Absolute Nucleated RBC Nucleated RBC % (auto) Anion Gap Estim Creat Clear Calc Estimated GFR POC Glucose 134 H 156 H 113 Fasting Glucose Calcium Total Bilirubin AST ALT Alkaline Phosphatase Total Protein Albumin Assessment and Plan (1) DM2 (diabetes mellitus, type 2): Status: Acute (2) HTN (hypertension): Status: Acute (3) Pancreatic adenocarcinoma: Status: Acute Plan 52-year-old male with a history of adenocarcinoma of the pancreas status post Whipple presents today with intractable abdominal pain. Hypertension Emergency room discuss with [facility] surgery who felt there was no indication for surgery but a GI workup was warranted. At this time his pain is responsive only to IV medicines. States pills are ineffective 1. Intractable abdominal pain secondary to pancreatic cancer Heme/Onc consult-added CA 19.9 ,mri abd . clears,pain control-Dilaudid alternating with oral oxycodone 2. Diabetes type 2 -acceptable control on current therapies -will hold metformin times 24 hours given IV contrast -restart when appropriate -lispro corrctional scale 3. Hypertension -acceptable control on current therapies -adjust as indicated Full code Lovenox Patient will require ongoing hospitalization for adequate pain control required IV analgesia-patient abd pain has minimum response so far, abd pain workup. Quality Stroke Does the patient have a stroke diagnosis?: No VTE Prior VTE?: No VTE Risk Level:: Medical - moderate - high VTE Device Contraindication: Treatment Not Indicated VTE Drug Contraindication: N/A - Med Ordered
[2023-10-08] MEDS: 0.9 % Sodium Chloride Flush 3 ML SYRINGE IVFLUSH ×2 (17:33→23:56)
[2023-10-08] MEDS: Enoxaparin Sodium 40 MG/0.4 ML SYRINGE SUBCUT (17:33)
[2023-10-08 19:18] VITALS: BP 138/66; PULSE 65; RESP 17; TEMP 36.7; O2SAT 98
[2023-10-08 20:39] LABS: Glucose, Whole Blood 171 mg/dL (60-115)
--- NOTE | 2023-10-08 22:43 | PC.NURSE ---
Gabapentin dose verified with pharmacist
[2023-10-09 03:40] VITALS: BP 175/77; PULSE 59; RESP 14; TEMP 36; O2SAT 96
[2023-10-09] MEDS: Omeprazole 40 MG CAPSULE.DR PO (06:39)
[2023-10-09 06:45] LABS: MANUAL DIFF FLAG NO
[2023-10-09 06:51] LABS: Basophils Percent Auto 0.6 % (0-2); Eosinophils Absolute Auto 0.1 X10*3/uL (0.0-0.4); Eosinophils Percent Auto 1.5 % (0-4); Hematocrit 40.3 % (42.0-52.0); Hemoglobin 13.3 g/dl (14.0-18.0); Lymphocytes Absolute Auto 1.5 X10*3/uL (1.2-4.9); Lymphocytes Percent Auto 31.9 % (20-40); Mean Corpuscular Hemoglobin 29.1 pg (27.0-33.0); Mean Corpuscular Volume 88.2 fL (80.0-98.0); Mean Platelet Volume 12.2 fL (9.4-12.4); Monocytes Absolute Auto 0.4 X10*3/uL (0.1-1.2); Monocytes Percent Auto 8.6 % (2-11); Neutrophils Absolute Auto 2.7 x10*3/uL (2.0-8.3); Neutrophils Percent Auto 57.4 % (45-73); Platelet Count 135 X10*3/uL (160-400); Red Blood Count 4.57 X10*6/uL (4.60-5.80); Red Cell Distribution Width 12.4 % (11.0-16.0); White Blood Count 4.7 X10*3/uL (4.8-10.8)
[2023-10-09 07:10] LABS: Alanine Aminotransferase 97 U/L (0-40); Albumin Level 3.4 g/dL (3.5-5.0); Alkaline Phosphatase 85 U/L (39-117); Anion Gap 10 (12-20); Aspartate Amino Transferase 52 U/L (5-37); Bilirubin Total 0.3 mg/dL (0.0-1.0); Blood Urea Nitrogen 11 mg/dL (9-16); Calcium 8.5 mg/dL (8.4-10.2); Carbon Dioxide 29 mmol/L (22-29); Chloride 106 mmol/L (96-108); Creatinine Clr Calc Pharmacy 91.9; Estimated Glomerular Filt Rate > 60; Glucose Fasting 136 mg/dL (60-99); Sodium 141 mmol/L (135-145)
[2023-10-09 07:38] LABS: Glucose, Whole Blood 137 mg/dL (60-115)
[2023-10-09] MEDS: FLUoxetine HCl 20 MG CAPSULE PO (07:49)
[2023-10-09] MEDS: Lipase/Prot/Amylase 24/76/120K 1 CAP CAPSULE.DR 2 CAP PO ×3 (07:49→15:26)
[2023-10-09] MEDS: FLUoxetine HCl 20 MG CAPSULE 40 MG PO (07:49)
[2023-10-09] MEDS: Atorvastatin Calcium 20 MG TABLET PO (07:50)
[2023-10-09] MEDS: Gabapentin 400 MG CAPSULE 1600 MG PO ×2 (07:50→20:01)
[2023-10-09] MEDS: HYDROmorphone HCl 1 MG/ML SYRINGE IVPUSH ×3 (07:56→17:50)
[2023-10-09 08:14] VITALS: BP 117/72; PULSE 62; RESP 16; TEMP 36.5; O2SAT 99
[2023-10-09 09:22] LABS: Carbohydrate Antigen 19-9 <3 U/mL (<34)
[2023-10-09] MEDS: 0.9 % Sodium Chloride Flush 3 ML SYRINGE IVFLUSH ×3 (10:59→20:01)
[2023-10-09] MEDS: oxyCODONE HCl Immed Release 15 MG TABLET 30 MG PO ×3 (10:59→20:01)
[2023-10-09 11:14] LABS: Glucose, Whole Blood 143 mg/dL (60-115)
[2023-10-09] MEDS: Metoclopramide HCl 10 MG/2 ML VIAL IVPUSH (11:43)
--- NOTE | 2023-10-09 12:13 | MHC.CLN ---
NUTRITION DIET ADVANCED THIS MORNING FROM CLEAR LIQUIDS TO DIABETIC 1800 KCALS. WAS CLEAR LIQUIDS DUE TO ABDOMINAL PAIN. FOLLOW FOR DIET TOLERANCE AND INTAKE.
--- NOTE | 2023-10-09 12:29 | MHC.CM.PN ---
EMR REVIEWED. PER MD ROUNDS PATIENT IS NOT MEDICALLY CLEARED FOR DC AT THIS TIME, ONGOING PAIN AND DECREASED APPETITE, MRI ABD PENDING. CM WILL CONTINUE TO FOLLOW.
--- NOTE | 2023-10-09 12:56 | P.PNIM_ITS ---
Subjective Subjective Date of Service: 10/09/23 Interval History: abd pain Review of Systems His abdominal pain is on and off, still having difficulty managing with p.o. pain medications require intermittent IV pain medications. Also still not able to tolerate diet. No nausea or vomiting today. Physical Exam 2 Vital Signs: Vital Signs: Last Vital Signs Temp 97.7 F 10/09/23 08:14 Pulse 62 10/09/23 08:14 Resp 16 10/09/23 08:14 BP 117/72 10/09/23 08:14 Pulse Ox 99 10/09/23 08:14 O2 Del Method Room Air 10/09/23 08:14 BMI result Body Mass Index 26.0 Appearance: Alert.? Oriented X3.? cvs: rrr, [id number] , no murmur res: clear to auscultation ,no rhonchii or wheezing abd: no rebound or guarding ,nonspecific diffuse abd pain similar to yesterday, bs present. ext pulses present , no cyanosis . neuro: axo3 , nonfocal. Objective Data Active Medications Acetaminophen (Acetaminophen 325 Mg Tablet) 650 mg PO Q6H PRN PRN Reason: Pain, Mild (Pain Scale 1-3) Lipase/Protease/Amylase (Lipase/Prot/Amylase 24/76/120k 1 Cap Capsule.) 1 cap PO BID PRN PRN Reason: with snacks Lipase/Protease/Amylase (Lipase/Prot/Amylase 24/76/120k 1 Cap Capsule.) 2 cap PO TIDWM [facility] Last Admin: 10/09/23 10:59 Dose: 2 cap Documented By: ANGIE Atorvastatin Calcium (Atorvastatin Calcium 20 Mg Tablet) 20 mg PO DAILY [facility] Last Admin: 10/09/23 07:50 Dose: 20 mg Documented By: MARY Cyanocobalamin (Cyanocobalamin (Vitamin B-12) 1,000 Mcg Tablet) 1,000 mcg PO SuTuTh@0900 [facility] Last Admin: 10/08/23 08:02 Dose: 1,000 mcg Documented By: MARY Dextrose (Dextrose 50 % 25 Gm/50 Ml Syringe) 25 gm IVPUSH Q15M PRN; Protocol PRN Reason: per Hypoglycemia Standing Ord. Dicyclomine HCl (Dicyclomine Hcl 10 Mg Capsule) 10 mg PO TID PRN PRN Reason: abdominal pain Enoxaparin Sodium (Enoxaparin Sodium 40 Mg/0.4 Ml Syringe) 40 mg SUBCUT Q24H [facility] Last Admin: 10/08/23 17:33 Dose: 40 mg Documented By: YVES Fluoxetine HCl (Fluoxetine Hcl 20 Mg Capsule) 20 mg PO DAILY [facility] Last Admin: 10/09/23 07:49 Dose: 20 mg Documented By: MARY Fluoxetine HCl (Fluoxetine Hcl 20 Mg Capsule) 40 mg PO DAILY [facility] Last Admin: 10/09/23 07:49 Dose: 40 mg Documented By: MARY Gabapentin (Gabapentin 400 Mg Capsule) 1,600 mg PO BID [facility] Last Admin: 10/09/23 07:50 Dose: 1,600 mg Documented By: MARY Glucose (Glucose Gel 15 Gm Gel..Gram.) 15 gm PO Q15M PRN; Protocol PRN Reason: per Hypoglycemia Standing Ord. Hydromorphone HCl (Hydromorphone Hcl 1 Mg/Ml Syringe) 1 mg IVPUSH Q3H PRN; Protocol PRN Reason: Pain, Severe (Pain Scale 7-10) Last Admin: 10/09/23 07:56 Dose: 1 mg Documented By: MARY Insulin Human Lispro (Insulin Lispro 100 Unit/Ml 3 Ml Vial) 0 unit SUBCUT QIDACHS [facility]; Protocol Last Admin: 10/09/23 11:44 Dose: Not Given Documented By: ANGIE Non-Admin Reason: No Insulin Coverage Naloxone HCl (Naloxone Hcl 0.4 Mg/Ml Vial) 0.04 mg IVPUSH Q5M PRN PRN Reason: Respiratory Rate < 10 Omeprazole (Omeprazole 40 Mg Capsule.) 40 mg PO DAILY@0630 [facility] Last Admin: 10/09/23 06:39 Dose: 40 mg Documented By: JERROD Ondansetron HCl (Ondansetron Hcl 4 Mg/2 Ml Vial) 4 mg IVPUSH Q8H PRN PRN Reason: Nausea and Vomiting Oxycodone HCl (Oxycodone Hcl Immed Release 15 Mg Tablet) 30 mg PO Q4H PRN PRN Reason: Pain, Moderate(Pain Scale 4-6) Last Admin: 10/09/23 10:59 Dose: 30 mg Documented By: ANGIE Sodium Chloride (0.9 % Sodium Chloride Flush 3 Ml Syringe) 3 ml IVFLUSH QSHIFT [facility] Last Admin: 10/09/23 10:59 Dose: 3 ml Documented By: ANGIE Tramadol HCl (Tramadol Hcl 50 Mg Tablet) 50 mg PO Q8H PRN PRN Reason: Pain, Mild (Pain Scale 1-3) Trazodone HCl (Trazodone Hcl 100 Mg Tablet) 100 mg PO BEDTIME PRN PRN Reason: Insomnia Labs 10/09/23 06:32 10/09/23 06:32 Labs: Laboratory Results - last 24 hr 10/08/23 10/08/23 10/08/23 06:13 16:07 20:35 MCV MCH MCHC RDW Plt Count MPV Immature Gran % (Auto) Neut % (Auto) Lymph % (Auto) Bradley % (Auto) Eos % (Auto) Baso % (Auto) Lymph # (Auto) Bradley # (Auto) Eos # (Auto) Baso # (Auto) Abs Immat Gran (auto) Absolute Neuts (auto) Absolute Nucleated RBC Nucleated RBC % (auto) Anion Gap Estim Creat Clear Calc Estimated GFR POC Glucose 113 171 H Fasting Glucose Calcium Total Bilirubin AST ALT Alkaline Phosphatase Total Protein Albumin CA 19-9 Antigen <3 10/09/23 10/09/23 10/09/23 06:32 07:25 11:04 MCV 88.2 MCH 29.1 MCHC 33.0 RDW 12.4 Plt Count 135 L MPV 12.2 Immature Gran % (Auto) 0.0 Neut % (Auto) 57.4 Lymph % (Auto) 31.9 Bradley % (Auto) 8.6 Eos % (Auto) 1.5 Baso % (Auto) 0.6 Lymph # (Auto) 1.5 Bradley # (Auto) 0.4 Eos # (Auto) 0.1 Baso # (Auto) 0.0 Abs Immat Gran (auto) 0.00 Absolute Neuts (auto) 2.7 Absolute Nucleated RBC 0.000 Nucleated RBC % (auto) 0.0 Anion Gap 10 L Estim Creat Clear Calc 91.9 Estimated GFR > 60 POC Glucose 137 H 143 H Fasting Glucose 136 H Calcium 8.5 Total Bilirubin 0.3 AST 52 H ALT 97 H Alkaline Phosphatase 85 Total Protein 6.0 L Albumin 3.4 L CA 19-9 Antigen Assessment and Plan (1) DM2 (diabetes mellitus, type 2): Status: Acute (2) Intractable abdominal pain: Status: Acute Plan 52-year-old male with a history of adenocarcinoma of the pancreas status post Whipple presents today with intractable abdominal pain. Hypertension Emergency room discuss with [facility] surgery who felt there was no indication for surgery but a GI workup was warranted. At this time his pain is responsive only to IV medicines. States pills are ineffective 1. Intractable abdominal pain secondary to pancreatic cancer Heme/Onc consult-added CA 19.9 ,mri abd-pendin . clears,pain control-Dilaudid alternating with oral oxycodone, will try to advance diet slowly if patient tolerates. 2. Diabetes type 2 -acceptable control on current therapies -will hold metformin times 24 hours given IV contrast -restart when appropriate -lispro corrctional scale 3. Hypertension -acceptable control on current therapies -adjust as indicated Full code Lovenox Patient will require ongoing hospitalization for adequate pain control required IV analgesia-patient abd pain has minimum response so far, abd pain workup. Quality Stroke Does the patient have a stroke diagnosis?: No VTE Prior VTE?: No VTE Risk Level:: Medical - moderate - high VTE Device Contraindication: Treatment Not Indicated VTE Drug Contraindication: N/A - Med Ordered
[2023-10-09 15:11] VITALS: BP 120/66; PULSE 54; RESP 15; TEMP 36.6; O2SAT 98
[2023-10-09] MEDS: Enoxaparin Sodium 40 MG/0.4 ML SYRINGE SUBCUT (15:26)
[2023-10-09 16:15] LABS: Glucose, Whole Blood 271 mg/dL (60-115)
[2023-10-09] MEDS: Insulin Lispro 100 UNIT/ML 3 ML VIAL SUBCUT ×2 (16:56→21:27)
[2023-10-09 19:42] VITALS: BP 120/61; PULSE 51; RESP 18; TEMP 36.3; O2SAT 98
[2023-10-09] MEDS: Docusate Sodium 100 MG CAPSULE PO (20:01)
[2023-10-09] MEDS: polyethylene glycoL 3350 17 GM POWD.PACK PO (20:01)
[2023-10-09 21:04] LABS: Glucose, Whole Blood 211 mg/dL (60-115)
[2023-10-10 04:00] VITALS: BP 131/81; PULSE 53; RESP 18; TEMP 36.7; O2SAT 100
[2023-10-10] MEDS: Omeprazole 40 MG CAPSULE.DR PO (06:00)
[2023-10-10 07:36] LABS: Glucose, Whole Blood 133 mg/dL (60-115)
[2023-10-10 07:44] VITALS: BP 166/82; PULSE 53; RESP 17; TEMP 36.4; O2SAT 97
[2023-10-10] MEDS: Gabapentin 400 MG CAPSULE 1600 MG PO ×2 (08:37→20:29)
[2023-10-10] MEDS: Atorvastatin Calcium 20 MG TABLET PO (08:37)
[2023-10-10] MEDS: Lipase/Prot/Amylase 24/76/120K 1 CAP CAPSULE.DR 2 CAP PO ×3 (08:37→17:06)
[2023-10-10] MEDS: FLUoxetine HCl 20 MG CAPSULE 40 MG PO (08:37)
[2023-10-10] MEDS: Docusate Sodium 100 MG CAPSULE PO ×2 (08:37→20:29)
[2023-10-10] MEDS: FLUoxetine HCl 20 MG CAPSULE PO (08:37)
[2023-10-10] MEDS: polyethylene glycoL 3350 17 GM POWD.PACK PO (08:38)
[2023-10-10] MEDS: oxyCODONE HCl Immed Release 15 MG TABLET 30 MG PO ×2 (08:44→18:06)
[2023-10-10] MEDS: Cyanocobalamin (Vitamin B-12) 1,000 MCG TABLET 1000 MCG PO (08:44)
[2023-10-10] MEDS: 0.9 % Sodium Chloride Flush 3 ML SYRINGE IVFLUSH ×3 (08:45→20:29)
[2023-10-10] MEDS: Lactulose 20 GM/30 ML SOLUTION 10 GM PO (10:37)
[2023-10-10 11:22] LABS: Glucose, Whole Blood 239 mg/dL (60-115)
--- NOTE | 2023-10-10 12:12 | P.PNIM_ITS ---
Subjective Subjective Date of Service: 10/11/23 Interval History: abd pain Review of Systems abd pain persistent could tolerate some diet today Physical Exam 2 Vital Signs: Vital Signs: Last Vital Signs Temp 97.5 F 10/10/23 07:44 Pulse 53 10/10/23 07:44 Resp 17 10/10/23 07:44 BP 166/82 H 10/10/23 07:44 Pulse Ox 97 10/10/23 07:44 O2 Del Method Room Air 10/10/23 07:44 BMI result Body Mass Index 26.0 Appearance: Alert.? Oriented X3.? cvs: rrr, [id number] , no murmur res: clear to auscultation ,no rhonchii or wheezing abd: no rebound or guarding ,most pain in navel and near ruq , bs present. ext pulses present , no cyanosis . neuro: axo3 , nonfocal. Objective Data Active Medications Acetaminophen (Acetaminophen 325 Mg Tablet) 650 mg PO Q6H PRN PRN Reason: Pain, Mild (Pain Scale 1-3) Lipase/Protease/Amylase (Lipase/Prot/Amylase 24/76/120k 1 Cap Capsule.) 1 cap PO BID PRN PRN Reason: with snacks Lipase/Protease/Amylase (Lipase/Prot/Amylase 24/76/120k 1 Cap Capsule.) 2 cap PO TIDWM [facility] Last Admin: 10/10/23 08:37 Dose: 2 cap Documented By: KEVIN Atorvastatin Calcium (Atorvastatin Calcium 20 Mg Tablet) 20 mg PO DAILY [facility] Last Admin: 10/10/23 08:37 Dose: 20 mg Documented By: KEVIN Cyanocobalamin (Cyanocobalamin (Vitamin B-12) 1,000 Mcg Tablet) 1,000 mcg PO SuTuTh@0900 [facility] Last Admin: 10/10/23 08:44 Dose: 1,000 mcg Documented By: KEVIN Dextrose (Dextrose 50 % 25 Gm/50 Ml Syringe) 25 gm IVPUSH Q15M PRN; Protocol PRN Reason: per Hypoglycemia Standing Ord. Dicyclomine HCl (Dicyclomine Hcl 10 Mg Capsule) 10 mg PO TID PRN PRN Reason: abdominal pain Docusate Sodium (Docusate Sodium 100 Mg Capsule) 100 mg PO BID [facility] Last Admin: 10/10/23 08:37 Dose: 100 mg Documented By: KEVIN Enoxaparin Sodium (Enoxaparin Sodium 40 Mg/0.4 Ml Syringe) 40 mg SUBCUT Q24H [facility] Last Admin: 10/09/23 15:26 Dose: 40 mg Documented By: ANGIE Fluoxetine HCl (Fluoxetine Hcl 20 Mg Capsule) 20 mg PO DAILY [facility] Last Admin: 10/10/23 08:37 Dose: 20 mg Documented By: KEVIN Fluoxetine HCl (Fluoxetine Hcl 20 Mg Capsule) 40 mg PO DAILY [facility] Last Admin: 10/10/23 08:37 Dose: 40 mg Documented By: KEVIN Gabapentin (Gabapentin 400 Mg Capsule) 1,600 mg PO BID [facility] Last Admin: 10/10/23 08:37 Dose: 1,600 mg Documented By: KEVIN Glucose (Glucose Gel 15 Gm Gel..Gram.) 15 gm PO Q15M PRN; Protocol PRN Reason: per Hypoglycemia Standing Ord. Hydromorphone HCl (Hydromorphone Hcl 1 Mg/Ml Syringe) 1 mg IVPUSH Q3H PRN; Protocol PRN Reason: Pain, Severe (Pain Scale 7-10) Last Admin: 10/09/23 17:50 Dose: 1 mg Documented By: ANGIE Insulin Human Lispro (Insulin Lispro 100 Unit/Ml 3 Ml Vial) 0 unit SUBCUT QIDACHS [facility]; Protocol Last Admin: 10/10/23 07:38 Dose: Not Given Documented By: KEVIN Non-Admin Reason: No Insulin Coverage Naloxone HCl (Naloxone Hcl 0.4 Mg/Ml Vial) 0.04 mg IVPUSH Q5M PRN PRN Reason: Respiratory Rate < 10 Omeprazole (Omeprazole 40 Mg Capsule.Dr) 40 mg PO DAILY@0630 [facility] Last Admin: 10/10/23 06:00 Dose: 40 mg Documented By: VANIARISCydney Ondansetron HCl (Ondansetron Hcl 4 Mg/2 Ml Vial) 4 mg IVPUSH Q8H PRN PRN Reason: Nausea and Vomiting Oxycodone HCl (Oxycodone Hcl Immed Release 15 Mg Tablet) 30 mg PO Q4H PRN PRN Reason: Pain, Moderate(Pain Scale 4-6) Last Admin: 10/10/23 08:44 Dose: 30 mg Documented By: KEVIN Polyethylene Glycol (Polyethylene Glycol 3350 17 Gm Powd.Pack) 17 gm PO DAILY [facility] Last Admin: 10/10/23 08:38 Dose: 17 gm Documented By: KEVIN Sodium Chloride (0.9 % Sodium Chloride Flush 3 Ml Syringe) 3 ml IVFLUSH QSHIFT [facility] Last Admin: 10/10/23 08:45 Dose: 3 ml Documented By: KEVIN Tramadol HCl (Tramadol Hcl 50 Mg Tablet) 50 mg PO Q8H PRN PRN Reason: Pain, Mild (Pain Scale 1-3) Trazodone HCl (Trazodone Hcl 100 Mg Tablet) 100 mg PO BEDTIME PRN PRN Reason: Insomnia Labs 10/09/23 06:32 10/09/23 06:32 Labs: Laboratory Results - last 24 hr 10/09/23 10/09/23 10/10/23 16:06 20:44 07:25 POC Glucose 271 H 211 H 133 H 10/10/23 11:10 POC Glucose 239 H Assessment and Plan (1) Intractable abdominal pain: Status: Acute Plan 52-year-old male with a history of adenocarcinoma of the pancreas status post Whipple presents today with intractable abdominal pain. Hypertension Emergency room discuss with [facility] General surgery who felt there was no indication for surgery but a GI workup was warranted. At this time his pain is responsive only to IV medicines. States pills are ineffective 1. Intractable abdominal pain secondary to pancreatic cancer Heme/Onc consult-added CA 19.9 is less than 3 mri abd: 1. Interval resolution of the common bile duct stone, removal of common bile duct stent visualized on CT scan of abdomen on 05/28/2022. 2. Interval performance of cholecystectomy. No evidence of hepatobiliary duct dilatation or ductal stones. 3. No focal liver mass lesion could be found. 4. Interval resolution of pancreatic edema. Interval increase prominence of pancreatic duct which is at upper limit of normal. No focal pancreatic lesion is found. Patient still has persistent pain, LFTs improving, MRI addendum is pending clears,pain control-Dilaudid alternating with oral oxycodone, will try to advance diet slowly if patient tolerates. Added GI evaluation due to unclear etiology of abdominal pain. 2. Diabetes type 2 -acceptable control on current therapies -will hold metformin times 24 hours given IV contrast -restart when appropriate -lispro corrctional scale 3. Hypertension -acceptable control on current therapies -adjust as indicated Full code Lovenox Patient will require ongoing hospitalization for adequate pain control required IV analgesia-patient abd pain has minimum response so far, abd pain workup. Quality Stroke Does the patient have a stroke diagnosis?: No VTE Prior VTE?: No VTE Risk Level:: Medical - moderate - high VTE Device Contraindication: Treatment Not Indicated VTE Drug Contraindication: N/A - Med Ordered
[2023-10-10] MEDS: Insulin Lispro 100 UNIT/ML 3 ML VIAL SUBCUT ×3 (12:22→20:29)
[2023-10-10 16:00] VITALS: BP 157/76; PULSE 59; RESP 18; TEMP 36.8; O2SAT 98
--- NOTE | 2023-10-10 16:27 | PC.NURSE ---
pts family requests daughter Jocelin Rosado be contacted with any updates about pt by doctors at [phone].
[2023-10-10 16:51] LABS: Glucose, Whole Blood 262 mg/dL (60-115)
[2023-10-10] MEDS: Enoxaparin Sodium 40 MG/0.4 ML SYRINGE SUBCUT (17:07)
[2023-10-10] MEDS: HYDROmorphone HCl 1 MG/ML SYRINGE IVPUSH (19:27)
[2023-10-10 20:23] LABS: Glucose, Whole Blood 163 mg/dL (60-115)
[2023-10-11 04:00] VITALS: BP 166/77; PULSE 59; RESP 16; TEMP 36.9; O2SAT 99
[2023-10-11] MEDS: Omeprazole 40 MG CAPSULE.DR PO (05:55)
[2023-10-11] MEDS: HYDROmorphone HCl 1 MG/ML SYRINGE IVPUSH (05:58)
[2023-10-11 07:59] LABS: Glucose, Whole Blood 158 mg/dL (60-115)
[2023-10-11 08:00] VITALS: BP 142/85; PULSE 66; RESP 18; TEMP 36; O2SAT 97
[2023-10-11] MEDS: Insulin Lispro 100 UNIT/ML 3 ML VIAL SUBCUT ×2 (08:11→11:52)
[2023-10-11] MEDS: FLUoxetine HCl 20 MG CAPSULE 40 MG PO (08:11)
[2023-10-11] MEDS: polyethylene glycoL 3350 17 GM POWD.PACK PO ×2 (08:11→17:00)
[2023-10-11] MEDS: Atorvastatin Calcium 20 MG TABLET PO (08:11)
[2023-10-11] MEDS: Docusate Sodium 100 MG CAPSULE PO (08:11)
[2023-10-11] MEDS: Gabapentin 400 MG CAPSULE 1600 MG PO (08:11)
[2023-10-11] MEDS: Lipase/Prot/Amylase 24/76/120K 1 CAP CAPSULE.DR 2 CAP PO ×3 (08:11→17:00)
[2023-10-11] MEDS: FLUoxetine HCl 20 MG CAPSULE PO (08:11)
[2023-10-11] MEDS: 0.9 % Sodium Chloride Flush 3 ML SYRINGE IVFLUSH ×2 (08:16→17:04)
[2023-10-11] MEDS: oxyCODONE HCl Immed Release 15 MG TABLET 30 MG PO ×2 (09:10→17:00)
[2023-10-11 11:29] LABS: Glucose, Whole Blood 219 mg/dL (60-115)
--- NOTE | 2023-10-11 11:47 | MHC.CM.PN ---
EMR REVIEWED AND PER MD ROUNDS PATIENT NOT MEDICALLY CLEARED FOR DC AT THIS TIME. PENDING GI CONSULT. CM WILL CONTINUE TO FOLLOW.
--- NOTE | 2023-10-11 14:32 | MHC.CLN ---
F/U DIET=DIABETIC 1800 KCALS. PO INTAKE VARIABLE, WITH MOST MEALS 100%. NO SKIN ISSUES. FOLLOW FOR DIET TOLERANCE AND INTAKE.
[2023-10-11 15:41] VITALS: BP 116/75; PULSE 64; RESP 16; TEMP 36.6; O2SAT 99
[2023-10-11 15:50] LABS: Glucose, Whole Blood 147 mg/dL (60-115)
--- NOTE | 2023-10-11 15:50 | PM.DS ---
DS: Providers Provider Date of Service: 10/11/23 Date of admission: 10/06/23 16:17 Date of discharge: 10/11/23 Primary care physician: Akhil Sauceda MD Consults: 10/07/23 07:48 Consult to Hematology / Oncology Stat Consulting Provider: Fredi White Reason for consultation: Pancreatic ca Has provider been notified: Yes 10/10/23 12:13 Consult to Gastroenterology Routine Consulting Provider: Wagner Guan Reason for consultation: persistent abd pain unclear etiology Has provider been notified: No Attending physician on discharge: Valeria Patel Discharging clinician: Valeria Patel DS: Diagnosis Discharge Diagnosis (1) Intractable abdominal pain: Status: Acute DS: Summary Hospital Course Hospital Course: 52-year-old male history of antral carcinoma s/p whipple at [facility] last year, hepatitis A, HTN, DM , pancreatitis, hyperbilirubinemia, presenting to the emergency department for evaluation of epigastric/right upper quadrant pain that is been ongoing for the past few weeks acutely worsening over the past few days, patient reports 2 seen at [facility] yesterday not sure exactly what they thought was wrong with him. He reports 10/10 pain severe, patient is crying upon my history taking. Appears uncomfortable. Associated nausea however no vomiting. Denies chest pain, shortness of breath, radiation of pain , fevers, chills, headache, vision changes, dizziness and weakness. Patient followed by [facility]. ER course Received multiple doses of dilaudid in the ER with only fair control of his pain. Imaging failed to demonstrate any vascular abnormalities. At this point in time he will be admitted for pain control and GI evaluation Hospital course: Patient was admitted for abdominal pain: Patient has history of pancreatic cancer in the past status post surgery: Subsequently was admitted for abdominal pain and CT abdomen showed question of pancreatic lesion again which is demonstrated on MRI. Patient was treated symptom medically-pain is controlled with oxycodone, tolerating diet passing gases and also pass bowels yesterday , bowel regimen added-Colace and MiraLax.. Patient is seen by GI and Hematology: Limited supply of oxycodone for 1 week is given, further management outpatient with PCP, and and strongly advised to follow-up with his primary Oncology and surgery provider in [place]. His daughter is aware in detail. Pain management also discussed with the patient family in detail-may consider outpatient pain management identity access management architect if needed for future. Assessment and plan coordination time spent 50 minute. Above management discussed with patient and his daughter in detail length she understand in agreement with the above plan. Time Attestation Discharge coordination time: Greater than 30 minutes Quality: Safe Use of Opioids Does Pt have an Active Cancer Diagnosis on the Problem List?: No Quality: Stroke Does the patient have a stroke diagnosis?: No Physical Exam Vital Signs: Vital Signs: Last Vital Signs Temp 97.9 F 10/11/23 15:41 Pulse 64 10/11/23 15:41 Resp 16 10/11/23 15:41 BP 116/75 10/11/23 15:41 Pulse Ox 99 10/11/23 15:41 O2 Del Method Room Air 10/11/23 15:41 BMI result Body Mass Index 26.0 Appearance: Alert.? Oriented X3.? cvs: rrr, [id number] , no murmur res: clear to auscultation ,no rhonchii or wheezing abd: no rebound or guarding ,some discomfort but not significant pain, bs present. ext pulses present , no cyanosis . neuro: axo3 , nonfocal. DS: Data Data Completed and Pending Labs on day of discharge: Laboratory Results - last 24 hr 10/10/23 10/10/23 10/11/23 16:47 20:10 07:55 POC Glucose 262 H 163 H 158 H 10/11/23 11:25 POC Glucose 219 H Imaging Chest x-ray: Radiologist's impression: ITS Impressions Abdomen/Pelvis CTA 10/06/23 12:50 IMPRESSION: 1. Mild mural thickening involving distal descending and sigmoid colon without any pericolic fat stranding. Question low-grade inflammatory or infectious etiology. 2. There is pancreatic uncinate process mass with soft tissue thickening along the SMV and SMA. This is new since 05/28/2022. Correlate with MRI abdomen with and without contrast 3. There is pneumobilia from previous intervention. The gallbladder is not visualized. 4. Unremarkable CTA abdominal aorta Fleischner guidelines were followed. Abdomen MRI 10/08/23 12:48 IMPRESSION: 1. Interval resolution of the common bile duct stone, removal of common bile duct stent visualized on CT scan of abdomen on 05/28/2022. 2. Interval performance of cholecystectomy. No evidence of hepatobiliary duct dilatation or ductal stones. 3. No focal liver mass lesion could be found. 4. Interval resolution of pancreatic edema. Interval increase prominence of pancreatic duct which is at upper limit of normal. No focal pancreatic lesion is found. Mri Addendum: Review of the images shows an abrupt cut off of the enhancing normal pancreatic body in the region of head and uncinate process forming a poorly demarcated hypoenhancing lesion measuring 3.0 cm in AP diameter, 2.8 cm in width, series 107 image #57. The hypoenhancing posterior upper peritoneal lesion is seen encasing the superior mesenteric artery, abutting the superior mesenteric vein, measuring 3.0 cm in AP diameter, 3.4 cm in width, 3.2 cm in vertical height, series 107 image #69, series 7 image #24. Both the pancreatic lesion and the superior mesenteric artery encasing lesion are not present on previous MRI of the abdomen on 05/10/2022. Visualization is limited by respiratory motion blurring. 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 Findings are discussed with Dr. Patel on 10/11/2023 at 0831 hours. Discharge Plan Discharge Anticipated Discharge Date/Time: 10/11/23 15:44 Patient Disposition: Home, Self-Care Discharge Diagnosis: Possible pancreatic lesion, abdominal pain. Referrals: Akhil Sauceda MD [Primary Care Provider] - 1 Week Discharge Medications: New docusate sodium 100 mg Capsule 100 mg PO BID Qty: 30 0RF polyethylene glycol 3350 17 gram Powder In Packet 17 g PO BID@0800,1700 Qty: 30 0RF oxycodone 15 mg Tablet 30 mg PO Q4H PRN (Reason: Pain, Moderate(Pain Scale 4-6)) Qty: 56 0RF Rx Instructions: Partial Fill upon patient request. Continued fluoxetine 40 mg capsule 1 cap PO DAILY gabapentin 800 mg tablet 2 tab PO BID trazodone 100 mg tablet 1 tab PO BEDTIME PRN (Reason: Insomnia) fluoxetine 20 mg capsule 1 cap PO DAILY insulin aspart U-100 [Novolog FlexPen U-100 Insulin] 100 unit/mL (3 mL) insulin pen See Protocol subcut TIDAC Protocol: Insulin Correction Scale Less than or equal to 110 ---- Give (units): 0 111 to 150 Give (units): 0 151 to 200 Give (units): 2 201 to 250 Give (units): 4 251 to 300 Give (units): 6 301 to 350 Give (units): 8 Greater than 350 Give (units): 10 Call MD if Blood Glucose > : 350 Fish Oil 340-1,000 mg capsule 1 cap PO TID insulin glargine [Lantus Solostar U-100 Insulin] 100 unit/mL (3 mL) insulin pen 25 unit subcut BID atorvastatin 20 mg tablet 20 mg PO DAILY cyanocobalamin (vitamin B-12) 1,000 mcg tablet 1,000 mcg PO 3XW omeprazole 40 mg capsule,delayed release(DR/EC) 40 mg PO DAILY@0630 dicyclomine 10 mg capsule 10 mg PO TID PRN (Reason: abdominal pain) Creon 24,000-76,000 -120,000 unit capsule,delayed release(DR/EC) 1 cap PO BID PRN (Reason: with snacks) Creon 24,000-76,000 -120,000 unit capsule,delayed release(DR/EC) 2 cap PO TIDWM Discontinued tramadol 50 mg tablet 50 mg PO Q8H PRN (Reason: Pain) Discharge Orders: Discharge Order (Routine); Ordered 10/11/23 Ordered By: Valeria Patel Diet: Advance to usual diet Activity on Discharge: As tolerated Stand Alone Forms: Patient Portal Discharge page Care Plan Goals: Patient was admitted for abdominal pain: Patient has history of pancreatic cancer in the past status post surgery: Subsequently was admitted for abdominal pain and CT abdomen showed question of pancreatic lesion again which is demonstrated on MRI. Patient was treated symptom medically-pain is controlled with oxycodone, tolerating diet passing gases, bowel regimen added-Colace and MiraLax.. Patient is seen by GI and Hematology: Limited supply of oxycodone for 1 week is given, further management outpatient with PCP, and and strongly advised to follow-up with his primary Oncology and surgery provider in [place]. His daughter is aware in detail. Pain management also discussed with the patient family in detail-may consider outpatient pain management identity access management architect if needed for future. Assessment and plan coordination time spent 50 minute. Health Concerns: As above. Plan of Treatment: As above. Assessment: As above.
[2023-10-11] MEDS: Enoxaparin Sodium 40 MG/0.4 ML SYRINGE SUBCUT (16:57)
[2023-10-11] MEDS: Lactulose 20 GM/30 ML SOLUTION PO (17:00)
== END 2023-10-11 18:25 | disposition home or self-care (01) | DRG 948 ==
LOC: HO.ED 15:25 → HO.EDOVER 16:21 → HO.S3 18:08
PROVIDERS: Internal Medicine Medical Oncology; Physician Assistant; Admitting Provider Hospitalist; Emergency Provider Emergency Medicine; PCP Internal Medicine; Visit Provider Internal Medicine
DX: G89.3 Neoplasm related pain (acute) (chronic) (principal); D61.818 Other pancytopenia; C25.9 Malignant neoplasm of pancreas, unspecified; E11.9 Type 2 diabetes mellitus without complications; I10 Essential (primary) hypertension; F17.210 Nicotine dependence, cigarettes, uncomplicated; Z71.6 Tobacco abuse counseling; Z79.899 Other long term (current) drug therapy
CPT/HCPCS: 36415; 74174; 74183; 80053; 82947; 83690; 83735; 84484; 85025; 86301; 99285; A9585; J1170; J1650; J2270; J2765; Q9967

== ENCOUNTER → 2023-10-06 16:17 | Outpatient (BNV) | payer OTHER, SELFPAY | PROVIDERS: Admitting Provider Hospitalist; Emergency Provider Emergency Medicine; PCP Internal Medicine; Visit Provider Internal Medicine Medical Oncology | DX: R10.9 Unspecified abdominal pain (principal); K86.89 Other specified diseases of pancreas | CPT/HCPCS: 99222 ==

== ENCOUNTER → 2023-10-06 16:17 | Outpatient (BNV) | payer OTHER, SELFPAY | PROVIDERS: Admitting Provider Hospitalist; Emergency Provider Emergency Medicine; PCP Internal Medicine; Visit Provider Hospitalist | DX: C25.3 Malignant neoplasm of pancreatic duct (principal); R10.9 Unspecified abdominal pain | CPT/HCPCS: 99223; 99231; 99232; 99233; 99239 ==

== ENCOUNTER 2023-10-24 15:14 | Emergency (ER) | payer OTHER, SELFPAY ==
--- NOTE | ~2023-10-24 | XR_ITS ---
EXAMINATION: XR ABDOMEN KUB CLINICAL INDICATION: Constipation abdominal pain COMPARISON: None available. TECHNIQUE: AP view of the abdomen. FINDINGS: The bowel gas pattern is normal with no evidence of ileus or obstruction. Large amount of stool throughout the colon, without colonic dilatation. No unusual soft tissue calcifications are noted. The bones are unremarkable. XR/XR KUB IMPRESSION: * Moderate constipation. * No evidence of obstruction.
[2023-10-24 15:41] VITALS: BP 114/66; PULSE 68; RESP 16; TEMP 36.3; O2SAT 97; BMI 25.8
--- NOTE | 2023-10-24 15:43 | ED_ITS ---
HPI - General Adult General Chief complaint: Urogenital-Male Stated complaint: Urinary Difficulty Time Seen by Provider: 10/24/23 21:17 Source: patient Mode of arrival: ambulatory Limitations: no limitations History of Present Illness HPI narrative: Patient 52 years old with history of biliary adenocarcinoma status post Whipple surgery, hypertension, diabetes pancreatitis comes here difficulty in urinate for last few days feel discomfort in suprapubic area, with dysuria and frequency, bladder scan was done which showed only 66 cc of urine and patient urinated after that patient on oxycodone 30 mg every 4 hours no nausea no vomiting no hematuria Related Data Home Medications Medication Instructions Recorded Confirmed fluoxetine 20 mg capsule 1 cap PO DAILY 05/09/22 10/06/23 fluoxetine 40 mg capsule 1 cap PO DAILY 05/09/22 10/06/23 gabapentin 800 mg tablet 2 tab PO BID 05/09/22 10/06/23 insulin aspart U-100 100 unit/mL See Protocol subcut TIDAC 05/09/22 10/06/23 (3 mL) subcutaneous pen (Novolog FlexPen U-100 Insulin aspart) omega-3 fatty acids-fish oil 340 1 cap PO TID 05/09/22 10/06/23 mg-1,000 mg capsule (Fish Oil) trazodone 100 mg tablet 1 tab PO BEDTIME PRN Insomnia 05/09/22 10/06/23 insulin glargine 100 unit/mL (3 25 unit subcut BID 05/28/22 10/06/23 mL) subcutaneous pen (Lantus Solostar U-100 Insulin) atorvastatin 20 mg tablet 20 mg PO DAILY 10/06/23 10/06/23 cyanocobalamin (vitamin B-12) 1,000 mcg PO 3XW 10/06/23 10/06/23 1,000 mcg tablet dicyclomine 10 mg capsule 10 mg PO TID PRN abdominal pain 10/06/23 10/06/23 [id number] 1 cap PO BID PRN with snacks 10/06/23 10/06/23 24,000-76,000-120,000 unit capsule,delayed rel (Creon) [id number] 2 cap PO TIDWM 10/06/23 10/06/23 24,000-76,000-120,000 unit capsule,delayed rel (Creon) omeprazole 40 mg capsule,delayed 40 mg PO DAILY@0630 10/06/23 10/06/23 release Previous Rx's Medication Instructions Recorded docusate sodium 100 mg capsule 100 mg PO BID #30 caps 10/11/23 oxycodone 15 mg tablet 30 mg (2 x 15 mg) PO Q4H PRN Pain, 10/11/23 Moderate(Pain Scale 4-6) #56 tabs polyethylene glycol 3350 17 gram 17 g PO BID@0800,1700 #30 ea 10/11/23 oral powder packet magnesium hydroxide 400 mg/5 mL 15 ml PO BEDTIME PRN constipation 10/24/23 oral suspension (Milk of Magnesia) #355 mL Allergies Allergy/AdvReac Type Severity Reaction Status Date / Time Penicillins [PCN] Allergy Intermediate Unknown Verified 09/01/23 02:39 Review of Systems 2 Review of Systems: Yes all other systems are reviewed and are negative [facility] Past Medical History Medical History (Updated 10/24/23 @ 23:52 by David Ferreira MD) Erectile dysfunction Vitamin D deficiency Dyslipidemia HTN (hypertension) Depression DM2 (diabetes mellitus, type 2) Injury of right brachial plexus Subdural hematoma Subarachnoid hemorrhage Surgical History (Updated 10/24/23 @ 21:46 by David Ferreira MD) H/O Whipple procedure History of surgery on arm Family History Family History Other No family history of coronary artery disease Social History Social History Household Members: Spouse and Children Housing: Homeless Do you presently have visiting nurse or other home services: No Alcohol intake: never Patient Tobacco Use Status: Current everyday Tobacco user Tobacco use type: Cigarette Cigarette Packs Per Day: 0.5 Years Smoked: 11 Smoked in Last 30 Days: Yes e-Cigarette/Vaping Use: Never Used Second Hand Smoke Exposure: No Use of substances other than those prescribed or required for medical reasons: No Substance Use Type: Crack/Cocaine Advance Directives: Yes Advance Directives on File: Yes Advance Directives Date on File: 05/11/22 service: No Current occupational status: unemployed Physical Exam ED Vital Signs: Vital Signs - 24 hr 10/24/23 15:41 10/24/23 20:00 Temperature 97.3 F 98.3 F Pulse Rate 68 59 Respiratory Rate 16 15 Blood Pressure 114/66 141/69 H Pulse Oximetry 97 98 Oxygen Delivery Method Room Air Room Air BMI result Body Mass Index 25.8 Appearance: Alert. Oriented X3. No acute distress. Eyes: PERRLA, No Nystagmus ENT: Pharynx normal. Oral Mucosa moist Neck: Normal inspection. Neck supple. CVS: Normal heart rate and rhythm. Pulses normal. Respiratory: No respiratory distress. Equal air entry bilateral, no wheezing/rales/rhonchi Abdomen: Soft , tenderness mid abdomen no rebound tenderness or guarding Bowel sounds are present, no mass palpable, no CVA tenderness Skin: Skin warm and dry. Normal skin color. Normal skin turgor. Extremities: No lower extremity edema. No calf tenderness Neuro: Oriented X 3. No motor deficit. No sensory deficit.No cerebellar signs , cranial nerves II-XII intact Course Course Course Narrative: This is a rapid medical exam: Additional HPI, ROS, PE not included below will be deferred to primary provider. Patient is a 52-year-old male presenting to the ED with complaint of inability to urinate since 7 or 8pm last night. For several days was urinating smaller amounts than normal. Also complains of right flank pain. Denies fevers. Plan: UA, bladder scan Medications Administered Discontinued Medications Generic Name Dose Route Start Last Admin Trade Name Kolbyq PRN Reason Stop Dose Admin Bisacodyl 10 mg 10/24/23 22:57 10/24/23 23:19 Bisacodyl 5 Mg Tablet.Dr PO 10/24/23 22:58 10 mg ONCE ONE Administration Magnesium Hydroxide 30 ml 10/24/23 22:57 10/24/23 23:19 Milk Of Magnesia 30 Ml Oral.Susp PO 10/24/23 22:58 30 ml ONCE ONE Administration Morphine Sulfate 15 mg 10/24/23 21:44 10/24/23 21:50 Morphine Sulfate Immed Release 15 Mg Tablet PO 10/24/23 21:45 15 mg ONCE ONE Administration Oxycodone HCl 10 mg 10/24/23 21:17 10/24/23 21:20 Oxycodone Hcl Immed Release 5 Mg Tablet PO 10/24/23 21:18 10 mg ONCE ONE Administration Phenazopyridine HCl 200 mg 10/24/23 21:44 10/24/23 21:50 Phenazopyridine Hcl 200 Mg Tablet PO 10/24/23 21:45 200 mg ONCE ONE Administration Medical Decision Making Medical Decision Making [facility] Narrative: Patient urinated in the ER bladder scan showed 118 cc urine. Patient has a significant constipation that was taking milk of magnesium along with MiraLax and Dulcolax and follow with his emergency worker Differential Diagnosis Differential Diagnoses: The differential diagnosis associated with the presentation includes UTI/constipation/new MARCY Lab Data [facility] Lab Attestation statement: I reviewed the patient's lab results. 10/24/23 16:01 10/24/23 16:01 Labs: Lab Results 10/24/23 10/24/23 Range/Units 16:01 20:57 WBC 5.1 (4.8-10.8) X10*3/uL RBC 4.83 (4.60-5.80) X10*6/uL Hgb 14.0 (14.0-18.0) g/dl Hct 43.0 (42.0-52.0) % MCV 89.0 (80.0-98.0) fL MCH 29.0 (27.0-33.0) pg MCHC 32.6 (31.0-36.0) g/dl RDW 12.5 (11.0-16.0) % Plt Count 172 D (160-400) X10*3/uL MPV 11.8 (9.4-12.4) fL Immature Gran % (Auto) 0.4 (0.0-0.4) % Neut % (Auto) 65.4 (45-73) % Lymph % (Auto) 26.1 (20-40) % Lamar % (Auto) 6.5 (2-11) % Eos % (Auto) 1.2 (0-4) % Baso % (Auto) 0.4 (0-2) % Lymph # (Auto) 1.3 (1.2-4.9) X10*3/uL Lamar # (Auto) 0.3 (0.1-1.2) X10*3/uL Eos # (Auto) 0.1 (0.0-0.4) X10*3/uL Baso # (Auto) 0.0 (0.0-0.2) X10*3/uL Abs Immat Gran (auto) 0.02 (0.00-0.03) X10*3/uL Absolute Neuts (auto) 3.3 (2.0-8.3) x10*3/uL Absolute Nucleated RBC 0.000 (0.0-0.012) X10*3/uL Nucleated RBC % (auto) 0.0 (0.0-0.2) /100WBC Sodium 143 (135-145) mmol/L Potassium 4.2 (3.3-5.1) mmol/L Chloride 106 (96-108) mmol/L Carbon Dioxide 30 H (22-29) mmol/L Anion Gap 11 L (12-20) BUN 18 H (9-16) mg/dL Creatinine 0.88 (0.5-1.4) mg/dL Estim Creat Clear Calc 101.3 Estimated GFR > 60 Random Glucose 117 H (60-115) mg/dL Calcium 9.4 D (8.4-10.2) mg/dL Total Bilirubin 0.3 (0.0-1.0) mg/dL Direct Bilirubin 0.1 (0.0-0.5) mg/dL AST 53 H (5-37) U/L ALT 92 H (0-40) U/L Alkaline Phosphatase 105 (39-117) U/L Total Protein 6.9 (6.5-8.0) g/dL Albumin 3.9 (3.5-5.0) g/dL Urine Color Yellow Urine Appearance Clear Urine pH 5.5 (5.0-9.0) Ur Specific [place] >= 1.030 H (1.005-1.025) Urine Protein Negative (Neg-Trace) mg/dL Urine Glucose (UA) 250 H (Negative) mg/dL Urine Ketones Trace (Negative) mg/dL Urine Blood Negative (Negative) Urine Nitrite Negative (Negative) Ur Leukocyte Esterase Negative (Negative) Discharge Plan Discharge Clinical Impression: Constipation, Biliary tract cancer Patient Disposition: Home, Self-Care Instructions: Constipation (ED), Pancreatic Cancer (DC) Additional Instructions: Drink plenty of fluids Continue to take Medication for constipation as advised Take your pain medication as prescribed Prescriptions: New magnesium hydroxide [Milk of Magnesia] 400 mg/5 mL suspension 15 ml PO BEDTIME PRN (Reason: constipation) Qty: 355 0RF No Action fluoxetine 40 mg capsule 1 cap PO DAILY gabapentin 800 mg tablet 2 tab PO BID trazodone 100 mg tablet 1 tab PO BEDTIME PRN (Reason: Insomnia) fluoxetine 20 mg capsule 1 cap PO DAILY insulin aspart U-100 [Novolog FlexPen U-100 Insulin] 100 unit/mL (3 mL) insulin pen See Protocol subcut TIDAC Protocol: Insulin Correction Scale Less than or equal to 110 ---- Give (units): 0 111 to 150 Give (units): 0 151 to 200 Give (units): 2 201 to 250 Give (units): 4 251 to 300 Give (units): 6 301 to 350 Give (units): 8 Greater than 350 Give (units): 10 Call MD if Blood Glucose > : 350 Fish Oil 340-1,000 mg capsule 1 cap PO TID insulin glargine [Lantus Solostar U-100 Insulin] 100 unit/mL (3 mL) insulin pen 25 unit subcut BID atorvastatin 20 mg tablet 20 mg PO DAILY cyanocobalamin (vitamin B-12) 1,000 mcg tablet 1,000 mcg PO 3XW omeprazole 40 mg capsule,delayed release(DR/EC) 40 mg PO DAILY@0630 dicyclomine 10 mg capsule 10 mg PO TID PRN (Reason: abdominal pain) Creon 24,000-76,000 -120,000 unit capsule,delayed release(DR/EC) 1 cap PO BID PRN (Reason: with snacks) Creon 24,000-76,000 -120,000 unit capsule,delayed release(DR/EC) 2 cap PO TIDWM docusate sodium 100 mg Capsule 100 mg PO BID Qty: 30 0RF polyethylene glycol 3350 17 gram Powder In Packet 17 g PO BID@0800,1700 Qty: 30 0RF oxycodone 15 mg Tablet 30 mg PO Q4H PRN (Reason: Pain, Moderate(Pain Scale 4-6)) Qty: 56 0RF Rx Instructions: Partial Fill upon patient request. Interventions: ED Discharge Assessment Last Done: 10/25/23 00:10 Discharge Date/Time: 10/25/23 00:11
--- NOTE | 2023-10-24 16:02 | PC.NURSE ---
tech bladder scanned patient for 39ml, [employer] aware
[2023-10-24 16:17] LABS: MANUAL DIFF FLAG NO
[2023-10-24 16:29] LABS: Basophils Percent Auto 0.4 % (0-2); Eosinophils Absolute Auto 0.1 X10*3/uL (0.0-0.4); Eosinophils Percent Auto 1.2 % (0-4); Imm Gran Abs Auto 0.02 X10*3/uL (0.00-0.03); Imm Gran Pct Auto 0.4 % (0.0-0.4); Lymphocytes Absolute Auto 1.3 X10*3/uL (1.2-4.9); Lymphocytes Percent Auto 26.1 % (20-40); Mean Corpuscular HGB Conc 32.6 g/dl (31.0-36.0); Mean Platelet Volume 11.8 fL (9.4-12.4); Monocytes Absolute Auto 0.3 X10*3/uL (0.1-1.2); Monocytes Percent Auto 6.5 % (2-11); Neutrophils Absolute Auto 3.3 x10*3/uL (2.0-8.3); Neutrophils Percent Auto 65.4 % (45-73); Platelet Count 172 X10*3/uL (160-400); Red Blood Count 4.83 X10*6/uL (4.60-5.80); Red Cell Distribution Width 12.5 % (11.0-16.0); White Blood Count 5.1 X10*3/uL (4.8-10.8)
[2023-10-24 16:33] LABS: Anion Gap 11 (12-20); Blood Urea Nitrogen 18 mg/dL (9-16); Calcium 9.4 mg/dL (8.4-10.2); Carbon Dioxide 30 mmol/L (22-29); Chloride 106 mmol/L (96-108); Creatinine Clr Calc Pharmacy 101.3; Estimated Glomerular Filt Rate > 60; Glucose Random 117 mg/dL (60-115); Potassium 4.2 mmol/L (3.3-5.1); Sodium 143 mmol/L (135-145)
--- OUTSIDE RECORDS SUMMARY | 2023-10-24 18:57 | XMS_ITS | Continuity of Care Document ---
Author Name Unknown Organization [facility] ter Address [address] [place] [id number]- Care Team Providers Care Supervisor [employer] Name Role Phone Rosario Zamudio DO Primary Care Arianna sinclair Encounter [facility] [place] Date(s): 05/03/20 - 05/03/[address] [address]- [facility] Discharge Disposition: A-D/C Home Attending Physician: Celestine Castillo MD Admitting Physician: Celestine Castillo MD Referring Physician: Not on Staff, Referring MD Results Radiology Reports * Exam Date Time Procedure Performing Provider Status 05/03/20 8:02 PM Foot Min 3 Views Right Desrosier, Eile en; Auth (Verified) Notes: (Foot Min 3 Views Right) Reason For Exam: with Pain;Trauma RESULT: Foot Min 3 Views Right Foot Min 3 Views Right, 3 views Reason: Trauma; with Pain; Clinical Question(s): Fracture COMPARISON: None. FINDINGS: No fractures or bone lesions. No arthritic changes. Normal soft tissues. IMPRESSION: No acute osseous injury identified. WSN: [id number] Ordering Physician: Elias Maloney Dictated By: Dhiraj Cohen MD Dictated Date/Time: 05/03/20 8:13 pm Reviewed By: Dhiraj Cohen MD Signed By: Dhiraj Cohen MD Signed Date/Time: 05/03/20 8:13 pm Transcribed By: FERNY Transcribed Date/Time: 05/03/20 8:12 pm * Exam Date Time Procedure Performing Provider Status 05/03/20 8:02 PM Tibia/Fibula 2 Views Right Desrosier, Reema; Auth (Verified) Notes: (Tibia/Fibula 2 Views Right) Reason For Exam: with Pain;Trauma RESULT: Tibia/Fibula 2 Views Right Tibia/Fibula 2 Views Right Reason: Trauma; with Pain; Clinical Question(s): Fracture COMPARISON: None. FINDINGS: No fractures or bone lesions. Visualized joints are normal. Normal soft tissues. IMPRESSION: No acute osseous injury identified. WSN: [id number] Ordering Physician: Elias Maloney Dictated By: Dhiraj Cohen MD Dictated Date/Time: 05/03/20 8:11 pm Reviewed By: Dhiraj Cohen MD Signed By: Dhiraj Cohen MD Signed Date/Time: 05/03/20 8:11 pm Transcribed By: FERNY Transcribed Date/Time: 05/03/20 8:09 pm * Exam Date Time Procedure Performing Provider Status 05/03/20 8:02 PM XR Femur 2 Views Left Carlos Henriquez n; Auth (Verified) Notes: (XR Femur 2 Views Left) Reason For Exam: with Pain;Trauma RESULT: Femur 2 Views Left Femur 2 Views Left, 5 views Reason: Trauma; with Pain; Clinical Question(s): Fracture COMPARISON: None. FINDINGS: No fracture, dislocation or bone lesion. Visualized portions of the joints are normal. Normal soft tissues. IMPRESSION: No acute osseous injury identified. WSN: [id number] Ordering Physician: Elias Maloney Dictated By: Dhiraj Cohen MD Dictated Date/Time: 05/03/20 8:06 pm Reviewed By: Dhiraj Cohen MD Signed By: Dhiraj Cohen MD Signed Date/Time: 05/03/20 8:06 pm Transcribed By: CSB Transcribed Date/Time: 05/03/20 8:05 pm * Exam Date Time Procedure Performing Provider Status 05/03/20 8:02 PM XR Femur 2 Views Right El Henriquez en; Auth (Verified) Notes: (XR Femur 2 Views Right) Reason For Exam: with Pain;Trauma RESULT: Femur 2 Views Right Femur 2 Views Right, 4 views Reason: Trauma; with Pain; Clinical Question(s): Fracture COMPARISON: None. FINDINGS: No fracture, dislocation or bone lesion. Visualized portions of the joints are normal. Normal soft tissues. IMPRESSION: No acute osseous injury identified. WSN: [id number] Ordering Physician: Elias Maloney Dictated By: Dhiraj Cohen MD Dictated Date/Time: 05/03/20 8:05 pm Reviewed By: Dhiraj Cohen MD Signed By: Dhiraj Cohen MD Signed Date/Time: 05/03/20 8:05 pm Transcribed By: FERNY Transcribed Date/Time: 05/03/20 8:04 pm * Exam Date Time Procedure Performing Provider Status 05/03/20 7:21 PM Chest Portable Ayo [place]; Taylor ( Verified) Notes: (Chest Portable) Reason For Exam: Pain;Other: RESULT: Chest Portable AP supine portable chest dated May 03, 2020 at 1907 hours. No prior studies are available. HISTORY: Pain secondary to trauma. FINDINGS: The cardiac silhouette is within normal limits for size. Hilar and mediastinal structuresare unremarkable. No airspace infiltrate or pleural effusion is identified. No displaced rib fracture or pneumothorax is seen. There is some increased soft tissue in the lowerneck. This is causing some compression of the trachea and displacement to the left. A hematoma would be possible etiology. IMPRESSION: No evidence of acute pulmonary disease and the chest. Abnormal soft tissue density in the right side of the neck displacing the trachea. Evaluate for hematoma. Examination 89821. Thank you for allowing me to participate in the care of this patient. WSN: [id number] Ordering Physician: Elias Maloney Dictated By: Jeremy Vizcarra MD Dictated Date/Time: 05/03/20 7:30 pm Reviewed By: Jeremy Vizcarra MD Signed By: Jeremy Vizcarra MD Signed Date/Time: 05/03/20 7:30 pm Transcribed By: FERNY Transcribed Date/Time: 05/03/20 7:29 pm Vital Signs Most recent to oldest [Reference Range]: 1 Oxygen Saturation [94-100 %] 100 % (05/03/20 8:30 PM) Pulse Rate [55-90 bpm] 58 bpm (05/03/20 8:30 PM) Blood Pressure [90-138/55-84 mm Hg] 105/ 66mm Hg (05/03/20 8:30 PM) Respiratory Rate [16-30 br/min] 18 br/mi n (05/03/20 8:30 PM) Temperature [96.8-100.4 DegF] 98.7 DegF (05/03/20 8:30 PM) Mode of Delivery (Oxygen) Room air (05/03/20 8:30 PM) Blood pressure sites Arm, left (05/03/20 8:30 PM) Temperature Route Oral (05/03/20 8:30 PM)
[2023-10-24 20:00] VITALS: BP 141/69; PULSE 59; RESP 15; TEMP 36.8; O2SAT 98
--- NOTE | 2023-10-24 20:34 | PC.NURSE ---
pt from home reporting 3 days of burning with urination, and inability to start urinating. pt denies n/n/d. pt lower abdomen tender to touch. pt bladder scanned at this time, 66ML noted. pt tolerated well. pt notified need for urine sample at this time, instruction given.
--- NOTE | 2023-10-24 21:00 | PC.NURSE ---
urine obtained and sent to lab at this time.
[2023-10-24 21:04] LABS: Appearance Urine Clear; Color Urine Yellow; Glucose Urine UA 250 mg/dL (Negative); Leukocyte Esterase Urine Negative (Negative); Nitrite Urine Negative (Negative); PH 5.5 (5.0-9.0); Specific Gravity - Urine >= 1.030 (1.005-1.025); Urine Blood Negative (Negative); Urine Ketones Trace mg/dL (Negative); Urine Protein Negative (Neg-Trace)
--- NOTE | 2023-10-24 21:16 | PC.NURSE ---
pt reporting 9/10 pain at this time, aware.
[2023-10-24] MEDS: oxyCODONE HCl Immed Release 5 MG TABLET 10 MG PO (21:20)
--- NOTE | 2023-10-24 21:22 | PC.NURSE ---
pt medicated per jan for 10/10 bladder pain.
[2023-10-24] MEDS: Morphine Sulfate Immed Release 15 MG TABLET PO (21:50)
[2023-10-24] MEDS: Phenazopyridine HCL 200 MG TABLET PO (21:50)
--- NOTE | 2023-10-24 21:54 | PC.NURSE ---
pt medicated per mar for 1010 abdominal pain.
[2023-10-24 22:00] LABS: Alanine Aminotransferase 92 U/L (0-40); Albumin Level 3.9 g/dL (3.5-5.0); Alkaline Phosphatase 105 U/L (39-117); Aspartate Amino Transferase 53 U/L (5-37); Bilirubin Direct 0.1 mg/dL (0.0-0.5); Bilirubin Total 0.3 mg/dL (0.0-1.0); Total Protein 6.9 g/dL (6.5-8.0)
[2023-10-24] MEDS: bisacodyL 5 MG TABLET.DR 10 MG PO (23:19)
[2023-10-24] MEDS: Milk of Magnesia 30 ML ORAL.SUSP PO (23:19)
--- NOTE | 2023-10-25 00:09 | PC.NURSE ---
Reviewed discharge instructions with pt , pt verbalized understanding, no sign of distress upon discharge.
== END 2023-10-25 00:11 | disposition home or self-care (01) ==
PROVIDERS: Registered Nurse Emergency; Emergency Provider Internal Medicine; PCP Internal Medicine
DX: R30.0 Dysuria (principal); K59.00 Constipation, unspecified; R10.9 Unspecified abdominal pain; C22.1 Intrahepatic bile duct carcinoma; F17.210 Nicotine dependence, cigarettes, uncomplicated; Z71.6 Tobacco abuse counseling; Z79.899 Other long term (current) drug therapy
CPT/HCPCS: 36415; 51798; 74018; 80048; 80076; 81003; 85025; 99283; 99285